=== PATIENT | female | born 1995 | race Caucasian/White ===

== ENCOUNTER → 2018-07-14 16:36 | Outpatient (CLI) | payer OTHER, SELFPAY ==
[2018-07-14 14:30] VITALS: BMI 25.5
[2018-07-14 18:44] LABS: Chlamydia Trachomatis by PCR Negative (Negative); Neisserai gonorrhoeae by PCR Negative (Negative); Specimen Processing Control PASS
[2018-07-14 18:45] LABS: Probe Check PASS; Sample Adequacy Control PASS
== END ==
PROVIDERS: Referring Provider Nurse Practitioner Women's Health; Visit Provider Nurse Practitioner Women's Health
DX: Z11.3 Encounter for screening for infections with a predominantly sexual mode of transmission (principal)
CPT/HCPCS: 87491; 87591

== ENCOUNTER → 2018-10-01 17:46 | Outpatient (CLI) | payer OTHER, SELFPAY ==
[2018-10-01 09:05] VITALS: BMI 25.5
[2018-10-08 13:02] LABS: HPV Reflexed? NOT INDICATED
== END ==
PROVIDERS: Visit Provider Nurse Practitioner Women's Health
DX: Z12.4 Encounter for screening for malignant neoplasm of cervix (principal)
CPT/HCPCS: 87624; 88175; G0145

== ENCOUNTER → 2019-10-05 | Outpatient (CLI) | payer OTHER, SELFPAY ==
[2019-10-05 10:08] VITALS: BMI 25.5
[2019-10-09 04:22] LABS: HPV Reflexed? NOT INDICATED
== END | disposition home or self-care (01) ==
LOC: LABSPEC 14:45
PROVIDERS: Nurse Practitioner Women's Health; Referring Provider Obstetrics & Gynecology; Visit Provider Obstetrics & Gynecology
DX: Z12.4 Encounter for screening for malignant neoplasm of cervix (principal)
CPT/HCPCS: 88175; G0145

== ENCOUNTER 2021-03-29 09:17 | Outpatient (CLI) | payer BC, SELFPAY ==
[2021-04-03 21:45] LABS: HPV Reflexed? NOT INDICATED
== END 2021-03-29 23:59 | disposition short-term general hospital (02) ==
LOC: LABSPEC 03-30 09:15
PROVIDERS: Referring Provider Nurse Practitioner Women's Health; Visit Provider Nurse Practitioner Women's Health
DX: R87.612 Low grade squamous intraepithelial lesion on cytologic smear of cervix (LGSIL) (principal)
CPT/HCPCS: 88175; G0145

== ENCOUNTER 2021-06-01 14:31 | Outpatient (CLI) | payer BC, SELFPAY ==
--- NOTE | 2021-06-01 | ECC_PTH ---
PATIENT: PAULINE BLISS LOC: [facility] U#:[id number] AGE/SX: 26/F ROOM: RE06/01/[address]: Dr. Aleena Humphrey MD : 1995 BED: DIS: 06/01/2021 SPEC #: [id number] RECD: 06/01/21 14:30 STATUS: TITO REStefania #: [id number] SUSY: 06/01/21 00:[address]: Aleena Humphrey DEPT: SURGICAL PATHOLOGY RECD BY: Santos Lott ENTERED: 06/02/21 09:09 SP TYPE: ECC OT DR: Inocencia Primary Care Phys Tissues: A - Endocervical B - Endocervical Procedures: Surgery Specimen Level IV HEADER OPERATION: Colposcopy PRE-OP DIAGNOSIS: LGSIL TISSUE SUBMITTED: A ? Endocervical curettings, B ? 11 o?clock MICROSCOPIC DIAGNOSIS A. Endocervix, curettings (cell block): Rare fragments of benign endocervical and squamous mucosa. No evidence of dysplasia. B. Cervix at 11 o?clock, biopsy (cell block): Rare fragments of benign squamous mucosa. No evidence of dysplasia. AM:kiley 06/05/2021 MICROSCOPIC DESCRIPTION Slides are reviewed. GROSS DESCRIPTION A - Received in fixative is one container labeled with the patient's name and designated endocervical curettings. The specimen consists of a scant amount of soft tissue. The specimen is totally submitted for cell block preparation. B - Received in fixative is one container labeled with the patient's name and designated cervix 11 o'clock. The specimen consists of a scant amount of soft tissue. The specimen is totally submitted for cell block preparation. / SJ:kiley 06/02/2021 TC:5 [facility]: [id number] x2
--- NOTE | 2021-06-01 | IMM_PTH ---
PATIENT: PAULINE BLISS LOC: [facility] U#:[id number] AGE/SX: 26/F ROOM: RE06/01/[address]: Dr. Aleena Humphrey MD : 1995 BED: DIS: 06/01/2021 SPEC #: [id number] RECD: 06/05/21 13:21 STATUS: TITO REQ #: [id number] SUSY: 06/01/21 00:[address]: Aleena Humphrey DEPT: IMMUNOHISTOCHEMISTRY RECD BY: Alie Yadav ENTERED: 06/05/21 13:21 SP TYPE: IMMUNO OT DR: No Primary Care Phys Tissues: B - Uterine cervix, NOS Procedures: p16 (initial) KI-67 (add) PHYSICIAN & INSTITUTION [place] [id number] SPECIMEN INFORMATION: Tissue Source: B ? Cervix at 11 o?clock Clinical Info: [facility] Specimen Number: [id number] CPT code: 94939 METHODOLOGY: Deparaffinized sections of prefer/formalin-fixed tissue or PAP/DQ stained slides are incubated with monoclonal/polyclonal antibodies/oligonucleotide probes. Localization is made via biotin free immunoperoxidase method. Appropriate controls are performed and reacted as expected. Results on target cell population are indicated in the following table: RESULTS: ANTIBODY / CLONE RESULT Block B P16 (E6H4) negative Ki-67 (30-9) negative These tests were developed and their performance characteristics determined by [facility]. They may not have been cleared or approved by the [place]. Food and Drug Administration. The FDA has determined that such clearance or approval is not necessary. The above immunohistochemical/dualISH markers are ordered and reviewed by the Pathologist. INTERPRETATION: B. Cervix at 11 o?clock (cell block): No evidence of HPV change/dysplasia. AM:kiley 06/06/2021
== END 2021-06-01 23:59 | disposition home or self-care (01) ==
LOC: LABSPEC 14:32
PROVIDERS: Referring Provider Obstetrics & Gynecology; Visit Provider Obstetrics & Gynecology
DX: R87.612 Low grade squamous intraepithelial lesion on cytologic smear of cervix (LGSIL) (principal)
CPT/HCPCS: 88305; 88341; 88342

== ENCOUNTER → 2024-12-28 | Outpatient (CLI) | payer MEDICAID, SELFPAY ==
[2024-12-28 17:27] LABS: Hematocrit 38.7 % (37-47); Hemoglobin 13.5 g/dL (12.0-15.0); Immature Granulocytes Count 0.220 X10^3/uL (0.0-0.0); Mean Corp Hgb Conc 34.9 g/dL (32-36); Mean Corpuscular Volume 96.5 fL (81-99); Mean Platelet Vol. 10.5 fl (6.2-12.0); NRBC Flagged by Analyzer 0 % (0-5); Platelet Count 480 K/mm3 (150-450); RBC Distribution Width CV 13.2 % (11.6-14.6); RBC Distribution Width SD 47.1 fl (35.1-43.9); Red Blood Count 4.01 M/mm3 (4.2-5.4); White Blood Count 14.4 K/mm3 (4.4-11.0)
[2024-12-28 17:55] LABS: Glucose Challenge Gest 1H 50g 104 mg/dL (70-140); HIV Nonreactive (Nonreactive); Syphilis Antibodies Nonreactive (Nonreactive)
== END | disposition home or self-care (01) ==
LOC: BWCLAB 13:08
PROVIDERS: Visit Provider Obstetrics & Gynecology
DX: O09.90 Supervision of high risk pregnancy, unspecified, unspecified trimester (principal); Z13.1 Encounter for screening for diabetes mellitus; Z3A.00 Weeks of gestation of pregnancy not specified
CPT/HCPCS: 36415; 82950; 85025; 86703; 86780; 86850; 86900; 86901

== ENCOUNTER 2025-01-26 09:59 | Outpatient (CLI) | payer OTHER, SELFPAY ==
--- NOTE | 2025-01-26 10:03 | US_ITS ---
PROCEDURE: OB LIMITED WITH BIOMETRICS; OB BIOPHYSICAL PROF W/O NST 01/26/2025 REASON FOR EXAM: UTERINE SIZE DATE DISCREPANCY; WELLBEING TECHNIQUE: Procedure Code: USOBGROWTH; USBIOWO Modality: US Procedure: OB LIMITED WITH BIOMETRICS; OB BIOPHYSICAL PROF W/O NST COMPARISON: None FINDINGS Number: 1 Position: Cephalic Placental Position: Fundal Placental Abnormalities: None DIMENSIONS: Biparietal Diameter: 8 cm/32 weeks 0 days, 11 percentile Head Circumference: 28.8 cm/31 weeks 1 day, 1 th percentile Abdominal Circumference: 28.7 cm/32 weeks 5 days, 30 percentile Femur Length: 6.4 cm/32 weeks 6 days, 24th percentile ESTIMATED WEIGHT: 2036 g ESTIMATED WEIGHT PERCENTILE (24+ weeks): 23 ESTIMATED GESTATIONAL AGE: Baseline: 33 weeks 3 days By Ultrasound: 32 weeks 0 days ESTIMATED DATE OF DELIVERY: Baseline: 03/13/2025 By Ultrasound: 03/23/03/23/2025 BIOPHYSICAL ASSESSMENT: Amniotic Fluid Volume: Adequate Amniotic Fluid Index: 11.5 (8-24 cm normal range) BREATHING MOVEMENTS: Score 0/2. BODY MOVEMENTS: Score 2/2. TONE: Score 2/2. QUALITATIVE AMNIOTIC FLUID VOLUME: cm, largest pocket cm Score 2/2. Cardiac Motion: 157 beats per minute (average) MATERNAL ANATOMY: Limited ANATOMY: Limited due to gestational age. The stomach and intracranial structures appear unremarkable. No midline shift. No ventriculomegaly. Remainder of the head is limited to visualization.
[2025-01-26 11:16] VITALS: BP 115/66; PULSE 88; RESP 16; TEMP 36.9; O2SAT 98
[2025-01-26 11:32] VITALS: BMI 27.8
--- OUTSIDE RECORDS SUMMARY | 2025-01-26 11:32 | XMS RPT_ITS | CCD ---
Author Organization [facility] DOOR CLOSER [facility] Care Team Providers Care Marble Mechanic Helper Name Role Phone Care Physician, No Primary Primary Care Provider Unavailable Care Physician, No Primary Referring Provider Un available Rolando HODGE, CHALO Harris Attending Provider Dr. Aleena Humphrey Attending Provider Unavailable Primary Care Provider Unavailabl e Unavailable Primary Care Provider Unavailabl e REFERRED, SELF Referring Unavailable THOMAS CABALLERO Attending Unavailable THOMAS CABALLERO Primary Care Unavailable REFERRED, SELF Referring Unavailable THOMAS CABALLERO Primary Care Unavailable THOMAS CABALLERO Attending Unavailable KATHY MARTINEZ Attending Unavailable Yanet Beckham MD Unavailable Thierry NON CATEGORICAL PRESCHOOL TEACHER.DOUG, Velia J Unavailable [phone] THIERRY, VELIA J Referring Unavailable THIERRY, VELIA J Attending Unavailable THIERRY, VELIA J Referring Unavailable THIERRY, VELIA J Referring Unavailable RYANNE MILIAN Attending Unavailabl e THIERRY, VELIA J Referring Unavailable THIERRY, VELIA J Referring Unavailable THIERRY, VELIA J Attending Unavailable THIERRY, VELIA J Referring Unavailable THIERRY, VELIA J Referring Unavailable THIERRY, VELIA J Referring Unavailable THIERRY, VELIA J Referring Unavailable THIERRY, VELIA J Attending Unavailable Care Physician, No Primary Primary Care Unava ilable Care Physician, No Primary Referring Unava ilAleena Elise Attending Unavailable Care Physician, No Primary Referring Unava ilable Kimberly Marshall NP Attending Unavailable Care Physician, No Primary Primary Care Unava ilable Care Physician, No Primary Primary Care Unava ilable Care Physician, No Primary Attending Unava ilable Care Physician, No Primary Primary Care Unava ilAleena Elise Attending Unavailable Medications Current Medications Medication Drug Class(es) Dates Sig (Normalized) Sig (Original) acetaminophen 500 mg oral tablet (3 sources) Start: 08-04-2023 End: 09-03-2023 take 2 tablets by mouth every six hours as needed for pain acetaminophen (TYLENOL) 500 mg tablet Indications: state Take 2 tablets by mouth every 6 hours as needed for pain. 60 tablet 0 08/04/2023 09/03/2023 Active docusate sodium 100 mg oral capsule (3 sources) Start: 08-04-2023 End: 09-03-2023 take 2 capsules by mouth twice daily as needed for constipation docusate sodium (COLACE) 100 mg capsule Indications: state Take 2 capsules by mouth two times a day as needed for constipation. 60 capsule 0 08/04/2023 09/03/2023 Active Norgestimate-Ethinyl Estradiol (8 sources) Progestin, Estrogen Start: 03-29-2021 take 1 tablet by mouth once daily Norgestimate-Ethiny l Estradiol (Sprintec (28)) 0.25-35 mg-mcg tablet Active 1 TABLET PO daily March 29, 2021 9:20am Start: 01-10-2021 End: 03-29-2021 take 1 tablet by mouth once daily Norgestimate-Ethinyl Estradiol (Sprintec (28)) 0.25-35 mg-mcg tablet Discontinued 1 TABLET PO daily January 10, 2021 10:57am March 29, 2021 9:21am Start: 01-10-2021 End: 01-10-2021 take 1 tablet by mouth once daily Norgestimate-Ethinyl Estradiol (Sprintec (28)) 0.25-35 mg-mcg tablet Discontinued 1 TABLET PO daily January 10, 2021 10:12am January 10, 2021 10:58am Start: 01-09-2021 End: 01-10-2021 take 1 tablet by mouth once daily Norgestimate-Ethinyl Estradiol (Sprintec (28)) 0.25-35 mg-mcg tablet Discontinued 1 TABLET PO daily January 09, 2021 2:05pm January 10, 2021 10:12am Start: 10-05-2019 End: 01-09-2021 take 1 tablet by mouth once daily Norgestimate-Ethinyl Estradiol (Sprintec (28)) 0.25-35 mg-mcg tablet Discontinued 1 TABLET PO daily October 05, 2019 9:49am January 09, 2021 2:05pm Start: 10-05-2019 End: 10-05-2019 take 1 tablet by mouth once daily Norgestimate-Ethinyl Estradiol (Sprintec (28)) 0.25-35 mg-mcg tablet Discontinued 1 TABLET PO daily October 05, 2019 9:49am October 05, 2019 9:49am Start: 10-01-2018 End: 10-05-2019 take 1 tablet by mouth once daily Norgestimate-Ethinyl Estradiol (Sprintec (28)) 0.25-35 mg-mcg tablet Discontinued 1 TABLET PO daily October 01, 2018 9:05am October 05, 2019 9:49am Start: 07-14-2018 End: 10-01-2018 take 1 tablet by mouth once daily Norgestimate-Ethinyl Estradiol (Sprintec (28)) 0.25-35 mg-mcg tablet Discontinued 1 TABLET PO daily July 14, 2018 2:41pm October 01, 2018 9:05am ibuprofen 600 mg oral tablet (3 sources) Nonsteroidal Anti-inflammatory Drug Start: 08-04-2023 End: 09-03-2023 take 1 tablet by mouth every six hours as needed for pain ibuprofen (MOTRIN) 600 mg tablet Indications: state Take 1 tablet by mouth every 6 hours as needed for pain. 60 tablet 0 08/04/2023 09/03/2023 Active 28 mg iron- 800 mcg tab (20 sources) Start: 12-27-2022 take 1 tablet by mouth once daily 28 mg iron- 800 mcg tab TAKE 1 TABLET BY MOUTH ONCE DAILY 30 tablet 11 12/27/2022 Suspended Start: 12-27-2022 take 1 tablet by james th once daily 28 mg iron- 800 mcg tab TAKE 1 TABLET BY MOUTH ONCE DAILY 30 tablet 11 12/27/2022 Active Comment on above: TAKE 1 TABLET BY JAMES TH ONCE DAILY Completed/Discontinued Medications Medication Drug Class(es) Dates Sig (Normalized) Sig (Original) amphetamine aspartate 3.75 mg / amphetamine sulfate 3.75 mg / dextroamphetamine saccharate 3.75 mg / dextroamphetamine sulfate 3.75 mg oral tablet (1 source) Central Nervous System Stimulant Start: 9 End: 0 take 1 tablet by mouth twice daily Dextroamphetamine-Am phetamine (Adderall) 15 mg tablet Discontinued 15 MG PO TWICE A DAY July 14, 2018 2:25pm October 05, 2019 9:41am Desogestrel / Ethinyl Estradiol (1 source) Progestin, Estrogen Start: 6 take 1 tablet by mouth once daily ENSKYCE 0.15-0.03 mg per tablet TAKE ONE TABLET BY MOUTH ONCE DAILY 84 tablet 0 06/28/2015 Active Comment on above: TAKE ONE TABLET BY M OUTH ONCE DAILY 21 day ethinyl estradiol 0.842138 mg/hr / etonogestrel 0.005 mg/hr vaginal system (1 source) Progestin, Estrogen Start: 7 Etonogestrel-Ethinyl Estradiol (NUVARING) 0.12-0.015 mg/24 hr vaginal ring Indications: contraception Insert vaginally and leave in place for 3 consecutive weeks, then remove for 1 week. Indications: Contraception 3 Each 3 06/26/2016 Active Comment on above: Insert vaginally and leave in place for 3 consecutive weeks, then remove for 1 week. Indications: Contraception Norethindrone-E.Estrad iol-Iron (1 source) Estrogen Start: 9 End: 9 take 1 tablet by mouth once daily Norethindrone-E.Estr adiol-Iron (Junel Fe 1.5/30 (28)) 1.5 mg-30 mcg (21)/75 mg (7) tablet Discontinued 1 TABLET PO DAILY July 14, 2018 2:25pm July 14, 2018 2:41pm etonogestrel 68 mg drug implant (1 source) Progestin etonogestrel subdermal implant 68 mg (NEXPLANON) 68 mg by SUBDERMAL route one time only. 0 Active Comment on above: 68 mg by SUBDERMAL r oute one time only. FLUoxetine 20 mg oral capsule (1 source) Serotonin Reuptake Inhibitor take 1 capsule by mouth once daily FLUoxetine (PROZAC) 20 mg capsule Take 20 mg by mouth once daily. 0 Active Comment on above: Take 20 mg by mouth once daily. lisdexamfetamine dimesylate 40 mg oral capsule (1 source) Central Nervous System Stimulant take 1 capsule by mouth once daily lisdexamfetamine (VYVANSE) 40 mg capsule Take 40 mg by mouth once daily. 0 Active Comment on above: Take 40 mg by mouth once daily. multivitamin ( VITAMIN WITH MINERALS) 28 mg iron- 800 mcg tab (1 source) Start: End: 3 take 1 tablet by mouth once daily multivitamin ( VITAMIN WITH MINERALS) 28 mg iron- 800 mcg tab Take 1 tablet by mouth once daily. 30 tablet 11 12/26/2022 12/27/2022 Discontinued Comment on above: Take 1 tablet by james th once daily. Problems Active Problems Problem Classification Problem Date Documented Date Episodic/Chronic Anxiety disorders (1 source) Anxiety disorder, unspecified; Translations: [Anxiety disorder, unspecified] Onset: 12-28-2024 Chronic Cancer of cervix (3 sources) Low grade squamous intraepithelial lesion on cervical Papanicolaou smear; Translations: [Low grade squamous intraepithelial lesion on cytologic smear of cervix (LGSIL)] Onset: 12-28-2024 Episodic Deficiency and other anemia (1 source) Hereditary spherocytosis; Translations: [Hereditary spherocytosis] Onset: 12-28-2024 Chronic Immunizations and screening for infectious disease (1 source) Encounter for prophylactic Rho(D) immune globulin; Translations: [Need for prophylactic immunotherapy] 05-08-2023 Episodic Menstrual disorders (2 sources) Secondary amenorrhea; Translations: [Secondary amenorrhea] Onset: 07-21-2024 01-18-2023 Chronic Other complications of ; puerperium affecting management of mother (1 source) Disorder of ; Translations: [Other disorders of ] 08-30-2023 Episodic Other complications of (20 sources) RhD negative; Translations: [Other specified related conditions, second trimester] Onset: 02-04-2023 Resolved: 08-17-2024 02-04-2023 Episodic Other complications of (20 sources) High risk ; Translations: [Supervision of high risk , unspecified, third trimester] Onset: 05-08-2023 Resolved: 08-17-2024 05-08-2023 Episodic Other complications of (8 sources) H/O: previous delivery by vacuum extraction; Translations: [Supervision of with other poor reproductive or obstetric history, unspecified trimester] Onset: 08-17-2024 08-17-2024 Episodic Other complications of (2 sources) Other specified related conditions, unspecified trimester; Translations: [Rh negative state in antepartum period (HCC)] Onset: 08-17-2024 Episodic Other complications of (2 sources) Supervision of high risk , unspecified, unspecified trimester; Translations: [Supervision of high risk , antepartum (HCC)] Onset: 08-17-2024 Episodic Residual codes; unclassified (1 source) Gestation period, 15 weeks; Translations: [15 weeks gestation of ] 02-04-2023 Episodic Residual codes; unclassified (1 source) Gestation period, 25 weeks; Translations: [25 weeks gestation of ] 04-15-2023 Episodic Residual codes; unclassified (1 source) Gestation period, 28 weeks; Translations: [28 weeks gestation of ] 05-08-2023 Episodic Residual codes; unclassified (1 source) Gestation period, 34 weeks; Translations: [34 weeks gestation of ] 06-19-2023 Episodic Residual codes; unclassified (1 source) Gestation period, 36 weeks; Translations: [36 weeks gestation of ] 07-03-2023 Episodic Residual codes; unclassified (1 source) Gestation period, 37 weeks; Translations: [37 weeks gestation of ] 07-12-2023 Episodic Residual codes; unclassified (1 source) Gestation period, 38 weeks; Translations: [38 weeks gestation of ] 07-16-2023 Episodic Residual codes; unclassified (1 source) Gestation period, 39 weeks; Translations: [39 weeks gestation of ] 07-23-2023 Episodic Residual codes; unclassified (1 source) Gestation period, 40 weeks; Translations: [40 weeks gestation of ] 08-01-2023 Episodic Residual codes; unclassified (1 source) Gestation period, 9 weeks; Translations: [9 weeks gestation of ] 08-17-2024 Episodic Residual codes; unclassified (1 source) Gestation period, 13 weeks; Translations: [13 weeks gestation of ] 09-15-2024 Episodic Residual codes; unclassified (1 source) Gestation period, 17 weeks; Translations: [17 weeks gestation of ] 10-13-2024 Episodic Residual codes; unclassified (2 sources) Unspecified blood type, Rh negative; Translations: [Rh negative state in antepartum period (HCC)] Onset: 08-17-2024 Episodic Residual codes; unclassified (1 source) 23 weeks gestation of ; Translations: [23 weeks gestation of (HCC)] Onset: 11-26-2024 Episodic Residual codes; unclassified (1 source) Acquired absence of spleen; 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] Onset: 10-13-2024 Episodic Residual codes; unclassified (1 source) 17 weeks gestation of ; Translations: [17 weeks gestation of (HCC)] Onset: 10-15-2024 Episodic Residual codes; unclassified (1 source) 13 weeks gestation of ; Translations: [13 weeks gestation of ([facility])] Onset: 09-17-2024 Episodic Residual codes; unclassified (1 source) 29 weeks gestation of ; Translations: [29 weeks gestation of ] Onset: 12-28-2024 Episodic Unclassified (2 sources) No additional problems on file Unclassified (4 sources) [place] [employer] El[employer]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 Onset: 08-04-2023 08-04-2023 Unclassified (2 sources) Patient encounter status 08-17-2024 Unclassified (7 sources) [facility] - [facility] Onset: 08-17-2024 08-17-2024 Unclassified (7 sources) Education - [place] Onset: 08-17-2024 08-17-2024 Unclassified (1 source) Thrombocytosis after splenectomy; 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] Onset: 10-13-2024 Varicose veins of lower extremity (1 source) Asymptomatic varicose veins of unspecified lower extremity; Translations: [Asymptomatic varicose veins of unspecified lower extremity] Onset: 12-28-2024 Episodic Past or Other Problems Problem Classification Problem Date Documented Da te Episodic/Chronic Neoplasms of unspecified nature or uncertain behavior (4 sources) Post-splenectomy thrombocytosis; 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] Onset: 03-11-2023 10-13-2024 Episodic Other complications of ; puerperium affecting management of mother (13 sources) Delivery finding; Translations: [Complication of labor and delivery, unspecified] Onset: 08-02-2023 Resolved: 08-02-2023 08-02-2023 Episodic Other complications of (1 source) Supervision of with other poor reproductive or obstetric history, unspecified trimester; Translations: [History of delivery by vacuum extraction, currently (HCC)] Onset: 08-17-2024 Episodic Other hematologic conditions (20 sources) History of hemolytic anemia; Translations: [Personal history of diseases of the blood and blood-forming organs and certain disorders involving the immune mechanism] Onset: 02-04-2023 02-04-2023 Episodic Other hematologic conditions (20 sources) Erythrocytosis; Translations: [Secondary polycythemia] Onset: 03-11-2023 03-11-2023 Episodic Other hematologic conditions (2 sources) Personal history of diseases of the blood and blood-forming organs and certain disorders involving the immune mechanism; Translations: [History of hereditary spherocytosis] Onset: 08-17-2024 Episodic Other hematologic conditions (1 source) Secondary polycythemia; Translations: [Polycythemia] Onset: 08-17-2024 Episodic Other and delivery including normal (16 sources) state; Translations: [Encounter for routine follow-up] Onset: 08-02-2023 Resolved: 08-17-2024 08-02-2023 Episodic Other screening for suspected conditions (not mental disorders or infectious disease) (9 sources) Cancer cervix screening status; Translations: [Encounter for screening for malignant neoplasm of cervix] Onset: 08-17-2024 02-04-2023 Episodic Residual codes; unclassified (20 sources) Gestation period, 32 weeks; Translations: [32 weeks gestation of ] Onset: 07-03-2023 Resolved: 07-12-2023 06-05-2023 Episodic Residual codes; unclassified (1 source) 9 weeks gestation of ; Translations: [9 weeks gestation of ([facility])] Onset: 08-17-2024 Episodic Spondylosis; intervertebral disc disorders; other back problems (20 sources) Decreased range of lumbar spine movement; Translations: [Other specified dorsopathies, lumbar region] Onset: 07-03-2023 Resolved: 07-12-2023 07-03-2023 Episodic Results Test Name Value Interpretation Reference Range Facil ity Supervisor/Port Director Office Visit Reporton 01-13-2025 Supervisor/Port Director Office Visit Report [facility] [address], [address] [place] [address] OFFICE VISIT Date of Service: 01/13/25 MR#: [id number] Acct: [id number] Name: KEIKO BLISS Rep #: [id number] : 1995 Provider: CHALO warner Age/Sex: 29/F Location: [facility] Status: Signed Intake Vital Signs 06/01/21 13:35 12/28/24 10:45 01/13/25 08:22 Height 5 ft 5 in 5 ft 5 in 5 ft 5 in Weight: 163 lb 2 oz BMI 27.1 BP 120/75 Intake Visit Reasons: 31wk OB Bridal Sales 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 Required: No Is patient in pain?: No Allergies No Known Allergies Allergy (Verified 01/13/25 08:21) Medications ???Medication ???Instructions ???Recorded ???Confirmed ???Type multivit-min no.71-iron fum 28 cap PO 12/24/24 01/13/25 History mg-folate no.1 1 mg-dha 300 mg capsule (PNV-[place]) Last Menstrual Period: 06/06/24 Zika: Zika virus screening: Negative : Yes PFSH PFSH Medical History Former smoker Depression Spherocytosis Surgical History H/O hernia repair H/O splenectomy Family History Mother Spherocytosis Social History adopted: No household members: spouse, children and none housing: house number of children: 1 current occupational status: employed 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 current occupational exposures/hazards: No pets and animals: Yes (Avoid litterbox) pets and animals: cat(s) history of recent travel: No sexually active: Yes Smoking Status: Former smoker quit date: 07/28/19 quit status: quit date established alcohol intake: current alcohol intake frequency: a few times a month details: not while substance use type: does not use well-balanced diet: daily or most days caffeine: Yes Type: tea Number of servings: 1 eating out: rarely or never during the past year weight has: remained stable what type of physical activity do you participate in: other details: working on [employer] frequency: 1-2 times per week ann marie/temple: Scientologist seatbelt use: always do you feel safe at home: Yes additional social history: - Kiran History 2 Elective abortions Hx Para 1 Spontaneous abortions Hx # Term Pregnancies Ectopic pregnancies Hx # Pregnancies Multiple births # of living children 1 Past Pregnancies Del. Date Name GA/Weeks Outcome Route Bth Weight Infant Gen Labor Lgth Anesthesia Del Locatn Provider FOB 08/02/23 Latisha 40 live - full term vacuum 6#14oz Female none [facility] Bill george Kiran HPI 31wk OB Details: KEIKO BLISS is a 29 year old who presents for routine OB visit. OB Visit FLORINDA Calculator Estimated Delivery Date Method Current WG Current Estimate 03/13/25 LMP (Certain) 31w 4d Expected Delivery Route/Plan Labor Preferences- CB/BF classes: no labor support person: Kiran labor intervention preferences: [] pain management options preferred: limited cut cord/dad catch: patient wants to : yes PP control planned: discussed discussed possible routes of delivery and associated risks: [] special requests: [] Specific Issue/Plans Covid status: [] Flu vaccine: declines Tdap vaccine: declines Rhogam: 12/28/24 LARC form signed: [] Problem list reviewed and updated with the most current plan of care details and appropriate orders placed. Relevant counseling for the gestational age provided. Continue routine care and follow up unless otherwise noted in visit notes/problem list details Initial Weight: Not Recorded Date -???-???-???-???-???-? ??-???-???-???-???-??? -???- EGA Weight BP Urine Prot -???-???-???-???-???-? ??-???-???-???-???-??? -???- Glucose FHR FuHt Pres Dilation -???-???-???-???-???-? ??-???-???-???-???-??? -???- Effaced St Visit Note 12/28/24 -???-???-???-???-???-? ??-???-???-???-???-??? -???- 29w 2d 161 lb 8 oz 113/70 Negative -???-???-???-???-???-? ??-???-???-???-???-??? -???- Negative 150 29 -???-???-???-???-???-? ??-???-???-???-???-??? -???- - no vb lo f good fm no regular ctx declined vaccinations fu thuurs/fri for rhogam and gct 01/13/25 -???-???-???-???-???-? ??-???-???-???-???-??? -???- 31w 4d 163 lb 2 oz 120/75 Negative -???-???-???-???-???-? ??-???-???-???-???-??? -???- Negative 154 30 -???-???-???-???-???-? ??-???-???-???-???-??? -???- -NoVB, LOF . Good FM. Larc. Declines flu and tdap. Has tick bite, could not remove all. Going to [facility] clinic next ACOG First Trimester First Trimester: Desire for , Alcohol, Tobacco Cessation, Illicit/Recreational Drug/Sub (more content not included)... Normal [facility] CBC W/Diff, Automatedon 10-2 Absolute Lymph 2.27 X10 3/uL Normal 0.83-4.51 [facility] Comment on above: Performed By: #### L 509.0282, L501.0250, BTS, L100.0100, [id number] #### [facility] [address] [place], [address] Absolute Neut 10.2 X10 3/uL High 2.0-7.7 [facility] Comment on above: Performed By: #### L 509.8002, L501.0250, BTS, L100.0100, [id number] #### [facility] [address] [place], [address] Basophils/100 WBC (Bld) 0.6 % Normal 0-1 [facility] Comment on above: Performed By: #### L 509.8002, L501.0250, BTS, L100.0100, [id number] #### [facility] [address] [place], [address] Eosinophils/100 WBC (Bld) 1.4 % Normal 0-5 [facility] Comment on above: Performed By: #### L 509.8002, L501.0250, BTS, L100.0100, [id number] #### [facility] [address] [place], [address] Erythrocyte distribution width (RBC) [Ratio] 13.2 % Normal 11.6-14.6 [facility] Comment on above: Performed By: #### L 509.8002, L501.0250, BTS, L100.0100, [id number] #### [facility] [address] [place], [address] Hematocrit (Bld) [Volume fraction] 38.7 % Normal 37-47 [facility] Comment on above: Performed By: #### L 509.8002, L501.0250, BTS, L100.0100, [id number] #### [facility] [address] [place], [address] Hemoglobin (Bld) [Mass/Vol] 13.5 g/dL Normal 12.0-15.0 [facility] Comment on above: Performed By: #### L 509.8002, L501.0250, BTS, L100.0100, [id number] #### [facility] [address] [place], [address] IG% 1.500 High 0.0-0.9 [facility] Comment on above: Result Comment: IG% - Immature Granulocytes (promyelocytes, myelocytes and metamyelocytes) > 1% indicates that a LEFT SHIFT is Present. Performed By: #### L 509.8002, L501.0250, BTS, L100.0100, [id number] #### [facility] [address] [place], [address] Lymphocytes/100 WBC (Bld) 15.7 % Low 19-41 [facility] Comment on above: Performed By: #### L 509.8002, L501.0250, BTS, L100.0100, [id number] #### [facility] [address] [place], [address] MCH (RBC) [Entitic mass] 33.7 pg High 27.0-32.0 [facility] Comment on above: Performed By: #### L 509.8002, L501.0250, BTS, L100.0100, [id number] #### [facility] [address] [place], [address] MCHC (RBC) [Mass/Vol] 34.9 g/dL Normal 32-36 [facility] Comment on above: Performed By: #### L 509.8002, L501.0250, BTS, L100.0100, [id number] #### [facility] [address] [place], [address] MCV (RBC) [Entitic vol] 96.5 fL Normal 81-99 [facility] Comment on above: Performed By: #### L 509.8002, L501.0250, BTS, L100.0100, [id number] #### [facility] [address] [place], [address] Monocytes/100 WBC (Bld) 10.1 % High 0-10 [facility] Comment on above: Performed By: #### L 509.8002, L501.0250, BTS, L100.0100, [id number] #### [facility] [address] [place], [address] Neutrophils/100 WBC (Bld) 70.7 % High 47-70 [facility] Comment on above: Performed By: #### L 509.8002, L501.0250, BTS, L100.0100, [id number] #### [facility] [address] [place], [address] Nucleated RBC (Bld) [#/Vol] 0 10*3/uL Normal 0-5 [facility] Comment on above: Performed By: #### L 509.8002, L501.0250, BTS, L100.0100, [id number] #### [facility] [address] [place], [address] Platelet mean volume (Bld) [Entitic vol] 10.5 fL Normal 6.2-12.0 [facility] Comment on above: Performed By: #### L 509.8002, L501.0250, BTS, L100.0100, L3890.6006 #### [facility] [address] [place], [address] Platelets (Bld) [#/Vol] 480 10*3/uL High 150-450 [facility] Comment on above: Performed By: #### L 509.8002, L501.0250, BTS, L100.0100, L3890.6006 #### [facility] [address] [place], [address] RBC (Bld) [#/Vol] 4.01 10*6/uL Low 4.2-5.4 [facility] Comment on above: Performed By: #### L 509.8002, L501.0250, BTS, L100.0100, L3890.6006 #### [facility] [address] [place], [address] RDW SD 47.1 fl High 35.1-43.9 [facility] Comment on above: Performed By: #### L 509.8002, L501.0250, BTS, L100.0100, L3890.6006 #### [facility] [address] [place], [address] WBC (Bld) [#/Vol] 14.4 10*3/uL High 4.4-11.0 [facility] Comment on above: Performed By: #### L 509.8002, L501.0250, BTS, L100.0100, L3890.6006 #### [facility] [address] [place], [address] Glucose Challenge Gest 1H 50 steven 12-28-2024 GLU GEST 50g 1H 104 mg/dL Normal 70-140 [facility] Comment on above: Performed By: #### L 509.8002, L501.0250, BTS, L100.0100, L3890.6006 #### [facility] [address] [place], [address] HIVon 12-28-2024 HIV Non-Reactive Normal Nonreactive [facility] Comment on above: Result Comment: Non- Reactive Reactive Repeatedly reactive samples must be confirmed according to CDC recommended confirmatory algorithms. The subresults for either HIVAG or AHIV can be used as an aid in the selection of the confirmation algorithm for reactive samples. Send out specimens with Reactive results to [facility] for confirmation. Order the HIV antibody detection and differentiation: lc#[id number] Performed By: #### L 509.8002, L501.0250, BTS, L100.0100, L3890.6006 #### [facility] [address] [place], [address] Supervisor/Port Director Office Visit Reporton 12-28-2024 Supervisor/Port Director Office Visit Report [address], [address] [place] [address] OFFICE VISIT Date of Service: 12/28/24 MR#: [id number] Acct: [id number] Name: KEIKO BLISS Rep #: [id number] : 1995 Provider: Dr. Aleena main MD Age/Sex: 29/F Location: [facility] Status: Signed with Addenda ADDENDUM by Kimberly Garnett on 12/28/24 at 1317 Office Procedure Documentation entered by Kimberly Garnett 12/28/24 13:17: Injections Procedure performed by: Kimberly Garnett Medication Given: Yes Is this a patient provided medication?: No Office Meds RhoGAM Ultra-Filtered PLUS 1,500 unit (300 mcg) intramuscular syringe Performing Provider: Aleena Humphrey MD Performing Location: [facility] Administered by: Kimberly Garnett on 12/28/24 13:15 Dose Route Admin Location Dispensed Lot Number Expiration Date Package NDC NDC [facility] Receptionist 1,500 unit IM right gluteal 1 ea [id number] 09/26/26 69164-776-16 [id number] 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 Is patient in pain?: No Allergies No Known Allergies Allergy (Verified 12/28/24 10:37) Medications ???Medication ???Instructions ???Recorded ???Confirmed ???Type multivit-min no.71-iron fum 28 cap PO 12/24/24 History mg-folate no.1 1 mg-dha 300 mg capsule (PNV-[place]) Last Menstrual Period: 06/06/24 Zika: Zika virus screening: Negative : No PFSH PFSH Medical History Former smoker Depression Spherocytosis Surgical History H/O hernia repair H/O splenectomy Family History Mother Spherocytosis Social History adopted: No household members: spouse, children and none housing: house number of children: 1 service: No current occupational status: employed current occupation: [employer] current occupational exposures/hazards: No pets and animals: Yes (Avoid litterbox) pets and animals: cat(s) history of recent travel: No sexually active: Yes Smoking Status: Former smoker quit date: 07/28/19 quit status: quit date established alcohol intake: current alcohol intake frequency: a few times a month details: not while substance use type: does not use well-balanced diet: daily or most days caffeine: Yes Type: tea Number of servings: 1 eating out: rarely or never during the past year weight has: remained stable what type of physical activity do you participate in: other details: working on [employer] frequency: 1-2 times per week ann marie/temple: Scientologist seatbelt use: always do you feel safe at home: Yes additional social history: - Kiran History 2 Elective abortions Hx Para 1 Spontaneous abortions Hx # Term Pregnancies Ectopic pregnancies Hx # Pregnancies Multiple births # of living children 1 Past Pregnancies Del. Date Name GA/Weeks Outcome Route Bth Weight Gen Labor Lgth Anesthesia Del Locatn Provider FOB 08/02/23 Latisha 40 live - full term vacuum 6#14oz Female none [facility] eKvin Beck HPI ALISSON 28WK OB/GLUCOSE/RHOGAM Details: KEIKO COVERT is a 29 year old who presents for New OB visit. OB Visit FLORINDA Calculator Estimated Delivery Date Method Current WG Current Estimate 03/13/25 LMP (Certain) 29w 2d Comments: HIV: Urine Culture: Sequential Screen: NIPT Screen: Estimated Due Date: 03/13/25 Expected Delivery Route/Plan Labor Preferences- CB/BF classes: [] labor support person: [] labor intervention preferences: [] pain management options preferred: [] cut cord/dad catch: [] : [] PP control planned: [] discussed possible routes of delivery and associated risks: [] special requests: [] Specific Issue/Plans Covid status: [] Flu vaccine: [] Tdap vaccine: [] Rhogam: [] LARC form signed: [] Problem list reviewed and updated with the most current plan of care details and appropriate orders placed. Relevant counseling for the gestational age provided. Continue routine care and follow up unless otherwise noted in visit notes/problem list details Initial Weight: Not Recorded Date -???-???-???-???-???-? ??-???-???-???-???-??? -???- EGA Weight BP Urine Prot -???-???-???-???-???-? ??-???-???-???-???-??? -???- Glucose FHR FuHt Pres Dilat (more content not included)... Normal [facility] Syphilis Antibodieson 2024 Syphilis Abs Non-Reactive Normal Nonreactive [facility] Comment on above: Performed By: #### L 509.8002, L501.0250, BTS, L100.0100, L3890.6006 #### [facility] [address] [place] [place], [address] Type AND Screenon 12-28-2024 ABO and Rh group Nom (Bld) Blood group A Rh(D) negative Normal [facility] Comment on above: Order Comment: PN Performed By: #### L 509.8002, L501.0250, BTS, L100.0100, L3890.6006 #### [facility] [place], [address] Examination level ultrasound on 10-29-2024 Indication Standard anatomic survey. Impression The patient is referred for a standard anatomic survey. - Single, live, intrauterine . - biometry is consistent with the established gestational age. - No malformations were visualized on a complete standard anatomic survey. - The amniotic fluid volume is normal amount. - The placenta is posterior. - The Transabdominal cervical length measures 34.2 mm with no evidence of funneling or other dynamic changes. - Not all structural malformations can be detected by ultrasound examination. Recommendations Additional follow-up as clinically indicated. Maternal Assessment Height 165 cm Height (ft) 5 ft Height (in) 5 in Physical Exam Initial weight (lb) 140 lb Initial BMI 23.30 kg/m Method Transabdominal ultrasound examination. View: Adequate visualization Bustamante . Number of fetuses: 1 Dating LMP on: 06/06/2024 GA by LMP 20 w + 5 d FLORINDA by LMP: 03/13/2025 GA by prior assessment 19 w + 3 d FLORINDA by prior assessment: 03/22/2025 Ultrasound examination on: 10/29/2024 GA by U/S based upon: AC, BPD, Femur, HC GA by U/S 20 w + 0 d FLORINDA by U/S: 03/18/2025 Assigned: based on ultrasound (CRL), selected on 08/17/2024 Assigned GA 19 w + 3 d Assigned FLORINDA: 03/22/2025 General Evaluation Cardiac activity present. FHR 146 bpm. movements: present. Presentation: cephalic Placenta: Placental site: posterior Umbilical cord: Cord vessels: 3 vessel cord. Insertion site: normal insertion Amniotic fluid: Amount of AF: normal amount. MVP 4.0 cm Growth Overview Exam date GA BPD (mm) HC (mm) AC (mm) FL (mm) HL (mm) EFW (g) 10/29/2024 19w 3d 47.2 83% 165.1 42% 152.3 78% 31.4 76% 30.9 80% 329 78% Biometry Standard BPD 47.2 mm 20w 2d 83% Hadlock OFD 56.0 mm 18w 4d 25% Nicolaides HC 165.1 mm 19w 1d 42% Chuy Cerebellum tr 19.3 mm 18w 5d 28% Hill Nuchal fold 2.4 mm AC 152.3 mm 20w 3d 78% Hadlock Femur 31.4 mm 19w 6d 76% Chuy Humerus 30.9 mm 20w 2d 80% Chuy EFW 329 g 20w 0d 78% Hadlock EFW (lb) 0 lb EFW (oz) 12 oz EFW by: Hadlock ([id number]) Extended Network Security Analyst 6.8 mm CM 3.6 mm 12% Nicolaides Nasal bone 6.6 mm Extremities / Bony Struc FL / HC 0.19 76% Hadlock Other Structures FHR 146 bpm Anatomy Cranium: normal Lateral ventricles: normal Choroid plexus: normal Midline falx: normal Cavum septi pellucidi: normal Cerebellum: normal Cisterna magna: normal Head / Neck Vermis: Normal but not required for a standard anatomy exam Neck: Normal but not required for a standard anatomy exam Nuchal fold: Normal but not required for a standard anatomy exam Lips: normal Profile: Normal but not required for a standard anatomy exam Nose: Normal but not required for a standard anatomy exam Face Maxilla: Normal but not required for a standard anatomy exam Mandible: Normal but not required for a standard anatomy exam Orbits: Normal but not required for a standard anatomy exam Lens: Normal but not required for a standard anatomy exam 4-chamber view: normal RVOT view: normal LVOT view: normal 3-vessel view: normal 7-[id number]-szxggmt view: normal Heart / Thorax Situs: situs solitus (normal) Aortic arch view: Normal but not required for a standard anatomy exam SVC: Normal but not required for a standard anatomy exam IVC: Normal but not required for a standard anatomy exam Cardiac axis: normal Rt lung: Normal but not required for a standard anatomy exam Lt lung: Normal but not required for a standard anatomy exam Diaphragm: normal Cord insertion: normal Stomach: normal Kidneys: normal Bladder: normal Genitals: visualized Abdomen Abdom. wall: normal Cervical spine: normal Thoracic spine: normal Lumbar spine: normal Sacral spine: normal Arms: normal Legs: normal Rt upper arm: normal Rt forearm: normal Rt hand: normal Rt fingers: normal Lt upper arm: normal Lt forearm: normal Lt hand: normal Lt fingers: normal Rt upper leg: normal Rt lower leg: normal Rt foot: normal Lt upper leg: normal Lt lower leg: normal Lt foot: normal sex: female sex: normal Wants to know sex: yes Maternal Structures Uterus / Cervix Uterus: Visualized Uterus details: normal Cervix: Visualized Approach: Transabdominal Cervical length 34.2 mm Other: Patient declined transvaginal ultrasound for cervical length. Ovaries / Tubes / Adnexa Rt ovary: Visualized Rt ovary D1 32 mm Rt ovary D2 30 mm Rt ovary D3 11 mm Rt ovary Vol 5.5 cm Lt ovary: Suboptimal Cul de Sac / Bladder / Kidneys / Other Cul de Sac: Visualized Free fluid: no free fluid visualized Performed By: Nikia Orocso RDMS Read By: Yesica Castillo M.D. MATERNAL MEDICINE [facility] Radiology Study observation (narrative) [facility] UA DIP, URINE (POC)on 2024 BILIRUBIN UA (POCT) Negative Negative [facility] CLARITY UA (POCT) Clear [facility] COLOR UA (POCT) Yellow [facility] GLUCOSE UA (POCT) Negative Negative mg/dL [facility] Hemoglobin Ql (U) Negative Negative [facility] Interpretation and review of laboratory results Abnormal [facility] KETONE UA (POCT) Negative Negative mg/dL [facility] LEUKOCYTES UA (POCT) Small Abnormal Negative [facility] NITRITE UA (POCT) Negative Negative [facility] PH UA (POCT) 7.5 4.5 - 8.0 [facility] Protein Ql (U) 30 mg/dL Abnormal Negative [facility] SPECIFIC GRAVITY UA (POCT) 1.015 1.005 - 1.030 [facility] UROBILINOGEN UA (POCT) 1.0 Normal E.U./dL [facility] Location:[facility], [address], [address] [place] [address] POINT OF CARE [facility] CBC W Auto Diff Bldon 2024 Erythrocyte distribution width (RBC) [Ratio] 13.2 % Normal 11.5-15.0 [facility] Comment on above: Order Comment: Speci men Type: BLOOD SPECIMEN Ordering Facility: [facility] Address: [address] [place] [address] Performed By: #### 5 7021-8 #### [id number] [address] OF [facility] Performed By: #### M AT21 #### [facility] CLIA [id number] [address] [place] [address] CBC W Auto Differential pane l (Bld)on 09-17-2024 Basophils (Bld) [#/Vol] 0.08 10*3/uL Normal <0.11 [facility] Comment on above: Order Comment: Speci men Type: BLOOD SPECIMEN Ordering Facility: [facility] Address: [address] [place] [address] Performed By: #### 5 7021-8 #### [facility] CLIA [id number] [address] Basophils/100 WBC (Bld) 0.7 % Normal [facility] Comment on above: Order Comment: Speci men Type: BLOOD SPECIMEN Ordering Facility: [facility] Address: [address] [place] [address] Performed By: #### 5 7021-8 #### [facility] CLIA [id number] [address] Differential cell count method Nom (Bld) Auto Normal [facility] Comment on above: Order Comment: Speci men Type: BLOOD SPECIMEN Ordering Facility: [facility] Address: [address] [place] [address] Performed By: #### 5 7021-8 #### [facility] CLIA [id number] [address] [place] [address] [place] Eosinophils (Bld) [#/Vol] 0.07 10*3/uL Normal <0.46 [facility] Comment on above: Order Comment: Speci men Type: BLOOD SPECIMEN Ordering Facility: [facility] Address: [facility] [place] [address] Performed By: #### 5 7021-8 #### [facility] CLIA [id number] [address] OF [place] Eosinophils/100 WBC (Bld) 0.6 % Normal [facility] Comment on above: Order Comment: Speci men Type: BLOOD SPECIMEN Ordering Facility: [facility] Address: [address] [place] [address] Performed By: #### 5 7021-8 #### [facility] CLIA [id number] [address] Hematocrit (Bld) [Volume fraction] 41.7 % Normal 36.0-46.0 [facility] Comment on above: Order Comment: Speci men Type: BLOOD SPECIMEN Ordering Facility: [facility] Address: [address] [place] [address] Performed By: #### 5 7021-8 #### [facility] CLIA [id number] [address] Hemoglobin (Bld) [Mass/Vol] 14.2 g/dL Normal 11.5-15.5 [facility] Comment on above: Order Comment: Speci men Type: BLOOD SPECIMEN Ordering Facility: [facility] Address: [address] [place] [address] Performed By: #### 5 7021-8 #### [facility] CLIA [id number] [address] Immature granulocytes (Bld) [#/Vol] 0.05 10*3/uL Normal <0.10 [facility] Comment on above: Order Comment: Speci men Type: BLOOD SPECIMEN Ordering Facility: [facility] Address: [address] [place] [address] Performed By: #### 5 7021-8 #### [facility] CLIA [id number] [address] Immature granulocytes/100 WBC (Bld) 0.4 % Normal [facility] Comment on above: Order Comment: Speci men Type: BLOOD SPECIMEN Ordering Facility: [facility] Address: [address] [place] [address] Performed By: #### 5 7021-8 #### [facility] CLIA [id number] [address] [place] Lymphocytes (Bld) [#/Vol] 2.30 10*3/uL Normal 1.00-4.00 [facility] Comment on above: Order Comment: Speci men Type: BLOOD SPECIMEN Ordering Facility: [facility] Address: [address] [place] [address] Performed By: #### 5 7021-8 #### [facility] CLIA [id number] [address] Lymphocytes/100 WBC (Bld) 20.6 % Normal [facility] Comment on above: Order Comment: Speci men Type: BLOOD SPECIMEN Ordering Facility: [facility] Address: [address] [place] [address] Performed By: #### 5 7021-8 #### [facility] CLIA [id number] [address] MCH (RBC) [Entitic mass] 32.1 pg Normal 26.0-34.0 [facility] Comment on above: Order Comment: Speci men Type: BLOOD SPECIMEN Ordering Facility: [facility] Address: [address] [place] [address] Performed By: #### 5 7021-8 #### [facility] CLIA [id number] [address] MCHC (RBC) [Mass/Vol] 34.1 g/dL Normal 30.5-36.0 [facility] Comment on above: Order Comment: Speci men Type: BLOOD SPECIMEN Ordering Facility: [facility] Address: [address] [place] [address] Performed By: #### 5 7021-8 #### [facility] CLIA [id number] [address] MCV (RBC) [Entitic vol] 94.1 fL Normal 80.0-100.0 [facility] Comment on above: Order Comment: Speci men Type: BLOOD SPECIMEN Ordering Facility: [facility] Address: [address] [place] [address] Performed By: #### 5 7021-8 #### [facility] CLIA [id number] [address] [place] [address] [place] Monocytes (Bld) [#/Vol] 1.10 10*3/uL High <0.87 [facility] Comment on above: Order Comment: Speci men Type: BLOOD SPECIMEN Ordering Facility: [facility] Address: [address] [place] [address] Performed By: #### 5 7021-8 #### [facility] CLIA [id number] [address] [place] Monocytes/100 WBC (Bld) 9.9 % Normal [facility] Comment on above: Order Comment: Speci men Type: BLOOD SPECIMEN Ordering Facility: [facility] Address: [address] [place] [address] Performed By: #### 5 7021-8 #### [facility] CLIA [id number] [address] [place] Neutrophils (Bld) [#/Vol] 7.54 10*3/uL High 1.45-7.50 [facility] Comment on above: Order Comment: Speci men Type: BLOOD SPECIMEN Ordering Facility: [facility] Address: [address] [place] [address] Performed By: #### 5 7021-8 #### [facility] CLIA [id number] [address] [place] Neutrophils/100 WBC (Bld) 67.8 % Normal [facility] Comment on above: Order Comment: Speci men Type: BLOOD SPECIMEN Ordering Facility: [facility] Address: [address] [place] [address] Performed By: #### 5 7021-8 #### [facility] CLIA [id number] [address] [place] [address] [place] Nucleated RBC (Bld) [#/Vol] 10*3/uL Normal <0.01 [facility] Comment on above: Order Comment: Speci men Type: BLOOD SPECIMEN Ordering Facility: [facility] Address: [address] [place] [address] Performed By: #### 5 7021-8 #### [facility] CLIA [id number] [address] [place] Nucleated RBC/100 WBC (Bld) [Ratio] 0.0 /[address] [facility] Comment on above: Order Comment: Speci men Type: BLOOD SPECIMEN Ordering Facility: [facility] Address: [facility] [place] [address] Performed By: #### 5 7021-8 #### [facility] CLIA [id number] [address] [place] Platelet mean volume (Bld) [Entitic vol] 10.6 fL Normal 9.0-12.7 [facility] Comment on above: Order Comment: Speci men Type: BLOOD SPECIMEN Ordering Facility: [facility] Address: [address] [place] [address] Performed By: #### 5 7021-8 #### [facility] CLIA [id number] [address] [place] Platelets (Bld) [#/Vol] 500 10*3/uL High 150-400 [facility] Comment on above: Order Comment: Speci men Type: BLOOD SPECIMEN Ordering Facility: [facility] Address: [address] [place] [address] Performed By: #### 5 7021-8 #### [facility] CLIA [id number] [address] [place] RBC (Bld) [#/Vol] 4.43 10*6/uL Normal 3.90-5.20 [facility] Comment on above: Order Comment: Speci men Type: BLOOD SPECIMEN Ordering Facility: [facility] Address: [facility] [place] [address] Performed By: #### 5 7021-8 #### [facility] CLIA [id number] [address] [place] WBC (Bld) [#/Vol] 11.14 10*3/uL High 3.70-11.00 [facility] Comment on above: Order Comment: Speci men Type: BLOOD SPECIMEN Ordering Facility: [facility] Address: [address], [place] [address] Performed By: #### 5 7021-8 #### [facility] CLIA [id number] [address] [place] [address] [place] Examination level ultrasound on 09-17-2024 Indication First trimester anatomic survey History of hereditary spherocytosis. Polycythemia Impression The patient is referred for a first trimester anatomy scan including nuchal translucency measurement as clinically indicated. - Single, live, intrauterine . - [place] rump length measurement is consistent with the established gestational age. - A qualitative screen of the nuchal translucency and other anatomic structures was unremarkable on an incomplete first trimester anatomic assessment. - Not all structural malformations can be detected by ultrasound examination. - An anatomic survey at 18-20 weeks is recommended given no identified risk factors. Recommendations - An anatomic survey at 18-20 weeks given no identified risk factors. - Additional follow up as clinically indicated. Maternal Assessment Height 165 cm Height (ft) 5 ft Height (in) 5 in Method Transabdominal ultrasound examination Bustamante . Number of fetuses: 1 Dating LMP on: 06/06/2024 GA by LMP 14 w + 5 d FLORINDA by LMP: 03/13/2025 GA by prior assessment 13 w + 3 d FOLRINDA by prior assessment: 03/22/2025 Ultrasound examination on: 09/17/2024 GA by U/S based upon: CRL GA by U/S 13 w + 2 d FLORINDA by U/S: 03/23/2025 Assigned: based on ultrasound (CRL), selected on 08/17/2024 Assigned GA 13 w + 3 d Assigned FLORINDA: 03/22/2025 General Evaluation Cardiac activity present Placenta: posterior Cord vessels: 3 vessel cord Amniotic fluid: normal amount Biometry Standard FHR 168 bpm CRL 71.1 mm 13w 2d 38% Hadlock First Trimester Anatomy Calvarium: normal Falx cerebri: normal Choroid plexus: normal Profile: normal Nasal bone: normal Retronasal triangle: normal Maxilla: normal Mandible: normal Nuchal translucency: Unremarkable Situs: normal Cardiac position: normal Cardiac axis: normal 4-chamber view: normal 4-chamber view with color: normal 2-ptbxei-cbtpddq view: suboptimal Abdominal cord insertion: normal Stomach: normal Kidneys: normal Bladder: normal Color doppler of perivesical umbilical arteries: normal Vertebral alignment: normal Arms: normal Hands: normal Legs: normal Feet: normal Maternal Structures Uterus / Cervix Uterus: Visualized Ovaries / Tubes / Adnexa Rt ovary: Not visualized Lt ovary: Not visualized Performed By: Risa Ann RUST Read By: Yesica Castillo M.D. MATERNAL MEDICINE [facility] Radiology Study observation (narrative) [facility] HAV IgM Ser Qlon 09-17-2024 HAV IgM Ql (S) Non-Reactive Normal Nonreactive [facility] Comment on above: Order Comment: Speci men Type: BLOOD SPECIMEN Ordering Facility: [facility] Address: [address] [place] [address] Result Comment: No e vidence of recent infection with Hepatitis A virus. Performed By: #### M AT21 #### [facility] CLIA [id number] [address] [place] [address] HBV core IgM Ser Qlon 2024 HBV core IgM Ql (S) Non-Reactive Normal Nonreactive [facility] Comment on above: Order Comment: Speci men Type: BLOOD SPECIMEN Ordering Facility: [facility] Address: [address] [place] [address] Result Comment: No e vidence of recent infection with Hepatitis B virus. Should recent infection be suspected, repeat testing may be considered 3-4 weeks after this draw. Performed By: #### M AT21 #### [facility] CLIA [id number] [address] [place] [address] HBV surface Ag Ser Qlon 09-01 HBV surface Ag Ql (S) Non-Reactive Normal Nonreactive [facility] Comment on above: Order Comment: Speci men Type: BLOOD SPECIMEN Ordering Facility: [facility] Address: [address] [place] [address] Performed By: #### M AT21 #### [facility] CLIA [id number] [address] [place] [address] HCV Ab Ser Qlon 09-17-2024 HCV Ab Ql (S) Non-Reactive Normal Nonreactive [facility] Comment on above: Order Comment: Janelle oscar Type: BLOOD SPECIMEN Ordering Facility: [facility] Address: [address] [place] [address] Result Comment: The result suggests no evidence of active infection with Hepatitis C virus. Should recent infection be suspected, repeat testing may be considered 4-6 weeks after this draw. Performed By: #### 5 7021-8 #### [facility] CLIA [id number] [address] HGB ELECTROPHORESIS FOR EVAL (LAB ORDER)on 09-17-2024 Hemoglobin A (Bld) [Mass fraction] 97.3 % Normal 96.2-98.0 [facility] Comment on above: Order Comment: Janelle oscar Type: BLOOD SPECIMEN Ordering Facility: [facility] Address: [address] [place] [address] Performed By: #### 5 7021-8 #### [facility] CLIA [id number] [address] Hemoglobin A2 (Bld) [Mass fraction] 2.7 % Normal 2.0-3.1 [facility] Comment on above: Order Comment: Janelle oscar Type: BLOOD SPECIMEN Ordering Facility: [facility] Address: [address] [place] [address] Performed By: #### 5 7021-8 #### [facility] CLIA [id number] [address] Hemoglobin Unsp Elph (Bld) [Mass fraction] Normal No abnormal hemoglobin identified. [facility] Comment on above: Order Comment: Janelle [facility] Type: BLOOD SPECIMEN Ordering Facility: [facility] Address: [address] [place] [address] Result Comment: No a bnormal hemoglobin identified. Performed By: #### 5 7021-8 #### [facility] CLIA [id number] [address] HGB EVALUATION CASCADE INTER Leandro 09-17-2024 Hemoglobin pattern (Bld) [Interp] Reviewed by Kari Regan M.D. Normal [facility] Comment on above: Order Comment: Speci men Type: BLOOD SPECIMEN Ordering Facility: [facility] Address: [address] [place] [address] Performed By: #### 5 7021-8 #### [facility] CLIA [id number] [address] [place] INTERPRETATION (HGB EVAL) Normal [facility] Comment on above: Order Comment: Speci men Type: BLOOD SPECIMEN Ordering Facility: [facility] Address: [address] [place] [address] Result Comment: Hemo globins were analyzed by capillary electrophoresis and CBC red cell parameters were reviewed. No abnormal hemoglobin is identified. There is a normal hemoglobin capillary electrophoresis pattern. Performed By: #### 5 7021-8 #### [facility] CLIA [id number] [address] OF [facility] HIV 1+2 Ab IA Qlon 5 HIV 1 and 2 Ab IA.rapid Nom (S/P/Bld) Normal [facility] Comment on above: Order Comment: Speci men Type: BLOOD SPECIMEN Ordering Facility: [facility] Address: [address] [place] [address] Result Comment: Test not indicated. Performed By: #### M AT21 #### [facility] CLIA [id number] [address] [facility] [place] [address] HIV 1+2 Ab+HIV1 p24 Ag IA Ql Non-Reactive Normal Nonreactive [facility] Comment on above: Order Comment: Speci men Type: BLOOD SPECIMEN Ordering Facility: [facility] Address: [address] [place] [address] Result Comment: [place] Rev. Code 3701.243(E): This information has been disclosed to you from confidential records protected from disclosure by state law. ???You shall make no further disclosure of this information without the specific, written, and informed release of the individual to whom it pertains or as otherwise permitted by state law. A general authorization for the release of medical or other information is not sufficient for the purpose of the release of HIV test results or diagnoses. Performed By: #### M AT21 #### [facility] CLIA [id number] [address] [place] [address] HIV immunoassay testing algorithm interpretation (S/P/Bld) [Interp] Normal [facility] Comment on above: Order Comment: Janelle oscar Type: BLOOD SPECIMEN Ordering Facility: [facility] Address: [address] [place] [address] Result Comment: No e vidence of HIV-1 or HIV-2 infection. Should recent infection be suspected, repeat testing may be considered 2-3 weeks after this draw. Performed By: #### M AT21 #### [facility] CLIA [id number] [address] [place] [address] HbA1c (Bld)on 09-17-2024 Average glucose Estimated from glycated hemoglobin (Bld) [Mass/Vol] 71 mg/dL Normal [facility] Comment on above: Order Comment: Janelle [facility] Type: BLOOD SPECIMEN Ordering Facility: [facility] Address: [address] [place] [address] Result Comment: eAG: (Estimated average glucose) is a calculated value from HgbA1c and is nutrition representative of the average blood glucose level in the last 2-3 month period. Performed By: #### M AT21 #### [facility] CLIA [id number] [address] [place] [address] HbA1c (Bld) [Mass fraction] 4.1 % Low 4.3-5.6 [facility] Comment on above: Order Comment: Dannieraul [facility] Type: BLOOD SPECIMEN Ordering Facility: [facility] Address: [address] [place] [address] Result Comment: Amer [place] Diabetes Association guidelines indicate that patients with HgbA1c in the range 5.7-6.4% are at increased risk for development of diabetes, and intervention by lifestyle modification may be beneficial. HgbA1c greater or equal to 6.5% is considered diagnostic of diabetes. Performed By: #### M AT21 #### [facility] CLIA [id number] [address] [place] [address] [id number] PLUSon 09-17-2024 Cell-free DNA./Cell-free DNA.total Dosage of chromosome-specific cfDNA (cfDNA) [Molar fraction] 18% Normal [facility] Comment on above: Order Comment: Speci men Type: BLOOD SPECIMEN Ordering Facility: [facility] Address: [address] [place] [address] Performed By: #### M AT21 #### [facility] CLIA [id number] [address] [place] [address] Chr 13+18+21+X+Y aneuploidy Dosage of chromosome-specific cfDNA Ql (cfDNA) Negative Normal [facility] Comment on above: Order Comment: Speci men Type: BLOOD SPECIMEN Ordering Facility: [facility] Address: [address] [place] [address] Performed By: #### M AT21 #### [facility] CLIA [id number] [address] [place] [address] Chr 21 trisomy Dosage of chromosome-specific cfDNA Ql (cfDNA) Negative Normal [facility] Comment on above: Order Comment: Speci men Type: BLOOD SPECIMEN Ordering Facility: [facility] Address: [address] [place] [address] Performed By: #### M AT21 #### [facility] CLIA [id number] [address] [place] [address] Chr X and Y aneuploidy risk Sequencing Ql (cfDNA) [Interp] Not detected Normal [facility] Comment on above: Order Comment: Speci [facility] Type: BLOOD SPECIMEN Ordering Facility: [facility] Address: [address] [place] [address] Result Comment: Not Detected Not Detected Performed By: #### M AT21 #### [facility] CLIA [id number] [address] [place] [address] Citation Josemanuel (Reference lab test) Comment Normal [facility] Comment on above: Order Comment: Speci men Type: BLOOD SPECIMEN Ordering Facility: [facility] Address: [address] [place] [address] Result Comment: 1. Les CARVALHO, et al. Shantel Med. 2012;14(3):296-305. 2. La WHALEY et al. Prenat Diag. 2013;33(6):591-597. 3. Estrada C, et al. Clin Chem. 2015 Apr;61(4):608-616. 4. Meño CARVALHO et al. Shantel Med. 2011;13(11):913-920. 5. ACOG/SMFM Practice Bulletin No. 226, Dec 2019. Performed By: #### M AT21 #### [facility] CLIA [id number] [address] [place] [address] Gestational age Estimated from conception date Bustamante [facility] Comment on above: Order Comment: Danniei men Type: BLOOD SPECIMEN Ordering Facility: [facility] Address: [address] [place] [address] Performed By: #### M AT21 #### [facility] CLIA [id number] [address] [place] [address] GESTATIONALAGE AGE > OR = 9W Yes [facility] Comment on above: Order Comment: Speci men Type: BLOOD SPECIMEN Ordering Facility: [facility] Address: [address] [place] [address] Performed By: #### M AT21 #### [facility] CLIA [id number] [address] [place] [id number] Laboratory comment Josemanuel (Report) Comment [facility] Comment on above: Order Comment: Janelle oscar Type: BLOOD SPECIMEN Ordering Facility: [facility] Address: [address] [place] [address] Result Comment: The MaterniT(R) 21 PLUS laboratory-developed test (LDT) analyzes circulating cell-free DNA from a maternal blood sample. This test is used for screening purposes and not diagnostic. Clinical correlation is recommended. Validation data on twin pregnancies is limited and the ability of this test to detect aneuploidy in higher multiple gestations has not yet been validated. Performed By: #### M AT21 #### [facility] CLIA [id number] [address] [place] [address] director distribution name Nom (Provider) Comment [facility] Comment on above: Order Comment: Speci celestina Type: BLOOD SPECIMEN Ordering Facility: [facility] Address: [address] [place] [address] Result Comment: This specimen showed an expected representation of chromosome 21, 18 and 13 material. Clinical correlation is suggested. Comment Jake Short MD, PhD, Director, [facility] Performed By: #### M AT21 #### [facility] CLIA [id number] [facility] [place] [address] LIMITATIONS OF THE TEST Comment Normal [facility] Comment on above: Order Comment: Janelle oscar Type: BLOOD SPECIMEN Ordering Facility: [facility] Address: [address] [place] [address] Result Comment: Chon larios the results of these tests are highly reliable, discordant results, including inaccurate sex prediction, may occur due to placental, maternal, or mosaicism or neoplasm; vanishing twin; prior maternal organ transplant; or other causes. These tests are screening tests and not diagnostic; they do not replace the accuracy and precision of diagnosis with CVS or amniocentesis. A patient with a positive test result should be referred for genetic counseling and offered invasive diagnosis for confirmation of test results.[5] The results of this testing, including the benefits and limitations, should be discussed with a qualified healthcare provider. management decisions, including termination of the , should not be based on the results of these tests alone. The healthcare provider is responsible for the use of this information in the management of their patient. Sex chromosomal aneuploidies are not reportable for known multiple gestations. A negative result does not ensure an unaffected nor does it exclude the possibility of other chromosomal abnormalities or defects which are not a part of these tests. An uninformative result may be reported, the causes of which may include, but are not limited to, insufficient sequencing coverage, noise or artifacts in the region, amplification or sequencing bias, or insufficient fraction. These tests are not intended to identify pregnancies at risk for neural tube defects or ventral wall defects. Testing for whole chromosome abnormalities (including sex chromosomes) and for subchromosomal abnormalities could lead to the potential discovery of both and maternal genomic abnormalities that could have major, minor, or no, clinical significance. Evaluating the significance of a positive or a non-reportable result may involve both invasive testing and additional studies on the mother. Such investigations may lead to a diagnosis of maternal chromosomal or subchromosomal abnormalities, which on occasion may be associated with benign or malignant maternal neoplasms. These tests may not accurately identify triploidy, balanced rearrangements, or the precise location of subchromosomal duplications or deletions; these may be detected by diagnosis with CVS or amniocentesis. The ability to report results may be impacted by maternal BMI, maternal weight, maternal systemic lupus erythematosus (SLE) and/or by certain pharmaceutical agents such as low molecular weight heparin (for example: Lovenox(R), Xaparin(R), Clexane(R) and Fragmin(R)). Performed By: #### M AT21 #### [facility] CLIA [id number] [address] [place] [id number] Monosomy X risk Dosage of chromosome-specific cfDNA Ql (Plasma cell-free+WBC DNA) [Interp] Not detected Normal [facility] Comment on above: Order Comment: Janelle oscar Type: BLOOD SPECIMEN Ordering Facility: [facility] Address: [address] [place] [address] Performed By: #### M AT21 #### [facility] CLIA [id number] [address] [place] [address] NEGATIVE PREDICTIVE VALUE Note Normal [facility] Comment on above: Order Comment: Janelle oscar Type: BLOOD SPECIMEN Ordering Facility: [facility] Address: [address] [place] [address] Result Comment: The Negative Predictive Value (NPV) for trisomy 21, 18, and 13 is greater than 99%. The NPV for SCA and ESS cannot be calculated as SCA and ESS are only reported when an abnormality is detected. Performed By: #### M AT21 #### [facility] CLIA [id number] [address] [place] [address] PERFORMANCE CHARACTERISTICS Note Normal [facility] Comment on above: Order Comment: Janelle oscar Type: BLOOD SPECIMEN Ordering Facility: [facility] Address: [address] [place] [address] Result Comment: ! Sex ! Accuracy: 99.4% ! ! ! ! Region (associated syndrome) ! Est. Sens# ! Est. Spec ! ! ! ! Trisomy 21 (Down Syndrome) ! 99.1% ! 99.9% ! ! ! ! Trisomy 18 (Nicole Syndrome) ! >99.9% ! 99.6% ! ! ! ! Trisomy 13 (Patau Syndrome) ! 91.7% ! 99.7% ! ! ! ! Sex Chromosome Aneuploidies## ! 96.2% ! 99.7% ! ! ! * As reported in [facility] database nstd37 [https://www.ncbi.nlm.nih.gov/dbvar/studies/nstd37/ ] # Estimated Sensitivity. Sensitivity estimated across the observed size distribution of each syndrome [per [employer] database nstd37] and across the range of fractions observed in routine clinical NIPT. Actual sensitivity can also be influenced by other factors such as the size of the event, total sequence counts, amplification bias, or sequence bias. ## Bustamante gestation only. Performed By: #### M AT21 #### [facility] CLIA [id number] [address] [place] [address] POSITIVE PREDICTIVE VALUE N/A Normal [facility] Comment on above: Order Comment: Speci men Type: BLOOD SPECIMEN Ordering Facility: [facility] Address: [address] [place] [address] Performed By: #### M AT21 #### [facility] CLIA [id number] [address] [place] [id number] Reference Lab Test Method Comment Normal [facility] Comment on above: Order Comment: Speci men Type: BLOOD SPECIMEN Ordering Facility: [facility] Address: [address] [place] [address] Result Comment: Circ ulating cell-free DNA was purified from the plasma component of maternal blood. The extracted DNA was then converted into a genomic DNA library for aneuploidy analysis of chromosomes 21, 18, and 13 via next generation sequencing.[1] Optional findings based on the test order include sex chromosome aneuploidy (SCA)[2], and enhanced sequencing series (ESS)[3], which will only be reported on as an additional finding when an abnormality is detected. SCA testing includes information on X and Y representation, while ESS testing includes deletions in selected regions (22q, 15q, 11q, 8q, 5p, 4p, 1p) and trisomy of chromosomes 16 and 22. Performed By: #### M AT21 #### [facility] CLIA [id number] [address] [place] [address] Service comment (Unsp spec) [Interp] Comment Normal [facility] Comment on above: Order Comment: Speci men Type: BLOOD SPECIMEN Ordering Facility: [facility] Address: [address] [place] [address] Result Comment: [employer] is a subsidiary of [employer], using the brand [facility]. This test was developed and its performance characteristics determined by [facility]. It has not been cleared or approved by the Food and Drug Administration. This laboratory is certified under the Clinical Laboratory Improvement Amendments (CLIA) as qualified to perform high complexity clinical laboratory testing and accredited by the [employer] (CAP). If there is future clinical need for adding MaterniT GENOME testing, this specimen will be available until term. [facility] samples will not be retained beyond 60 days. [facility] patients will have to send a new sample for re-sequencing ([facility] Test Code: [id number]). Performed By: #### M AT21 #### [facility] CLIA [id number] [address] [place] [address] Sex Dosage of chromosome-specific cfDNA Nom (cfDNA) Comment Normal [facility] Comment on above: Order Comment: Speci men Type: BLOOD SPECIMEN Ordering Facility: [facility] Address: [address] [place] [address] Result Comment: Cons istent with Female Performed By: #### M AT21 #### [facility] CLIA [id number] [address] [place] [address] Test performance information Josemanuel (Unsp spec) Comment Normal [facility] Comment on above: Order Comment: Speci men Type: BLOOD SPECIMEN Ordering Facility: [facility] Address: [address] [place] [address] Result Comment: The performance characteristics of the MaterniT(R) 21 PLUS laboratory-developed test (LDT) have been determined in a clinical validation study with women at increased risk for chromosomal aneuploidy.[1-4] Performed By: #### M AT21 #### [facility] CLIA [id number] [address] [place] [address] Trisomy 13 risk Dosage of chromosome-specific cfDNA Ql (cfDNA) [Interp] Negative Normal [facility] Comment on above: Order Comment: Speci men Type: BLOOD SPECIMEN Ordering Facility: [facility] Address: [address] [place] [address] Performed By: #### M AT21 #### [facility] CLIA [id number] [address] [place] [address] Trisomy 18 risk Dosage of chromosome-specific cfDNA Ql (Plasma cell-free+WBC DNA) [Interp] Negative Normal [facility] Comment on above: Order Comment: Speci men Type: BLOOD SPECIMEN Ordering Facility: [facility] Address: [address] [place] [address] Performed By: #### M AT21 #### [facility] CLIA [id number] [address] [place] [address] RBC PARAMETERS FOR HB IDon 0 09-17-2024 Hematocrit (Bld) [Volume fraction] 41.4 % Normal 36.0-46.0 [facility] Comment on above: Order Comment: Speci men Type: BLOOD SPECIMEN Ordering Facility: [facility] Address: [address] [place] [address] Performed By: #### M AT21 #### [facility] CLIA [id number] [address] [place] [address] Hemoglobin (Bld) [Mass/Vol] 14.4 g/dL Normal 11.5-15.5 [facility] Comment on above: Order Comment: Speci men Type: BLOOD SPECIMEN Ordering Facility: [facility] Address: [address] [place] [address] Performed By: #### M AT21 #### [facility] CLIA [id number] [address] [place] [address] MCH (RBC) [Entitic mass] 31.9 pg Normal 26.0-34.0 [facility] Comment on above: Order Comment: Speci men Type: BLOOD SPECIMEN Ordering Facility: [facility] Address: [address] [place] [address] Performed By: #### M AT21 #### [facility] CLIA [id number] [address] [place] [address] MCHC (RBC) [Mass/Vol] 34.8 g/dL Normal 30.5-36.0 [facility] Comment on above: Order Comment: Speci celestina Type: BLOOD SPECIMEN Ordering Facility: [facility] Address: [address] [place] [address] Performed By: #### M AT21 #### [facility] CLIA [id number] [address] [place] [address] MCV (RBC) [Entitic vol] 91.8 fL Normal 80.0-100.0 [facility] Comment on above: Order Comment: Speci men Type: BLOOD SPECIMEN Ordering Facility: [facility] Address: [address] [place] [address] Performed By: #### M AT21 #### [facility] CLIA [id number] [address] [place] [address] RBC (Bld) [#/Vol] 4.51 10*6/uL Normal 3.90-5.20 [facility] Comment on above: Order Comment: Speci men Type: BLOOD SPECIMEN Ordering Facility: [facility] Address: [address] [place] [address] Performed By: #### M AT21 #### [facility] CLIA [id number] [address] [place] [address] RUBELLA IGG ANTIBODYon 09-17 RUBELLA IGG AB, QUAL Positive Normal Positive [facility] Comment on above: Order Comment: Specraul oscar Type: BLOOD SPECIMEN Ordering Facility: [facility] Address: [address] [place] [address] Result Comment: The result suggests recent or past exposure to Rubella virus or history of Rubella vaccination. Positive result may also be seen due to presence of passively-transferred antibodies. Please correlate with patient's history. The following results were obtained with the [employer] Rubella IgG assay. Results from assays of other manufacturers cannot be used interchangeably. Performed By: #### 5 7021-8 #### [facility] CLIA [id number] [address] OF [place] Reagin and Treponema pallidu m IgG and IgM [Interp]on 09-17-2024 T. pallidum IgG+IgM IA Ql (S) Non-Reactive Normal Nonreactive [facility] Comment on above: Order Comment: Speci men Type: BLOOD SPECIMEN Ordering Facility: [facility] Address: [address] [place] [address] Performed By: #### 5 7021-8 #### [facility] CLIA [id number] [address] [place] [address] [place] Reagin+T pallidum IgG+IgM Se rPl-Impon 09-17-2024 Reagin and Treponema pallidum IgG and IgM [Interp] Cannot exclude recent Treponemal infection if specimen collected within 7-10 days after appearance of suspect lesions or 2-3 weeks after an exposure. Clinical correlation is required. Normal [facility] Comment on above: Order Comment: Speci men Type: BLOOD SPECIMEN Ordering Facility: [facility] Address: [address] [place] [address] Performed By: #### 5 7021-8 #### [facility] CLIA [id number] [address] [place] TYPE + SCREEN PRENATALon ABO A Normal [facility] Comment on above: Order Comment: Speci men Type: BLOOD SPECIMEN Ordering Facility: [facility] Address: [address] [place] [address] Performed By: #### M AT21 #### [facility] CLIA [id number] [address] [place] [address] Rh Nom (Bld) Negative Normal [facility] Comment on above: Order Comment: Speci men Type: BLOOD SPECIMEN Ordering Facility: [facility] Address: [address] [place] [address] Performed By: #### M AT21 #### [facility] CLIA [id number] [address] [place] [address] TYPE AND SCREEN EXPIRATION 09/20/2024 23:[address] [facility] Comment on above: Order Comment: Speci men Type: BLOOD SPECIMEN Ordering Facility: [facility] Address: [address] [place] [address] Performed By: #### M AT21 #### [facility] CLIA [id number] [address] [place] [address] UA DIP, URINE (POC)on 2024 BILIRUBIN UA (POCT) Negative Negative [facility] CLARITY UA (POCT) Clear [facility] COLOR UA (POCT) Yellow [facility] GLUCOSE UA (POCT) Negative Negative mg/dL [facility] Hemoglobin Ql (U) Negative Negative [facility] Interpretation and review of laboratory results Abnormal [facility] KETONE UA (POCT) Trace Negative mg/dL [facility] LEUKOCYTES UA (POCT) Negative Negative [facility] NITRITE UA (POCT) Negative Negative [facility] PH UA (POCT) 5.5 4.5 - 8.0 [facility] Protein Ql (U) Trace Abnormal Negative mg/dL [facility] SPECIFIC GRAVITY UA (POCT) 1.025 1.005 - 1.030 [facility] UROBILINOGEN UA (POCT) 1 Normal E.U./dL [facility] Location:[facility], [address] [place] [address], [address] [place] [address] POINT OF CARE [facility] Bacteria Ur Culton Bacteria identified Cx Nom (U) CULTURE, URINE: No growth (<1,000 CFU/ml) Normal [facility] Comment on above: Performed By: #### M AT21 #### [facility] CLIA [id number] [address] [place] [address] C. trachomatis+N. gonorrhoea e DNA MARCY+probe Ql (Unsp spec)on 08-17-2024 C. trachomatis rRNA MARCY+probe Ql (Unsp spec) Not detected Normal Not detected [facility] Comment on above: Order Comment: Speci men Type: URINE SPECIMEN Ordering Facility: [facility] Address: [address] [place] [address] Performed By: #### 3 6902-5 #### [facility] CLIA [id number] [address] [place] [address] [place] N. gonorrhoeae rRNA MARCY+probe Ql (Unsp spec) Not detected Normal Not detected [facility] Comment on above: Order Comment: Speci men Type: URINE SPECIMEN Ordering Facility: [facility] Address: [address] [place] [id number] Performed By: #### 3 6902-5 #### [facility] CLIA [id number] [address] [place] [address] [place] [facility] CNOVon 08-17-2024 CNOV Office Visit ([facility] ) COVERT,KEIKO Bustos ([id number]) 1995 F Date Time Provider Department 08/17/24 9:15 AM ULTRASOUND [employer] [facility] During your visit today, we recorded the following information about you: Referring Provider: VELIA GUADARRAMA [[id number]] Allergies As of Date: 08/17/2024 (No Known Allergies) Date Reviewed: 08/17/2024 Reviewed by: Velia Guadarrama, BENITO.CREDIT RISK ANALYTICS MANAGER - Fully Assessed Reason for Visit: Us Procedure [4086] Visit Diagnosis:Early stage of (HCC) [Z34.90] Order(s):OBSTETRIC ULTRASOUND WHI [[id number]] Reflex Order#: [id number] (Ord#:[id number])Spec. 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 Examination level ultrasound on 08-17-2024 Indication Viability Impression - Single, live, intrauterine . - An intrauterine gestational sac with a yolk sac and pole is present. - [place] rump length measurement is NOT consistent with the dating provided. Therefore, dating is now based on today's crown rump length. The final EDC is 03/22/2025 - heart rate is within normal limits. Recommendations Additional follow-up as clinically indicated. Maternal Assessment Height 165 cm Height (ft) 5 ft Height (in) 5 in Method Transabdominal ultrasound examination Bustamante . Number of embryos: 1 Dating LMP on: 06/06/2024 GA by LMP 10 w + 2 d FLORINDA by LMP: 03/13/2025 Ultrasound examination on: 08/17/2024 GA by U/S based upon: CRL GA by U/S 9 w + 0 d FLORINDA by U/S: 03/22/2025 Assigned: based on ultrasound (CRL), selected on 08/17/2024 Assigned GA 9 w + 0 d Assigned FLORINDA: 03/22/2025 Biometry Standard FHR 175 bpm CRL 23.5 mm 9w 0d 66% [place]lock Assessment Gestational sac: visualized Location: intrauterine Yolk sac: visualized Embryo: visualized CRL 23.5 mm 9w 0d 66% [place] Cardiac activity: present FHR 175 bpm Maternal Structures Uterus / Cervix Uterus: Visualized Uterus position: anteverted Uterus length 87 mm Uterus width 79 mm Uterus height 75 mm Uterus Vol 268.5 cm Cervix: Visualized Funneling: Funneling absent Cerclage: Cervical cerclage absent Ovaries / Tubes / Adnexa Rt ovary: Not visualized Lt ovary: Visualized Lt ovary morphology: normal Lt ovary D1 28 mm Lt ovary D2 22 mm Lt ovary D3 17 mm Lt ovary Vol 5.2 cm Performed By: Adriana Guerrier RDMS Read By: Ryanne Milian M.D. MATERNAL MEDICINE [facility] Radiology Study observation (narrative) [facility] B-HCG SerPl-aCncon 5 [place] [address].0 m[IU]/mL High <5.0 [facility] Comment on above: Order Comment: Speci men Type: BLOOD SPECIMEN Ordering Facility: [facility] Address: [address] [place] [address] Result Comment: KIMO TITATIVE HCG NORMAL RANGES Weeks of Gestation (Weeks Since LMP) 3 Weeks (5.8-71.2 mIU/mL) 4 Weeks (9.5-750 mIU/mL) 5 Weeks (217-7138 mIU/mL) 6 Weeks (158-21996 mIU/mL) 7 Weeks (3697-184417 mIU/mL) 8 Weeks (78889-552896 mIU/mL) 9 Weeks (86396-472474 mIU/mL) 10 Weeks (15348-629134 mIU/mL) 12 Weeks (78765-054790 mIU/mL) Referenced to 4th IS of [facility] Performed By: #### M AT21 #### [facility] [place] [id number] [address] [place] [address] Philip 07-21-2024 RAMU Telephone (LA) COVERTKEIKO ([id number]) 1995 F Date Time Provider Department 07/21/24 VELIA GUADARRAMA During your visit today, we recorded the following information about you: Cyndi Grissom, RN 07/21/2024 12:30 PM Signed HCG pended. Pt is A neg. Thank you, Cyndi Grissom RN HCG needed lmp 4/5 home test positive Allergies As of Date: 07/21/2024 (No Known Allergies) Date Reviewed: 09/10/2023 Reviewed by: Adriana Malik LPN - Fully Assessed Reason for Visit: Orders [681] Primary Visit Diagnosis:Secondary amenorrhea [N91.1] Order(s):HCG QUANTITATIVE [SQHCGQT] Order #: [id number] FUTURE Prescriptions as of 07/21/2024 - 28 mg iron- 800 mcg tab TAKE 1 TABLET BY MOUTH ONCE DAILY Problem List As Of Date 07/21/2024 Noted Resolved History of hereditary spherocytosis [Z86.2] 02/04/2023 Rh negative state in antepartum period, second *02/04/2023 Polycythemia [D75.1] 03/11/2023 Supervision of high risk in third tri*05/08/2023 32 weeks gestation of [Z3A.32] 07/03/2023 07/12/2023 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 Are you okay with the letter? Thanks! NAIMA Rubalcava Tammy L, RN 01/21/2024 8:17 AM Signed Called asking what response was and RN went over Dr Swanson's note and yes, she still wants the tattoo knowing the risks. Still asking for a letter. Please advise. Thank you, NAIMA Gutiérrez, After reviewing the literature, it seems that the ink particles are too large to pass through breastmilk however they are some damaso particles and some additives that can, in addition there is the risk of infection which can be transmitted to the infant through breastmilk. Please discuss those risks with the patient and please let me know if she is still willing to go ahead with this tattooing with those known risks. Thank you for your help Cyndi Grissom RN 01/22/2024 9:31 AM Signed Aware of Dr Swanson's note and has decided to wait until after she is done brf to get the tattoo. NAIMA Gutiérrez, The only letter I would give is that she can have the tattoo at her own risk, the literature does not support having a tattoo while breast-feeding. 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] 07/03/2023 07/12/2023 Labor and delivery, indication for care [O75.9] 08/02/2023 08/02/2023 state [Z39.2] 08/02/2023 Encounter Status:Closed by STACEY GOLDMAN on 01/20/24 [facility] CNOVon 08-27-2023 CNOV Office Visit ([facility] ) COVERT,KEIKO Bustos ([id number]) 1995 F Date Time Provider Department 08/27/23 2:00 PM KATHY MARTINEZ [facility] During your visit today, we recorded the following information about you: Kathy Martinez DO 08/30/2023 4:11 PM Signed MEDICINE CONSULT VISIT SUBJECTIVE This is an /mother dyad being seen together in Medicine Clinic for a consultation visit. The mother, Keiko Bliss, is a 27 year old year old female with a past medical history related to of spherocytosis. 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 ) -latching difficulties initially but could get to latch initially - since took her to see family unable to get to latch since July 12 -On 08/16/23 was 7 lb exactly per parents History obtained from infant's MOTHER My final recommendations will be communicated back to the requesting provider, Self, by electronic medical record. HISTORY: First time : Yes Delay in milk coming in (beyond day 5): No Experienced engorgement with milk coming in: Yes Has seen a sr. consultant or medicine provider after hospital discharge: Yes, [facility] : Yes, every feed Pumping: Yes, every 3 hour(s) 8 times per day for 20 minutes, pumping 3 ounces total per session Supplementing with expressed breast milk? Yes - 2.5 oz bottles of breast milk every 2-3 hours; 20 oz per day; 30 minutes to take 2.5 oz - using Evenflow wide base Supplementing with formula? No Additional feeding devices used: finger feeding with syringe at first and SNS INFANT REVIEW OF SYSTEMS: General: -fussy with feeds: Yes -sleepy with feeds: Yes -content after feeds at breast: No -weight gain: good Skin: -rashes or lesions: No -jaundice: No GI: -excessive spitting up or vomiting: No -adequate number of stools per day that are yellow and seedy without blood or mucous: Yes : Adequate number of wet diapers per day: Yes Neuro: Development: meeting appropriate milestones: Yes MATERNAL REVIEW OF SYSTEMS: General: -Fever/chills/myalgias : No Breasts: -Breast pain during feeds? No -Breast pain not during feeds? No -Nipples cracked without bleeding? No -Nipples cracked with bleeding? No -Nipple pain: No -Breast mass or clogged ducts? No -Breast redness or erythema? No -Breast engorgement? No Psych: Screening tools reviewed and discussed with patient/family-Ramona anderson. Please see Patient Entered Data. [place] Depression Score: 8 PAST MEDICAL HISTORY/PROBLEM LIST: PEDIATRIC HISTORY Gestational age: 40 4/7 wks Delivery method: Vaginal, Vacuum (Extractor) scores: One: 8 Five: 9 weight: 3112 g (6 lb 13.8 oz) Discharge weight: 2907 g (6 lb 6.5 oz) Length: 52.0 cm (20.472) HC: 32 cm Feeding method: ACTIVE PROBLEM LIST Hyperbilirubinemia - 08/04/2023 Family History of Hereditary Spherocytosis - 08/04/2023 Declined Hepatitis B Immunization - 08/04/2023 Meconium in Amniotic Fluid - 08/02/2023 , Unspecified Gestational Age - 0508/02/2023 MEDICATIONS: No prescriptions on file. INFANT: ALLERGIES No Known Allergies MATERNAL PAST MEDICAL HISTORY/PROBLEM LIST: This section contains information obtained from infant?s mother?s chart pertinent to the care of the dyad. Prior breast imaging, surgeries, biopsies, reduction, augmentation or nipple piercing: No Breast cancer diagnosed in any family members <50 y/o, Ashkenazi Orthodoxy descent, or FHx of ovarian cancer? No Concern for risk of low supply? Yes bleeding? No Return of menses? No Breast changes 1st trimester? No Thyroid disease? No PCOS symptoms: irregular periods/hirsutism/ovar yvonne cysts? No Infertility? No BMI>30? No Diabetes or failed glucose tolerance test/insulin resistance/Hgb A1C? No Hypertension, preeclampsia? No History of need for blood transfusion/iron/postp artum hemorrhage? No History of pituitary problems, brain injury? No History of placental encapsulation? No History of tobacco or recreational drug use? No Chance of ? No PAST MEDICAL HISTORY Diagnosis Date Blood dyscrasia Chlamydia 2015 Mental disorder hx while in college - denies at this time Rh incompatibility Spherocytosis (HCC) 1995 ACTIVE PROBLEM LIST State - 08/02/2023 Comment: S/p VAVD Routine post- care Meeting milestones: Tolerating oral intake, ambulating without difficulty, pain well-controlled, voiding without difficul (more content not included)... Normal [facility] UA DIP, URINE (POC)on 2023 BILIRUBIN UA (POCT) Negative Negative [facility] CLARITY UA (POCT) Clear [facility] COLOR UA (POCT) Yellow [facility] GLUCOSE UA (POCT) Negative Negative mg/dL [facility] Hemoglobin Ql (U) Trace-intact Abnormal Negative [facility] Interpretation and review of laboratory results Abnormal [facility] KETONE UA (POCT) Negative Negative mg/dL [facility] LEUKOCYTES UA (POCT) Large Abnormal Negative [facility] NITRITE UA (POCT) Negative Negative [facility] PH UA (POCT) 6.0 4.5 - 8.0 [facility] Protein Ql (U) Trace Abnormal Negative mg/dL [facility] SPECIFIC GRAVITY UA (POCT) 1.025 1.005 - 1.030 [facility] UROBILINOGEN UA (POCT) 0.2 Normal E.U./dL [facility] Location:[facility], [address], [address] [place] [address] POINT OF CARE [facility] UA DIP, URINE (POC)on 2023 BILIRUBIN UA (POCT) Negative Negative [facility] CLARITY UA (POCT) Clear [facility] COLOR UA (POCT) Yellow [facility] GLUCOSE UA (POCT) Negative Negative mg/dL [facility] Hemoglobin Ql (U) Trace-intact Abnormal Negative [facility] Interpretation and review of laboratory results Abnormal [facility] KETONE UA (POCT) Negative Negative mg/dL [facility] LEUKOCYTES UA (POCT) Small Abnormal Negative [facility] NITRITE UA (POCT) Negative Negative [facility] PH UA (POCT) 6.0 4.5 - 8.0 [facility] Protein Ql (U) Negative Negative mg/dL [facility] SPECIFIC GRAVITY UA (POCT) 1.015 1.005 - 1.030 [facility] UROBILINOGEN UA (POCT) 0.2 Normal E.U./dL [facility] Location:[facility], [address] [place] [address], [address] [place] [address] POINT OF CARE [facility] UA DIP, URINE (POC)on 2023 BILIRUBIN UA (POCT) Negative Negative [facility] CLARITY UA (POCT) Clear [facility] COLOR UA (POCT) Yellow [facility] GLUCOSE UA (POCT) Negative Negative mg/dL [facility] Hemoglobin Ql (U) Negative Negative [facility] Interpretation and review of laboratory results Abnormal [facility] KETONE UA (POCT) Negative Negative mg/dL [facility] LEUKOCYTES UA (POCT) Large Abnormal Negative [facility] NITRITE UA (POCT) Negative Negative [facility] PH UA (POCT) 7.5 4.5 - 8.0 [facility] Protein Ql (U) Trace Abnormal Negative mg/dL [facility] SPECIFIC GRAVITY UA (POCT) 1.020 1.005 - 1.030 [facility] UROBILINOGEN UA (POCT) 1.0 Normal E.U./dL [facility] Location:[facility], [address] [place] [address], [address] [place] [address] POINT OF CARE [facility] UA DIP, URINE (POC)on 2023 BILIRUBIN UA (POCT) Negative Negative [facility] CLARITY UA (POCT) Clear [facility] COLOR UA (POCT) Yellow [facility] GLUCOSE UA (POCT) Negative Negative mg/dL [facility] Hemoglobin Ql (U) Trace-lysed Abnormal Negative [facility] Interpretation and review of laboratory results Abnormal [facility] KETONE UA (POCT) Negative Negative mg/dL [facility] LEUKOCYTES UA (POCT) Large Abnormal Negative [facility] NITRITE UA (POCT) Negative Negative [facility] PH UA (POCT) 6.5 4.5 - 8.0 [facility] Protein Ql (U) Negative Negative mg/dL [facility] SPECIFIC GRAVITY UA (POCT) 1.020 1.005 - 1.030 [facility] UROBILINOGEN UA (POCT) 0.2 Normal E.U./dL [facility] Location:[facility], [address] [place] [address], [address] [place] [address] POINT OF CARE [facility] UA DIP, URINE (POC)on 2023 BILIRUBIN UA (POCT) Negative Negative [facility] CLARITY UA (POCT) Clear [facility] COLOR UA (POCT) Yellow [facility] GLUCOSE UA (POCT) Negative Negative mg/dL [facility] Hemoglobin Ql (U) Trace-intact Abnormal Negative [facility] Interpretation and review of laboratory results Abnormal [facility] KETONE UA (POCT) Negative Negative mg/dL [facility] LEUKOCYTES UA (POCT) Large Abnormal Negative [facility] NITRITE UA (POCT) Negative Negative [facility] PH UA (POCT) 7.0 4.5 - 8.0 [facility] Protein Ql (U) Negative Negative mg/dL [facility] SPECIFIC GRAVITY UA (POCT) 1.020 1.005 - 1.030 [facility] UROBILINOGEN UA (POCT) 0.2 Normal E.U./dL [facility] Location:[facility], [address] [place] [address], [address] [place] [address] POINT OF CARE [facility] UA DIP, URINE (POC)on 2023 BILIRUBIN UA (POCT) Negative Negative [facility] CLARITY UA (POCT) Clear [facility] COLOR UA (POCT) Yellow [facility] GLUCOSE UA (POCT) Negative Negative mg/dL [facility] Hemoglobin Ql (U) Negative Negative [facility] KETONE UA (POCT) Negative Negative mg/dL [facility] LEUKOCYTES UA (POCT) Moderate Abnormal Negative [facility] NITRITE UA (POCT) Negative Negative [facility] PH UA (POCT) 6.5 4.5 - 8.0 [facility] Protein Ql (U) Negative Negative mg/dL [facility] SPECIFIC GRAVITY UA (POCT) 1.025 1.005 - 1.030 [facility] UROBILINOGEN UA (POCT) 0.2 E.U./dL Normal E.U./dL [facility] Examination level ultrasound on 06-05-2023 [facility] UA DIP, URINE (POC)on 2023 BILIRUBIN UA (POCT) Negative Negative [facility] CLARITY UA (POCT) Clear [facility] COLOR UA (POCT) Yellow [facility] GLUCOSE UA (POCT) Negative Negative mg/dL [facility] Hemoglobin Ql (U) Negative Negative [facility] KETONE UA (POCT) Negative Negative mg/dL [facility] LEUKOCYTES UA (POCT) Moderate Abnormal Negative [facility] NITRITE UA (POCT) Negative Negative [facility] PH UA (POCT) 5.5 4.5 - 8.0 [facility] Protein Ql (U) Negative Negative mg/dL [facility] SPECIFIC GRAVITY UA (POCT) 1.025 1.005 - 1.030 [facility] UROBILINOGEN UA (POCT) 0.2 E.U./dL Normal E.U./dL [facility] UA DIP, URINE (POC)on 2023 BILIRUBIN UA (POCT) Negative Negative [facility] CLARITY UA (POCT) [facility] COLOR UA (POCT) Yellow [facility] GLUCOSE UA (POCT) Negative Negative mg/dL [facility] Hemoglobin Ql (U) Negative Negative [facility] KETONE UA (POCT) Negative Negative mg/dL [facility] LEUKOCYTES UA (POCT) Moderate Abnormal Negative [facility] NITRITE UA (POCT) Negative Negative [facility] PH UA (POCT) 6.0 4.5 - 8.0 [facility] Protein Ql (U) Negative Negative mg/dL [facility] SPECIFIC GRAVITY UA (POCT) 1.025 1.005 - 1.030 [facility] UROBILINOGEN UA (POCT) 0.2 E.U./dL Normal E.U./dL [facility] UA DIP, URINE (POC)on 2023 BILIRUBIN UA (POCT) Negative Negative [facility] CLARITY UA (POCT) [facility] COLOR UA (POCT) Yellow [facility] GLUCOSE UA (POCT) Negative Negative mg/dL [facility] Hemoglobin Ql (U) Trace-intact Abnormal Negative [facility] KETONE UA (POCT) Negative Negative mg/dL [facility] LEUKOCYTES UA (POCT) Moderate Abnormal Negative [facility] NITRITE UA (POCT) Negative Negative [facility] PH UA (POCT) 7.5 4.5 - 8.0 [facility] Protein Ql (U) Negative Negative mg/dL [facility] SPECIFIC GRAVITY UA (POCT) 1.025 1.005 - 1.030 [facility] UROBILINOGEN UA (POCT) 0.2 E.U./dL Normal E.U./dL [facility] Laboratory - Chemistry and C hemistry - challengeon 06-01-2021 HCG ( test) Ql (U) Negative [facility] Work Phone: Cervical or vagninal specime n microscopic examination by cytology stain (reported ason 03-29-2021 Cytology report Cyto stain Doc (Cvx/Vag) Comment [facility] Work Phone: Comment on above: The Pap smear is a s creening test designed to aid in thedetection of premalignant and malignant conditions of theuterine cervix. It is not a diagnostic procedure andshould not be used as the sole means of detecting cervicalcancer. Both false-positive and false-negative reports dooccur. Laboratory - Cytologyon 03-05 Shop Director Cyto stain Nom (Cvx/Vag) [ID] Comment [facility] Work Phone: Comment on above: Ne Srivastava, Cytot echnologist (ASCP) Pathologist Cyto stain Nom (Cvx/Vag) [ID] Comment [facility] Work Phone: Comment on above: Jill Stephen MD, Pa thologist Recommended follow-up Cyto stain Nom (Cvx/Vag) Comment [facility] Work Phone: Comment on above: Suggest follow up as clinically appropriate. Laboratory - Miscellaneous t estson 03-29-2021 Service comment (Unsp spec) [Interp] Comment [facility] Work Phone: Comment on above: This liquid based Th inPrep(R) pap test was screened withthe use of an image guided system. Service comment (Unsp spec) [Interp] . [facility] Work Phone: No Panel Informationon 03-29 Human Papillomavirus Screen Comment [facility] Work Phone: Comment on above: The HPV DNA reflex c riteria were not met with this specimenresult therefore, no HPV testing was performed.Performed at: [address] [id number] Director: Belem Terrell MD, Phone: [phone] Pathology report final diagnosis Narrative Comment [facility] Work Phone: Comment on above: EPITHELIAL CELL ABNO RMALITY.LOW GRADE SQUAMOUS INTRAEPITHELIAL LESION (LSIL). R87.612 Vital Signs Date Time Vital Sign Value Performing Clinician Faci alexy 10-15-2024 08:32-0400 Body height 165.1 cm Velia Guadarrama APRN.CREDIT RISK ANALYTICS MANAGER Work Phone: [facility] 10-15-2024 08:32-0400 Body mass index (BMI) [Ratio] 24.1 kg/m2 Velia Guadarrama NON CATEGORICAL PRESCHOOL TEACHER.CREDIT RISK ANALYTICS MANAGER Work Phone: [facility] 10-15-2024 08:32-0400 Body weight 65.7 kg Velia Guadarrama APRN.CREDIT RISK ANALYTICS MANAGER Work Phone: [facility] 10-15-2024 08:32-0400 Diastolic blood pressure 71 mm[Hg] Velia Guadarrama APRN.CREDIT RISK ANALYTICS MANAGER Work Phone: [facility] 10-15-2024 08:32-0400 Systolic blood pressure 113 mm[Hg] Velia Thierry NON CATEGORICAL PRESCHOOL TEACHER.CREDIT RISK ANALYTICS MANAGER Work Phone: [facility] 09-17-2024 09:20-0400 Body height 165.1 cm Velia Thierry NON CATEGORICAL PRESCHOOL TEACHER.CREDIT RISK ANALYTICS MANAGER Work Phone: [facility] 09-17-2024 09:20-0400 Body mass index (BMI) [Ratio] 24.07 kg/m2 Velia Thierry NON CATEGORICAL PRESCHOOL TEACHER.CREDIT RISK ANALYTICS MANAGER Work Phone: [facility] 09-17-2024 09:20-0400 Body weight 65.6 kg Velia Thierry NON CATEGORICAL PRESCHOOL TEACHER.CREDIT RISK ANALYTICS MANAGER Work Phone: [facility] 09-17-2024 09:20-0400 Diastolic blood pressure 68 mm[Hg] Velia Thierry NON CATEGORICAL PRESCHOOL TEACHER.CREDIT RISK ANALYTICS MANAGER Work Phone: [facility] 09-17-2024 09:20-0400 Systolic blood pressure 112 mm[Hg] Velia Thierry NON CATEGORICAL PRESCHOOL TEACHER.CREDIT RISK ANALYTICS MANAGER Work Phone: [facility] 08-17-2024 09:38-0400 Body height 165.1 cm Velia Thierry NON CATEGORICAL PRESCHOOL TEACHER.CREDIT RISK ANALYTICS MANAGER Work Phone: [facility] 08-17-2024 09:38-0400 Body mass index (BMI) [Ratio] 23.92 kg/m2 Velia Thierry NON CATEGORICAL PRESCHOOL TEACHER.CREDIT RISK ANALYTICS MANAGER Work Phone: [facility] 08-17-2024 09:38-0400 Body weight 65.2 kg Velia Thierry NON CATEGORICAL PRESCHOOL TEACHER.CREDIT RISK ANALYTICS MANAGER Work Phone: [facility] 08-17-2024 09:38-0400 Diastolic blood pressure 63 mm[Hg] Velia Thierry NON CATEGORICAL PRESCHOOL TEACHER.CREDIT RISK ANALYTICS MANAGER Work Phone: [facility] 08-17-2024 09:38-0400 Systolic blood pressure 95 mm[Hg] Velia Thierry NON CATEGORICAL PRESCHOOL TEACHER.CREDIT RISK ANALYTICS MANAGER Work Phone: [facility] 09-10-2023 08:25-0400 Body height 165.1 cm Rian Amaro MD Work Phone: [facility] 09-10-2023 08:25-0400 Body mass index (BMI) [Ratio] 27.15 kg/m2 Rian Amaro MD Work Phone: [facility] 09-10-2023 08:25-0400 Body weight 74 kg Rian Amaro MD Work Phone: [facility] 09-10-2023 08:25-0400 Diastolic blood pressure 78 mm[Hg] Rian Amaro MD Work Phone: [facility] 09-10-2023 08:25-0400 Systolic blood pressure 114 mm[Hg] Rian Amaro MD Work Phone: [facility] 08-02-2023 10:38-0400 Body height 165.1 cm Rian Amaro MD Work Phone: [facility] 08-02-2023 10:38-0400 Body mass index (BMI) [Ratio] 30.29 kg/m2 Rian Amaro MD Work Phone: [facility] 08-02-2023 10:38-0400 Body weight 82.56 kg Rian Amaro MD Work Phone: [facility] 08-02-2023 10:38-0400 Diastolic blood pressure 80 mm[Hg] Rian Amaro MD Work Phone: [facility] 08-02-2023 10:38-0400 Systolic blood pressure 120 mm[Hg] Rian Amaro MD Work Phone: [facility] 07-24-2023 09:59-0400 Body height 165.1 cm Vic Arita DO Work Phone: [facility] 07-24-2023 09:59-0400 Body mass index (BMI) [Ratio] 30.22 kg/m2 Vic Grossko DO Work Phone: [facility] 07-24-2023 09:59-0400 Body weight 82.37 kg Vic Arita DO Work Phone: [facility] 07-24-2023 09:59-0400 Diastolic blood pressure 72 mm[Hg] Vic Kitko DO Work Phone: [facility] 07-24-2023 09:59-0400 Systolic blood pressure 117 mm[Hg] Vic Kitko DO Work Phone: [facility] 07-23-2023 13:00-0400 Diastolic blood pressure 76 mm[Hg] Radha Teeple PT Work Phone: [facility] 07-23-2023 13:00-0400 Heart rate 67 /min Radha Teeple PT Work Phone: [facility] 07-23-2023 13:00-0400 Systolic blood pressure 115 mm[Hg] Radha Teeple PT Work Phone: [facility] 07-17-2023 13:36-0400 Body height 165.1 cm Vic Kitko DO Work Phone: [facility] 07-17-2023 13:36-0400 Body mass index (BMI) [Ratio] 30.4 kg/m2 Vic Kitko DO Work Phone: [facility] 07-17-2023 13:36-0400 Body weight 82.87 kg Vic Kitko DO Work Phone: [facility] 07-17-2023 13:36-0400 Diastolic blood pressure 82 mm[Hg] Vic Kitko DO Work Phone: [facility] 07-17-2023 13:36-0400 Systolic blood pressure 136 mm[Hg] Vic Kitko DO Work Phone: [facility] 07-12-2023 10:32-0400 Body height 165.1 cm Ryanne Milian MD Work Phone: [facility] 07-12-2023 10:32-0400 Body mass index (BMI) [Ratio] 30.29 kg/m2 Ryanne Milian MD Work Phone: [facility] 07-12-2023 10:32-0400 Body weight 82.56 kg Ryanne Milian MD Work Phone: [facility] 07-12-2023 10:32-0400 Diastolic blood pressure 75 mm[Hg] Ryanne Milian MD Work Phone: [facility] 07-12-2023 10:32-0400 Systolic blood pressure 116 mm[Hg] Ryanne Milian MD Work Phone: [facility] 07-03-2023 14:37-0400 Diastolic blood pressure 69 mm[Hg] Radha Teeple PT Work Phone: [facility] 07-03-2023 14:37-0400 Heart rate 80 /min Radha Teeple PT Work Phone: [facility] 07-03-2023 14:37-0400 Systolic blood pressure 106 mm[Hg] Radha Teeple PT Work Phone: [facility] 07-03-2023 09:49-0400 Body height 165.1 cm Haven Cunningham MD Work Phone: [facility] 07-03-2023 09:49-0400 Body mass index (BMI) [Ratio] 29.75 kg/m2 Haven Cunningham MD Work Phone: [facility] 07-03-2023 09:49-0400 Body weight 81.1 kg Haven Cunningham MD Work Phone: [facility] 07-03-2023 09:49-0400 Diastolic blood pressure 72 mm[Hg] Haven Cunningham MD Work Phone: [facility] 07-03-2023 09:49-0400 Systolic blood pressure 124 mm[Hg] Haven Cunningham MD Work Phone: [facility] 06-19-2023 09:08-0400 Body height 165.1 cm Haven Cunningham MD Work Phone: [facility] 06-19-2023 09:08-0400 Body weight 80.29 kg Haven Cunningham MD Work Phone: [facility] 06-19-2023 09:08-0400 Diastolic blood pressure 76 mm[Hg] Haven Cunningham MD Work Phone: [facility] 06-19-2023 09:08-0400 Systolic blood pressure 121 mm[Hg] Haven Cunningham MD Work Phone: [facility] 06-05-2023 09:45-0400 Body height 165.1 cm Haven Cunningham MD Work Phone: [facility] 06-05-2023 09:45-0400 Body weight 78.93 kg Haven Cunningham MD Work Phone: [facility] 06-05-2023 09:45-0400 Diastolic blood pressure 69 mm[Hg] Haven Cunningham MD Work Phone: [facility] 06-05-2023 09:45-0400 Systolic blood pressure 109 mm[Hg] Haven Cunningham MD Work Phone: [facility] 05-08-2023 09:52-0500 Body height 165.1 cm Haven Cunningham MD Work Phone: [facility] 05-08-2023 09:52-0500 Body weight 76.79 kg Haven Cunningham MD Work Phone: [facility] 05-08-2023 09:52-0500 Diastolic blood pressure 62 mm[Hg] Haven Cunningham MD Work Phone: [facility] 05-08-2023 09:52-0500 Systolic blood pressure 116 mm[Hg] Haven Cunningham MD Work Phone: [facility] 04-16-2023 08:22-0500 Body height 165.1 cm Rian Amaro MD Work Phone: [facility] 04-16-2023 08:22-0500 Body weight 74.84 kg Rian Amaro MD Work Phone: [facility] 04-16-2023 08:22-0500 Diastolic blood pressure 64 mm[Hg] Rian Amaro MD Work Phone: [facility] 04-16-2023 08:22-0500 Systolic blood pressure 103 mm[Hg] Rian Amaro MD Work Phone: [facility] 02-04-2023 15:27-0500 Body height 165.1 cm Silvia Reji NON CATEGORICAL PRESCHOOL TEACHER.CREDIT RISK ANALYTICS MANAGER Work Phone: [facility] 02-04-2023 15:27-0500 Body weight 70.53 kg Silvia Reji NON CATEGORICAL PRESCHOOL TEACHER.CREDIT RISK ANALYTICS MANAGER Work Phone: [facility] 02-04-2023 15:27-0500 Diastolic blood pressure 71 mm[Hg] Silvia Reji NON CATEGORICAL PRESCHOOL TEACHER.CREDIT RISK ANALYTICS MANAGER Work Phone: [facility] 02-04-2023 15:27-0500 Systolic blood pressure 123 mm[Hg] Silvia Reji NON CATEGORICAL PRESCHOOL TEACHER.CREDIT RISK ANALYTICS MANAGER Work Phone: [facility] 01-18-2023 09:16-0500 Body height 165.1 cm Ryanne Milian MD Work Phone: [facility] 01-18-2023 09:16-0500 Body weight 69.17 kg Ryanne Milian MD Work Phone: [facility] 01-18-2023 09:16-0500 Diastolic blood pressure 69 mm[Hg] Ryanne Milian MD Work Phone: [facility] 01-18-2023 09:16-0500 Systolic blood pressure 97 mm[Hg] Ryanne Milian MD Work Phone: [facility] 06-01-2021 13:35-0400 Body height 165.1 cm No Primary Care Physician [facility] Work Phone: 06-01-2021 13:35-0400 Body mass index (BMI) [Ratio] 24.7 kg/m2 No Primary Care Physician [facility] Work Phone: 06-01-2021 13:35-0400 Body weight 67.64 kg No Primary Care Physician [facility] Work Phone: 06-01-2021 13:35-0400 Diastolic blood pressure 90 mm[Hg] No Primary Care Physician [facility] Work Phone: 06-01-2021 13:35-0400 Systolic blood pressure 132 mm[Hg] No Primary Care Physician [facility] Work Phone: 03-29-2021 07:12-0500 Body mass index (BMI) [Ratio] 24.2 kg/m2 No Primary Care Physician [facility] Work Phone: 03-29-2021 07:12-0500 Body weight 65.94 kg No Primary Care Physician [facility] Work Phone: 03-29-2021 07:12-0500 Diastolic blood pressure 76 mm[Hg] No Primary Care Physician [facility] Work Phone: 03-29-2021 07:12-0500 Systolic blood pressure 104 mm[Hg] No Primary Care Physician [facility] Work Phone: Encounters Encounter Date Encounter Type Care Provider Facility Start: 01-13-2025 End: 01-13-2025 ambulatory No Primary Care Physician Facility:[facility] Start: 12-28-2024 End: 12-28-2024 ambulatory No Primary Care Physician Facility:[facility] Start: 12-28-2024 End: 12-28-2024 ambulatory No Primary Care Physician Facility:[facility] Start: 11-26-2024 End: 11-26-2024 ambulatory RYANNE MILIAN [facility] Start: 10-29-2024 End: 10-29-2024 ambulatory VELIA GUADARRAMA [facility] Start: 10-29-2024 End: 10-29-2024 Patient encounter procedure Multimedia Services Manager Mfm Ag Kevin Work Phone: [facility] Comment on above: Encounter for antena damian screening of mother (HCC) Start: 10-15-2024 End: 10-15-2024 Patient encounter procedure Velia Guadarrama NON CATEGORICAL PRESCHOOL TEACHER.CREDIT RISK ANALYTICS MANAGER Work Phone: [facility] Comment on above: Supervision of high risk , antepartum (HCC) (Primary Dx); Rh negative state in antepartum period (HCC); Thrombocytosis after splenectomy; History of hereditary spherocytosis; 17 weeks gestation of (HCC) Start: 10-15-2024 End: 10-15-2024 ambulatory VELIA GUADARRAMA [facility] Start: 09-21-2024 End: 09-21-2024 Follow-up encounter Velia Flavia Thierry NON CATEGORICAL PRESCHOOL TEACHER.CREDIT RISK ANALYTICS MANAGER Work Phone: [facility] Start: 09-17-2024 End: 09-17-2024 ambulatory VELIA VALLADARESGO [facility] Start: 09-17-2024 End: 09-17-2024 Patient encounter procedure Us Rm2 Multimedia Services Manager Ag Mfm Work Phone: [facility] Comment on above: Supervision of high risk , antepartum (HCC) (Primary Dx); Encounter for screening of mother (HCC) Supervision of high risk , antepartum (HCC) (Primary Dx); History of hereditary spherocytosis; Rh negative state in antepartum period (HCC); Polycythemia; 13 weeks gestation of (HCC) Start: 09-17-2024 End: 09-17-2024 ambulatory VELIA GUADARRAMA [facility] Start: 08-17-2024 End: 08-17-2024 Patient encounter procedure Velia Alejandro Thierry NON CATEGORICAL PRESCHOOL TEACHER.CREDIT RISK ANALYTICS MANAGER Work Phone: [facility] Comment on above: Supervision of high risk , antepartum (HCC) (Primary Dx); History of hereditary spherocytosis; Rh negative state in antepartum period (HCC); History of delivery by vacuum extraction, currently (HCC); 9 weeks gestation of (HCC); Encounter for screening of mother (HCC); Polycythemia Early stage of pregn carmelita (HCC) Start: 08-17-2024 End: 08-17-2024 ambulatory VELIA THIERRY Facility[facility] Start: 07-21-2024 End: 07-21-2024 ambulatory [facility] Start: 01-21-2024 End: 01-21-2024 ambulatory Facility:[facility] Start: 01-20-2024 End: 01-20-2024 Telephone encounter Rian Swanson MD Work Phone: [facility] Obstetrics & Gynecology Comment on above: Patient Question Start: 09-10-2023 End: 09-10-2023 Patient encounter procedure Rian Swanson MD Work Phone: [facility] Comment on above: state (Pr imary Dx) Start: 08-27-2023 End: 08-27-2023 ambulatory KATHY MARTINEZ Facility:[facility] Start: 08-27-2023 End: 08-27-2023 Patient encounter procedure Kathy Martinez DO Work Phone: Medicine Comment on above: Other disorders of l actation (Primary Dx) Start: 08-21-2023 End: 08-21-2023 Education Nurse [facility] Comment on above: Breast Feeding (/) Start: 08-15-2023 Telephone encounter Robbie DENSON Comment on above: Breast Feeding Start: 08-07-2023 End: 08-07-2023 ambulatory SELF REFERRED [facility] Start: 08-05-2023 End: 08-05-2023 ambulatory SELF REFERRED [facility] Start: 08-02-2023 End: 08-02-2023 Patient encounter procedure Rian Swanson MD Work Phone: [facility] Comment on above: 40 weeks gestation o f (Primary Dx); History of hereditary spherocytosis; Rh negative state in antepartum period, second trimester Start: 07-24-2023 End: 07-24-2023 Patient encounter procedure Vic Arita DO Work Phone: [facility] Comment on above: 39 weeks gestation o f (Primary Dx); Rh negative state in antepartum period, second trimester; Polycythemia; Supervision of high risk in third trimester Start: 07-23-2023 End: 07-23-2023 ambulatory Radha Teeple PT [facility] Comment on above: 32 weeks gestation o f (Primary Dx); Decreased ROM of lumbar spine Start: 07-17-2023 End: 07-17-2023 Patient encounter procedure Vic Grossradha DO Work Phone: [facility] Comment on above: 38 weeks gestation o f (Primary Dx); Polycythemia; Rh negative state in antepartum period, second trimester; Supervision of high risk in third trimester; History of hereditary spherocytosis Start: 07-17-2023 End: 07-17-2023 ambulatory Radha Teeple PT Work Phone: [facility] Comment on above: 32 weeks gestation o f (Primary Dx); Decreased ROM of lumbar spine Start: 07-15-2023 ambulatory Eveline Morales [facility] Start: 07-15-2023 [facility] on above: Population Health Na vigation Outreach (OB/peds) Start: 07-12-2023 End: 07-12-2023 Patient encounter procedure Ryanne Milian MD Work Phone: [facility] Comment on above: Rh negative state in antepartum period, second trimester (Primary Dx); 37 weeks gestation of Start: 07-09-2023 ambulatory Radha Teeple PT Work Phone: [facility] Comment on above: PT Update Start: 07-09-2023 E-mail encounter fro m caregiver Radha Teeple PT Work Phone: [facility] Start: 07-03-2023 End: 07-03-2023 ambulatory Radha Teeple PT Work Phone: [facility] Comment on above: Decreased ROM of lum bar spine (Primary Dx); 32 weeks gestation of Start: 07-03-2023 End: 07-03-2023 Patient encounter procedure Haven Cunningham MD Work Phone: [facility] Comment on above: Supervision of high risk in third trimester (Primary Dx); 36 weeks gestation of ; Rh negative state in antepartum period, second trimester; Polycythemia; History of hereditary spherocytosis; Encounter for screening of mother Start: 06-19-2023 End: 06-19-2023 Patient encounter procedure Haven Cunningham MD Work Phone: [facility] Comment on above: Supervision of high risk in third trimester (Primary Dx); 34 weeks gestation of ; Rh negative state in antepartum period, second trimester; History of hereditary spherocytosis Start: 06-05-2023 Telephone encounter Haven Cunningham MD Work Phone: [facility] Comment on above: insurance eligibilit y (RTE showing rejected. Called [employer] to verify elig. Per call, patient is eligible and eff date of plan is [id number] with no expected term date. Call ref# [id number]) Start: 06-05-2023 End: 06-05-2023 Patient encounter procedure Ultrasound Multimedia Services Manager Ag [facility] Work Phone: [facility] Comment on above: Encounter for ultras ound to assess growth (Primary Dx); History of hereditary spherocytosis Supervision of high risk in third trimester (Primary Dx); 32 weeks gestation of ; Rh negative state in antepartum period, second trimester; Polycythemia; History of hereditary spherocytosis Start: 05-08-2023 Telephone encounter Haven Cunningham MD Work Phone: [facility] Comment on above: Orders Start: 05-08-2023 End: 05-08-2023 Nursing evaluation of patient and report Nurse Multimedia Services Manager Ag Pob Work Phone: [facility] Ob[facility]etrics & Gynecology Comment on above: Need for rhogam due to Rh negative mother (Primary Dx) Start: 05-08-2023 End: 05-08-2023 Patient encounter procedure Haven Cunningham MD Work Phone: [facility] Comment on above: Supervision of high risk in third trimester (Primary Dx); 28 weeks gestation of ; Rh negative state in antepartum period, third trimester; History of hereditary spherocytosis Start: 04-16-2023 End: 04-16-2023 Patient encounter procedure Rian Swanson MD Work Phone: [facility] [facility] Comment on above: 25 weeks gestation o f (Primary Dx); History of hereditary spherocytosis; Rh negative state in antepartum period, second trimester Start: 02-11-2023 Telephone encounter Silvia ross APRN.CREDIT RISK ANALYTICS MANAGER Work Phone: [facility] Comment on above: Results Start: 02-05-2023 Telephone encounter Shari Pennington RN [facility] Comment on above: Appointment Start: 02-04-2023 End: 02-04-2023 Patient encounter procedure Silviajennifer Mendoza APRN.CREDIT RISK ANALYTICS MANAGER Work Phone: [facility] Comment on above: Rh negative state in antepartum period, second trimester (Primary Dx); Cervical cancer screening; 15 weeks gestation of ; Encounter for anatomic survey; Encounter for screening for malformation; History of hereditary spherocytosis Start: 01-18-2023 End: 01-18-2023 Patient encounter procedure Ryanne Milian MD Work Phone: [facility] Comment on above: Amenorrhea, secondar y (Primary Dx) Start: 12-27-2022 Refill Rian Haque Work Phone: [facility] Comment on above: Med Change Request Start: 12-18-2022 Telephone encounter Rian nance MD Work Phone: [facility] Comment on above: Patient Question Start: 06-01-2021 End: 06-01-2021 Patient encounter procedure No Primary Care Physician [facility], Specimen Start: 03-29-2021 End: 03-29-2021 Patient encounter procedure No Primary Care Physician [facility], Specimen Start: 03-29-2021 End: 03-29-2021 Patient encounter procedure No Primary Care Physician [facility] Procedures Date Procedure Procedure Detail Performing Clinician Start: 10-29-2024 Us preg uterus after 1st trimest / gestation Velia Guadarrama APRN.CREDIT RISK ANALYTICS MANAGER Work Phone: Start: 10-15-2024 Urnls dip stick/tabl et rgnt auto w/o microscopy Velia Guadarrama APRN.CREDIT RISK ANALYTICS MANAGER Work Phone: Start: 09-17-2024 Us preg uterus after 1st trimest / gestation Velia Guadarrama APRN.CREDIT RISK ANALYTICS MANAGER Work Phone: Start: 09-17-2024 Antibody screen VELIA SHARLA GAITAN Comment on above: Order Comment: Speci men Type: BLOOD SPECIMEN Ordering Facility: [facility] Address: [place] [address] Result Comment: Dari villarreal has a previous clinically significant antibody Performed By: #### M AT21 #### [facility] CLIA [id number] [address] [place] [address] Start: 09-17-2024 Urnls dip stick/tabl et rgnt auto w/o microscopy Velia Guadarrama APRN.CREDIT RISK ANALYTICS MANAGER Work Phone: Start: 08-17-2024 Us preg uterus after 1st trimest 03/04 gestation Velia Guadarrama APRN.CREDIT RISK ANALYTICS MANAGER Work Phone: Start: 08-02-2023 Urnls dip stick/tabl et rgnt auto w/o microscopy Rian Swanson MD Work Phone: Start: 07-24-2023 Urnls dip stick/tabl et rgnt auto w/o microscopy Vic Arita DO Work Phone: Start: 07-17-2023 Urnls dip stick/tabl et rgnt auto w/o microscopy Vic Arita DO Work Phone: Start: 07-12-2023 Urnls dip stick/tabl et rgnt auto w/o microscopy Ryanne Milian MD Work Phone: Start: 07-03-2023 Urnls dip stick/tabl et rgnt auto w/o microscopy Haven Cunningham MD Work Phone: Start: 06-19-2023 Urnls dip stick/tabl et rgnt auto w/o microscopy Haven Cunningham MD Work Phone: Start: 06-05-2023 Urnls dip stick/tabl et rgnt auto w/o microscopy Haven Cunningham MD Work Phone: Start: 06-05-2023 Us preg uterus after 1st trimest 03/04 gestation Haven Cunningham MD Work Phone: Start: 05-08-2023 Urnls dip stick/tabl et rgnt auto w/o microscopy Haven Cunningham MD Work Phone: Start: 04-16-2023 Urnls dip stick/tabl et rgnt auto w/o microscopy Rian Swanson MD Work Phone: Plan of Treatment Date Care Activity Detail Author Start: 02-04-2026 Pap Testing Pap Testing [facility] Start: 02-04-2026 Screening for malignant neoplasm of cervix [facility] Start: 01-25-2025 RSV Vaccine (1 - Ris k 1-dose series) RSV Vaccine (1 - Risk 1-dose series) [facility] Start: 11-12-2024 End: 11-12-2024 Patient encounter procedure 11/12/2024 8:15 AM EDT Routine Office Visit [facility] [address] [place] [address] Velia Guadarrama, NON CATEGORICAL PRESCHOOL TEACHER.CREDIT RISK ANALYTICS MANAGER [address] [place], [place] [phone] annmarie [facility] Comment on above: annmarie Start: 11-02-2024 Influenza vaccination [facility] Start: 10-29-2024 End: 10-29-2024 Patient encounter procedure 10/29/2024 9:00 AM EDT Routine Office Visit [facility]aternal [facility] [address] [place] [address] ANATOMY [facility] Comment on above: ANATOMY Start: 10-15-2024 End: 10-15-2024 Patient encounter procedure 10/15/2024 8:45 AM EDT Routine Office Visit [facility] [address] [place] [phone] Velia Guadarrama, NON CATEGORICAL PRESCHOOL TEACHER.CREDIT RISK ANALYTICS MANAGER [address] [place], [place] [phone] annmarie [facility] Comment on above: annmarie Start: 09-17-2024 End: 09-17-2024 Patient encounter procedure [facility] Comment on above: ANNMARIE JENKINS THIERRY Start: 08-17-2024 End: 11-16-2024 Acute hepatitis 2000 panel - Serum HEP ACUTE PANEL BL Lab Routine Encounter for screening of mother (HCC) Expected: 08/17/2024, Expires: 11/16/2024 [facility] Comment on above: Expected: 08/17/2024 , Expires: 11/16/2024 Start: 08-17-2024 End: 11-16-2024 ANEMIA REFLEX PANEL ANEMIA REFLEX PANEL Lab Routine Encounter for screening of mother (HCC) Expected: 08/17/2024, Expires: 11/16/2024 [facility] Comment on above: Expected: 08/17/2024 , Expires: 11/16/2024 Start: 08-17-2024 End: 11-16-2024 Chromosome 21 trisomy [Presence] in Blood or Tissue by Cytogenetics [id number] [id number] Lab Routine Encounter for screening of mother (HCC) Expected: 08/17/2024, Expires: 11/16/2024 [facility] Comment on above: Expected: 08/17/2024 , Expires: 11/16/2024 Start: 08-17-2024 End: 11-16-2024 Hemoglobin A1c in Blood HEMOGLOBIN A1C Lab Routine Encounter for screening of mother (HCC) Expected: 08/17/2024, Expires: 11/16/2024 [facility] Comment on above: Expected: 08/17/2024 , Expires: 11/16/2024 Start: 08-17-2024 End: 11-16-2024 HEMOGLOBIN EVALUATION CASCADE HEMOGLOBIN EVALUATION CASCADE Lab Routine Encounter for screening of mother (HCC) Expected: 08/17/2024, Expires: 11/16/2024 [facility] Comment on above: Expected: 08/17/2024 , Expires: 11/16/2024 Start: 08-17-2024 End: 11-16-2024 HIV 1+2 Ab [Presence] in Serum or Plasma by Immunoassay HIV 1/2 COMBO WITH REFLEX TO DIFFERENTIATION Lab Routine Encounter for screening of mother (HCC) Expected: 08/17/2024, Expires: 11/16/2024 [facility] Comment on above: Expected: 08/17/2024 , Expires: 11/16/2024 Start: 08-17-2024 End: 08-17-2025 OBSTETRIC ULTRASOUND WHI OBSTETRIC ULTRASOUND WHI Anc Imaging Routine Encounter for screening of mother (HCC) Expected: 08/17/2024, Expires: 08/17/2025 [facility] Work Phone: Comment on above: Expected: 08/17/2024 , Expires: 08/17/2025 Start: 08-17-2024 End: 11-16-2024 RUBELLA IGG ANTIBODY RUBELLA IGG ANTIBODY Lab Routine Encounter for screening of mother (HCC) Expected: 08/17/2024, Expires: 11/16/2024 [facility] Comment on above: Expected: 08/17/2024 , Expires: 11/16/2024 Start: 08-17-2024 End: 11-16-2024 SYPHILIS TREPONEMAL W/REFLEX SYPHILIS TREPONEMAL W/REFLEX Lab Routine Encounter for screening of mother (HCC) Expected: 08/17/2024, Expires: 11/16/2024 [facility] Comment on above: Expected: 08/17/2024 , Expires: 11/16/2024 Start: 08-17-2024 End: 11-16-2024 TYPE + SCREEN TYPE + SCREEN Blood Bank Routine Encounter for screening of mother (HCC) Expected: 08/17/2024, Expires: 11/16/2024 [facility] Comment on above: Expected: 08/17/2024 , Expires: 11/16/2024 Start: 01-21-2024 End: 01-21-2024 Patient encounter procedure 01/21/2024 8:40 AM EST Office [place] [address] Current bill that s pending insurance [facility] Comment on above: Current bill that s pending insurance Start: 11-03-2023 Covid-19 Vaccine ( season) Covid-19 Vaccine () [facility] Start: 11-03-2023 Influenza vaccination [facility] Start: 09-10-2023 End: 09-10-2023 Patient encounter procedure 09/10/2023 8:30 AM EDT Office Visit [facility] [address] [place] [address] Rian Swanson I, MD [address] [facility], [address] [place], [place] [id number] post [facility] Comment on above: post Start: 08-21-2023 End: 08-21-2023 Education 08/21/2023 2:00 PM EDT Education SERVICES [place] [address] [place] [address] pt experiencing latching difficulty, has been BF and receiving bottles of EBM SERVICES [place] Comment on above: pt experiencing latc sridhar difficulty, infant has been BF and receiving bottles of EBM Start: 08-02-2023 End: 08-02-2023 Patient encounter procedure 08/02/2023 10:15 AM EDT Routine Office Visit [facility] [address] [place] [address] Rian Swanson I, MD [address] [facility], [address] [place], [place] [phone] ANNMARIE [facility] Comment on above: ANNMARIE Start: 07-24-2023 End: 07-24-2023 Patient encounter procedure 07/24/2023 10:15 AM EDT Routine Office Visit [facility] [address] [place] [phone] Vic Arita DO [address] [place] [address] annmarie [facility] Comment on above: annmarie Start: 07-23-2023 End: 07-23-2023 ambulatory [facility] Comment on above: AUTH REQ'D 4vis end 08/30 Start: 07-17-2023 End: 07-17-2023 Patient encounter procedure 07/17/2023 1:45 PM EDT Routine Office Visit [facility] [address] [place] [phone] Vic Arita DO [address] [place] [address] annmarie [facility] Comment on above: annmarie Start: 07-17-2023 End: 07-17-2023 ambulatory [facility] Comment on above: E 4vis end 08/30 Start: 07-12-2023 End: 07-12-2023 Patient encounter procedure 07/12/2023 10:45 AM EDT Routine Office Visit [facility] [address] [place] [phone] Ryanne Milian MD [address] [place], [place] [phone] annmarie [facility] Comment on above: annmarie Start: 05-08-2023 End: 05-07-2024 OBSTETRIC ULTRASOUND WHI OBSTETRIC ULTRASOUND WHI Anc Imaging Routine History of hereditary spherocytosis Expected: 05/08/2023, Expires: 05/07/2024 [facility] Work Phone: Comment on above: Expected: 05/08/2023 , Expires: 05/07/2024 Start: 05-06-2023 End: 08-05-2023 ABO and Rh group panel - Blood ABO AND RH ONLY Blood Bank Routine 25 weeks gestation of Expected: 05/06/2023 (Approximate), Expires: 08/05/2023 [facility] Work Phone: Comment on above: Expected: 05/06/2023 (Approximate), Expires: 08/05/2023 Start: 05-06-2023 End: 08-05-2023 CBC W Auto Differential panel - Blood CBC + DIFF Lab Routine 25 weeks gestation of Expected: 05/06/2023, Expires: 08/05/2023 [facility] Work Phone: Comment on above: Expected: 05/06/2023 , Expires: 08/05/2023 Start: 05-06-2023 End: 08-05-2023 GEST GLUC SCREEN, 1-HR, 50 GM, NON-FASTING GEST GLUC SCREEN, 1-HR, 50 GM, NON-FASTING Lab Routine 25 weeks gestation of Expected: 05/06/2023, Expires: 08/05/2023 [facility] Work Phone: Comment on above: Expected: 05/06/2023 , Expires: 08/05/2023 Start: 04-16-2023 End: 07-16-2023 SYPHILIS TOTAL W/REFLEX SYPHILIS TOTAL W/REFLEX Lab Routine 25 weeks gestation of Expected: 04/16/2023, Expires: 07/16/2023 [facility] Work Phone: Comment on above: Expected: 04/16/2023 , Expires: 07/16/2023 Start: 03-04-2023 Behavioral Health Screening Behavioral Health Screening [facility] Start: 03-04-2023 Depression Assessment Depression Ass essment [facility] Start: 02-04-2023 End: 05-06-2023 ALPHA FETOPRO MATERNAL [facility] Work Phone: Comment on above: Expected: 02/04/2023 , Expires: 05/06/2023 Start: 02-04-2023 End: 05-06-2023 Chromosome 21 trisomy [Presence] in Blood or Tissue by Cytogenetics [facility] Work Phone: Comment on above: Expected: 02/04/2023 , Expires: 05/06/2023 Start: 02-04-2023 End: 02-05-2024 OBSTETRIC ULTRASOUND WHI OBSTETRIC ULTRASOUND WHI Anc Imaging Routine Encounter for anatomic survey Expected: 02/04/2023, Expires: 02/05/2024 [facility] Work Phone: Comment on above: Expected: 02/04/2023 , Expires: 02/05/2024 Start: 01-18-2023 End: 04-19-2023 CBC panel - Blood by Automated count [facility] Work Phone: Comment on above: Expected: 01/18/2023 , Expires: 04/19/2023 Start: 01-18-2023 End: 04-19-2023 Hepatitis B virus surface Ag [Presence] in Serum [facility] Work Phone: Comment on above: Expected: 01/18/2023 , Expires: 04/19/2023 Start: 01-18-2023 End: 04-19-2023 Hepatitis C virus RNA [Units/volume] (viral load) in Serum or Plasma by MARCY with probe detection [facility] Work Phone: Comment on above: Expected: 01/18/2023 , Expires: 04/19/2023 Start: 01-18-2023 End: 04-19-2023 HIV 1+2 Ab [Presence] in Serum or Plasma by Immunoassay [facility] Work Phone: Comment on above: Expected: 01/18/2023 , Expires: 04/19/2023 Start: 01-18-2023 End: 04-19-2023 RUBELLA IGG AB [facility] Work Phone: Comment on above: Expected: 01/18/2023 , Expires: 04/19/2023 Start: 01-18-2023 End: 04-19-2023 SYPHILIS TOTAL W/REFLEX [facility] Work Phone: Comment on above: Expected: 01/18/2023 , Expires: 04/19/2023 Start: 01-18-2023 End: 04-19-2023 TYPE + SCREEN [facility] Work Phone: Comment on above: Expected: 01/18/2023 , Expires: 04/19/2023 Start: 11-02-2022 Covid-19 Vaccine () Covid-19 Vaccine () [facility] Start: 11-02-2022 Influenza vaccination Influenza Vacc ine (#1) [facility] Start: 03-04-2022 Depression Assessment Depression Ass essment [facility] Start: 10-09-2021 Urine microalbumin profile DTaP,Tdap,Td Vaccine (7 - Td or Tdap) [facility] Start: 02-01-2017 Pap Testing Pap Testing [facility] Start: 01-12-2016 HPV Vaccine (2 - 3-dose series) HPV Vaccine (2 - 3-dose series) [facility] Start: 02-01-2015 Urine microalbumin profile DTaP,Tdap,Td Vaccine (1 - Tdap) [facility] Start: 02-01-2014 Anxiety Screening Anxiety Screening [facility] Start: 02-01-2014 Depression Screening Depression Scre ening [facility] Start: 02-01-2014 Hepatitis C Screening Hepatitis C Sc reening [facility] Start: 02-01-2014 HIV Screening HIV Screening [facility] Start: 02-01-2010 Peds To Adult Transition Annual Assessment Peds To Adult Transition Annual Assessment [facility] Start: 2008 Peds To Adult Transition Initial Discussion Peds To Adult Transition Initial Discussion [facility] Start: 1996 Covid-19 Vaccine (#1) Covid-19 Vacci ne (#1) [facility] Start: 1996 Hepatitis B Vaccine (1 of 3 - 3-dose series) Hepatitis B Vaccine (1 of 3 - 3-dose series) [facility] Bacteria identified in Urine by Culture URINE CULTURE Microbiology Routine Encounter for screening for malformation 02/04/2023 3:59 PM [facility] Work Phone: Bacteria identified in Urine by Culture BACTERIAL CULTURE, URINE Microbiology Routine Encounter for screening of mother ([facility]) 08/17/2024 10:19 AM T [facility] Chlamydia trachomatis+Neisseria gonorrhoeae DNA [Presence] in Unspecified specimen by MARCY with probe detection GONORRHEA/CHLAMYDIA NAAT Lab Routine Encounter for screening for malformation 02/04/2023 3:59 PM [facility] Work Phone: Chlamydia trachomatis+Neisseria gonorrhoeae DNA [Presence] in Unspecified specimen by MARCY with probe detection GONORRHEA/CHLAMYDIA NAAT Lab Routine Encounter for screening of mother 07/03/2023 10:25 AM T [facility] Chlamydia trachomatis+Neisseria gonorrhoeae DNA [Presence] in Unspecified specimen by MARCY with probe detection GONORRHEA/CHLAMYDIA NAAT Lab Routine Encounter for screening of mother ([facility]) 08/17/2024 10:19 AM EDT [facility] INDUCTION L&D INDUCTION L&D Pr ocedures Routine 40 weeks gestation of Ordered: 08/02/2023 [facility] Comment on above: Ordered: 08/02/2023 PAP TEST PAP TEST Lab Rou cadence Cervical cancer screening 02/04/2023 3:38 PM EST [facility] Work Phone: Rho d immune globuli n inj RHOD IMMUNE GLOBULIN, FULL DOSE Immunization/Injection Routine Rh negative state in antepartum period, second trimester Ordered: 04/16/2023 [facility] Work Phone: Comment on above: Ordered: 04/16/2023 ROUTINE, GROUP B STREP PCR ROUTINE, GROUP B STREP PCR Microbiology Routine Encounter for screening of mother 07/03/2023 10:25 AM EDT [facility] UA DIP, URINE (POC) UA DIP, URIN E (POC) Lab Routine 25 weeks gestation of Ordered: 04/15/2023 [facility] Work Phone: Comment on above: Ordered: 04/15/2023 UA DIP, URINE (POC) UA DIP, URIN E (POC) Lab Routine 28 weeks gestation of Ordered: 05/07/2023 [facility] Work Phone: Comment on above: Ordered: 05/07/2023 UA DIP, URINE (POC) UA DIP, URIN E (POC) Lab Routine 32 weeks gestation of Ordered: 06/04/2023 [facility] Work Phone: Comment on above: Ordered: 06/04/2023 UA DIP, URINE (POC) UA DIP, URIN E (POC) Lab Routine 34 weeks gestation of Ordered: 06/18/2023 [facility] Work Phone: Comment on above: Ordered: 06/18/2023 UA DIP, URINE (POC) UA DIP, URIN E (POC) Lab Routine 36 weeks gestation of Ordered: 07/02/2023 [facility] Work Phone: Comment on above: Ordered: 07/02/2023 UA DIP, URINE (POC) UA DIP, URIN E (POC) Lab Routine 37 weeks gestation of Ordered: 07/11/2023 [facility] Work Phone: Comment on above: Ordered: 07/11/2023 UA DIP, URINE (POC) UA DIP, URIN E (POC) Lab Routine 38 weeks gestation of Ordered: 07/16/2023 [facility] Work Phone: Comment on above: Ordered: 07/16/2023 UA DIP, URINE (POC) UA DIP, URIN E (POC) Lab Routine 39 weeks gestation of Ordered: 07/23/2023 [facility] Work Phone: Comment on above: Ordered: 07/23/2023 UA DIP, URINE (POC) UA DIP, URIN E (POC) Lab Routine 40 weeks gestation of Ordered: 08/01/2023 [facility] Work Phone: Comment on above: Ordered: 08/01/2023 [facility] Immunizations Immunization Date Immunization Notes Care Provider Fa [facility] 08-02-2023 RHO(D) immune globul in- IV or IM Rian Amaro MD Work Phone: [facility] 05-08-2023 RHO(D) immune globul in- IV or GIAN Cunningham MD Work Phone: [facility] 12-16-2018 influenza virus vaccine, unspecified formulation Rian Amaro MD Work Phone: [facility] 12-15-2015 Human Papillomavirus 9-valent vaccine Rian Amaro MD Work Phone: [facility] Work Phone: NEGATED: Highlighted row has not occurred!04-16-2023 RHO(D) immune globulin- IV or IM Rian Amaro MD Work Phone: [facility] Work Phone: Comment on above: Deferred: Test Resul ts Needed Payers Date Payer Category Payer Unknown [id number] 2024 Self-pay [id number] 2024 Unknown . 2023 Medicaid [employer] [facility] MED[facility] [id number] 2023-Present [phone] [address] [place] [address] Medicaid [id number] 2023 [facility] [id number] 2023 Unknown [id number] 2022 Unknown [id number] 1996 Unknown [id number] 1996 Unknown [id number] Private Health Insurance [employer] CE [id number] Unknown SELF PAY INSURANCE [id number] Unknown [id number] Unknown [id number] Unknown [id number] Unknown [id number] Unknown [id number] Social History Date Type Detail Facility [facility]: [facility] Work Phone: Start: 1995 Sex Assigned At Female [facility] Start: 12-15-2015 [facility] Start: 12-15-2015 End: 08-17-2024 Tobacco use and exposure Smokeless tobacco non-user [facility] Start: 10-18-2021 Alcohol intake Current drinke r of alcohol (finding) [facility] Start: 12-22-2015 End: 12-26-2022 History of Social function [facility] Start: 12-22-2015 End: 12-26-2022 Tobacco use panel [facility] Start: 1995 Sex Assigned At Not on file [facility] Start: 12-26-2022 End: 08-17-2024 Tobacco smoking status NHIS Ex-smoker [facility] End: 03-04-2015 History of tobacco use Current smoker [facility] End: 03-04-2015 History of tobacco use Cigarette Smoker [facility] Start: 12-26-2022 End: 10-15-2024 Alcohol intake Ex-drinker (finding) [facility] Start: 02-03-2012 National Score (1-100), lower number is lower risk 76 [facility] Start: 11-05-2022 [facility] Start: 07-21-2024 Gender identity Identifies as female gender (finding) [facility] Goals Date Patient Goal Desired Activity /State Personal health goal Personal health goal Functional Status Date Assessment Result Facility 08-04-2023 Are you deaf, or do you have serious difficulty hearing No 08/04/2023 2:19 PM Fatou Gomez, RN [facility] 08-04-2023 Are you blind, or do you have serious difficulty seeing, even when wearing glasses No 08/04/2023 2:19 PM Fatou Gomez, RN [facility] 08-04-2023 Do you have serious difficulty walking or climbing stairs No 08/04/2023 2:19 PM EDT Fatou Alston, RN No [facility] 08-04-2023 Do you have difficul ty dressing or bathing No 08/04/2023 2:19 PM EDT Fatou Alston, RN No [facility] 08-04-2023 Because of a physica l, mental, or emotional condition, do you have difficulty doing errands alone such as visiting a physician's office or shopping No 08/04/2023 2:19 PM EDT Fatou Alston, RN No [facility] Mental Status Date Assessment Result Facility 08-04-2023 Because of a physica l, mental, or emotional condition, do you have serious difficulty concentrating, remembering, or making decisions No 08/04/2023 2:19 PM EDT Fatou Alston, RN No [facility] Clinical Notes 03-29-2021 to 11-26-2024 Quick Notes - Velia Guadarrama APRN.[facility] - 10/15/2024 8:45 AM EDTPrenatal Quick Notes - Velia Guadarrama APRN.[facility] - 10/15/2024 8:45 AM Norma Bernal LPN - 10/15/2024 8:34 AM EDT Note Date & Type Note Facility 11-26-2024 Note HNO ID: [id number] Author: EVARISTO LA MA Service: ? Author Type: Senior Software Quality Analyst Type: Progress Notes Filed: 11/26/2024 08:51 Note Text: Movement? Active baby Vaginal Bleeding: NO Vaginal fluid leakage of fluid: NO Contractions: no contractions Edema: Negative Evaristo aL MA November 26, 2024 8:[address] [facility] 10-15-2024 Miscellaneous Notes S: Denies LOF, contractions or vaginal bleeding, feeling some flutters Pt did not start 81mg ASA as recommended. Revisited this conversation d/t platelets 500 on PNLs, higher than last . Discussed increased risk for blood clots d/t alone and her hx. She will think about the ASA, is agreeable to hematology consult for further discussion and eval/monitoring if needed. Reviewed NT/NIPT, wnl. Anatomy scan scheduled for 10/29 O: see flow sheet SENSITIVE EXAM: Sensitive exam not performed. A/P: Problem List Items Addressed This Visit Hematology Thrombocytosis after splenectomy Overview - elevated platelet levels in prior (491, 472, 439), no hx DVT/PE, no fam hx - Likely 2/2 low oxygen carrying capacity of RBCs in spherocytosis per [facility] last time as well as common occurrence after splentectomy - [facility] recommended ASA during last , declined - declines ASA for this - platelets on PNLs this were 500 Current Assessment & Plan - platelets on PNLs were 500 Relevant Orders CONSULT TO HEMATOLOGY/ONCOLOGY Rh negative state in antepartum period ([facility]) Overview - rhogam @ 28 w [ ] - prn as indicated 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 Supervision of high risk , antepartum ([facility]) - Primary Overview Care Checklist Vaccines: [] Flu vaccine [] declined [] RSV vaccine 32 / - 36 08/08 (Nov - Apr) [] declined [] COVID vaccine [] declined [] TDaP - [] declined First trimester: [x] Dating US [x] 1st tri labs [x] Pap smear - 2022 NILM, due 02/2026 [] Carrier screening [x] declined [x] NIPT screening [] declined [x] First trimester anatomy scan [] declined [] universal ASA ordered (start 12w-16w) [x] declined [] M Power Consult [x] not indicated [] declined Second trimester: [] Anatomy scan [] Mode of Delivery - [] Feeding - [] Pump ordered [] Diabetes screen [] CBC, RPR [] Behavioral Health Screening Third trimester (28-30 weeks): [] Consent [] Contraception [] Supervising Producer, car seat, safe sleep [] TeamBirth handout Third trimester (36-40 weeks): [] GBS [] Presentation - [] Scheduled [] yes - Hibiclens, pre-op instructions, CBC, T&S ordered [] no [] H&P [] Preferences worksheet [] Scanned in EMR [] Patient to bring copy to hospital [] Declined Other History of hereditary spherocytosis Overview - S/p splenectomy as at 5 years old, reports received all recommended immunizations - Family history of spherocytosis (mom, sisters, cousins) - declined further genetics referral last - her daughter was tested and is positive for this, followed closely by peds to watch blood counts - plans to have testing done for this child after as well - No medications, no complications Other Visit Diagnoses 17 weeks gestation of ([facility]) Relevant Orders UA DIP, URINE (POC) Return to office in 4 weeks and PRN. Velia Guadarrama APRN.CREDIT RISK ANALYTICS MANAGER documented in this encounter [facility] 10-15-2024 Progress note Formatting of t his note is different from the original. S: Denies LOF, contractions or vaginal bleeding, feeling some flutters Pt did not start 81mg ASA as recommended. Revisited this conversation d/t platelets 500 on PNLs, higher than last . Discussed increased risk for blood clots d/t alone and her hx. She will think about the ASA, is agreeable to hematology consult for further discussion and eval/monitoring if needed. Reviewed NT/NIPT, wnl. Anatomy scan scheduled for 10/29 O: see flow sheet SENSITIVE EXAM: Sensitive exam not performed. A/P: Problem List Items Addressed This Visit Hematology Thrombocytosis after splenectomy Overview - elevated platelet levels in prior (491, 472, 439), no hx DVT/PE, no fam hx - Likely 2/2 low oxygen carrying capacity of RBCs in spherocytosis per MFM last time as well as common occurrence after splentectomy - MFM recommended ASA during last , declined - declines ASA for this - platelets on PNLs this were 500 Current Assessment & Plan - platelets on PNLs were 500 Relevant Orders CONSULT TO HEMATOLOGY/ONCOLOGY Rh negative state in antepartum period ([facility]) Overview - rhogam @ 28 w [ ] - prn as indicated 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 Supervision of high risk , antepartum (HCC) - Primary Overview Care Checklist Vaccines: [] Flu vaccine [] declined [] RSV vaccine 32 0/7 - 36 6/7 (Nov - Apr) [] declined [] COVID vaccine [] declined [] TDaP 27-36 [] declined First trimester: [x] Dating US [x] 1st tri labs [x] Pap smear - 2022 NILM, due 02/2026 [] Carrier screening [x] declined [x] NIPT screening [] declined [x] First trimester anatomy scan [] declined [] universal ASA ordered (start 12w-16w) [x] declined [] M Power Consult [x] not indicated [] declined Second trimester: [] Anatomy scan [] Mode of Delivery - [] Feeding - [] Pump ordered [] Diabetes screen [] CBC, RPR [] Behavioral Health Screening Third trimester (28-30 weeks): [] Consent [] Contraception [] Supervising Producer, car seat, safe sleep [] TeamBirth handout Third trimester (36-40 weeks): [] GBS [] Presentation - [] Scheduled [] yes - Hibiclens, pre-op instructions, CBC, T&S ordered [] no [] H&P [] Preferences worksheet [] Scanned in EMR [] Patient to bring copy to hospital [] Declined Other History of hereditary spherocytosis Overview - S/p splenectomy as at 5 years old, reports received all recommended immunizations - Family history of spherocytosis (mom, sisters, cousins) - declined further genetics referral last - her daughter was tested and is positive for this, followed closely by peds to watch blood counts - plans to have testing done for this child after as well - No medications, no complications Other Visit Diagnoses 17 weeks gestation of (HCC) Relevant Orders UA DIP, URINE (POC) Return to office in 4 weeks and PRN. Velia Guadarrama APRN.CREDIT RISK ANALYTICS MANAGER [facility] 10-15-2024 Note HNO ID: [id number] Author: NORMA TAYLOR LPN Service: ? Author Type: LICENSED NURSE Type: Progress Notes Filed: 10/15/2024 08:59 Note Text: Movement? Active baby Vaginal Bleeding: NO Vaginal fluid leakage of fluid: NO Contractions: no contractions Edema: Negative Norma Taylor LPN [facility] 10-15-2024 History of Present illness Narrative Movement? Active baby Vaginal Bleeding: NO Vaginal fluid leakage of fluid: NO Contractions: no contractions Edema: Negative Norma Taylor LPN documented in this encounter [facility] 09-17-2024 Miscellaneous Notes S: Denies LOF, contractions or vaginal bleeding NT scan today after visit. Getting labs done today. O: see flow sheet SENSITIVE EXAM: Sensitive exam not performed. 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 Supervision of high risk , antepartum (HCC) - Primary Overview Care Checklist Vaccines: [] Flu vaccine [] declined [] RSV vaccine 32 - 36 / (Nov - Apr) [] declined [] COVID vaccine [] declined [] TDaP 27-36 [] declined First trimester: [x] Dating US [x] 1st tri labs [x] Pap smear - 2022 NILM, due 02/2026 [] Carrier screening [x] declined [x] NIPT screening [] declined [x] First trimester anatomy scan [] declined [] universal ASA ordered (start 12w-16w) [x] declined [] M Power Consult [x] not indicated [] declined Second trimester: [] Anatomy scan [] Mode of Delivery - [] Feeding - [] Pump ordered [] Diabetes screen [] CBC, RPR [] Behavioral Health Screening Third trimester (28-30 weeks): [] Consent [] Contraception [] Supervising Producer, car seat, safe sleep [] TeamBirth handout Third trimester (36-40 weeks): [] GBS [] Presentation - [] Scheduled [] yes - Hibiclens, pre-op instructions, CBC, T&S ordered [] no [] H&P [] Preferences worksheet [] Scanned in EMR [] Patient to bring copy to hospital [] Declined Other History of hereditary spherocytosis Overview - S/p splenectomy as at 5 years old, reports received all recommended immunizations - Family history of spherocytosis (mom, sisters, cousins) - declined further genetics referral last - her daughter was tested and is positive for this, followed closely by peds to watch blood counts - plans to have testing done for this child after as well - No medications, no complications Other Visit Diagnoses 13 weeks gestation of (HCC) Return to office in 4 weeks and PRN. Velia Guadarrama APRN.CREDIT RISK ANALYTICS MANAGER documented in this encounter [facility] 09-17-2024 Progress note Formatting of t his note is different from the original. S: Denies LOF, contractions or vaginal bleeding NT scan today after visit. Getting labs done today. O: see flow sheet SENSITIVE EXAM: Sensitive exam not performed. 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 Supervision of high risk , antepartum ([facility]) - Primary Overview Care Checklist Vaccines: [] Flu vaccine [] declined [] RSV vaccine 32 0/7 - 36 6/7 (Nov - Apr) [] declined [] COVID vaccine [] declined [] TDaP 27-36 [] declined First trimester: [x] Dating US [x] 1st tri labs [x] Pap smear - 2022 NILM, due 02/2026 [] Carrier screening [x] declined [x] NIPT screening [] declined [x] First trimester anatomy scan [] declined [] universal ASA ordered (start 12w-16w) [x] declined [] M Power Consult [x] not indicated [] declined Second trimester: [] Anatomy scan [] Mode of Delivery - [] Feeding - [] Pump ordered [] Diabetes screen [] CBC, RPR [] Behavioral Health Screening Third trimester (28-30 weeks): [] Consent [] Contraception [] Supervising Producer, car seat, safe sleep [] TeamBirth handout Third trimester (36-40 weeks): [] GBS [] Presentation - [] Scheduled [] yes - Hibiclens, pre-op instructions, CBC, T&S ordered [] no [] H&P [] Preferences worksheet [] Scanned in EMR [] Patient to bring copy to hospital [] Declined Other History of hereditary spherocytosis Overview - S/p splenectomy as at 5 years old, reports received all recommended immunizations - Family history of spherocytosis (mom, sisters, cousins) - declined further genetics referral last - her daughter was tested and is positive for this, followed closely by peds to watch blood counts - plans to have testing done for this child after as well - No medications, no complications Other Visit Diagnoses 13 weeks gestation of (HCC) Return to office in 4 weeks and PRN. Velia Gaudarrama APRN.CREDIT RISK ANALYTICS MANAGER [facility] 09-17-2024 Note HNO ID: [id number] Author: NORMA TAYLOR LPN Service: ? Author Type: LICENSED NURSE Type: Progress Notes Filed: 09/17/2024 09:36 Note Text: Movement? Too early Vaginal Bleeding: NO Vaginal fluid leakage of fluid: NO Contractions: no contractions Edema: Negative Norma Taylor LPN [facility] 09-17-2024 History of Present illness Narrative Movement? Too early Vaginal Bleeding: NO Vaginal fluid leakage of fluid: NO Contractions: no contractions Edema: Negative Norma Taylor LPN documented in this encounter [facility] 08-17-2024 Progress note Formatting of t his note is different from the original. S: Denies LOF, contractions or vaginal bleeding NOB intake complete, first tri labs ordered NIPT/NT ordered, declines carrier, declines ASA @ 12 w SEE PROBLEM LIST O: see flow sheet SENSITIVE EXAM: Sensitive exam not performed. 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 Supervision of high risk , antepartum ([facility]) - Primary Overview Care Checklist Vaccines: [] Flu vaccine [] declined [] RSV vaccine 32 0/7 - 36 6/ (Nov - Apr) [] declined [] COVID vaccine [] declined [] TDaP -36 [] declined First trimester: [x] Dating US [x] tri labs [x] Pap smear - 2022 NILM, due 02/2026 [] Carrier screening [x] declined [x] NIPT screening [] declined [x] First trimester anatomy scan [] declined [] universal ASA ordered (start 12w-16w) [x] declined [] M Power Consult [x] not indicated [] declined Second trimester: [] Anatomy scan [] Mode of Delivery - [] Feeding - [] Pump ordered [] Diabetes screen [] CBC, RPR [] Behavioral Health Screening Third trimester (28-30 weeks): [] Consent [] Contraception [] Supervising Producer, car seat, safe sleep [] TeamBirth handout Third trimester (36-40 weeks): [] GBS [] Presentation - [] Scheduled [] yes - Hibiclens, pre-op instructions, CBC, T&S ordered [] no [] H&P [] Preferences worksheet [] Scanned in EMR [] Patient to bring copy to hospital [] Declined History of delivery by vacuum extraction, currently ([facility]) Other History of hereditary spherocytosis Overview - S/p splenectomy as at 5 years old, reports received all recommended immunizations - Family history of spherocytosis (mom, sisters, cousins) - declined further genetics referral last - her daughter was tested and is positive for this, followed closely by peds to watch blood counts - plans to have testing done for this child after as well - No medications, no complications Other Visit Diagnoses 9 weeks gestation of ([facility]) Encounter for screening of mother ([facility]) Relevant Orders OBSTETRIC ULTRASOUND WHI GONORRHEA/CHLAMYDIA NAAT BACTERIAL CULTURE, URINE RUBELLA IGG ANTIBODY HIV 1/2 COMBO WITH REFLEX TO DIFFERENTIATION SYPHILIS TREPONEMAL W/REFLEX TYPE + SCREEN HEMOGLOBIN A1C ANEMIA REFLEX PANEL HEP ACUTE PANEL BL HEMOGLOBIN EVALUATION CASCADE OBSTETRIC ULTRASOUND WHI [id number] PLUS 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 Return to office in 4 weeks and PRN. Velia Guadarrama APRN.CREDIT RISK ANALYTICS MANAGER [facility] 08-17-2024 Miscellaneous Notes S: Denies LOF, contractions or vaginal bleeding NOB intake complete, first tri labs ordered NIPT/NT ordered, declines carrier, declines ASA @ 12 w SEE PROBLEM LIST O: see flow sheet SENSITIVE EXAM: Sensitive exam not performed. 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 Supervision of high risk , antepartum (HCC) - Primary Overview Care Checklist Vaccines: [] Flu vaccine [] declined [] RSV vaccine 32 0/7 - 36 6/7 (Nov - Apr) [] declined [] COVID vaccine [] declined [] TDaP 27-36 [] declined First trimester: [x] Dating US [x] 1st tri labs [x] Pap smear - 2022 NILM, due 02/2026 [] Carrier screening [x] declined [x] NIPT screening [] declined [x] First trimester anatomy scan [] declined [] universal ASA ordered (start 12w-16w) [x] declined [] M Power Consult [x] not indicated [] declined Second trimester: [] Anatomy scan [] Mode of Delivery - [] Feeding - [] Pump ordered [] Diabetes screen [] CBC, RPR [] Behavioral Health Screening Third trimester (28-30 weeks): [] Consent [] Contraception [] Supervising Producer, car seat, safe sleep [] TeamBirth handout Third trimester (36-40 weeks): [] GBS [] Presentation - [] Scheduled [] yes - Hibiclens, pre-op instructions, CBC, T&S ordered [] no [] H&P [] Preferences worksheet [] Scanned in EMR [] Patient to bring copy to hospital [] Declined History of delivery by vacuum extraction, currently ([facility]) Other History of hereditary spherocytosis Overview - S/p splenectomy as at 5 years old, reports received all recommended immunizations - Family history of spherocytosis (mom, sisters, cousins) - declined further genetics referral last - her daughter was tested and is positive for this, followed closely by peds to watch blood counts - plans to have testing done for this child after as well - No medications, no complications Other Visit Diagnoses 9 weeks gestation of ([facility]) Encounter for screening of mother ([facility]) Relevant Orders OBSTETRIC ULTRASOUND WHI GONORRHEA/CHLAMYDIA NAAT BACTERIAL CULTURE, URINE RUBELLA IGG ANTIBODY HIV 1/2 COMBO WITH REFLEX TO DIFFERENTIATION SYPHILIS TREPONEMAL W/REFLEX TYPE + SCREEN HEMOGLOBIN A1C ANEMIA REFLEX PANEL HEP ACUTE PANEL BL HEMOGLOBIN EVALUATION CASCADE OBSTETRIC ULTRASOUND WHI [id number] PLUS 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 Return to office in 4 weeks and PRN. Velia Guadarrama APRN.DOUG documented in this encounter [facility] 08-17-2024 Instructions Velia Guadarrama APRN.CNP - 08/17/2024 10:02 AM EDT Please see the guide through [facility] for an advanced pamphlet regarding your care: [email or web address] Thank you for choosing us to care for you and your baby during the journey of your ! Here is a summary of the information we reviewed today and what lab work is routinely completed. There may be additional labs or imaging completed throughout the depending on the individual patient. Labs completed at new OB appointment: CBC (blood levels) Blood type and antibody testing Urinalysis and urine culture Urine drug screen Immunity testing to Rubella Screening for gonorrhea, chlamydia, Hepatitis B, Hepatitis C, HIV, Syphilis Pap smear (screening test for cervical cancer) if indicated Glucose challenge test (screening test for diabetes) if indicated Routine labs: 24 to 28 weeks - Glucose challenge test (screening for gestational diabetes) If elevated, then you will complete a 3 hour Glucose Tolerance Test 28 weeks - Repeat CBC (screen for anemia) and repeat syphilis screening Patients with RH- blood types will have repeat antibody testing prior to Rhogam administration 36 to 37 weeks - screening for Group Beta Strep Routine imaging: Dating ultrasound (typically completed at 8 weeks or later) Anatomy ultrasound (typically completed between 18 and 22 weeks) Genetic screening: Genetic screening is available to all patients who desire it but is not required It is typically completed after confirmation of your due date Tests can screen for risk of Down Syndrome, other chromosomal abnormalities, congenital heart defects, neural tube defects, and more! Discuss with your doctor on what screening test is best for you Timing of appointments: Every 4 weeks until 28 weeks Every 2 weeks until 36 weeks Every week until delivery! Timing may change if complications arise Please call us right away and proceed to triage (do not wait for us to call you back) if you think your water broke: large gush or continuous leakage of fluid, you are having regular every 5- 7 minutes painful contractions that you do not want to walk or talk through lasting for more than 2 hours any, or more than 4 an hour if less than 34 weeks. Bleeding more than spotting or your baby is not moving more than 4 times an hour after 28 weeks. Our practice only delivers at [facility]. If you wish to deliver at another hospital you must find a different obstetrical provider. Common questions and problems in : Vaginal bleeding: You should go to OB triage if you have any vaginal bleeding more than spotting in your . It is common to occasionally have spotting after intercourse, or if you have had your cervix examined recently. You may have some bloody mucus discharge at term. Let your doctor know about any spotting you have had. Pain: can be an uncomfortable time for many women, especially as your baby grows as it stretches muscles and nerves. NSAIDS like ibuprofen (Motrin) or naproxen (Aleve) as well as regular dose aspirin are not safe in . If you have minor aches or pains you should take tylenol and rest. Stretching, massage and heat are also good interventions for minor pains. Utilizing support devices like belly bands or splints may help with some of the discomfort. If you are having moderate to severe pain that doesn't improve with rest and tylenol you should be seen in OB triage right away. Nausea: Nausea and vomiting is common and usually improves after the first trimester of . If your vitamin is giving you nausea, try a chewable vitamin instead. Eating 5-6 small meals a day instead of 3 larger meals a day may help with nausea. Abdulkadir candies, vitamin B6 (10 mg BID) and unisom otc (0.5 tab BID) can be used for nausea. Unisom may cause fatigue, do not drive or operate heavy machinery until you know how you react to the medication. You should let your doctor know if you have lost weight in or cannot keep any food or liquids down for > 8 hours. You may need prescription nausea medications. Diet: You should maintain a well balanced diet during . During an additional 300 calories a day is needed, which is usually equivalent to 1-2 snacks. Taking vitamins helps your baby get the folic acid and other nutrients you need. It is common to need supplemental iron in , you will be tested for anemia several times during your . Foods to avoid: unpasteurized dairy, uncooked meats and cold delicatassen meats, as well as some types of fish: hong mackarel, sword fish, orange roughy, shark, tile fish from [place], marlin, big eye tuna. We recommend only a total of 2-3 servings of fish a week, and only 1 serving of albacore tuna. Weight gain: The amount of weight an average sized woman should gain is between 25-35 pounds. If you were underweight prior to this increases to up to 40 pounds, if you were overweight prior to this decreases to 15-25 pounds. Most of this is gained in the second and third trimesters, about 1 pound per week, you should gain less than 5 pounds in the first trimester. Exercise: It is safe to exercise in ! Labor is a marathon, not a sprint and if you do not have an exercise regimen you should start one, starting with something as simple as 30 minutes of walking a day. If you already have an exercise program, most can be continued throughout your , but may need modified as it progresses. You should avoid all contact sports, horse back riding, and any rigorous activity that cause you abdominal pain and take care for any exercise that can be affected by your balance ie, lifting weights with a bench bar. Safety: A good rule of thumb is if you have any concerns about doing an activity, ask you doctor before you do it. You should always wear a seat belt and helmet when riding a bike. You should not ride motorcycles or any off road recreational vehicles. control: While you are you should begin to think about what types of control you would like to use after delivery. Some insurance companies require you sign consent forms more than 30 days prior to delivery if you would like permanent sterilization via tubal ligation or removal. Partner vasectomies can be accomplished while you are still . Some intermediate reversible contraception can be started right after delivering your baby, like Mirena IUD and Nexplanon arm implant. Talk with your doctor if you think one of these methods would be right for you. Some contraception cannot be started right after having a baby because of your increased risk of blood clots . Combined hormonal contraceptions such as the Nuvaring, OCPs, and the patch should not be started until your visit. The progesterone only mini pill or Depo Provera shot may be given prior to discharge. movement: Once you start feeling movement at around 18-20 weeks, you should be able to feel your baby move the same amount every day. Once your baby starts moving regularly, you should feel him/her at least 4 times an hour. If you notice a decrease in your baby movement it may be in a sleep cycle, however you should be able to feel at least 10 movements in 2 hours. If you are concerned you have not been feeling appropriate movement try drinking some cold juice and lying down in a dark room. If you still have not felt the appropriate amount of movements you should go to OB triage at the hospital for further evaluation. Leakage of fluid: If you have large gush of fluid or continuous leakage of fluid you should go to OB triage for further evaluation to ensure your water has not broken. It is important to be seen right away to decrease the risk of infection, even if you do not feel any contractions. Contractions: If you are at or near term (34+ weeks) typically you should come to the hospital when you are having strong, regular contractions for 2 hours or more. Strong contractions are difficult to walk or talk through. Regular contractions occur at intervals of 5-7 minutes or more frequent. If you had a fast labor in your previous pregnancies and live distant from the hospital you may need to be seen sooner than 2 hours. If you are or have any complications your contractions may not feel painful, but rather a tightening or discomfort that comes and goes frequently. If you are < 34 weeks, you should call the office or go to the hospital if you believe you are having contractions more than 4 times an hour. Please call us right away and proceed to triage (do not wait for us to call you back) if you think your water broke: large gush or continuous leakage of fluid, you are having regular every 5- 7 minutes painful contractions that you do not want to walk or talk through lasting for more than 2 hours any, or more than 4 an hour if less than 34 weeks. Bleeding more than spotting or your baby is not moving more than 4 times an hour after 28 weeks. Our practice only delivers at [facility]. If you wish to deliver at another hospital you must find a different obstetrical provider. If you have any questions or concerns please call the office. If you need to go to the emergency room for any of the above problems, or any other issues, you should go to the [facility]. Please call the office before going to the hospital. If you are , go to the ER at the [facility] [place]. Do not go to the outlying ER s ([facility] or [place]). If you need to go to an ER and cannot or will not go downtown, please use one of [facility] ER s (not [facility], [place] or [facility]). When to Call Your Health Care Provider During Your First Trimester of (1-12 weeks) Call your health care provider right away if you have: A fever higher than 100.4 degrees Fahrenheit Heavy bleeding, soaking more than one pad an hour for three hours Unusual or severe cramping or abdominal pain Severe or persistent vomiting and/or diarrhea Fainting spells or dizziness Pain, burning, or trouble urinating Unusual vaginal discharge Swelling in your hands, fingers, or face Blurred vision or spots before your eyes One extremity swollen more than the other Severe headaches Pain or cramping in your arms, legs, or chest During your you CAN: Dye your hair Manicure/pedicure/gentle massage Have acrylic nails applied Go to chiropractor Pain with an open window Sexual intercourse. [place] is not recommended for patients who are on bed rest for labor and those with placenta previa. Have TB (tuberculosis) skin testing ([place] ) done Shave your pubic hair (see additional note that follows) Use insect repellent, DEET During your you should NOT: Use alcohol, take drugs, or smoke Fast during holidays Go in a Jacuzzi, whirlpool, or hot tub Visit a tanning bed Shave pubic hair close to your delivery date; clipping is preferred OB [id number] PROTOCOLS PROBLEM OTC MEDICATION CALL OFFICE IF: Mild Headaches/aches/ pains Acetaminophen (Tylenol) regular or extra strength Call with severe/persistent headaches or vision changes Nasal congestion, sinusitis, allergies or cold symptoms Tylenol Cold or Sinus, Benadryl, Alavert, plain Mucinex or robitussin, nasal saline spray, plain robitussin. No dextromethorphan or pseudoephedrine. Call if no improvements in 2-3 days or if condition worsens or with severe muscle aches, high fevers suggestive of flu Cough Robitussin (plain, no alcohol) *Do not use Nyquil or a generic version of this due to its high alcohol content* Persistent cough Sore throat, minor irritation Throat lozenges, Cepacol, Chloraseptic, salt water gargles Severe or persistent sore throat Mild rashes/skin allergies Benadryl, Chlor-Trimeton, Alavert, Claritin, Caladryl/Calamine lotion, Baking soda/oatmeal/corn starch baths If progressive or persistent Diarrhea Kaopectate, Imodium, Clear liquids for 24 hours and then a BRAT diet (bananas, rice, applesauce, toast, avoid dairy) Diarrhea for more than 2 days or fever, bloody diarrhea Fever Acetaminophen or Tylenol regular or extra strength Persistent fevers over 101 degrees Constipation Increase fiber and fluids, increase activity level, Milk of Magnesia, Colace/Pericolace Severe straining Hemorrhoids Preparation H, Tucks, Anusol, Warm sitz baths, witch andria Bleeding or severe pain Heartburn/Indigestion Decrease or avoid caffeine, sit upright for 2 hours after eating. Tums/Maalox/Mylanta first. If no relief, Zantac or Pepcid Complete No Relief Nausea Vitamin B6 25mg. Plus Unisom (or equivalent) 1/2 tab up to 3 times daily, or Benadryl 25-50mg. 4 times daily, abdulkadir tea, BioBands, abdulkadir candy, abdulkadir asiya. Persistent vomiting, decrease in weight, decrease in urine output Yeast Infection Monistat & or Clotrimazole No relief of symptoms ADDITIONAL OPTIONS ALLERGIES: Benadryl (plain), Claritin (plain), Zyrtec (plain), Daria, Chlortrimeton, Robitussin (Guaifenesin), Dimetapp, Dimetapp Decongestant CONSTIPATION: Metamucil, Colace, Citrucel, Fibercon, Metamucil, Surfak, Milk of Magnesia, Dulcolax COUGH: Vicks DayQuil Cough, Vicks DayQuil Cold & Flu, Vicks NyQuil Cough, Vicks NyQuil Cold & Flu, Robitussin Mucus & Chest Congestion, Mucinex (Plain) DIARRHEA: Imodium, Imodium A-D, Kaopectate and Pepto-Bismol may be used in the first half of , but not in the last half. A diet consisting of bananas, rice, unsweetened applesauce, dry toast, crackers, and unsweetened cereal is often helpful for diarrhea If you have diarrhea for more than two days or it is bloody, please notify your provider HEARTBURN: Mylanta, Maalox, Tums, Rolaids, Pepcid, Pepcid AC, Prevacid, Protonix, Nexium, Zantac, Tagamet HEMORRHOIDS: Anusol, Preparation H, Tucks pads LEG OR CALF CRAMPS: Calcium 500 mg twice per day (Also, avoid pointing your toe downward. Instead, stretch your leg out straight and flex your toes back toward the top of your leg.) MUSCLE ACHES: Tylenol (Acetaminophen), (You may also try heat or ice) NASAL CONGESTION: Tylenol Sinus, Sudafed, Sudafed Congestion, Sudafed Triple Action NASAL SPRAY: Afrin, Dristan, Neosynephrine (avoid taking these for longer than 2 days - taisha cause rebound congestion), [place] Nasal [place], Flonase, Nasonex PAIN: Tylenol (acetaminophen), Extra Strength Tylenol SORE THROAT: Any throat or cough drops or sprays (that do not contain alcohol) CHRONIC PAIN MEDICATIONS: If you take chronic pain medications such as Subutex, Suboxone, Methadone, Morphine, Percocet, Vicodin, Oxycodone, OxyContin, Fentanyl, Opana, Dilaudid, or Ultram, you should not stop or wean yourself from these medications on your own. This can be very harmful to both you and your unborn baby. Instead, you should work closely with your provider and your pain management doctor throughout your . Make sure that you keep all of your visits with your provider. This will help to ensure your and your baby's health and safety. It is also very important to breastfeed your baby after delivery to help decrease withdrawal symptoms. If you are taking theses medications, it is very important to talk about them with your provider. Your baby will require special attention and care after delivery What are some of the benefits of exercise during ? Becoming active and exercising at least 30 minutes on most, if not all, days of the week can benefit your health during in the following ways: Helps reduce backaches, constipation, bloating, and swelling May help prevent or treat gestational diabetes Increases your energy Improves your mood Improves your posture Promotes muscle tone, strength, and endurance Helps you sleep better Regular activity also helps keep you fit during and may improve your ability to cope with labor. This will make it easier for you to get back in shape after the baby is born. What changes occur in the body during that can affect my exercise routine? The hormones produced during cause the ligaments that support your joints to become relaxed. This makes the joints more mobile and more at risk of injury. The extra weight in the front of your body during shifts your center of gravity and places stress on joints and muscles, especially those in the pelvis and lower back. This can make you less stable, cause back pain, and make you more likely to lose your balance and fall, especially in later . The extra weight you are carrying will make your body work harder than before you were . What forms of exercise are safe during ? Certain sports are safe during , even for everyone: Walking is a good exercise for anyone. Swimming is great for your body because it works so many muscles. Cycling provides a good aerobic workout. Aerobics is a good way to keep your heart and lungs strong. If you were a runner before you became , you often can keep running during , although you may have to modify your routine. What forms of exercise should be avoided? In general, activities in which there is a high risk of falling, such as gymnastics, water skiing, and horseback riding, should be avoided. Some racquet sports also increase the risk of falling because of your changing balance. Other sports to avoid include the following: Downhill snow skiing--Your change in balance may put you at greater risk of injuries and falls. Also, you may be at risk of altitude sickness, an illness caused by breathing air that contains less oxygen. Contact sports, such as hockey, basketball, and soccer--These sports can result in harm to you and your baby. Scuba diving--Scuba diving can put your baby at risk of decompression sickness, a serious illness that results from changes in the pressure surrounding the body. What should I be aware of when exercising during ? The changes in your body can make certain positions and activities risky for you and your baby. While exercising, try to avoid activities that call for jumping, jarring motions, or quick changes in direction that may strain your joints and cause injury. There are some risks from becoming overheated during . This may cause loss of fluids and lead to dehydration and problems during . When you exercise, follow these general guidelines for a safe and healthy exercise program: After the first trimester of , avoid doing any exercises on your back. If it has been some time since you have exercised, start slowly. Begin with as little as 5 minutes of exercise a day and add 5 minutes each week until you can stay active for 30 minutes a day. Avoid brisk exercise in hot, humid weather or when you have a fever. Wear comfortable clothing that will help you to remain cool. Wear a bra that fits well and gives lots of support to help protect your breasts. Drink plenty of water to help keep you from overheating and dehydrating. Make sure you consume the daily extra calories you need during . What are the warning signs that I should stop exercising? Stop exercising and call your health care provider if you have any of these symptoms: Vaginal bleeding Dizziness or feeling faint Increased shortness of breath Chest pain Headache Muscle weakness Calf pain or swelling Uterine contractions Decreased movement Fluid leaking from the vagina Maternity and Childbirth Classes visit [email or web address] or call [phone] Classes available: Baby care for beginners- a guide to the first 6 weeks Boot camp for new dads essentials beyond the first six weeks (after delivery class) support group Childbirth preparation for first time parents Just the facts express prep class /child CPR and Safety Grandparent Information Good Nutrition During for You and Your Baby Congratulations! You are now eating for you and your baby. While there are two of you now, you only need to increase your calorie intake by 500 calories. This guide will help you choose a variety of healthy foods for you and your baby to get all the nutrients you need. What foods should I eat? You will need an additional 200 to 300 extra calories from nutrient-dense foods such as lean meats, low fat dairy, fruits, vegetables and whole grain products. It will be important to carefully consider the foods you consume during your . This is a time to eat more foods that are nutrient-dense, and fewer sweets and treats. Eat a variety of foods. Use the website www.[place].gov as a guide to choose the amounts of foods in each food group. Daily guidelines for eating healthy during Calcium: Calcium is needed in the body to build strong bones and teeth. Calcium also allows the blood to clot normally, nerves to function properly, and the heart to beat normally. The [place] [employer] (ACOG) recommends 1,000 milligrams (mg) per day for and lactating () women. Women 19 years or younger need 1,300 mg a day. Eat or drink four servings of dairy products or foods rich in calcium. Dairy products are the best source of calcium. Other sources of calcium are dark, leafy greens, fortified cereal, breads, fish, fortified orange juices, almonds and sesame seeds. Folic acid: Folic acid is used to make the extra blood your body needs during . ACOG and the [employer] recommend 400 micrograms (mcg) per day for women. This amount is included in your vitamins. The [employer] suggests that 70 percent of all neural tube defects can be avoided with appropriate folic acid intake. Some women are at an increased risk for having a baby with an open neural tube defect (including but not limited to women with a family history of spina bifida, women on anti-epileptic medication, etc.). ACOG recommends additional folic acid for women at an increased risk for neural tube defect. Your doctor can discuss this with you and in some instances, refer you for genetic counseling to discuss further. Foods rich in folic acid include lentils, kidney beans, green leafy vegetables (spinach, ej lettuce, kale, and broccoli), citrus fruits, nuts and beans. Folic acid is also added as a supplement to certain foods such as fortified breads, cereal, pasta, rice, and flours. Iron: Iron is an important part of red blood cells, which carry oxygen through the body. Iron will help you build resistance to stress and disease, as well as help you avoid tiredness, weakness, irritability, and depression. ACOG recommends you receive 27 total mg of iron a day between food and your vitamin. Good sources include whole grain products, lean beef and pork, dried fruit and beans, sardines and green leafy vegetables. Vitamin A: ACOG recommends you receive 770 mcg of Vitamin A daily. Foods rich in Vitamin A are leafy green vegetables, deep yellow or orange vegetables (e.g., carrots or sweet potatoes), milk, and liver. Daily recommendations: Include two to three servings of vegetables, two servings of fruits, at least three servings of whole grain bread, cereals, pasta, two to three servings of lean protein (e.g., meat, fish, and poultry). Vitamin D: Vitamin D works with calcium to help the baby s bones and teeth develop. It also is essential for healthy skin and eyesight. All women, including those who are , need 600 international units of vitamin D a day. Good sources are milk fortified with vitamin D and fatty fish such as salmon. Exposure to sunlight also converts a chemical in the skin to vitamin D. DHA: The [place] [employer] (ACOG), recommends and lactating women should aim for an average daily intake of at least 200 mg docosahexaenoic acid (DHA) a day in addition to your vitamins. vitamins, as well as DHA, can be purchased over the counter or with a prescription. Protein: Protein is an important nutrient needed for growth and development. Protein is needed for energy and to build and repair different parts of your body, especially brain, muscle and blood. A woman needs additional protein for her baby's growth. Each person needs different amounts of protein depending on their size. A woman weighing 150 pounds needs 75 grams of protein every day. (To estimate, use your pre- weight and divide by two.) Choose a variety of protein-rich foods, which include seafood, lean meat and poultry, eggs, beans and peas, soy products, and unsalted nuts and seeds. Use labels on packaged food to determine how many grams of protein each food provides. Avoid alcohol: Alcohol has been linked with premature delivery and low weight babies, as well as Alcohol Syndrome. Caffeine: It is recommended to limit your caffeine intake. You may choose: two 5-ounce cups of coffee, three 5-ounce cups of tea, or two 12-ounce glasses of caffeinated soda. Eat salty foods in moderation. Salt causes your body to retain water and could lead to an elevation in your blood pressure. Do not diet! Even if you are overweight, your is not an acceptable time to lose weight. You or your baby could be missing essential nutrients for good growth. Are there foods that are harmful to eat during ? There are specific foods that you will want to avoid during your . Hormonal changes during can have a negative effect on your immune system and put you at greater risk for phyllis a foodborne illness. The Centers for Disease Control and Prevention (CDC), has found that phyllis the foodborne illness Listeria during can cause premature delivery, miscarriage, and even . women are 20 times more likely to contract Listeria. You can decrease your chances of phyllis Listeria by using caution with hot dogs, luncheon meats, cold cuts, or other deli meats (e.g., bologna), or fermented or dry sausages unless they are heated to an internal temperature of 165 F or until steaming hot just before serving. Avoid getting fluid from hot dog and lunch meat packages on other foods, utensils, and food preparation surfaces, and wash hands after handling hot dogs, luncheon meats, and deli meats. Do not eat soft cheese such as feta, queso fair, queso fresco, brie, Camembert, blue-veined, or panela (queso panela) unless it is labeled as made with pasteurized milk. Make sure the label says, MADE WITH PASTEURIZED MILK. Pay attention to labels. Do not eat refrigerated p t or meat spreads from a deli or meat counter or from the refrigerated section of a store. Foods that do not need refrigeration, like canned or shelf-stable p t and meat spreads, are safe to eat. Refrigerate after opening. Other foods that are more likely to cause foodborne illnesses include sushi, rare or undercooked meats and poultry (chicken), beef, raw eggs, Caesar dressing, and mayonnaise. For more information on Listeria, go to the CDC. Another food of concern for women is fish. Although fish is a low-fat, healthful protein choice, there are certain fish that have elevated levels of methyl mercury or Polychlorinated Biphenyls (PCBs), a pollutant in the environment. Consuming fish with high levels of methyl mercury during has been associated with brain damage and developmental delay for babies. Eating identified safe fish one time a week is safe for women. The [employer] recommends women should avoid all raw and seared fish. Raw fish includes sushi and sashimi, undercooked finfish, and undercooked shellfish (such as undercooked oysters, clams, mussels, and scallops). Avoid shark, swordfish, hong mackerel, and tilefish even when cooked as they have higher levels of mercury. The [employer] cautions against eating fish that may contain higher levels of PCBs. Fish in this category include bluefish, simental, freshwater salmon, pike, trout, and walleye. For more information on safe fish, go to the CDC or the [employer]. How much weight should I gain? Gaining the right amount of weight during by eating a balanced diet is a good sign that your baby is getting all of the nutrients he or she needs and is growing at a healthy rate. Weight gain should be slow and gradual. In general, you should gain about 2 to 4 pounds during your first three months of and 1 pound a week for the remainder of the . A woman of average weight before can expect to gain 15 to 35 pounds during the . You may need to gain more or less depending on whether you are underweight or overweight when you get . Recommendations also differ if you are carrying more than one baby. Where does all the weight go? Baby, 6-8 pounds Placenta, 2-3 pounds Amniotic fluid, 2-3 pounds Breast tissue, 0-3 pounds Blood supply, 3-4 pounds Fat stores for delivery and (remainder of weight) Uterus increase, 2-5 pounds TOTAL: 15 -35 pounds What if I am gaining too much weight? Try to get your weight back on track. Don't consider losing weight or stopping weight gain altogether. You should try to slow your weight gain to recommended amounts, depending on your trimester. During the first trimester, you should gain 2 to 4 pounds total; during the second and third trimester, you should gain 1 pound per week. Consider trying these diet changes to gain weight more slowly: Eat the appropriate portion size and avoid second helpings. Choose low-fat dairy products. Exercise; consider walking or swimming on most if not all days. Use low-fat cooking methods. Limit sweets and high-calorie snacks. Limit sweet and sugary drinks. What if I am not gaining enough weight? Every woman is different and not everyone will gain at the same rate. You should talk to your doctor if you are concerned that you are not gaining enough. Weight gain can be hindered by nausea and morning sickness. (See suggestions for when you are not feeling well.) Excessive vomiting can be a symptom of hyperemesis gravidarum, which you should discuss with your doctor. Consider trying these diet changes to gain weight within appropriate ranges: Eat more frequently. Try eating five to six times per day. Choose nutrient and calorically dense foods such as dried fruit, nuts, crackers with peanut butter, and ice cream. Add a little extra cheese, honey, margarine, or sugar to the foods you are eating. What can I eat if I am not feeling well? symptoms vary. Some women may have difficulty with morning sickness, diarrhea, or constipation. Here are a few suggestions on how to deal with these symptoms. You may also see the Medicine Guidelines During section of this book for safe [id number] medicine that may assist with symptoms. Morning sickness: For morning sickness, try eating crackers, cereal, or pretzels before you get out of bed. Eat small meals more frequently throughout the day. Avoid fatty, fried foods. Constipation: Increase your fiber intake by eating high fiber cereal and fresh fruits and vegetables. Also, make sure you are drinking plenty of water--at least 10-12 glasses per day. Diarrhea: Increase your intake of foods containing pectin and gum fiber to help absorb excess water. Good choices include applesauce, bananas, white rice, oatmeal, and refined wheat bread. Heartburn: Eat small, frequent meals throughout the day, eat slowly and chew thoroughly, avoid spicy or rich foods, and caffeine. Do not drink a lot of fluids with your meal, drink fluids in between meals. Try not to lie down after eating a meal, and keep your head elevated when lying down. Refer to the Medicine Guidelines During section in this book for safe heartburn medications. Are cravings normal? Many women will have food cravings during , but there are others who do not. If you have food cravings, it's okay to indulge as long as it fits into a healthy diet and does not occur too often. If you are craving non-food items such as ice, laundry detergent, dirt, valeriy, ashes, or paint chips, you may have a condition known as pica. You should discuss this with your doctor immediately. Eating non-food items can be harmful to you and your baby and may be a sign of a nutritional deficiency such as iron deficiency. References ACOG. Nutrition During Accessed 05/23/2015. International Federation of Gynecology and Obstetrics. Best Practice on Maternal- Medicine Accessed 05/23/2015. Formulary Watch. vitamins: A review of the literature on benefits and risks of various nutrient supplements Accessed 05/23/2015. [employer]. Eating healthy during Accessed 05/23/2015. [place] [employer]. Diet During Accessed 05/23/2015. Copyright 3640-4065 The [facility]. All rights reserved This information is provided by the [facility] and is not intended to replace the medical advice of your doctor or health care provider. Please consult your health care provider for advice about a specific medical condition. For additional health information, please contact the Center for Consumer Health Information at the [facility] or toll-free extension [phone]. If you prefer, you may visit [email or web address] or [email or web address]. This document was last reviewed on: 2015 index#[id number] documented in this encounter [facility] 08-17-2024 Note HNO ID: [id number] Author: VELIA GUADARRAMA APRN.DOUG Service: ? Author Type: Nurse Practitioner Type: Progress Notes Filed: 08/17/2024 10:10 Note Text: INITIAL OB ASSESSMENT HPI: Keiko Bliss is a 29 year old year old Here to establish Obstetrical Care. Patient's last menstrual period was Patient's last menstrual period was 10/22/2022 (exact date). from OB Dating Form. Complaints: Mild nausea, otherwise doing well Previous history: Prior : never History of 4th degree laceration: No History of shoulder dystocia: No History of Hypertensive disorders including pre-eclampsia or gestational hypertension: No History of gestational diabetes: No Patient's Risk Screening for delivery: Have you had a prior bustamante between 20w and 36w6d? No How many pregnancies have you had before? 1 Did you have a previous baby with a GBS Infection? No Please select all that apply for any prior : N/A MEDICAL/PSYCHOSOCIAL HISTORY: History of hemorrhage or bleeding concerns: No Thyroid Disease: No History of chronic hypertension: No History of pre-existing diabetes: No No results found for: ABORHD Last Pap: 2022 NILM, due 02/2026 History of abnormal pap: Yes - rpts were normal Prior treatment for cervical dysplasia: none. Last HPV: History of STDs: chlamydia Partner History of STDs: None Tobacco use: No E-Cigarette/Vaping Use: No Caffeine use: Yes Drug use: No Alcohol use: No Multivitamin with Folic acid: Yes Would refuse blood transfusion if medically necessary: No Social Needs: How often does this describe you? I don't have enough money to pay my bills: Never Within the past 12 months, have you worried that your food would run out before you had money to buy more? Never In the past 12 months, has lack of reliable transportation kept you from going to medical appointments or work, or from getting things needed for daily living? Never In the past 12 months, have you had any concerns about having a place to live, or about the condition or quality of your housing? Never Social History: Do you have any history of depression, anxiety, PTSD, or other mood problems? Yes Do you have a history of abuse or trauma that may impact your experience? No Are you currently employed? Yes - [employer] Depression/Anxiety Screening: denies symptoms of depression. Do you have any history of depression, anxiety, PTSD, or other mood problems? No data recorded Genetic Screening: Partner present: Yes Patient verbalized knowledge of partner family health history: Yes Do you or your partner have any personal or family history of defects not previously discussed: No Do you have history of a complicated by anomaly, genetic condition, or demise: No Low Dose ASA Screening: Agreeable to starting low dose aspirin use for the prevention of pre-eclampsia: No OB Risk Screening: Completed, no positive findings documented. Marital Status: Partner: Name: Kiran PAST MEDICAL HISTORY Diagnosis Date Blood dyscrasia Chlamydia 2016 Mental disorder hx while in college - denies at this time Rh incompatibility Spherocytosis (HCC) 1995 PAST SURGICAL HISTORY Procedure Laterality Date SPLENECTOMY TOTAL SEPARATE PROCEDURE 03/04/1999 Current Outpatient Medications on File Prior to Visit Medication Sig 28 mg iron- 800 mcg tab TAKE 1 TABLET BY MOUTH ONCE DAILY No current facility-administered medications on file prior to visit. ALLERGIES No Known Allergies Does patient have penicillin allergy: No REVIEW OF SYSTEMS: GENERAL: Negative for: Fever or Chills HEENT: Negative for: Headache, Impaired Vision, Ringing in Ears, Nosebleeds NECK: Negative for: Swelling, Pain, Stiffness RESPIRATORY: Negative for: Cough, Shortness of breath, Wheezing GASTROINTESTINAL: Negative for: Heartburn, Constipation, Diarrhea, Blood in stool, Vomiting MUSCULOSKELETAL: Negative for: Muscle or joint pain, stiffness, Joint swelling NEUROLOGIC/PSYCHIATRIC: Negative for: Weakness, Paralysis, Numbness, Tingling, Tremor, Anxiety, Depression, Memory loss SKIN: Negative for: Rash, Itching GENITOURINARY: Negative for: vaginal itching, vaginal discharge, hematuria or dysuria SENSITIVE EXAM: Sensitive exam not performed. PHYSICAL EXAM: LMP 10/22/2022 (Exact Date) GENERAL: pleasant in no apparent distress DERMATOLOGY: Normal, without lesions, non-icteric, and non-hirsute NECK: Supple, full range of motion CHEST: Normal inspiratory effort BREAST: deferred ABDOMEN: Deferred NEURO: alert and oriented x3,exam grossly non-focal PELVIS: deferred Limited OB ultrasound exam: single intrauterine and positive cardiac activity Impression - Single, live, intrauterine . - An intrauterine gestational sac with a yolk sac and pole (more content not included)... [facility] 08-17-2024 History of Present illness Narrative INITIAL OB ASSESSMENT HPI: Keiko Bliss is a 29 year old year old Here to establish Obstetrical Care. Patient's last menstrual period was Patient's last menstrual period was 10/22/2022 (exact date). from OB Dating Form. Complaints: Mild nausea, otherwise doing well Previous history: Prior : never History of 4th degree laceration: No History of shoulder dystocia: No History of Hypertensive disorders including pre-eclampsia or gestational hypertension: No History of gestational diabetes: No Patient's Risk Screening for delivery: Have you had a prior bustamante between 20w and 36w6d? No How many pregnancies have you had before? 1 Did you have a previous baby with a GBS Infection? No Please select all that apply for any prior : N/A MEDICAL/PSYCHOSOCIAL HISTORY: History of hemorrhage or bleeding concerns: No Thyroid Disease: No History of chronic hypertension: No History of pre-existing diabetes: No No results found for: ABORHD Last Pap: 2022 NILM, due 02/2026 History of abnormal pap: Yes - rpts were normal Prior treatment for cervical dysplasia: none. Last HPV: History of STDs: chlamydia Partner History of STDs: None Tobacco use: No E-Cigarette/Vaping Use: No Caffeine use: Yes Drug use: No Alcohol use: No Multivitamin with Folic acid: Yes Would refuse blood transfusion if medically necessary: No Social Needs: How often does this describe you? I don't have enough money to pay my bills: Never Within the past 12 months, have you worried that your food would run out before you had money to buy more? Never In the past 12 months, has lack of reliable transportation kept you from going to medical appointments or work, or from getting things needed for daily living? Never In the past 12 months, have you had any concerns about having a place to live, or about the condition or quality of your housing? Never Social History: Do you have any history of depression, anxiety, PTSD, or other mood problems? Yes Do you have a history of abuse or trauma that may impact your experience? No Are you currently employed? Yes - [employer] Depression/Anxiety Screening: denies symptoms of depression. Do you have any history of depression, anxiety, PTSD, or other mood problems? No data recorded Genetic Screening: Partner present: Yes Patient verbalized knowledge of partner family health history: Yes Do you or your partner have any personal or family history of defects not previously discussed: No Do you have history of a complicated by anomaly, genetic condition, or demise: No Low Dose ASA Screening: Agreeable to starting low dose aspirin use for the prevention of pre-eclampsia: No OB Risk Screening: Completed, no positive findings documented. Marital Status: Partner: Name: Kiran PAST MEDICAL HISTORY Diagnosis Date Blood dyscrasia Chlamydia 2016 Mental disorder hx while in college - denies at this time Rh incompatibility Spherocytosis (HCC) 1995 PAST SURGICAL HISTORY Procedure Laterality Date SPLENECTOMY TOTAL SEPARATE PROCEDURE 03/04/1999 Current Outpatient Medications on File Prior to Visit Medication Sig 28 mg iron- 800 mcg tab TAKE 1 TABLET BY MOUTH ONCE DAILY No current facility-administered medications on file prior to visit. ALLERGIES No Known Allergies Does patient have penicillin allergy: No REVIEW OF SYSTEMS: GENERAL: Negative for: Fever or Chills HEENT: Negative for: Headache, Impaired Vision, Ringing in Ears, Nosebleeds NECK: Negative for: Swelling, Pain, Stiffness RESPIRATORY: Negative for: Cough, Shortness of breath, Wheezing GASTROINTESTINAL: Negative for: Heartburn, Constipation, Diarrhea, Blood in stool, Vomiting MUSCULOSKELETAL: Negative for: Muscle or joint pain, stiffness, Joint swelling NEUROLOGIC/PSYCHIATRIC: Negative for: Weakness, Paralysis, Numbness, Tingling, Tremor, Anxiety, Depression, Memory loss SKIN: Negative for: Rash, Itching GENITOURINARY: Negative for: vaginal itching, vaginal discharge, hematuria or dysuria SENSITIVE EXAM: Sensitive exam not performed. PHYSICAL EXAM: LMP 10/22/2022 (Exact Date) GENERAL: pleasant in no apparent distress DERMATOLOGY: Normal, without lesions, non-icteric, and non-hirsute NECK: Supple, full range of motion CHEST: Normal inspiratory effort BREAST: deferred ABDOMEN: Deferred NEURO: alert and oriented x3,exam grossly non-focal PELVIS: deferred Limited OB ultrasound exam: single intrauterine and positive cardiac activity Impression - Single, live, intrauterine . - An intrauterine gestational sac with a yolk sac and pole is present. - [place] rump length measurement is NOT consistent with the dating provided. Therefore, dating is now based on today's crown rump length. The final EDC is 03/22/2025 - heart rate is within normal limits. ASSESSMENT: PLAN: 1) Patient oriented to practice. Patient given new OB orientation folder. Discussed nutrition, folic acid supplementation, dietary guidelines, exercise, smoking, alcohol, caffeine, and drug use. Discussed gestational weight gain guidelines. Discussed routine OB labs including STD/HIV. Discussed how to access Your guide to a health and the Subsurface Augmentee Elint Operator. 2) Screening: Hemoglobin A1C: ordered Baby Aspirin: The patient has been counseled about the potential benefits of low dose aspirin in and our recommendation that this be offered to all patients, regardless of whether they meet the high risk criteria specified above. She Declines Aneuploidy Screening: Discussed aneuploidy screening, nuchal translucency/first trimester early anatomy ultrasound and NIPT. The risks/benefits and limitations of NIPT/aneuploidy screening were reviewed including the potential for false negative and false positive results. The availability of genetic counseling was reviewed. Information on aneuploidy screening was provided. The patient chooses to proceed with First trimester early anatomy ultrasound (12-13w6d) and NIPT (10 weeks) Myriad Carrier Screening: Discussed myriad carrier screening. We discussed the availability of professional-society guided carrier screening and reviewed the conditions screened and limitations of screening. The availability of genetic counseling was reviewed. Information on carrier screening was provided. 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 Supervision of high risk , antepartum (HCC) - Primary Overview Care Checklist Vaccines: [] Flu vaccine [] declined [] RSV vaccine 32 0/7 - 36 6/7 (Nov - Apr) [] declined [] COVID vaccine [] declined [] TDaP 27-36 [] declined First trimester: [x] Dating US [x] 1st tri labs [x] Pap smear - 2022 NILM, due 02/2026 [] Carrier screening [x] declined [x] NIPT screening [] declined [x] First trimester anatomy scan [] declined [] universal ASA ordered (start 12w-16w) [x] declined [] M Power Consult [x] not indicated [] declined Second trimester: [] Anatomy scan [] Mode of Delivery - [] Feeding - [] Pump ordered [] Diabetes screen [] CBC, RPR [] Behavioral Health Screening Third trimester (28-30 weeks): [] Consent [] Contraception [] Supervising Producer, car seat, safe sleep [] TeamBirth handout Third trimester (36-40 weeks): [] GBS [] Presentation - [] Scheduled [] yes - Hibiclens, pre-op instructions, CBC, T&S ordered [] no [] H&P [] Preferences worksheet [] Scanned in EMR [] Patient to bring copy to hospital [] Declined History of delivery by vacuum extraction, currently ([facility]) Other History of hereditary spherocytosis Overview - S/p splenectomy as at 5 years old, reports received all recommended immunizations - Family history of spherocytosis (mom, sisters, cousins) - declined further genetics referral last - her daughter was tested and is positive for this, followed closely by peds to watch blood counts - plans to have testing done for this child after as well - No medications, no complications Other Visit Diagnoses 9 weeks gestation of ([facility]) Encounter for screening of mother ([facility]) Relevant Orders OBSTETRIC ULTRASOUND WHI GONORRHEA/CHLAMYDIA NAAT BACTERIAL CULTURE, URINE RUBELLA IGG ANTIBODY HIV 1/2 COMBO WITH REFLEX TO DIFFERENTIATION SYPHILIS TREPONEMAL W/REFLEX TYPE + SCREEN HEMOGLOBIN A1C ANEMIA REFLEX PANEL HEP ACUTE PANEL BL HEMOGLOBIN EVALUATION CASCADE OBSTETRIC ULTRASOUND WHI [id number] PLUS 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 Follow up in 4 weeks or sooner prn. Velia Guadarrama APRN.CREDIT RISK ANALYTICS MANAGER documented in this encounter [facility] 01-20-2024 Telephone encounter Note 09.10.23 PPV Would like to get a tattoo but trapeze artist requires a drs note stating she can since she's . Are you okay with the letter? Thanks! Stacey Glodman, RN [facility] 01-20-2024 Miscellaneous Notes 09.10.23 PPV Would like to get a tattoo but trapeze artist requires a drs note stating she can since she's . Are you okay with the letter? Thanks! Stacey Goldman RN documented in this encounter [facility] 01-16-2024 Note HNO ID: [id number] Author: RADHA SANCHEZ PT Service: ? Author Type: Physical Therapist Type: Progress Notes Filed: 01/16/2024 14:38 Note Text: 01/16/2024 [facility] PHYSICAL THERAPY DISCONTINUANCE OF CARE Plan of Care Period: Start of Care Date: 07/03/23 Last Visit Date: 07/23/2023 Therapy Program: Patient did not return for follow up care as planned. Please refer to last visit note for interventions provided for this episode of care. Assessment: Unable to formally assess goal achievement. Reason for Discontinuation of Care: Patient has not returned to therapy or scheduled additional follow-up appointments. Radha Sanchez, PT [facility] 09-10-2023 History of Present illness Narrative VISIT Keiko Bliss is a 28 year old year old here for visit. Delivery Summary: Latisha Bliss [[id number]] Delivery Information: Delivery Date: 08/02/23 Delivery type: Vaginal, Vacuum (Extractor) Delivering Clinician: Maribel Gonzalez DO Vacuum Used: Yes Vacuum Indications: Suspicion of Immediate or Potential Compromise Forceps Used: No Shoulder Dystocia Present: No Lacerations: Vaginal Episiotomy: None [place]: Gender: Female Weight (grams): 3112 g One Minute : 8 Five Minute : 9 ROS/ Recovery: Feeding: Breast feeding problems: None Menses since delivery: light flow Menstrual pattern prior to : Regular periods [place] since delivery: Not resumed Depression: denies symptoms of depression. OB Depression and Anxiety Screening- This Encounter (since 09/09/2023) Over the past 2 weeks have you felt down, depressed, or hopeless? Negative Over the past two weeks, have you felt little interest or pleasure in doing things? Negative Emotional support: Yes Bowel symptoms: Negative for abdominal discomfort, blood in stools or black stools and change in bowel habits Abdomen: N/A Bladder symptoms: No dysuria, gross hematuria, urinary frequency, urinary urgency, or incontinence Other issues: None Last Pap: 2022 normal HPV: N/A PAST MEDICAL HISTORY Diagnosis Date Blood dyscrasia Chlamydia 2015 Mental disorder hx while in college - denies at this time Rh incompatibility Spherocytosis (HCC) 1995 PAST SURGICAL HISTORY Procedure Laterality Date SPLENECTOMY TOTAL SEPARATE PROCEDURE 03/04/1999 FAMILY HISTORY Problem Relation Age of Onset None Father other (spherocytosis) Mother other (spherocytosis) Sister other (spherocytosis) Sister Social History Tobacco Use Smoking status: Former Types: Cigarettes Quit date: 2016 Years since quittin.5 Smokeless tobacco: Never Vaping Use Vaping Use: Never used Substance Use Topics Alcohol use: Not Currently Drug use: Never PHYSICAL EXAMINATION: BP 114/78 Ht 5' 5 (1.65m) Wt 163 lb 2.3 oz (74.0kg) LMP 10/22/2022 BMI 27.15 kg/(m^2). GENERAL: pleasant, female in no apparent distress HEENT: Normocephalic, atraumatic, mucus membranes moist, and no lesions NECK: Supple, full range of motion, no adenopathy, and thyroid normal DERMATOLOGY: Normal, without lesions, non-icteric, and non-hirsute BREAST: deferred CHEST: Normal inspiratory effort ABDOMEN: soft, non-tender, and no masses. INCISION: N/A PELVIC: deferred BIMANUAL: deferred NEURO: alert and oriented x3,exam grossly non-focal EXTREMITIES: normal ASSESSMENT AND PLAN: 28 year old status post Vacuum with normal course. Contraception plan: rhythm Follow up: RTC for annual exams and RADHA Swanson MD documented in this encounter [facility] 08-27-2023 Note HNO ID: [id number] Author: KATHY MARTINEZ, DO Service: ? Author Type: Physician Type: Progress Notes Filed: 08/30/2023 16:11 Note Text: MEDICINE CONSULT VISIT SUBJECTIVE This is an /mother dyad being seen together in Medicine Clinic for a consultation visit. The mother, Keiko Bliss, is a 28 year old year old female with a past medical history related to of spherocytosis. 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 ) -latching difficulties initially but could get to latch initially - since took her to see family unable to get to latch since July 12 -On 08/16/23 was 7 lb exactly per parents History obtained from 's MOTHER My final recommendations will be communicated back to the requesting provider, Self, by electronic medical record. HISTORY: First time : Yes Delay in milk coming in (beyond day 5): No Experienced engorgement with milk coming in: Yes Has seen a sr. consultant or medicine provider after hospital discharge: Yes, [facility] : Yes, every feed Pumping: Yes, every 3 hour(s) 8 times per day for 20 minutes, pumping 3 ounces total per session Supplementing with expressed breast milk? Yes - 2.5 oz bottles of breast milk every 2-3 hours; 20 oz per day; 30 minutes to take 2.5 oz - using Evenflow wide base Supplementing with formula? No Additional feeding devices used: finger feeding with syringe at first and SNS INFANT REVIEW OF SYSTEMS: General: -fussy with feeds: Yes -sleepy with feeds: Yes -content after feeds at breast: No -weight gain: good Skin: -rashes or lesions: No -jaundice: No GI: -excessive spitting up or vomiting: No -adequate number of stools per day that are yellow and seedy without blood or mucous: Yes : Adequate number of wet diapers per day: Yes Neuro: Development: meeting appropriate milestones: Yes MATERNAL REVIEW OF SYSTEMS: General: -Fever/chills/myalgias: No Breasts: -Breast pain during feeds? No -Breast pain not during feeds? No -Nipples cracked without bleeding? No -Nipples cracked with bleeding? No -Nipple pain: No -Breast mass or clogged ducts? No -Breast redness or erythema? No -Breast engorgement? No Psych: Screening tools reviewed and discussed with patient/family-Naeem. Please see Patient Entered Data. [place] Depression Score: 8 INFANT PAST MEDICAL HISTORY/PROBLEM LIST: PEDIATRIC HISTORY Gestational age: 40 4/7 wks Delivery method: Vaginal, Vacuum (Extractor) scores: One: 8 Five: 9 weight: 3112 g (6 lb 13.8 oz) Discharge weight: 2907 g (6 lb 6.5 oz) Length: 52.0 cm (20.472) HC: 32 cm Feeding method: ACTIVE PROBLEM LIST Hyperbilirubinemia - 08/04/2023 Family History of Hereditary Spherocytosis - 08/04/2023 Declined Hepatitis B Immunization - 08/04/2023 Meconium in Amniotic Fluid - 08/02/2023 [place] , Unspecified Gestational Age - 0508/02/2023 MEDICATIONS: No prescriptions on file. INFANT: ALLERGIES No Known Allergies MATERNAL PAST MEDICAL HISTORY/PROBLEM LIST: This section contains information obtained from infant?s mother?s chart pertinent to the care of the dyad. Prior breast imaging, surgeries, biopsies, reduction, augmentation or nipple piercing: No Breast cancer diagnosed in any family members <50 y/o, Ashkenazi Orthodoxy descent, or FHx of ovarian cancer? No Concern for risk of low supply? Yes bleeding? No Return of menses? No Breast changes 1st trimester? No Thyroid disease? No PCOS symptoms: irregular periods/hirsutism/ovarian cysts? No Infertility? No BMI>30? No Diabetes or failed glucose tolerance test/insulin resistance/Hgb A1C? No Hypertension, preeclampsia? No History of need for blood transfusion/iron/ hemorrhage? No History of pituitary problems, brain injury? No History of placental encapsulation? No History of tobacco or recreational drug use? No Chance of ? No PAST MEDICAL HISTORY Diagnosis Date Blood dyscrasia Chlamydia 2016 Mental disorder hx while in college - denies at this time Rh incompatibility Spherocytosis (HCC) 1995 ACTIVE PROBLEM LIST State - 08/02/2023 Comment: S/p VAVD Routine post- care Meeting milestones: Tolerating oral intake, ambulating without difficulty, pain well-controlled, voiding without difficulty, passing flatus, lochia normal Rh: Negative Admission Hgb 16.4 > EBL 100 mL : Female Anticipate discharge per primary OB Anticipate discharge PPD #2-3 Supervision of (more content not included)... [facility] 08-27-2023 History of Present illness Narrative MEDICINE CONSULT VISIT SUBJECTIVE This is an infant/mother dyad being seen together in Medicine Clinic for a consultation visit. The mother, Keiko Bliss, is a 27 year old year old female with a past medical history related to of spherocytosis. The is a 3 week old GA: 40 4/7 week with past medical history related to of unconjugated hyperbilirubinemia and family history of hereditary spherocytosis born via with vacuum presenting with the following concerns: -MA intake: Breast Feeding (Mom is concerned, baby won't latch. ) -latching difficulties initially but could get to latch initially - since took her to see family unable to get to latch since July 12 -On 08/16/23 was 7 lb exactly per parents History obtained from infant's MOTHER My final recommendations will be communicated back to the requesting provider, Self, by electronic medical record. HISTORY: First time : Yes Delay in milk coming in (beyond day 5): No Experienced engorgement with milk coming in: Yes Has seen a sr. consultant or medicine provider after hospital discharge: Yes, [facility] : Yes, every feed Pumping: Yes, every 3 hour(s) 8 times per day for 20 minutes, pumping 3 ounces total per session Supplementing with expressed breast milk? Yes - 2.5 oz bottles of breast milk every 2-3 hours; 20 oz per day; 30 minutes to take 2.5 oz - using Evenflow wide base Supplementing with formula? No Additional feeding devices used: finger feeding with syringe at first and SNS INFANT REVIEW OF SYSTEMS: General: -fussy with feeds: Yes -sleepy with feeds: Yes -content after feeds at breast: No -weight gain: good Skin: -rashes or lesions: No -jaundice: No GI: -excessive spitting up or vomiting: No -adequate number of stools per day that are yellow and seedy without blood or mucous: Yes : Adequate number of wet diapers per day: Yes Neuro: Development: meeting appropriate milestones: Yes MATERNAL REVIEW OF SYSTEMS: General: -Fever/chills/myalgias: No Breasts: -Breast pain during feeds? No -Breast pain not during feeds? No -Nipples cracked without bleeding? No -Nipples cracked with bleeding? No -Nipple pain: No -Breast mass or clogged ducts? No -Breast redness or erythema? No -Breast engorgement? No Psych: Screening tools reviewed and discussed with patient/family-Naeem. Please see Patient Entered Data. Hudson Depression Score: 8 PAST MEDICAL HISTORY/PROBLEM LIST: PEDIATRIC HISTORY Gestational age: 40 4/7 wks Delivery method: Vaginal, Vacuum (Extractor) scores: One: 8 Five: 9 weight: 3112 g (6 lb 13.8 oz) Discharge weight: 2907 g (6 lb 6.5 oz) Length: 52.0 cm (20.472) HC: 32 cm Feeding method: ACTIVE PROBLEM LIST Hyperbilirubinemia - 08/04/2023 Family History of Hereditary Spherocytosis - 08/04/2023 Declined Hepatitis B Immunization - 08/04/2023 Meconium in Amniotic Fluid - 08/02/2023 [place] Infant, Unspecified Gestational Age - 0508/02/2023 MEDICATIONS: No prescriptions on file. : ALLERGIES No Known Allergies MATERNAL PAST MEDICAL HISTORY/PROBLEM LIST: This section contains information obtained from s mother s chart pertinent to the care of the dyad. Prior breast imaging, surgeries, biopsies, reduction, augmentation or nipple piercing: No Breast cancer diagnosed in any family members <50 y/o, Ashkenazi Orthodoxy descent, or FHx of ovarian cancer? No Concern for risk of low supply? Yes bleeding? No Return of menses? No Breast changes 1st trimester? No Thyroid disease? No PCOS symptoms: irregular periods/hirsutism/ovarian cysts? No Infertility? No BMI>30? No Diabetes or failed glucose tolerance test/insulin resistance/Hgb A1C? No Hypertension, preeclampsia? No History of need for blood transfusion/iron/ hemorrhage? No History of pituitary problems, brain injury? No History of placental encapsulation? No History of tobacco or recreational drug use? No Chance of ? No PAST MEDICAL HISTORY Diagnosis Date Blood dyscrasia Chlamydia 2015 Mental disorder hx while in college - denies at this time Rh incompatibility Spherocytosis (HCC) 1995 ACTIVE PROBLEM LIST State - 08/02/2023 Comment: S/p VAVD Routine post- care Meeting milestones: Tolerating oral intake, ambulating without difficulty, pain well-controlled, voiding without difficulty, passing flatus, lochia normal Rh: Negative Admission Hgb 16.4 > EBL 100 mL Infant: Female Anticipate discharge per primary OB Anticipate discharge PPD #2-3 Supervision of High Risk in Third Trimester - 05/08/2023 Comment: Care Checklist Vaccines: [] Flu vaccine [] declined [] RSV vaccine 32 0/7 - 36 6/ (Nov - Apr) [] declined [] COVID vaccine [] declined [] TDaP 27-36 [x] declined First trimester: [x] Dating US [x] 1st tri labs [x] Pap smear [] Carrier screening [] declined [x] NIPT screening [] declined [] First trimester anatomy scan [] declined [] ASA ppx indicated [] not indicated [] M Power Consult [] not indicated [] declined Second trimester: [x] AFP [] declined [x] Anatomy scan [x] Mode of Delivery - [x] Feeding - [] Pump ordered [x] Diabetes screen [x] CBC, RPR Third trimester (28-30 weeks): [] Consent [] Contraception - [] Supervising Producer Third trimester (36-40 weeks): [x] GBS [x] Presentation - cephalic by Estelita, pt states she feels butt near ribs [] Scheduled [] yes - Hibiclens, pre-op instructions, CBC, T&S ordered [x] no [] H&P Polycythemia - 03/11/2023 Comment: - Initial OB plt 491 - 05/06/23 plt 472 - Admission plt 439 - No family or personal history of DVT or PE - Likely 2/2 low oxygen carrying capacity of RBCs in spherocytosis History of Hereditary Spherocytosis - 02/04/2023 Comment: - S/p splenectomy as at 5 years old, reports received all recommended immunizations - Family history of spherocytosis (mom, sisters, cousins) - Has not met with genetic counselor. Offered consultation to discuss blood testing for genotype and further counseling regarding risk of inheriting spherocytosis - No medications Rh Negative State in Antepartum Period, Second Trimester - 02/04/2023 Comment: - Rhogam as indicated PAST SURGICAL HISTORY Procedure Laterality Date SPLENECTOMY TOTAL SEPARATE PROCEDURE 03/04/1999 MATERNAL MEDICATIONS: Current Outpatient Medications Medication Sig acetaminophen (TYLENOL) 500 mg tablet Take 2 tablets by mouth every 6 hours as needed for pain. docusate sodium (COLACE) 100 mg capsule Take 2 capsules by mouth two times a day as needed for constipation. ibuprofen (MOTRIN) 600 mg tablet Take 1 tablet by mouth every 6 hours as needed for pain. 28 mg iron- 800 mcg tab TAKE 1 TABLET BY MOUTH ONCE DAILY No current facility-administered medications for this visit. Herbals, galactagogues: None MATERNAL ALLERGIES: Allergies: No Known Allergies /MATERNAL SOCIAL HISTORY: Mom returning to work/school and when? Yes, in October Current tobacco or recreational drug use: No OBJECTIVE EXAM: Temp 36.8 C (98.2 F) (Axillary) Ht 52.1 cm (1' 8.5) Wt 3.316 kg (7 lb 5 oz) HC 34.2 cm (13.47) BMI 12.23 kg/m weight: 3112 g (6 lb 13.8 oz) Last 2 Encounter Wt Readings: Date: Wt: 08/27/2023 3.316 kg (7 lb 5 oz) (9%, Z= -1.36)* 08/02/2023 2.907 kg (6 lb 6.5 oz) (23%, Z= -0.73)* 7% change from weight 6 %ile (Z= -1.56) based on WHO (Girls, 0-2 years) [id number] length data based on body measurements available as of 08/27/2023. GENERAL: Awake, alert, in no acute distress SKIN: no rashes or lesions; very mild jaundice of face only HEAD: normocephalic, atraumatic and anterior fontanelle is soft, flat, non-bulging OROPHARYNX: Moist mucous membranes, no thrush, intact palate, uvula midline Tongue: no ankyloglossia and good superior and anterior tongue mobility Strong suck JAW: symmetric; micrognathia: No; retrognathia: No NECK: Supple and without masses CARDIOVASCULAR: acyanotic, regular rate and rhythm without murmurs or clicks, pulses are equal LUNGS: clear to auscultation bilaterally, good air exchange, no retractions ABDOMEN: Soft, nontender, bowel sounds normal, no palpable organomegaly. GENITALIA: Glenn stage 1 NEUROLOGICAL: normal tone and strength, good cry and suck VISUAL MATERNAL BREAST EXAM: Right Breast -Appearance: symmetric, normal shape, no erythema, no engorgement, non-tubular, and no signs of insufficient glandular tissue in all 4 quadrants -Nipple: Within normal limits Left Breast -Appearance: symmetric, normal shape, no erythema, no engorgement, non-tubular, and no signs of insufficient glandular tissue in all 4 quadrants -Nipple: Within normal limits MATERNAL/ ASSESSMENT: Position: cross-cradle and football Latch-on: becomes fussy immediately when presented breast Initial latch: briefly then becomes frustrated and comes off Nipple shield used? Tried, unable to get to latch Needed supplement - took 2.5 oz of EBM BREAST PUMP/FLANGE ASSESSMENT: -Pump brand: Medela -Flange size: 17 mm -Nipple measurement: LEFT 17 mm RIGHT 17 mm -Flanges appear to be appropriately sized with good seal LABS/IMAGING REVIEWED: None ASSESSMENT/PLAN: Encounter Diagnosis ICD-10-CM 1. Other disorders of O92.79 OVERALL ASSESSMENT: -SCALE: -Baby's weight is up about 5 oz in 11 days per parental report- likely needs volumes increased from bottles -SUPPLY: -Supply meets 's needs right now but may require increasing due to 's weight pattern -SUCK/TRANSFER: -Latching and sucking difficulties at the breast - baby becomes frustrated instantly and having a hard time staying on breast/slipping off -OTHER ISSUES/DIAGNOSES ADDRESSED TODAY: -Infant: maternal history of spherocytosis - infant well-appearing with minimal jaundice today on exam, retic and bilirubin was downtrending with labs with PCP but no recent labs -Maternal: vasospasm PLAN FOR BABY: -Osteopathic Manipulative Treatment (OMT) referral to specialist at [facility] recommended to help with muscles/bones involved in sucking/latch: Ekta Cuevas, DO: [phone] Prem Mijares, DO, Dasha Vanegas DO, Mason Jake, DO: [phone] -Speech therapy consult recommended to help with sucking ability: For appointment call: [phone] and have patient say I was referred from the clinic -Increase volumes to 3-4 oz per feed - feed until hunger signs disappear -Keep breast a happy place - strategies discussed - attempt a few times a day -Suck training exercises discussed -Start vitamin D drops if have not already -Follow up with Medicine as needed -Continue follow up -Keep regularly scheduled plant utility person appointments - has apt tomorrow which will be good for weight check -Patient states was recommended to see medicine for family history of spherocytosis - offered [facility] pediatric hematology referral/apt and e-consult - family open to this - will discuss need for further labs/investigation -Bili meter not working in office or would have done in-office bilimeter. Since well appearing and jaundice very minimal and much improved per parents did not send for stat labwork evaluation -Call your plant utility person's office/nurse clinical nutritionist right away with any of the below: -Baby has not had a wet diaper in 8 hours -Baby not waking to feed/lethargy -Fever PLAN FOR LACTATING PARENT: -Nipple vasospasm management discussed -Continue pumping every 3 hours -To increase supply as baby starts to need more, try power pumping once a day x 1 week -Follow up with Medicine as advised, sooner if symptoms worsen or don't improve -Keep regularly scheduled OB appointments -Call your OB's office/nurse clinical nutritionist right away with any of the following: -Redness, swelling, and tenderness of breast with or without fevers, chills, body aches as these can be signs of acute infectious mastitis (breast infection needing antibiotics) Based on depression score and interview with parent, no further action needed. See baby's AVS for detailed instructions, handouts, pictures, videos/links. I spent a total of 45 minutes on the date of the service which included preparing to see the patient, [id number]-dv-[id number] patient care, completing clinical documentation, obtaining and/or reviewing separately obtained history, performing a medically appropriate examination, counseling and educating the patient/family/caregiver, and communicating with other HCPs (not separately reported). This note was created using elements of both the infant s and mother s note that are relevant and applicable to both the infant and mother. We will follow this dyad until they are satisfied with their experience. Thank you for allowing us the opportunity to help and support . [facility] Medicine Website: [email or web address] Kathy Martinez DO documented in this encounter [facility] 08-21-2023 Miscellaneous Notes Outpatient Consult Patient Name: Keiko Guerrerot and Latisha Schofield Covert Mother's Date of Service: August 21, 2023 Social History Tobacco Use Smoking status: Former Types: Cigarettes Quit date: 2015 Years since quittin.4 Smokeless tobacco: Never Vaping Use Vaping Use: Never used Substance Use Topics Alcohol use: Not Currently Drug use: Never Obstetric History T1 L1 SAB0 IAB0 Ectopic0 Multiple0 Live Births1 Name of Baby 1: Latisha Bliss Date: 08/02/23 GA: 40w4d Delivery: Vaginal, Vacuum (Extractor) Apgar1: 8 Apgar5: 9 Living: Living Obstetric Provider: Ryanne Armstrong Provider: Gary Nash Information for the patient's : Latisha Bliss [[id number]] Date of : 08/02/2023 Sex: female Apgars 1 & 5 min: 8 / 9 GA: 40w4d Delivery Details: Primary Reason for Delivery: Labor Additional Clinical Indicator(s) for delivery: N/A Delivery Method: Vaginal, Vacuum (Extractor) Anesthesia: None Vacuum Used: Yes Forceps Used: No Feeding Plan in Hospital: Human Milk BW:3.112 kg (6 lb 13.8 oz) Total Loss at DC:-6.6 % Baby's Weight Today (grams): 3321 grams (with diaper and outfit on) Appointment Visit Information: Reason for Consult: Evaluation of milk transfer, Latching difficulty Breast Surgery: None History: Previous Experience: No Current subjective information: Feeding Type: Pumping/Expressing breastmilk Amount Pumped (mL): states 4 ounces in the morning and 2 ounces through the day Breast Assessment & Intervention: Signs that may indicate supply issues: None Breasts - General Assessment: Symmetrical Right Breast: Appears Normal Left Breast: Appears Normal Type of Nipple Assessment: General Right Nipple Assessment: Intact, Everted Right Areola: Soft Left Nipple Assessment: Intact, Everted Left Areola: Soft Infant Physical Assessment: Infant State Assessment: Active Alert Baby's Weight Today (grams): 3321 grams (with diaper and outfit on) Count of wet diapers in last 24 hours: 6-8 Count of stools in last 24 hours: 1 (states baby usually only has dirty diaper once daily, states plant utility person aware) Bowel Movement Color: Yellow (per mother description) Skin Color: Appropriate for ethnicity Tone: Appropriate for Gestational Age Head Shape: Symmetrical Jaw: Normal Palate: Intact Tongue: Cupping (while baby sucking baby noted to chomp vs suck rhytmically, baby would not extend tongue for LC during assessment but once consult coming to end, baby noted to extend jaz past lower gum ridge.) Gums: Other: See Comment (Upper lip blanches) Breast Feeding Observation: Position: Football, Cross-cradle, Laid Back Latch Teaching Points: Assisted, Asymmetrical latch, Tummy to Tummy, [place]in hold, Skin to Skin, Baby led, nipple to nose, Compression to keep baby vigorous Attachment/Latch: Chomping, Disorganized Other Interventions To Assist Latch: 20 mm nipple shield, Suck training, SNS/tube at breast Swallowing/Milk Transfer: Required tactile stimulation, Required breast compression, Improved milk transfer with breast compression, Infrequent/occasional swallows noted, Disorganized, Other (comment) (off an on breast, not able to sustain, baby not sucking nutritively, pt at times would put pressure behind her breast and baby would seep to suck better) Attempt to BF, pt had great positioning of baby, states she worked with a appraisal specialist for [facility] after giving . Attempted to feed baby just at her breast, baby would not maintain, attempted to feed using 20 mm nipple shield, since baby has been getting bottles. Pt feels baby takes bottles well, states she pace feeds her. Baby would not suck nutritively on shield, SNS to breast, baby would suck occasionally but not maintaining. Assessed infant's mouth, baby not extending tongue, baby did cup finger but would chomp on it not suck rhythmically, had baby do finger suck training, baby suckled briefly then brought to breast. Baby did do slightly better on breast at this time with shield and SNS in place and also noted that pt was putting a little pressure behind her breast at that time. Baby still coming off and on breast. After several attempts, recommend pt feed baby her bottle. Pt fed bottle, per pt baby is bleeding. Scant amount of blood noted on nipple base of bottle, no active bleeding noted in baby's mouth. Baby's upper lip is tight, noted to adryan when lifted/flanged. Pt states the baby did this yesterday too. Pt also mentioned she tries to stick the bottle in baby's mouth so baby is sucking more at the base of nipple not just the top of the nipple. Observed pt bottle feeding, baby noted to chomp on bottle nipple at times as well. Baby took a total of 45cc of EBM(SNS and bottle during interaction with this LC). Alonso Mcdonnell IBCLC to bedside, had baby suck on her finger, baby sucked well. No active bleeding noted. Permission to re-attempt with Alonso Mcdonnell to bring baby to breast. Permission given. Baby in LCC hold, baby sucked nutritively a few suckling bursts then thrusting and pulling away from breast. Interventions: Interventions completed during visit: Reviewed points of correct positioning/latch, Reinforced education on signs of effective milk transfer at breast recommend pt attempt to BF briefly each time, minimally 8 feeds per 24 hours. If baby fussy, recommend pt give baby small amount of pumped milk then re-attempt to breastfeed. Recommend pt continue to use shield and SNS if baby still not latching. Recommend pt pump her breasts minimally 8 times per 24 hours. Recommend pt call her plant utility person after she leaves visit to discuss the bleeding with plant utility person. Recommend pt get ENT consult or see pediatric dentist to rule out tight lip frenulum and tight posterior tongue frenulum. Also discussed using a clean finger or gloved finger and do finger suck training with baby. Discussed calling to see the medicine specialists, information given for Dr Martinez and Dr Leandro Estevez. Pt states her next appointment with her plant utility person is next Saturday08/30/23. Gracie Norton RN documented in this encounter [facility] 08-21-2023 Obstetrics Note Outpatient Consult Patient Name: Keiko Bustos Covert and Latisha Schofield Covert Mother's Date of Service: August 21, 2023 Social History Tobacco Use Smoking status: Former Types: Cigarettes Quit date: 2015 Years since quittin.4 Smokeless tobacco: Never Vaping Use Vaping Use: Never used Substance Use Topics Alcohol use: Not Currently Drug use: Never Obstetric History T1 L1 SAB0 IAB0 Ectopic0 Multiple0 Live Births1 Name of Baby 1: Latisha Schofield Covert Date: 08/02/23 GA: 40w4d Delivery: Vaginal, Vacuum (Extractor) Apgar1: 8 Apgar5: 9 Living: Living Obstetric Provider: Ryanne Armstrong Provider: Gary Nash Information for the patient's : YolandatLatisha [[id number]] Date of : 08/02/2023 Sex: female Apgars 1 & 5 min: 8 / 9 GA: 40w4d Delivery Details: Primary Reason for Delivery: Labor Additional Clinical Indicator(s) for delivery: N/A Delivery Method: Vaginal, Vacuum (Extractor) Anesthesia: None Vacuum Used: Yes Forceps Used: No Feeding Plan in Hospital: Human Milk BW:3.112 kg (6 lb 13.8 oz) Total Loss at DC:-6.6 % Baby's Weight Today (grams): 3321 grams (with diaper and outfit on) Appointment Visit Information: Reason for Consult: Evaluation of milk transfer, Latching difficulty Breast Surgery: None History: Previous Experience: No Current subjective information: Feeding Type: Pumping/Expressing breastmilk Amount Pumped (mL): states 4 ounces in the morning and 2 ounces through the day Breast Assessment & Intervention: Signs that may indicate supply issues: None Breasts - General Assessment: Symmetrical Right Breast: Appears Normal Left Breast: Appears Normal Type of Nipple Assessment: General Right Nipple Assessment: Intact, Everted Right Areola: Soft Left Nipple Assessment: Intact, Everted Left Areola: Soft Infant Physical Assessment: State Assessment: Active Alert Baby's Weight Today (grams): 3321 grams (with diaper and outfit on) Count of wet diapers in last 24 hours: 6-8 Count of stools in last 24 hours: 1 (states baby usually only has dirty diaper once daily, states plant utility person aware) Bowel Movement Color: Yellow (per mother description) Skin Color: Appropriate for ethnicity Tone: Appropriate for Gestational Age Head Shape: Symmetrical Jaw: Normal Palate: Intact Tongue: Cupping (while baby sucking baby noted to chomp vs suck rhytmically, baby would not extend tongue for LC during assessment but once consult coming to end, baby noted to extend jaz past lower gum ridge.) Gums: Other: See Comment (Upper lip blanches) Breast Feeding Observation: Position: Football, Cross-cradle, Laid Back Latch Teaching Points: Assisted, Asymmetrical latch, Tummy to Tummy, Turin hold, Skin to Skin, Baby led, nipple to nose, Compression to keep baby vigorous Attachment/Latch: Chomping, Disorganized Other Interventions To Assist Latch: 20 mm nipple shield, Suck training, SNS/tube at breast Swallowing/Milk Transfer: Required tactile stimulation, Required breast compression, Improved milk transfer with breast compression, Infrequent/occasional swallows noted, Disorganized, Other (comment) (off an on breast, not able to sustain, baby not sucking nutritively, pt at times would put pressure behind her breast and baby would seep to suck better) Attempt to BF, pt had great positioning of baby, states she worked with a appraisal specialist for [facility] after giving . Attempted to feed baby just at her breast, baby would not maintain, attempted to feed using 20 mm nipple shield, since baby has been getting bottles. Pt feels baby takes bottles well, states she pace feeds her. Baby would not suck nutritively on shield, SNS to breast, baby would suck occasionally but not maintaining. Assessed infant's mouth, baby not extending tongue, baby did cup finger but would chomp on it not suck rhythmically, had baby do finger suck training, baby suckled briefly then brought to breast. Baby did do slightly better on breast at this time with shield and SNS in place and also noted that pt was putting a little pressure behind her breast at that time. Baby still coming off and on breast. After several attempts, recommend pt feed baby her bottle. Pt fed bottle, per pt baby is bleeding. Scant amount of blood noted on nipple base of bottle, no active bleeding noted in baby's mouth. Baby's upper lip is tight, noted to adryan when lifted/flanged. Pt states the baby did this yesterday too. Pt also mentioned she tries to stick the bottle in baby's mouth so baby is sucking more at the base of nipple not just the top of the nipple. Observed pt bottle feeding, baby noted to chomp on bottle nipple at times as well. Baby took a total of 45cc of EBM(SNS and bottle during interaction with this LC). Alonso Mcdonnell IBCLC to bedside, had baby suck on her finger, baby sucked well. No active bleeding noted. Permission to re-attempt with Alonso Mcdonnell to bring baby to breast. Permission given. Baby in LCC hold, baby sucked nutritively a few suckling bursts then thrusting and pulling away from breast. Interventions: Interventions completed during visit: Reviewed points of correct positioning/latch, Reinforced education on signs of effective milk transfer at breast recommend pt attempt to BF briefly each time, minimally 8 feeds per 24 hours. If baby fussy, recommend pt give baby small amount of pumped milk then re-attempt to breastfeed. Recommend pt continue to use shield and SNS if baby still not latching. Recommend pt pump her breasts minimally 8 times per 24 hours. Recommend pt call her plant utility person after she leaves visit to discuss the bleeding with plant utility person. Recommend pt get ENT consult or see pediatric dentist to rule out tight lip frenulum and tight posterior tongue frenulum. Also discussed using a clean finger or gloved finger and do finger suck training with baby. Discussed calling to see the medicine specialists, information given for Dr Martinez and Dr Leandro Estevez. Pt states her next appointment with her plant utility person is next Saturday08/30/23. Gracie Norton RN [facility] 08-15-2023 Obstetrics Note Returned phone call from pt at this time. Per pt, she is having trouble with latching infant. States infant is not showing interest in wanting to BF. States she has seen IBCLC through [facility] and was latching well, then has since regressed and has not latched well today. Mother is pumping adequately every 3 hours. She is bottle feeding infant every 2-3 hours for about 80 ml of EBM per feeding and offering breast after bottle feeding. is having > 6-8 wet / day and x 1 stool / day. Encouraged mom to contact Supervising Producer to notify for stool output. Mom is going to notify Supervising Producer and also states she has a Peds appointment tomorrow (08/16/2023). Mother would like OPC and OPC scheduled for Saturday08/21/2023. Encouraged mom to continue feeding infant on demand 8 > times per day and monitoring W/D diapers. Encouraged pumping 8 > times per day to encourage full milk supply if supplementing after BF or not latching well. Mother to contact LC department for further support as needed. Provided support and encouragement. [facility] 08-15-2023 Miscellaneous Notes Returned phone call from pt at this time. Per pt, she is having trouble with latching infant. States is not showing interest in wanting to BF. States she has seen IBCLC through [facility] and was latching well, then has since regressed and has not latched well today. Mother is pumping adequately every 3 hours. She is bottle feeding every 2-3 hours for about 80 ml of EBM per feeding and offering breast after bottle feeding. Infant is having > 6-8 wet / day and x 1 stool / day. Encouraged mom to contact Supervising Producer to notify for stool output. Mom is going to notify Supervising Producer and also states she has a Peds appointment tomorrow (08/16/2023). Mother would like OPC and OPC scheduled for Saturday08/21/2023. Encouraged mom to continue feeding infant on demand 8 > times per day and monitoring W/D diapers. Encouraged pumping 8 > times per day to encourage full milk supply if supplementing after BF or infant not latching well. Mother to contact LC department for further support as needed. Provided support and encouragement. documented in this encounter [facility] 08-02-2023 Progress note Formatting of t his note might be different from the original. No painful contractions at this time however having some irregular Marshall Evans contractions. No vaginal bleeding, discharge or leakage of fluid. Fetus is active. On examination, the cervix was about 5 cm dilated, 90% effaced with vertex at -1 station. For induction on August 06, patient was instructed to go to the labor if having any contractions or for any vaginal bleeding or leakage of fluid. Rian Swanson MD [facility] 08-02-2023 Miscellaneous Notes No painful contractions at this time however having some irregular Marshall Evans contractions. No vaginal bleeding, discharge or leakage of fluid. Fetus is active. On examination, the cervix was about 5 cm dilated, 90% effaced with vertex at -1 station. For induction on August 06, patient was instructed to go to the labor if having any contractions or for any vaginal bleeding or leakage of fluid. Rian Swanson MD documented in this encounter [facility] 08-02-2023 Nurse Note Movement? Active baby Vaginal Bleeding: NO Vaginal fluid leakage of fluid: NO Contractions: no contractions Edema: Negative Evaristo La MA August 02, 2023 10:46 AM [facility] 08-02-2023 Nurse Note Movement? Active baby Vaginal Bleeding: NO Vaginal fluid leakage of fluid: NO Contractions: no contractions Edema: Negative Evaristo La MA August 02, 2023 10:46 AM documented in this encounter [facility] 07-31-2023 Note HNO ID: [id number] Author: EVELINE BOLAÑOS MA Service: ? Author Type: Senior Software Quality Analyst Type: Progress Notes Filed: 07/31/2023 12:32 Note Text: POPULATION HEALTH NAVIGATION OUTREACH Action/FYI Supervising Producer updated per response. Reason for Outreach Medicaid OB/Peds Care Gaps due: N/A Patient Contacted: Spoke to patient/parent/or legal guardian Patient identified by name and : Yes Medicaid OB/Peds actions taken: /Supervising Producer added Navigation Signature: Eveline Quiñones MA July 31, 2023 12:31 PM [facility] 07-24-2023 Progress note Formatting of t his note is different from the original. G1 at 39/2 +FM Denies LOF/VB/Ctx CE 3cm, cephalic, membrane sweep today Declines IOL Problem List Items Addressed This Visit Hematology Rh negative state in antepartum period, second trimester Overview Rhogam given Polycythemia Overview - Initial OB Hgb 15, plt 491 - no family or personal history of DVT or PE - likely 2/2 low oxygen carrying capacity of RBCs in spherocytosis - discussed potential increased risk of preeclampsia and DVT, recommendation for bASA prophylaxis. Discussed limited data for aspirin in the setting of spherocytosis, again limited data of risk of preeclampsia, DVT. Discussed risks of aspirin including bleeding risks. Patient declined bASA. - repeat CBC with GTT at 24-28 weeks hgb 14.3 plt 472 Other Supervision of high risk in third trimester Overview Care Checklist Vaccines: [] Flu vaccine [] declined [] RSV vaccine 32 0/7 - 36 6/ (Nov - Apr) [] declined [] COVID vaccine [] declined [] TDaP 27-36 [x] declined First trimester: [x] Dating US [x] 1st tri labs [x] Pap smear [] Carrier screening [] declined [x] NIPT screening [] declined [] First trimester anatomy scan [] declined [] ASA ppx indicated [] not indicated [] M Power Consult [] not indicated [] declined Second trimester: [x] AFP [] declined [x] Anatomy scan [x] Mode of Delivery - [x] Feeding - [] Pump ordered [x] Diabetes screen [x] CBC, RPR Third trimester (- weeks): [] Consent [] Contraception - [] Supervising Producer Third trimester (36-40 weeks): [x] GBS [x] Presentation - cephalic by Estelita, pt states she feels butt near ribs [] Scheduled [] yes - Hibiclens, pre-op instructions, CBC, T&S ordered [x] no [] H&P Other Visit Diagnoses 39 weeks gestation of - Primary Relevant Orders UA DIP, URINE (POC) F/u 1wk if no active labor Discussed scheduling IOL at next visit Vic Arita DO [facility] 07-24-2023 Miscellaneous Notes G1 at 39/2 +FM Denies LOF/VB/Ctx CE 3cm, cephalic, membrane sweep today Declines IOL Problem List Items Addressed This Visit Hematology Rh negative state in antepartum period, second trimester Overview Rhogam given Polycythemia Overview - Initial OB Hgb 15, plt 491 - no family or personal history of DVT or PE - likely 2/2 low oxygen carrying capacity of RBCs in spherocytosis - discussed potential increased risk of preeclampsia and DVT, recommendation for bASA prophylaxis. Discussed limited data for aspirin in the setting of spherocytosis, again limited data of risk of preeclampsia, DVT. Discussed risks of aspirin including bleeding risks. Patient declined bASA. - repeat CBC with GTT at 24-28 weeks hgb 14.3 plt 472 Other Supervision of high risk in third trimester Overview Care Checklist Vaccines: [] Flu vaccine [] declined [] RSV vaccine 32 0/7 - 36 6/ (Nov - Apr) [] declined [] COVID vaccine [] declined [] TDaP 27-36 [x] declined First trimester: [x] Dating US [x] 1st tri labs [x] Pap smear [] Carrier screening [] declined [x] NIPT screening [] declined [] First trimester anatomy scan [] declined [] ASA ppx indicated [] not indicated [] M Power Consult [] not indicated [] declined Second trimester: [x] AFP [] declined [x] Anatomy scan [x] Mode of Delivery - [x] Feeding - [] Pump ordered [x] Diabetes screen [x] CBC, RPR Third trimester (28-30 weeks): [] Consent [] Contraception - [] Supervising Producer Third trimester (36-40 weeks): [x] GBS [x] Presentation - cephalic by Estelita pt states she feels butt near ribs [] Scheduled [] yes - Hibiclens, pre-op instructions, CBC, T&S ordered [x] no [] H&P Other Visit Diagnoses 39 weeks gestation of - Primary Relevant Orders UA DIP, URINE (POC) F/u 1wk if no active labor Discussed scheduling IOL at next visit Vic Arita DO documented in this encounter [facility] 07-24-2023 Nurse Note Movement? Active baby Vaginal Bleeding: NO Vaginal fluid leakage of fluid: NO Contractions: no contractions Edema: Trace Ariane Morgan LPN [facility] 07-24-2023 Nurse Note Movement? Active baby Vaginal Bleeding: NO Vaginal fluid leakage of fluid: NO Contractions: no contractions Edema: Trace Ariane Morgan LPN documented in this encounter [facility] 07-23-2023 History of Present illness Narrative Episode Visit Count: 3 Therapist That Will Accept/Oversee The Plan Of Care: Amalia Start of Care Date: 07/03/23 Onset Date: 06/03/23 Patient Identified by Name and Date of : Yes REHABILITATION AND SPORTS THERAPY PHYSICAL THERAPY TREATMENT NOTE ASSESSMENT: Keiko Bustos Covert tolerated the session with no issues. She demonstrated improvements in pain, pressure and exercise tolerance. The patient will return for re-evaluation as needed. PLAN FOR NEXT VISIT: To return for re-eval post as needed. SUBJECTIVE: A little bit of pain with walking today, but no pain with sitting. Pain: Pain Pain Level: 0 Pain Location: Sacrum Frequency: Sitting, At rest OBJECTIVE MEASURES WITH LEVEL OF FUNCTION: Vitals BP: 115/76 Pulse: 67 TREATMENT: Therapeutic Exercise: 1: Educated pt in pelvic floor lengthening 2: Educated pt in self perineal massage. Discussed having assist if needed. 3: *Diaphragmatic breathing x3' 4: *Child's pose 30 x3 6: *TrvA 5 x10 seated 7: *HL clams blue tb 2x10 alternating with isometric hip ADD 5 2x10 8: verbally reviewed: *Kegel 10 x10 sitting on rolled towel 9: *Hip flexor stretch in 1/2 kneel with ipsilateral arm reaching 30 x3 nohelia Skilled Intervention: Reviewed and educated patient on additions/changes for home exercise program as above (*). Skilled judgment was used in selection of appropriate interventions. Provided written instruction for home exercise program to facilitate proper performance and compliance. Correct performance of therapeutic exercises was facilitated with verbal cuing. Billing Therapeutic Exercise Treatment Minutes: 41 Skilled Treatment Time Minutes (timed and untimed codes): 41 Total Session Time (minutes): 41 Session Start Time : 1335 Session Stop Time : 1416 Radha Sanchez PT documented in this encounter [facility] 07-17-2023 Progress note Formatting of t his note is different from the original. 28yo G1 at 38/2 +FM Denies LOF/VB/Ctx Declines IOL Questions answered Problem List Items Addressed This Visit Hematology Rh negative state in antepartum period, second trimester Overview Rhogam given Polycythemia Overview - Initial OB Hgb 15, plt 491 - no family or personal history of DVT or PE - likely 2/2 low oxygen carrying capacity of RBCs in spherocytosis - discussed potential increased risk of preeclampsia and DVT, recommendation for bASA prophylaxis. Discussed limited data for aspirin in the setting of spherocytosis, again limited data of risk of preeclampsia, DVT. Discussed risks of aspirin including bleeding risks. Patient declined bASA. - repeat CBC with GTT at 24-28 weeks hgb 14.3 plt 472 Other History of hereditary spherocytosis Overview - s/p splenectomy as at 5 years old, reports received all recommended immunizations - strong family history of spherocytosis (mom, sisters, cousins) - has not met with genetic counselor. Offered consultation to discuss blood testing for genotype and further counseling regarding risk of infant inheriting spherocytosis. - discussed majority of time autosomal dominant inheritance pattern, however incomplete penetrance. - discussed no known impact on maternal mortality and morbidity given she is s/p splenectomy with adequate Hgb. No known impact on fetus in the absence of anemia. - Recommend further monitoring with follow up growth ultrasound at 32 weeks. completed Supervision of high risk in third trimester Overview Care Checklist Vaccines: [] Flu vaccine [] declined [] RSV vaccine 32 0/7 - 36 6/7 (Nov - Apr) [] declined [] COVID vaccine [] declined [] TDaP 27-36 [x] declined First trimester: [x] Dating US [x] 1st tri labs [x] Pap smear [] Carrier screening [] declined [x] NIPT screening [] declined [] First trimester anatomy scan [] declined [] ASA ppx indicated [] not indicated [] M Power Consult [] not indicated [] declined Second trimester: [x] AFP [] declined [x] Anatomy scan [] Mode of Delivery - [] Feeding - [] Pump ordered [x] Diabetes screen [x] CBC, RPR Third trimester (28-30 weeks): [] Consent [] Contraception - [] Supervising Producer Third trimester (36-40 weeks): [x] GBS [x] Presentation - cephalic by Estelita, pt states she feels butt near ribs [] Scheduled [] yes - Hibiclens, pre-op instructions, CBC, T&S ordered [x] no [] H&P Other Visit Diagnoses 38 weeks gestation of - Primary Relevant Orders UA DIP, URINE (POC) F/u 1 wk Vic Arita DO [facility] 07-17-2023 Miscellaneous Notes 28yo G1 at 38/2 +FM Denies LOF/VB/Ctx Declines IOL Questions answered Problem List Items Addressed This Visit Hematology Rh negative state in antepartum period, second trimester Overview Rhogam given Polycythemia Overview - Initial OB Hgb 15, plt 491 - no family or personal history of DVT or PE - likely 2/2 low oxygen carrying capacity of RBCs in spherocytosis - discussed potential increased risk of preeclampsia and DVT, recommendation for bASA prophylaxis. Discussed limited data for aspirin in the setting of spherocytosis, again limited data of risk of preeclampsia, DVT. Discussed risks of aspirin including bleeding risks. Patient declined bASA. - repeat CBC with GTT at 24-28 weeks hgb 14.3 plt 472 Other History of hereditary spherocytosis Overview - s/p splenectomy as at 5 years old, reports received all recommended immunizations - strong family history of spherocytosis (mom, sisters, cousins) - has not met with genetic counselor. Offered consultation to discuss blood testing for genotype and further counseling regarding risk of inheriting spherocytosis. - discussed majority of time autosomal dominant inheritance pattern, however incomplete penetrance. - discussed no known impact on maternal mortality and morbidity given she is s/p splenectomy with adequate Hgb. No known impact on fetus in the absence of anemia. - Recommend further monitoring with follow up growth ultrasound at 32 weeks. completed Supervision of high risk in third trimester Overview Care Checklist Vaccines: [] Flu vaccine [] declined [] RSV vaccine 32 0/7 - 36 6/ (Nov - Apr) [] declined [] COVID vaccine [] declined [] TDaP 27-36 [x] declined First trimester: [x] Dating US [x] 1st tri labs [x] Pap smear [] Carrier screening [] declined [x] NIPT screening [] declined [] First trimester anatomy scan [] declined [] ASA ppx indicated [] not indicated [] M Power Consult [] not indicated [] declined Second trimester: [x] AFP [] declined [x] Anatomy scan [] Mode of Delivery - [] Feeding - [] Pump ordered [x] Diabetes screen [x] CBC, RPR Third trimester (28-30 weeks): [] Consent [] Contraception - [] Supervising Producer Third trimester (36-40 weeks): [x] GBS [x] Presentation - cephalic by Estelita pt states she feels butt near ribs [] Scheduled [] yes - Hibiclens, pre-op instructions, CBC, T&S ordered [x] no [] H&P Other Visit Diagnoses 38 weeks gestation of - Primary Relevant Orders UA DIP, URINE (POC) F/u 1 wk Vic Arita DO documented in this encounter [facility] 07-17-2023 Nurse Note Movement? Active baby Vaginal Bleeding: NO Vaginal fluid leakage of fluid: NO Contractions: no contractions Edema: Negative Norma Taylor LPN [facility] 07-17-2023 Nurse Note Movement? Active baby Vaginal Bleeding: NO Vaginal fluid leakage of fluid: NO Contractions: no contractions Edema: Negative Norma Taylor LPN documented in this encounter [facility] 07-17-2023 Note HNO ID: [id number] Author: EVELINE BOLAÑOS MA Service: ? Author Type: Senior Software Quality Analyst Type: Progress Notes Filed: 07/17/2023 11:03 Note Text: POPULATION HEALTH NAVIGATION OUTREACH Action/FYI Called and spoke with pt, states she is still reviewing providers and will outreach back via with selection. Reason for Outreach Medicaid OB/Peds Care Gaps due: N/A Patient Contacted: Spoke to patient/parent/or legal guardian Patient identified by name and : Yes Medicaid OB/Peds actions taken: Patient declined: Patient will call back later to schedule or asks for a call back Navigation Signature: Eveline Quiñones MA July 17, 2023 11:00 AM [facility] 07-17-2023 History of Present illness Narrative Program_ID:[id number] Access Code: [email or web address] URL: [email or web address] Date: 07-17-2023 Prepared By: Radha Sanchez Program Notes Exercises - Supine Diaphragmatic Breathing - 1 x daily - x weekly - 3 sets - 10 reps - Supine Transversus Abdominis Bracing - Hands on Stomach - 1 x daily - x weekly - sets - 10 reps - Hooklying Clamshell with Resistance - 2 x daily - x weekly - 2 sets - 10 reps - Supine Hip Adduction Isometric with Ball - 2 x daily - x weekly - 2 sets - 10 reps - Child's Pose Stretch - 1-2 x daily - x weekly - 1 sets - 3 reps - Yoga Squat for Pelvic Floor Relaxation - 2 x daily - 7 x weekly - 1-2 sets - 10 reps - Seated Pelvic Floor Contraction - 1 x daily - x weekly - sets - 10 reps - Half Kneeling Hip Flexor Stretch - 1 x daily - 7 x weekly - sets - 3 reps Patient Education - cc Pelvic Floor - Body Mechanics with Baby - Healthy Posture: How to Hold and Lift a Baby - Lifting and Lowering Baby to a Changing Table - Squat Lift with a Baby - Holding and Carrying a Baby Episode Visit Count: 2 Therapist That Will Accept/Oversee The Plan Of Care: Amalia Start of Care Date: 07/03/23 Onset Date: 06/03/23 Patient Identified by Name and Date of : Yes REHABILITATION AND SPORTS THERAPY PHYSICAL THERAPY TREATMENT NOTE ASSESSMENT: Keiko Bliss tolerated the session with no issues. She demonstrated difficulty with increased pain after self workout, but was able to tolerate exercises in clinic today without increased pain. The patient will continue to benefit from ongoing skilled physical therapy to progress toward set goals. PLAN FOR NEXT VISIT: Teach self perineal massage and pelvic floor lengthening next. SUBJECTIVE: All last week wasn't in pain. Pain with sleeping is getting better. Yesterday did a leg workout and has some soreness in her back today. Did RDLs and step ups with leg in adducted position and hasn't done those in awhile. Sore over sacrum and it feels unstable, like its floating. Pain: Pain Pain Level: 2 Pain Location: Sacrum Description: Sore Frequency: Sitting, At rest OBJECTIVE MEASURES WITH LEVEL OF FUNCTION: TREATMENT: Therapeutic Exercise: 3: *Diaphragmatic breathing x3' 4: *Child's pose 30 x3 6: *TrvA 5 x10 seated 7: *HL clams blue tb 2x10 alternating with isometric hip ADD 5 2x10 8: *Kegel 10 x10 sitting on rolled towel 9: *Hip flexor stretch in 1/2 kneel with ipsilateral arm reaching 30 x3 nohelia Skilled Intervention: Patient was educated in proper exercise technique and purpose for exercises. Reviewed and educated patient on additions/changes for home exercise program as above (*). Skilled judgment was used in selection of appropriate interventions. Provided written instruction for home exercise program to facilitate proper performance and compliance. Correct performance of therapeutic exercises was facilitated with verbal cuing. Billing Therapeutic Exercise Treatment Minutes: 43 Skilled Treatment Time Minutes (timed and untimed codes): 43 Total Session Time (minutes): 43 Session Start Time : 832 Session Stop Time : 915 Radha Sanchez PT documented in this encounter [facility] 07-15-2023 Note HNO ID: [id number] Author: EVELINE BOLAÑOS MA Service: ? Author Type: Senior Software Quality Analyst Type: Progress Notes Filed: 07/15/2023 13:05 Note Text: POPULATION HEALTH NAVIGATION OUTREACH Action/ attempt: Called and left message to call back to discuss plant utility person. MC message sent. 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 MC message sent. Reason for Outreach Medicaid OB/Peds Care Gaps due: N/A Patient Contacted: Unable or unnecessary to reach patient: Left message MyChart message sent Navigation Signature: Eveline Quiñones MA July 15, 2023 9:56 AM documented in this encounter [facility] 07-15-2023 Note Patient Outreach (LUCERO TNAV) RUTHY,KEIKO Bustos ([id number]) 1995 F Date Time Provider Department 07/15/23 EVELINE BOLAÑOS During your visit today, we recorded the following information about you: Eveline Bolaños MA 07/15/2023 1:05 PM Signed POPULATION HEALTH NAVIGATION OUTREACH Action/FYI 1st attempt: Called and left message to call back to discuss plant utility person. message sent. Reason for Outreach Medicaid OB/Peds Care Gaps due: N/A Patient Contacted: Unable or unnecessary to reach patient: Left message MyChart message sent Navigation Signature: Eveline Quiñones MA July 15, 2023 9:56 AM Eveline Bolaños MA 07/17/2023 11:03 AM Signed POPULATION HEALTH NAVIGATION OUTREACH Action/FYI Called and spoke with pt, states she is still reviewing providers and will outreach back via with selection. Reason for Outreach Medicaid OB/Peds Care Gaps due: N/A Patient Contacted: Spoke to patient/parent/or legal guardian Patient identified by name and : Yes Medicaid OB/Peds actions taken: Patient declined: Patient will call back later to schedule or asks for a call back Navigation Signature: Eveline Quiñones MA July 17, 2023 11:00 AM Eveline Bolaños MA 07/31/2023 12:32 PM Signed POPULATION HEALTH NAVIGATION OUTREACH Action/FYI Supervising Producer updated per [facility] response. Reason for Outreach Medicaid OB/Peds Care Gaps due: N/A Patient Contacted: Spoke to patient/parent/or legal guardian Patient identified by name and : Yes Medicaid OB/Peds actions taken: [place]/Supervising Producer added Navigation Signature: Eveline Quiñones MA July 31, 2023 12:31 PM Allergies As of Date: 07/15/2023 (No Known Allergies) Date Reviewed: 07/12/2023 Reviewed by: Yesica Bryant MA - Fully Assessed Reason for Visit: Population Health Navigation Outreach [3910] Cmt: OB/peds Prescriptions as of 07/31/2023 - 28 mg iron- 800 mcg tab TAKE 1 TABLET BY MOUTH ONCE DAILY Problem List As Of Date 07/15/2023 Noted Resolved History of hereditary spherocytosis [Z86.2] 02/04/2023 Rh negative state in antepartum period, second *02/04/2023 Polycythemia [D75.1] 03/11/2023 Supervision of high risk in third tri*05/08/2023 32 weeks gestation of [Z3A.32] 07/03/2023 07/12/2023 Decreased ROM of lumbar spine [M53.86] 07/03/2023 07/12/2023 Encounter Status:Closed by BOLAÑOSEVELINE DEAN on 07/15/23 [facility] 07-12-2023 Progress note Formatting of t his note might be different from the original. Denies contractons, leakage of fluid and vaginal bleeding. Reports good movement. Reviewed labor precautions Rec finding a peds, enc BF Ryanne Milian MD, MD [facility] 07-12-2023 Miscellaneous Notes Denies contractons, leakage of fluid and vaginal bleeding. Reports good movement. Reviewed labor precautions Rec finding a peds, enc BF Ryanne Milian MD, MD documented in this encounter [facility] 07-12-2023 Nurse Note Movement? Active baby Vaginal Bleeding: NO Vaginal fluid leakage of fluid: NO Contractions: no contractions Edema: Negative Yesica Bryant MA [facility] 07-12-2023 Nurse Note Movement? Active baby Vaginal Bleeding: NO Vaginal fluid leakage of fluid: NO Contractions: no contractions Edema: Negative Yesica Bryant MA documented in this encounter [facility] 07-03-2023 History of Present illness Narrative Program_ID:[id number] Access Code: [email or web address] URL: [email or web address] Date: 07-03-2023 Prepared By: Radha Sanchez Program Notes Exercises - Supine Diaphragmatic Breathing - 1 x daily - x weekly - 3 sets - 10 reps - Supine Transversus Abdominis Bracing - Hands on Stomach - 1 x daily - x weekly - sets - 10 reps - Hooklying Clamshell with Resistance - 2 x daily - x weekly - 2 sets - 10 reps - Supine Hip Adduction Isometric with Ball - 2 x daily - x weekly - 2 sets - 10 reps - Child's Pose Stretch - 1-2 x daily - x weekly - 1 sets - 3 reps Patient Education - cc Pelvic Floor - Body Mechanics with Baby - Healthy Posture: How to Hold and Lift a Baby - Lifting and Lowering Baby to a Changing Table - Squat Lift with a Baby - Holding and Carrying a Baby Episode Visit Count: 1 Therapist That Will Accept/Oversee The Plan Of Care: Amalia Start of Care Date: 07/03/23 Onset Date: 06/03/23 Patient Identified by Name and Date of : Yes REHABILITATION AND SPORTS THERAPY PHYSICAL THERAPY EVALUATION PLAN OF CARE: Assessment: Keiko Bliss presents with chief complaint of tailbone and abdominal pain that interferes with walking, sleeping . She presents with impairments in overall function, range of motion, and strength. PROMIS (Patient-Reported Outcomes Measurement Information System) scores were reviewed and identified as within normal limits. Prognosis for therapy is Good due to: current objective clinical presentation, good overall health status, acuteness of condition, good support system/ coping skills . The patient is a low complexity evaluation based on subjective and objective findings and lack of multiple comorbidities. She will benefit from skilled therapy services to meet the goals established for this plan of care as noted below. Goals for Episode of Care: created on 07/03/23 through 08/02/23 Patient demonstrates independence and compliance with home exercise program. Patient demonstrates ability to perform diaphragmatic breathing and relaxation practice independently to allow for decreased muscle tightness, decreased pain, and improved bladder/bowel function. Patient to improve lumbar extension AROM to WNL without pain. Patient to report at least 50% improvement in pain with activities of daily living and sleeping. Planned Interventions, Frequency, and Duration: Current Frequency: 1x/week Duration: 4 weeks Total Number of Visits Planned: 4 Planned Treatment Interventions: Therapeutic exercise (76038), Neuromuscular re-education (34644), Manual therapy (23793), Therapeutic activities (27422), Self-alf management (00351), Patient/Family/Caregiver Education, Body Mechanics Training PLAN FOR NEXT VISIT: Hip flexor stretching next. Add sitting diaphragmatic breathing on rolled towel or ball. Educate on self perineal massage. Patient demonstrates good understanding of plan of care and treatment. The above goals and plan of care were discussed and agreed upon by patient/family. SUBJECTIVE: Patient presents for PT evaluation for related back and abdominal pain. Her estimated due date is 07/29/23. This is her first child. She denies any -related complications. She was active prior to and has tried to stay active during. She is going to the gym 3-4 days per week. She's been lifting weights at the gym and walking. She's also been doing seated lumbar flexion on ball, pelvic tilts and and circles on ball. She's been getting some left lower abdominal pain and tailbone pain in the morning and when she gets up at night. 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 Drives some for work, but average drive time is 30 minutes. Recreation / Current Exercise: Going to gym 3-4 days per week for weight lifting, walking. Home Environment Patient Lives With: Spouse Home Type: Multi-Level with First Floor Set-Up Entry To Home: Stairs Number Of Stairs Into Home: 1 Laundry: Basement laundry Intake Information: Prescription present Previous Treatment: None Falls Interview: No positive findings with falls interview Red Flags Vertebral Fracture Red Flags: Female Vertebral Fracture Clinical Reasoning: Proceed with caution due to the above (1-2) risk factors Abdominal Aortic Aneurysm Clinical Reasoning: No identified risk factors. Cancer Red Flags: Night pain at rest Cancer Clinical Reasoning: Proceed with caution Infection Clinical Reasoning: No identified risk factors. Cauda Equina Syndrome Clinical Reasoning: No identified risk factors. Red Flags - Cervical Cancer Red Flags: Night pain at rest Cancer Clinical Reasoning: Proceed with caution Infection Clinical Reasoning: No identified risk factors. Spine History Sleeping Position: Side lying left, Side lying right, Pillows Pillows Comment: 1 pillow between knees and 1 in front and back of her. Adjustable bed, which helps with heartburn. Sleep Affected by Pain: Pain awakens Pain: Pain Pain Level: 0 Frequency: Sitting, At rest PROMIS Scales 07/03/2023 Higher is Better Phys Func - Score 51 (within normal limits) Phys Func - Percentile 54 Self-Eff Symptom - Score 46 (Average) Self-Eff Symptom - Percentile 34 T-scores: mean of general population = 50. 5 points is clinically meaningfully difference Percentiles provide an indication of how the patient's score ranks in relation to the general population. Higher percentile rankings indicate better function/quality of life. 50th percentile is the average of the general population and indicates half of respondents had a worse score. OBJECTIVE MEASURES WITH LEVEL OF FUNCTION: Posture / Alignment Posture: Good Lumbo - Pelvic Alignment: All pelvic bony landmarks and leg length symmetrical Spine Observations R Lumbar Spine Palpation Tenderness: Pubic tubercle L Lumbar Spine Palpation Tenderness: Pubic tubercle Sensation - Lumbar Sensation: Grossly Intact Lumbar Spine AROM Lumbar Flexion: Normal Lumbar Extension: Minimal limitation, End range pain Lumbar R Side Hungry Horse: Normal Lumbar L Side Hungry Horse: Normal Lumbar R Rotation: Normal Lumbar L Rotation: Normal Pelvic Floor Pregnancies: 1 Births: 0 Currently ?: (plans to breastfeed) Urinary/Bowel History : Urinary History, Bowel History Difficulty starting stream: No slow or intermittent stream: No strains to void: No Incomplete emptying: No Spraying: No Diversion of stream: No Stress Incontinence: No Post Void Dribble: No Urgency: No Urinary Incontinence: No Nocturia (times per night): -1 Daytime Frequency (hours): 4-5 Fluid Intake: Water, Total fluid intake per 24 hours, Tea Water : 3 large Indra cups of water/day Tea : Raspberry leaf tea Incomplete emptying: No Bowel Movement Frequency: Daily Bloating / abdominal pain: No Fecal incontinence: No Pelvic Floor Muscle Assessment Diastasis Rectus Abdominis: Negative Breathing Pattern : Chest breathing Diaphragmatic Breathing : Poor LE Flexibility Flexibility: Hamstring Flexibility R Hamstring Flexibility: WNL L Hamstring Flexibility: WNL LE Strength R LE Strength: LE myotomes 5/5 L LE Strength: LE myotomes 5/5 Gait Gait: Independent Gait Device: None Gait Observation: No observable gait deviations Vitals BP: 106/69 Pulse: 80 Education: Education Learning Preferences: Demonstration, Performance, Printed Materials, Explanation Barriers: None Learning/educational needs: Health promotion, Home exercise program, Plan of Care, Changes in Plan of Care, Posture, Body Mechanics Education Provided: Yes, see treatment interventions for education provided Education Provided To: Patient Education Mode/Type: Demonstration, Explanation/Discussion, Literature/Printed Materials, Performance, Teach Back Response to Education/Teach Back: States/Identifies, Return Demonstration TREATMENT: PT Treatment Interventions: Therapeutic Exercise Evaluation Therapeutic Exercise: 1: Educated in exam findings, goals, POC 2: Educated in body mechanics with lifting and caring for baby 3: *Diaphragmatic breathing 4: *Child's pose 5: Reviewed doing sacral mobs - to continue prn in child's pose or quadruped 6: *TrvA 5 x10 7: *HL clams gtb 2x10 alternating with isometric hip ADD 5 2x10 Skilled Intervention: Patient was educated in proper exercise technique and purpose for exercises. Reviewed and educated patient on additions/changes for home exercise program as above (*). Skilled judgment was used in selection of appropriate interventions. Provided written instruction for home exercise program to facilitate proper performance and compliance. Correct performance of therapeutic exercises was facilitated with verbal cuing. Patient education as noted. Billing * Evaluation Low Complexity: 1 Unit Therapeutic Exercise Treatment Minutes: 25 Skilled Treatment Time Minutes (timed and untimed codes): 45 Total Session Time (minutes): 45 Session Start Time : 1430 Session Stop Time : 1515 Radha Sanchez PT documented in this encounter [facility] 07-03-2023 Progress note Formatting of t his note is different from the original. Good fm Labor precautions Gbs and gc/ct sent Problem List Items Addressed This Visit Hematology Rh negative state in antepartum period, second trimester Overview Rhogam given Polycythemia Overview - Initial OB Hgb 15, plt 491 - no family or personal history of DVT or PE - likely 2/2 low oxygen carrying capacity of RBCs in spherocytosis - discussed potential increased risk of preeclampsia and DVT, recommendation for bASA prophylaxis. Discussed limited data for aspirin in the setting of spherocytosis, again limited data of risk of preeclampsia, DVT. Discussed risks of aspirin including bleeding risks. Patient declined bASA. - repeat CBC with GTT at 24-28 weeks hgb 14.3 plt 472 Other History of hereditary spherocytosis Overview - s/p splenectomy as at 5 years old, reports received all recommended immunizations - strong family history of spherocytosis (mom, sisters, cousins) - has not met with genetic counselor. Offered consultation to discuss blood testing for genotype and further counseling regarding risk of infant inheriting spherocytosis. - discussed majority of time autosomal dominant inheritance pattern, however incomplete penetrance. - discussed no known impact on maternal mortality and morbidity given she is s/p splenectomy with adequate Hgb. No known impact on fetus in the absence of anemia. - Recommend further monitoring with follow up growth ultrasound at 32 weeks. completed Supervision of high risk in third trimester - Primary Overview Care Checklist Vaccines: [] Flu vaccine [] declined [] RSV vaccine 32 0/7 - 36 6/ (Nov - Apr) [] declined [] COVID vaccine [] declined [] TDaP 27-36 [x] declined First trimester: [x] Dating US [x] 1st tri labs [x] Pap smear [] Carrier screening [] declined [x] NIPT screening [] declined [] First trimester anatomy scan [] declined [] ASA ppx indicated [] not indicated [] M Power Consult [] not indicated [] declined Second trimester: [x] AFP [] declined [x] Anatomy scan [] Mode of Delivery - [] Feeding - [] Pump ordered [x] Diabetes screen [x] CBC, RPR Third trimester (28-30 weeks): [] Consent [] Contraception - [] Supervising Producer Third trimester (36-40 weeks): [] GBS [] Presentation - [] Scheduled [] yes - Hibiclens, pre-op instructions, CBC, T&S ordered [] no [] H&P Other Visit Diagnoses 36 weeks gestation of Relevant Orders UA DIP, URINE (POC) Encounter for screening of mother F/u 1 week.Haven Cunningham MD [facility] 07-03-2023 Miscellaneous Notes Good fm Labor precautions Gbs and gc/ct sent Problem List Items Addressed This Visit Hematology Rh negative state in antepartum period, second trimester Overview Rhogam given Polycythemia Overview - Initial OB Hgb 15, plt 491 - no family or personal history of DVT or PE - likely 2/2 low oxygen carrying capacity of RBCs in spherocytosis - discussed potential increased risk of preeclampsia and DVT, recommendation for bASA prophylaxis. Discussed limited data for aspirin in the setting of spherocytosis, again limited data of risk of preeclampsia, DVT. Discussed risks of aspirin including bleeding risks. Patient declined bASA. - repeat CBC with GTT at 24-28 weeks hgb 14.3 plt 472 Other History of hereditary spherocytosis Overview - s/p splenectomy as at 5 years old, reports received all recommended immunizations - strong family history of spherocytosis (mom, sisters, cousins) - has not met with genetic counselor. Offered consultation to discuss blood testing for genotype and further counseling regarding risk of inheriting spherocytosis. - discussed majority of time autosomal dominant inheritance pattern, however incomplete penetrance. - discussed no known impact on maternal mortality and morbidity given she is s/p splenectomy with adequate Hgb. No known impact on fetus in the absence of anemia. - Recommend further monitoring with follow up growth ultrasound at 32 weeks. completed Supervision of high risk in third trimester - Primary Overview Care Checklist Vaccines: [] Flu vaccine [] declined [] RSV vaccine 32 0/7 - 36 / (Nov - Apr) [] declined [] COVID vaccine [] declined [] TDaP 27-36 [x] declined First trimester: [x] Dating US [x] 1st tri labs [x] Pap smear [] Carrier screening [] declined [x] NIPT screening [] declined [] First trimester anatomy scan [] declined [] ASA ppx indicated [] not indicated [] M Power Consult [] not indicated [] declined Second trimester: [x] AFP [] declined [x] Anatomy scan [] Mode of Delivery - [] Feeding - [] Pump ordered [x] Diabetes screen [x] CBC, RPR Third trimester (28-30 weeks): [] Consent [] Contraception - [] Supervising Producer Third trimester (36-40 weeks): [] GBS [] Presentation - [] Scheduled [] yes - Hibiclens, pre-op instructions, CBC, T&S ordered [] no [] H&P Other Visit Diagnoses 36 weeks gestation of Relevant Orders UA DIP, URINE (POC) Encounter for screening of mother F/u 1 week.Haven Cunningham MD documented in this encounter [facility] 07-03-2023 Nurse Note Movement? Active baby Vaginal Bleeding: NO Vaginal fluid leakage of fluid: NO Contractions: no contractions Edema: Negative Ariane Morgan LPN [facility] 07-03-2023 Nurse Note Movement? Active baby Vaginal Bleeding: NO Vaginal fluid leakage of fluid: NO Contractions: no contractions Edema: Negative Ariane Morgan LPN documented in this encounter [facility] 06-19-2023 Miscellaneous Notes Good fm Ptl precautions Problem List Items Addressed This Visit Hematology Rh negative state in antepartum period, second trimester Overview Rhogam given Other History of hereditary spherocytosis Overview - s/p splenectomy as at 5 years old, reports received all recommended immunizations - strong family history of spherocytosis (mom, sisters, cousins) - has not met with genetic counselor. Offered consultation to discuss blood testing for genotype and further counseling regarding risk of infant inheriting spherocytosis. - discussed majority of time autosomal dominant inheritance pattern, however incomplete penetrance. - discussed no known impact on maternal mortality and morbidity given she is s/p splenectomy with adequate Hgb. No known impact on fetus in the absence of anemia. - Recommend further monitoring with follow up growth ultrasound at 32 weeks. completed Supervision of high risk in third trimester - Primary Overview Care Checklist Vaccines: [] Flu vaccine [] declined [] RSV vaccine 32 0/7 - 36 6/ (Nov - Apr) [] declined [] COVID vaccine [] declined [] TDaP 27-36 [x] declined First trimester: [x] Dating US [x] 1st tri labs [x] Pap smear [] Carrier screening [] declined [x] NIPT screening [] declined [] First trimester anatomy scan [] declined [] ASA ppx indicated [] not indicated [] M Power Consult [] not indicated [] declined Second trimester: [x] AFP [] declined [x] Anatomy scan [] Mode of Delivery - [] Feeding - [] Pump ordered [x] Diabetes screen [x] CBC, RPR Third trimester (28-30 weeks): [] Consent [] Contraception - [] Supervising Producer Third trimester (36-40 weeks): [] GBS [] Presentation - [] Scheduled [] yes - Hibiclens, pre-op instructions, CBC, T&S ordered [] no [] H&P Other Visit Diagnoses 34 weeks gestation of Relevant Orders UA DIP, URINE (POC) Rto 2 weeks documented in this encounter [facility] 06-19-2023 Nurse Note Movement? Active baby Vaginal Bleeding: NO Vaginal fluid leakage of fluid: NO Contractions: no contractions Edema: Negative Evaristo La MA June 19, 2023 9:13 AM documented in this encounter [facility] 06-05-2023 Miscellaneous Notes Good fm Ptl precautions Problem List Items Addressed This Visit Hematology Rh negative state in antepartum period, second trimester Overview Rhogam given Polycythemia Overview - Initial OB Hgb 15, plt 491 - no family or personal history of DVT or PE - likely 2/2 low oxygen carrying capacity of RBCs in spherocytosis - discussed potential increased risk of preeclampsia and DVT, recommendation for bASA prophylaxis. Discussed limited data for aspirin in the setting of spherocytosis, again limited data of risk of preeclampsia, DVT. Discussed risks of aspirin including bleeding risks. Patient declined bASA. - repeat CBC with GTT at 24-28 weeks hgb 14.3 plt 472 Other History of hereditary spherocytosis Overview - s/p splenectomy as at 5 years old, reports received all recommended immunizations - strong family history of spherocytosis (mom, sisters, cousins) - has not met with genetic counselor. Offered consultation to discuss blood testing for genotype and further counseling regarding risk of inheriting spherocytosis. - discussed majority of time autosomal dominant inheritance pattern, however incomplete penetrance. - discussed no known impact on maternal mortality and morbidity given she is s/p splenectomy with adequate Hgb. No known impact on fetus in the absence of anemia. - Recommend further monitoring with follow up growth ultrasound at 32 weeks. Supervision of high risk in third trimester Overview Care Checklist Vaccines: [] Flu vaccine [] declined [] RSV vaccine 32 0/7 - 36 6/7 (Nov - Apr) [] declined [] COVID vaccine [] declined [] TDaP 27-36 [] declined First trimester: [x] Dating US [x] 1st tri labs [x] Pap smear [] Carrier screening [] declined [x] NIPT screening [] declined [] First trimester anatomy scan [] declined [] ASA ppx indicated [] not indicated [] M Power Consult [] not indicated [] declined Second trimester: [x] AFP [] declined [x] Anatomy scan [] Mode of Delivery - [] Feeding - [] Pump ordered [x] Diabetes screen [x] CBC, RPR Third trimester (28-30 weeks): [] Consent [] Contraception - [] Supervising Producer Third trimester (36-40 weeks): [] GBS [] Presentation - [] Scheduled [] yes - Hibiclens, pre-op instructions, CBC, T&S ordered [] no [] H&P Other Visit Diagnoses 32 weeks gestation of - Primary Relevant Orders UA DIP, URINE (POC) Rto 2 weeks. Us results not released yet. Consult pt declines tdapDajoel Cunningham MD documented in this encounter [facility] 06-05-2023 Nurse Note Movement? Active baby Vaginal Bleeding: NO Vaginal fluid leakage of fluid: NO Contractions: no contractions Edema: Negative Yesica Bryant MA documented in this encounter [facility] 06-05-2023 Miscellaneous Notes RTE showing rejected. Called [facility] to verify elig. Per call, patient is eligible and eff date of plan is [id number] with no expected term date. Call ref# [id number] documented in this encounter [facility] 05-08-2023 History of Present illness Narrative Patient has been identified by name and date of : Yes Pt is A-, ok to give per Dr Valencia. Keiko is here for an injection of Rhogam Dose: 300mcg Route: Intramuscular Given without incident. Site: right [facility] Receptionist: [employer] Lot #: [id number] [facility] #: [id number] Expiration Date: [id number] Dr. Valencia present in clinic at time of injection. Kaitlin Martin LPN documented in this encounter [facility] 05-08-2023 Miscellaneous Notes Patient is going to be getting her Rhogam injection. Will need a type and screen the day before. Can you please place this order? Thank you Norma Taylor LPN documented in this encounter [facility] 05-08-2023 Miscellaneous Notes Good fm Ptl precautions Tdap discussed will consider Care Checklist Vaccines: [] Flu vaccine [] declined [] RSV vaccine 32 0/7 - 36 6/ (Nov - Apr) [] declined [] COVID vaccine [] declined [] TDaP -36 [] declined First trimester: [x] Dating US [x] 1st tri labs [x] Pap smear [] Carrier screening [] declined [] NIPT screening [] declined [] First trimester anatomy scan [] declined [] ASA ppx indicated declined [] not indicated [] M Power Consult [] not indicated [] declined Second trimester: [] AFP [] declined [x] Anatomy scan [] Mode of Delivery - [] Feeding - [] Pump ordered [x] Diabetes screen [x] CBC, RPR Third trimester (28-30 weeks): [] Consent [] Contraception - [] Supervising Producer Third trimester (36-40 weeks): [] GBS [] Presentation - [] Scheduled [] yes - Hibiclens, pre-op instructions, CBC, T&S ordered [] no [] H&P Problem List Items Addressed This Visit Hematology Rh negative state in antepartum period, second trimester Overview Rhogam needs to be given Other History of hereditary spherocytosis Overview - s/p splenectomy as at 5 years old, reports received all recommended immunizations - strong family history of spherocytosis (mom, sisters, cousins) - has not met with genetic counselor. Offered consultation to discuss blood testing for genotype and further counseling regarding risk of infant inheriting spherocytosis. - discussed majority of time autosomal dominant inheritance pattern, however incomplete penetrance. - discussed no known impact on maternal mortality and morbidity given she is s/p splenectomy with adequate Hgb. No known impact on fetus in the absence of anemia. - Recommend further monitoring with follow up growth ultrasound at 32 weeks. Supervision of high risk in third trimester - Primary Other Visit Diagnoses 28 weeks gestation of Relevant Orders UA DIP, URINE (POC) Rto 2 weeks.Haven Cunningham MD documented in this encounter [facility] 05-08-2023 Nurse Note Movement? Active baby Vaginal Bleeding: NO Vaginal fluid leakage of fluid: NO Contractions: no contractions Edema: Negative Ariane Morgan LPN documented in this encounter [facility] 04-16-2023 Miscellaneous Notes No complaints of contractions, vaginal bleeding, discharge or leakage of fluid. Fetus is active. No symptoms of UTI. Complains of some heartburn which she treats with Tums with good relief, we will add Pepcid if needed. Patient will have CBC with 1 hour GCT and RhoGAM at 28 weeks. Follow-up in the office in 3 weeks. Rian Swanson MD documented in this encounter [facility] 04-16-2023 Nurse Note Movement? Active baby Vaginal Bleeding: NO Vaginal fluid leakage of fluid: NO Contractions: no contractions Edema: Negative Norma Taylor LPN documented in this encounter [facility] 02-11-2023 Miscellaneous Notes Aware of results. Gender placed in env and she will pick it up at [place] office. Cyndi Grissom RN Low risk NIPT and low risk AFP documented in this encounter [facility] 02-05-2023 Miscellaneous Notes Called and spoke with Keiko to schedule for a MFM consult. She requested that it be completed at the same time as her anatomy US. documented in this encounter [facility] 02-04-2023 Miscellaneous Notes ASSESSMENT/PLAN: 1. Cervical cancer screening - ICD9: V76.2, ICD10: Z12.4 (primary diagnosis) - Completed pap exam - check GC/Chlamydia - PAP TEST 2. 15 weeks gestation of - ICD9: V22.2, ICD10: Z3A.15 3. Rh negative state in antepartum period, second trimester - ICD9: 646.83, ICD10: O26.892, Z67.91 Discussed Rhogam at 28 weeks and PP if indicated 4. Encounter for anatomic survey - ICD9: V28.81, ICD10: Z36.89 - OBSTETRIC ULTRASOUND WHI 5. Encounter for screening for malformation - ICD9: V28.89, ICD10: Z36.3 - [id number] PLUS - ALPHA FETOPRO MATERNAL - URINE CULTURE - GONORRHEA/CHLAMYDIA NAAT 6. History of hereditary spherocytosis - ICD9: V12.3, ICD10: Z86.2 - CONSULT TO MATERNAL MEDICINE (AG) Silvia Mendoza APRN.CREDIT RISK ANALYTICS MANAGER documented in this encounter [facility] 02-04-2023 Nurse Note Movement? Flutters Vaginal Bleeding: NO Vaginal fluid leakage of fluid: NO Contractions: no contractions Edema: Negative Norma Taylor LPN documented in this encounter [facility] 02-04-2023 History of Present illness Narrative INITIAL OB ASSESSMENT OB Provider: Silvia Mendoza APRN.CREDIT RISK ANALYTICS MANAGER HPI: Keiko Bustos Covert 28 year old female here to establish Obstetrical Care. Patient's last menstrual period was Patient's last menstrual period was 10/22/2022 (exact date). . Complaints: None OB History OB History T0 L0 SAB0 IAB0 Ectopic0 Multiple0 Live Births0 Prior : never History of 4th degree laceration: NA History of abnormal pap: Yes Prior treatment for cervical dysplasia: none. 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 I don't have enough money to pay my bills: Never Within the past 12 months, have you worried that your food would run out before you had money to buy more: Never In the past 12 months, has lack of reliable transportation kept you from going to medical appointments or work, or from keeping things needed for daily living: Never In the past 12 months, have you had any concerns about having a place to live, or about the condition or quality of your housing: Never Are there any cultural or spiritual needs we should be aware of: No SBIRT Keiko Bliss was given the 4P's screening tool. Keiko answered as follows: OB Opioid Screening - Last Recorded (since 05/10/2022) Did any of your parents have a problem with alcohol or other drug use? No Does your partner have a problem with alcohol or other drug use? No In the past, have you had difficulties in your life because of alcohol or other drugs, including prescription medications? No In the past month have you drunk any alcohol or used other drugs? No Are you taking medication for pain during the either prescribed or not? No Based on the screen and further questions, she is considered at Low risk due to:No past or current use. Positive reinforcement of current behavior. Depression/Anxiety Screening: PHQ-2 Over the last 2 weeks, how often have you been bothered by the following problems: Little interest or pleasure in doing things: Not at all 2.Feeling down, depressed, or hopeless: Not at all Any history of pre-term delivery: No Orthodoxy or heritage: No Opts for carrier screen?No NIPT?:Yes Would ACCEPT blood transfusion if medically necessary: Yes Patient BMI over 25? No HgbA1c ordered: No Does patient have penicillin allergy: No Low-dose aspirin therapy checklist Any 1 of the following high level risk factors: History of preeclampsia/gestational HTN: No Multifetal gestation: No Chronic HTN: No Type 1 or 2 diabetes: No Renal disease: No Autoimmune disease: No 2 or more moderate risk factors: Nulliparity: Yes Obesity(BMI >30): No Family history of preeclampsia in mother or sister: No Socio-demographic characteristics ( race or low socioeconomic status): No Age 35 years or older: No Personal history risk factors (low birthweight or sga, previous adverse outcome, more than 10 year interval: No Partner involved?Yes Partner: Kiran Review of Systems: GENERAL: Negative for: Fever or Chills HEENT: Negative for: Headache, Impaired Vision, Ringing in Ears, Nosebleeds RESPIRATORY: Negative for: Cough, Shortness of breath, Wheezing GASTROINTESTINAL: Negative for: Heartburn, Constipation, Diarrhea, Blood in stool, Vomiting SKIN: Negative for: Rash, Itching GENITOURINARY: Negative for: vaginal itching, vaginal discharge, hematuria or dysuria PHYSICAL EXAM: GENERAL: pleasant female in no apparent distress DERMATOLOGY: Normal, without lesions, non-icteric, and non-hirsute NECK: Supple, full range of motion, and no adenopathy CHEST: Normal inspiratory effort BREAST: deferred NEURO: alert and oriented x3,exam grossly non-focal PELVIS: External genitalia normal without lesions. Perineal body intact. No vaginal or cervical lesions. Scant bleeding with exam. Cervix closed. Limited OB ultrasound exam: Dating US from 01/18/2023: Impression 1. Single, live, intrauterine . 2. An intrauterine gestational sac with a yolk sac and pole are present. 3. [place] rump length measurement is consistent with the established gestational age. 4. heart tones are within normal limits. 5. Right hemorrhagic corpus luteum. ASSESSMENT/PLAN: 1. Cervical cancer screening - ICD9: V76.2, ICD10: Z12.4 (primary diagnosis) - Completed pap exam - check GC/Chlamydia - PAP TEST 2. 15 weeks gestation of - ICD9: V22.2, ICD10: Z3A.15 3. Rh negative state in antepartum period, second trimester - ICD9: 646.83, ICD10: O26.892, Z67.91 Discussed Rhogam at 28 weeks and PP if indicated 4. Encounter for anatomic survey - ICD9: V28.81, ICD10: Z36.89 - OBSTETRIC ULTRASOUND WHI 5. Encounter for screening for malformation - ICD9: V28.89, ICD10: Z36.3 - [id number] PLUS - ALPHA FETOPRO MATERNAL - URINE CULTURE - GONORRHEA/CHLAMYDIA NAAT 6. History of hereditary spherocytosis - ICD9: V12.3, ICD10: Z86.2 - CONSULT TO MATERNAL MEDICINE (AG) Silvia Mendoza APRN.CREDIT RISK ANALYTICS MANAGER documented in this encounter [facility] 01-18-2023 Instructions Ryanne Milian MD - 01/18/2023 9:33 AM EST Bleeding in Early Many women experience bleeding in the first trimester. This can be part of the normal process of establishing the , commonly called implantation bleeding or can occur if there is a collection of blood in the uterus (your doctor may refer to this as a subchorionic hemorrhage or subchorionic hematoma). Bleeding can also happen due to infection in the vagina or benign overgrowths on the cervix called polyps. Most of these situations will go on to be normal pregnancies. Bleeding can also occur with a miscarriage or an ectopic ( outside of the uterus, most commonly in the fallopian tube). In order to tell if the is normal or not, your doctor may order lab tests or an ultrasound. Blood work is usually done to check your HCG level, which is the hormone. HCG increases in a predictable pattern in early . If the level is decreasing it means the has stopped developing. Your doctor will also order a blood type test if your blood type is unknown. If your blood type is negative you will receive an injection of Rhogam to prevent sensitization for future pregnancies. An ultrasound may be ordered to see if the is in the correct location or to check if the fetus has a heartbeat. Whether an ultrasound will be helpful or not depends on how far along you are in the . If you are diagnosed with a miscarriage (also called a spontaneous ), there are several options for treatment. You may choose to wait and see if your body will pass the on its own, which is similar to a heavy period with cramping. Misoprostol is a medication that can help speed up the process and is given either in the vagina or by mouth. Surgical management for miscarriage is called a D&C and involves your doctor emptying out the uterus with suction. This is done under sedation in the operating room. If at any time you experience heavy vaginal bleeding (soaking through a pad in an hour or less), severe abdominal pain, lightheadedness or shortness of breath you need to call your doctor immediately or go the the emergency room. We understand this is a difficult time for you and your family and will do our best to answer all of your questions and concerns. documented in this encounter [facility] 01-18-2023 History of Present illness Narrative Keiko Bustos Covert is a 27 year old who presents with 1st trimester US. Taking PNV. Insur does not fully cover preg. Patient's last menstrual period was 10/22/2022 (exact date). Gestational age by LMP: 12+4 Rh ? Vaginal bleeding: No Cramping: No HCG: NA Imagin wk IUP with CA, FLORINDA by LMP of 07/29/23 Plan: Amen- labs, decline NT, will consider NIPT, reviewed dietary restrictions Medical Decision Making: Problems: Moderate: New problem with uncertain prognosis Data: Unique test result(s) reviewed: 1 Unique test(s) ordered: 3+ Risk: Moderate: Moderate risk from testing/treatment Medical Decision Making Level: 4 - Moderate Ryanne Milian MD, MD documented in this encounter [facility] 12-18-2022 Miscellaneous Notes Called asking what all to expect at her initial appt. Says she has had pos HT. Aware this will estab care and HCG will likely be ordered and once we get that result, we will get her sched for OV/US as long as number is high enough. Questions ans'd about Mat 21 test as well. 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 Enc to call billing to see how much it would cost. Cyndi Grissom RN documented in this encounter [facility] 03-29-2021 Note [facility] Work Phone: Pap Smear Specimen Adequacy March 30, 2021 12:59am Comment Satisfactory for evaluation. Endocervical and/or squamous metaplasticcells (endocervical component) are present. Comment on above: Satisfactory for jennifer luation. Endocervical and/or squamous metaplasticcells (endocervical component) are present. Evaluation note Diagnosis Onset Date LGSIL on Pap smear of cervix acute [facility] Work Phone: Evaluation note* Diagnosis Amenorrhea, secondary- Primary Absence of menstruation [facility] Diagnosis Rh negative state in antepartum period, second trimester- Primary Cervical cancer screening Screening for malignant neoplasm of the cervix 15 weeks gestation of state, incidental Encounter for anatomic survey Encounter for screening for malformation History of hereditary spherocytosis Personal history of diseases of blood and blood-forming organs [facility] Diagnosis 25 weeks gestation of - Primary state, incidental History of hereditary spherocytosis Personal history of diseases of blood and blood-forming organs Rh negative state in antepartum period, second trimester [facility] Diagnosis Supervision of high risk in third trimester- Primary Unspecified high-risk 28 weeks gestation of state, incidental Rh negative state in antepartum period, third trimester History of hereditary spherocytosis Personal history of diseases of blood and blood-forming organs [facility] Need for rhogam due to Rh negative mother- Primary Need for prophylactic immunotherapy [facility] Diagnosis Rh negative state in antepartum period- Primary Rhesus isoimmunization affecting management of mother, antepartum condition [facility] Diagnosis Encounter for ultrasound to assess growth- Primary History of hereditary spherocytosis Personal history of diseases of blood and blood-forming organs [facility] Diagnosis Supervision of high risk in third trimester- Primary Unspecified high-risk 32 weeks gestation of state, incidental Rh negative state in antepartum period, second trimester Polycythemia Polycythemia vera History of hereditary spherocytosis Personal history of diseases of blood and blood-forming organs [facility] Diagnosis Supervision of high risk in third trimester- Primary Unspecified high-risk 34 weeks gestation of state, incidental Rh negative state in antepartum period, second trimester History of hereditary spherocytosis Personal history of diseases of blood and blood-forming organs [facility] Diagnosis Supervision of high risk in third trimester- Primary Unspecified high-risk 36 weeks gestation of state, incidental Rh negative state in antepartum period, second trimester Polycythemia Polycythemia vera History of hereditary spherocytosis Personal history of diseases of blood and blood-forming organs Encounter for screening of mother Unspecified screening [facility] Diagnosis Decreased ROM of lumbar spine- Primary 32 weeks gestation of state, incidental [facility] Diagnosis Rh negative state in antepartum period, second trimester- Primary 37 weeks gestation of state, incidental [facility] Diagnosis 32 weeks gestation of - Primary state, incidental Decreased ROM of lumbar spine [facility] Diagnosis 38 weeks gestation of - Primary state, incidental Polycythemia Polycythemia vera Rh negative state in antepartum period, second trimester Supervision of high risk in third trimester Unspecified high-risk History of hereditary spherocytosis Personal history of diseases of blood and blood-forming organs [facility] Diagnosis 32 weeks gestation of - Primary state, incidental Decreased ROM of lumbar spine 39 weeks gestation of - Primary state, incidental [facility] Diagnosis 39 weeks gestation of - Primary state, incidental Rh negative state in antepartum period, second trimester Polycythemia Polycythemia vera Supervision of high risk in third trimester Unspecified high-risk [facility] Diagnosis 40 weeks gestation of - Primary state, incidental History of hereditary spherocytosis Personal history of diseases of blood and blood-forming organs Rh negative state in antepartum period, second trimester [facility] Diagnosis Other disorders of - Primary [facility] Diagnosis state- Primary Routine follow-up [facility] Diagnosis 20 weeks gestation of ([facility])- Primary state, incidental History of hereditary spherocytosis Personal history of diseases of blood and blood-forming organs Polycythemia Polycythemia vera Supervision of high risk , antepartum ([facility])- Primary History of hereditary spherocytosis Personal history of diseases of blood and blood-forming organs Rh negative state in antepartum period ([facility]) Rhesus isoimmunization affecting management of mother, antepartum condition History of delivery by vacuum extraction, currently ([facility]) with other poor obstetric history 9 weeks gestation of ([facility]) state, incidental Encounter for screening of mother ([facility]) Unspecified screening Polycythemia Polycythemia vera [facility] Diagnosis 20 weeks gestation of ([facility])- Primary state, incidental History of hereditary spherocytosis Personal history of diseases of blood and blood-forming organs Polycythemia Polycythemia vera Early stage of ([facility]) state, incidental [facility] Diagnosis 20 weeks gestation of ([facility])- Primary state, incidental History of hereditary spherocytosis Personal history of diseases of blood and blood-forming organs Polycythemia Polycythemia vera Supervision of high risk , antepartum ([facility])- Primary Encounter for screening of mother ([facility]) Unspecified screening [facility] Diagnosis 20 weeks gestation of ([facility])- Primary state, incidental History of hereditary spherocytosis Personal history of diseases of blood and blood-forming organs Polycythemia Polycythemia vera Supervision of high risk , antepartum ([facility])- Primary History of hereditary spherocytosis Personal history of diseases of blood and blood-forming organs Rh negative state in antepartum period ([facility]) Rhesus isoimmunization affecting management of mother, antepartum condition Polycythemia Polycythemia vera 13 weeks gestation of ([facility]) state, incidental documented in this encounter [facility] note* Diagnosis 20 weeks gestation of (HCC)- Primary state, incidental History of hereditary spherocytosis Personal history of diseases of blood and blood-forming organs Polycythemia Polycythemia vera Supervision of high risk , antepartum (HCC)- Primary Rh negative state in antepartum period ([facility]) Rhesus isoimmunization affecting management of mother, 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 History of hereditary spherocytosis Personal history of diseases of blood and blood-forming organs 17 weeks gestation of ([facility]) state, incidental * Assessment & Plan Note - Velia Guadarrama APRN.CNP - 10/13/2024 8:09 AM EDT Associated Problem(s): Thrombocytosis after splenectomy - platelets on PNLs were 500 documented in this encounter [facility] note* Diagnosis 20 weeks gestation of (HCC)- Primary state, incidental History of hereditary spherocytosis Personal history of diseases of blood and blood-forming organs Polycythemia Polycythemia vera Supervision of high risk , antepartum (HCC)- Primary Rh negative state in antepartum period ([facility]) Rhesus isoimmunization affecting management of mother, 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 History of hereditary spherocytosis Personal history of diseases of blood and blood-forming organs 17 weeks gestation of ([facility]) state, incidental Encounter for screening of mother ([facility]) Unspecified screening documented in this encounter [facility] for referral (narrative)* Diagnostic Procedure Only (Routine) - Pending Review Specialty Diagnoses / Procedures Referred By Gary t Referred To [facility] Diagnoses Encounter for anatomic survey Procedures OBSTETRIC ULTRASOUND WHI US PREG UTERUS AFTER 1ST TRIMEST GESTATION Silvia Mendoza APRN.CNP [address] [place] [address] [address] Referral ID Status Reason Start Date Expiration Date Visits Requested Visits Authorized [id number] Pending Review Auto-Generat ed Referral 02/04/2023 02/04/2024 [facility] Diagnostic Procedure Only (Routine) - Authorized Specialty Diagnoses / Procedures Referred By Contac t Referred To Contact [facility] Diagnoses History of hereditary spherocytosis Procedures OBSTETRIC ULTRASOUND WHI US PREG UTERUS AFTER 1ST TRIMEST GESTATION Haven Cunningham MD [address] [place] [address] [address] Referral ID Status Reason Start Date Expiration Date Visits Requested Visits Authorized [id number] Authorized Auto-Generat ed Referral 05/08/2023 05/07/2024 1 1 [facility] Chief Complaint and Reason for Visit Chief Complaint 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) Colposcopy COLPOSCOPY Reason for Visit LGSIL on Pap smear o f cervix Reason for Referral Specialty Diagnoses / Procedures Referred By Contac t Referred To Contact [facility] Diagnoses 32 weeks gestation of Procedures CONSULT TO PHYSICAL THERAPY PHYSICAL THERAPY EVALUATION HIGH COMPLEX 45 MINS Haven Cunningham MD [address] [place] [address] [address] Referral ID Status Reason Start Date Expiration Date Visits Requested Visits Authorized [id number] Pending Review Auto-Generat ed Referral 06/05/2023 06/04/2024 1 1 Specialty Diagnoses / Procedures Referred By Contac t Referred To Contact [facility] Diagnoses 32 weeks gestation of Decreased ROM of lumbar spine Procedures PT REHAB FOLLOW UP ORDER THERAPEUTIC EXERCISES RE, EA [address] [place] [address] [facility] [place] [address] [place] [address] Referral ID Status Reason Start Date Expiration Date Visits Requested Visits Authorized [id number] Pending Review PCP Requested Referral Auto-Generate d Referral 07/03/2023 10/01/2023 1 1 Referral ID Status Reason Start Date Expiration Date Visits Requested Visits Authorized [id number] Pending Review PCP Requested Referral Auto-Generate d Referral 07/23/2023 10/21/2023 1 1 Summary Purpose Family History No Family History Records Found Advance Directives No Advanced Directives Records FoundNo Advanced Directives Records FoundNo Advanced Directives Records FoundNo Advanced Directives Records FoundNo Advanced Directives Records FoundNo Advanced Directives Records Found Additional Source Comments Goals (unrecognized section and content) Goals may be documented in a n alternate section Source Comments (unrecognize d section and content) In the event this informatio n is protected by the Federal Confidentiality of Alcohol and Drug Abuse Patient Records regulations: The Federal rules restrict any use of the information to criminally investigate or prosecute any alcohol or drug abuse patient.[facility] the event this information is protected by the Federal Confidentiality of Alcohol and Drug Abuse Patient Records regulations: The Federal rules restrict any use of the information to criminally investigate or prosecute any alcohol or drug abuse patient.[facility]In the event this information is protected by the Federal Confidentiality of Alcohol and Drug Abuse Patient Records regulations: The Federal rules restrict any use of the information to criminally investigate or prosecute any alcohol or drug abuse patient.[facility]In the event this information is protected by the Federal Confidentiality of Alcohol and Drug Abuse Patient Records regulations: The Federal rules restrict any use of the information to criminally investigate or prosecute any alcohol or drug abuse patient.[facility]In the event this information is protected by the Federal Confidentiality of Alcohol and Drug Abuse Patient Records regulations: The Federal rules restrict any use of the information to criminally investigate or prosecute any alcohol or drug abuse patient.[facility] HospitalIn the event this information is protected by the Federal Confidentiality of Alcohol and Drug Abuse Patient Records regulations: The Federal rules restrict any use of the information to criminally investigate or prosecute any alcohol or drug abuse patient.[facility] HospitalIn the event this information is protected by the Federal Confidentiality of Alcohol and Drug Abuse Patient Records regulations: The Federal rules restrict any use of the information to criminally investigate or prosecute any alcohol or drug abuse patient.[facility] HospitalIn the event this information is protected by the Federal Confidentiality of Alcohol and Drug Abuse Patient Records regulations: The Federal rules restrict any use of the information to criminally investigate or prosecute any alcohol or drug abuse patient.[facility] HospitalIn the event this information is protected by the Federal Confidentiality of Alcohol and Drug Abuse Patient Records regulations: The Federal rules restrict any use of the information to criminally investigate or prosecute any alcohol or drug abuse patient.[facility] HospitalIn the event this information is protected by the Federal Confidentiality of Alcohol and Drug Abuse Patient Records regulations: The Federal rules restrict any use of the information to criminally investigate or prosecute any alcohol or drug abuse patient.[facility] HospitalIn the event this information is protected by the Federal Confidentiality of Alcohol and Drug Abuse Patient Records regulations: The Federal rules restrict any use of the information to criminally investigate or prosecute any alcohol or drug abuse patient.[facility]In the event this information is protected by the Federal Confidentiality of Alcohol and Drug Abuse Patient Records regulations: The Federal rules restrict any use of the information to criminally investigate or prosecute any alcohol or drug abuse patient.[facility] HospitalIn the event this information is protected by the Federal Confidentiality of Alcohol and Drug Abuse Patient Records regulations: The Federal rules restrict any use of the information to criminally investigate or prosecute any alcohol or drug abuse patient.[facility]In the event this information is protected by the Federal Confidentiality of Alcohol and Drug Abuse Patient Records regulations: The Federal rules restrict any use of the information to criminally investigate or prosecute any alcohol or drug abuse patient.[facility] HospitalIn the event this information is protected by the Federal Confidentiality of Alcohol and Drug Abuse Patient Records regulations: The Federal rules restrict any use of the information to criminally investigate or prosecute any alcohol or drug abuse patient.[facility] HospitalIn the event this information is protected by the Federal Confidentiality of Alcohol and Drug Abuse Patient Records regulations: The Federal rules restrict any use of the information to criminally investigate or prosecute any alcohol or drug abuse patient.[facility] HospitalIn the event this information is protected by the Federal Confidentiality of Alcohol and Drug Abuse Patient Records regulations: The Federal rules restrict any use of the information to criminally investigate or prosecute any alcohol or drug abuse patient.[facility] HospitalIn the event this information is protected by the Federal Confidentiality of Alcohol and Drug Abuse Patient Records regulations: The Federal rules restrict any use of the information to criminally investigate or prosecute any alcohol or drug abuse patient.[facility] HospitalIn the event this information is protected by the Federal Confidentiality of Alcohol and Drug Abuse Patient Records regulations: The Federal rules restrict any use of the information to criminally investigate or prosecute any alcohol or drug abuse patient.[facility] HospitalIn the event this information is protected by the Federal Confidentiality of Alcohol and Drug Abuse Patient Records regulations: The Federal rules restrict any use of the information to criminally investigate or prosecute any alcohol or drug abuse patient.[facility] HospitalIn the event this information is protected by the Federal Confidentiality of Alcohol and Drug Abuse Patient Records regulations: The Federal rules restrict any use of the information to criminally investigate or prosecute any alcohol or drug abuse patient.[facility] HospitalIn the event this information is protected by the Federal Confidentiality of Alcohol and Drug Abuse Patient Records regulations: The Federal rules restrict any use of the information to criminally investigate or prosecute any alcohol or drug abuse patient.[facility] HospitalIn the event this information is protected by the Federal Confidentiality of Alcohol and Drug Abuse Patient Records regulations: The Federal rules restrict any use of the information to criminally investigate or prosecute any alcohol or drug abuse patient.[facility] HospitalIn the event this information is protected by the Federal Confidentiality of Alcohol and Drug Abuse Patient Records regulations: The Federal rules restrict any use of the information to criminally investigate or prosecute any alcohol or drug abuse patient.[facility] HospitalIn the event this information is protected by the Federal Confidentiality of Alcohol and Drug Abuse Patient Records regulations: The Federal rules restrict any use of the information to criminally investigate or prosecute any alcohol or drug abuse patient.[facility] HospitalIn the event this information is protected by the Federal Confidentiality of Alcohol and Drug Abuse Patient Records regulations: The Federal rules restrict any use of the information to criminally investigate or prosecute any alcohol or drug abuse patient.[facility] the event this information is protected by the Federal Confidentiality of Alcohol and Drug Abuse Patient Records regulations: The Federal rules restrict any use of the information to criminally investigate or prosecute any alcohol or drug abuse patient.[facility] HospitalIn the event this information is protected by the Federal Confidentiality of Alcohol and Drug Abuse Patient Records regulations: The Federal rules restrict any use of the information to criminally investigate or prosecute any alcohol or drug abuse patient.[facility] HospitalIn the event this information is protected by the Federal Confidentiality of Alcohol and Drug Abuse Patient Records regulations: The Federal rules restrict any use of the information to criminally investigate or prosecute any alcohol or drug abuse patient.[facility] the event this information is protected by the Federal Confidentiality of Alcohol and Drug Abuse Patient Records regulations: The Federal rules restrict any use of the information to criminally investigate or prosecute any alcohol or drug abuse patient.[facility] HospitalIn the event this information is protected by the Federal Confidentiality of Alcohol and Drug Abuse Patient Records regulations: The Federal rules restrict any use of the information to criminally investigate or prosecute any alcohol or drug abuse patient.[facility] HospitalIn the event this information is protected by the Federal Confidentiality of Alcohol and Drug Abuse Patient Records regulations: The Federal rules restrict any use of the information to criminally investigate or prosecute any alcohol or drug abuse patient.[facility] HospitalIn the event this information is protected by the Federal Confidentiality of Alcohol and Drug Abuse Patient Records regulations: The Federal rules restrict any use of the information to criminally investigate or prosecute any alcohol or drug abuse patient.[facility] HospitalIn the event this information is protected by the Federal Confidentiality of Alcohol and Drug Abuse Patient Records regulations: The Federal rules restrict any use of the information to criminally investigate or prosecute any alcohol or drug abuse patient.[facility] HospitalIn the event this information is protected by the Federal Confidentiality of Alcohol and Drug Abuse Patient Records regulations: The Federal rules restrict any use of the information to criminally investigate or prosecute any alcohol or drug abuse patient.[facility] HospitalIn the event this information is protected by the Federal Confidentiality of Alcohol and Drug Abuse Patient Records regulations: The Federal rules restrict any use of the information to criminally investigate or prosecute any alcohol or drug abuse patient.[facility] HospitalIn the event this information is protected by the Federal Confidentiality of Alcohol and Drug Abuse Patient Records regulations: The Federal rules restrict any use of the information to criminally investigate or prosecute any alcohol or drug abuse patient.[facility] Reason for Visit (unrecogniz ed section and content) Reason Comments US Specialty Diagnoses / Procedures Referred By Contac t Referred To Contact 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 Diagnoses Est pt, Care Procedures OFFICE/OUTPATIENT ESTABLISHED HIGH MDM 40 MIN Est pt, Care Velia Guadarrama, NON CATEGORICAL PRESCHOOL TEACHER.CREDIT RISK ANALYTICS MANAGER [address] [place] [address] Phone: tel: fax: [facility] Obstetrics & Gynecology [address] [place] [address] Phone: tel: fax: Referral ID Status Reason Start Date Expiration Date Visits Requested Visits Authorized [id number] Authorized OON/Self Pay Override 03/04/2024 03/03/2025 99 99 Reason Comments Care 39 w 2 d Specialty Diagnoses / Procedures Referred By Contac t Referred To Contact 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 Diagnoses Encounter for supervision of normal , unspecified, unspecified trimester Procedures OFFICE/OUTPATIENT ESTABLISHED LOW MDM 20 MIN Haven Cunningham MD [address] [place] [address] Multimedia Services Manager [facility] [address] [facility] [address] [place] [address] Referral ID Status Reason Start Date Expiration Date Visits Requested Visits Authorized [id number] Pending Review OON/Self Pay Override 06/05/2023 09/12/2024 99 99 Reason Comments Care 36 w 2 d Reason Comments Patient Question Reason Comments Med Change Request Reason Comments Follow Up US prior to confirm Reason Comments Care Reason Comments Appointment Reason Comments Results Reason Comments Care Specialty Diagnoses / Procedures Referred By Contac t Referred To Contact 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 Diagnoses care Procedures care Rian Swanson I, MD [address] [place] [address] Multimedia Services Manager [facility] [address] [facility] [address] [place] [address] Referral ID Status Reason Start Date Expiration Date Visits Requested Visits Authorized [id number] Incomplete OON/Self Pay Override 03/19/2023 06/26/2024 15 15 Reason Comments Care 28 w 2 d Specialty Diagnoses / Procedures Referred By Contac t Referred To Contact 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 Diagnoses Procedures Rian Swanson I, MD [address] [place] [address] Multimedia Services Manager [facility] [place] [address] [facility] [address] [place] [address] Referral ID Status Reason Start Date Expiration Date Visits Requested Visits Authorized [id number] Incomplete OON/Self Pay Override 04/16/2023 07/24/2024 1 1 Reason Comments Orders Reason Comments insurance eligibility RTE showing reject ed. Called [facility] to verify elig. Per call, patient is eligible and eff date of plan is [id number] with no expected term date. Call ref# [id number] Specialty Diagnoses / Procedures Referred By Contac t Referred To Contact [facility] Diagnoses History of hereditary spherocytosis Procedures OBSTETRIC ULTRASOUND WHI US PREG UTERUS AFTER 1ST TRIMEST 1 GESTATION Haven Cunningham MD [address] [place] [address] [facility] [address] [place] [address] Referral ID Status Reason Start Date Expiration Date V isits Requested Visits Authorized [id number] Closed Auto-Generate d Referral 05/08/2023 05/07/2024 1 1 Reason Comments Physical Therapy PT Eval Specialty Diagnoses / Procedures Referred By Contac t Referred To Contact PHYSICAL THERAPY Diagnoses 32 weeks gestation of Procedures CONSULT TO PHYSICAL THERAPY PHYSICAL THERAPY EVALUATION HIGH COMPLEX 45 MINS Haven Cunningham MD [address] [place] [address] [address] [place] [address] Referral ID Status Reason Start Date Expiration Date V isits Requested Visits Authorized [id number] Closed Auto-Generated Referral Financial Clearance Not Required 06/05/2023 06/04/2024 1 1 Reason Onset Date Comments Population Health Navigation Outreach 07/15/2023 OB/peds Reason Comments Physical Therapy Specialty Diagnoses / Procedures Referred By Contac t Referred To Contact PHYSICAL THERAPY Diagnoses 32 weeks gestation of Procedures CONSULT TO PHYSICAL THERAPY PHYSICAL THERAPY EVALUATION HIGH COMPLEX 45 MINS Haven Cunningham MD [address] [place] [address] [address] [place] [address] Referral ID Status Reason Start Date Expiration Date Visits Requested Visits Authorized [id number] Authorized Auto-Generate d Referral Financial Clearance Not Required 06/05/2023 08/31/2023 4 4 Reason Comments Physical Therapy Reason Comments Breast Feeding Reason Comments Breast Feeding Specialty Diagnoses / Procedures Referred By Contac t Referred To Contact Pediatrics / PRIMARY CARE PEDIATRICS Diagnoses consult Procedures 4C EST CONSULT Self Kathy Martinez DO [address] [place] [address] Referral ID Status Reason Start Date Expiration Date V isits Requested Visits Authorized [id number] Waiting for Response 08/27/2023 11/25/2023 1 1 Reason Comments Care Specialty Diagnoses / Procedures Referred By Contac t Referred To Contact 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 Diagnoses Encounter for routine follow-up Procedures OFFICE/OUTPATIENT ESTABLISHED LOW MDM 20 MIN EST, CARE Rian Swanson I, MD [address] [place] [address] Multimedia Services Manager [facility] [address] [address] Referral ID Status Reason Start Date Expiration Date Visits Requested Visits Authorized [id number] Pending Review OON/Self Pay Override 08/02/2023 11/09/2024 3 3 Reason Comments Care Specialty Diagnoses / Procedures Referred By Contac t Referred To Contact 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 Diagnoses Est pt, Care Procedures OFFICE/OUTPATIENT ESTABLISHED HIGH MDM 40 MIN Est pt, Care Velai Guadarrama, NON CATEGORICAL PRESCHOOL TEACHER.CREDIT RISK ANALYTICS MANAGER [address] [place] [address] Phone: tel: fax: [facility] [address] [place] [address] Phone: tel: fax: Referral ID Status Reason Start Date Expiration Date Visits Requested Visits Authorized [id number] Authorized OON/Self Pay Override 03/04/2024 03/03/2025 99 99 Reason Comments Us Procedure Specialty Diagnoses / Procedures Referred By Contac t Referred To Contact 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 Diagnoses Est pt, Care Procedures OFFICE/OUTPATIENT ESTABLISHED HIGH MDM 40 MIN Est pt, Care Velia Guadarrama, NON CATEGORICAL PRESCHOOL TEACHER.CREDIT RISK ANALYTICS MANAGER [address] [place] [address] Phone: tel: fax: [facility] Obstetrics & Gynecology [address] [place] [address] Phone: tel: fax: Referral ID Status Reason Start Date Expiration Date Visits Requested Visits Authorized [id number] Authorized OON/Self Pay Override 03/04/2024 03/03/2025 99 99 INFORMATION SOURCE (unrecogn ized section and content) DATE CREATED AUTHOR 08/06/2023 [facility] DATE CREATED AUTHOR AUTHOR'S ORGANIZ ATION 08/08/2023 [facility] DATE CREATED AUTHOR AUTHOR'S ORGANIZ ATION [facility] DATE CREATED AUTHOR AUTHOR'S ORGANIZ ATION 01/23/2024 [facility] DATE CREATED AUTHOR AUTHOR'S ORGANIZ ATION 11/27/2024 [facility] DATE CREATED AUTHOR AUTHOR'S ORGANIZ ATION 01/14/2025 [facility] Care Teams (unrecognized sec tion and content) 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 [place] [address] Nurse Practitioner Supervisor/Port Director 10/15/24 FOR RECORDS PERTAINING TO PATIENTS WHO ARE OR HAVE BEEN ENROLLED IN A CHEMICAL DEPENDENCY/SUBSTANCEABUSE PROGRAM, SOME INFORMATION MAY BE OMITTED. This clinical summary was aggregated from multiple sources. Caution should be exercised in using it in the provision of clinical care. This summary normalizes information from multiple sources, and as a consequence, information in this document may materially change the coding, format and clinical context of patient data. In addition, data may be omitted in some cases. CLINICAL DECISIONS SHOULD BE BASED ON THE PRIMARY CLINICAL RECORDS. [employer] provides no warranty or guarantee of the accuracy or completeness of information in this document.
--- NOTE | 2025-01-26 12:37 | OB.TRI.PN_ITS ---
Progress Notes Date of Service: 01/26/25 Progress Note: Patient presents for triage evaluation secondary to decel in the office on NST at 33 weeks FHT: 135 Moderate variability reactive no decelerations category I tracing [place]: no Contractions Assessment and plan: BPP 08/09 with Reactive NST for total score of 8/10, reassuring maternal and status patient discharged to home to follow-up in office at next visit. See problem list details for additional plan information. Charges/Coding Multi Select Codes Urinary/Genital Urinary/Genital CPT Codes: 26824-71 non-stress test Interp Assessment & Plan (1) Uterine size-date discrepancy, third trimester: COMMENT: growth US ordered (2) Tick bite: QUALIFIERS: Encounter type: initial encounter Site of tick bite: thoracic wall Front or back of thoracic wall: front Thoracic wall location detail: middle Qualified Code(s): S20.364A - Insect bite (nonvenomous) of middle front wall of thorax, initial encounter; W57.XXXA - Bitten or stung by nonvenomous insect and other nonvenomous arthropods, initial encounter COMMENT: Unable to remove entirely-to NOW clinic (3) Hereditary spherocytosis: (4) Supervision of high-risk : QUALIFIERS: Trimester: third trimester Qualified Code(s): O09.93 - Supervision of high risk , unspecified, third trimester COMMENT: PRR(outside PN labs scanned), FLORINDA 03/13/25, girl PC Latisha, Kiran (5) : QUALIFIERS: Weeks of gestation: 33 weeks Qualified Code(s): Z3A.33 - 33 weeks gestation of COMMENT: low risk, female, No Carrier testing, (6) Rh negative status during : QUALIFIERS: Trimester: third trimester Qualified Code(s): O26.893 - Other specified related conditions, third trimester; Z67.91 - Unspecified blood type, Rh negative COMMENT: Rhogam at 28 wk (7) Varicose vein of leg: QUALIFIERS: Varicose vein complication: inflammation Laterality: right Qualified Code(s): I83.11 - Varicose veins of right lower extremity with inflammation COMMENT: right above and below popliteal space (8) Anxiety: COMMENT: resolved/in college (9) LGSIL on Pap smear of cervix: COMMENT: 2019 and 2019:repeat 1 year and if >ascus=colp. 2021 LGSIL=colp:neg bx. ap:neg
== END 2025-01-26 12:40 | disposition home or self-care (01) ==
LOC: US 10:02 → WPOUT 11:09 → WP 11:09
PROVIDERS: Referring Provider Obstetrics & Gynecology; Visit Provider Advanced Practice Midwife
DX: O26.843 Uterine size-date discrepancy, third trimester (principal); O99.013 Anemia complicating pregnancy, third trimester; D58.0 Hereditary spherocytosis; O26.893 Other specified pregnancy related conditions, third trimester; Z67.91 Unspecified blood type, Rh negative; Z3A.33 33 weeks gestation of pregnancy; S20.364A Insect bite (nonvenomous) of middle front wall of thorax, initial encounter; W57.XXXA Bitten or stung by nonvenomous insect and other nonvenomous arthropods, initial encounter; O9A.213 Injury, poisoning and certain other consequences of external causes complicating pregnancy, third trimester
CPT/HCPCS: 59025; 59050; 76816; 76819; 99221; G0378

== ENCOUNTER → 2025-02-23 | Outpatient (CLI) | payer OTHER, SELFPAY ==
--- OUTSIDE RECORDS SUMMARY | 2025-02-23 17:55 | XMS RPT_ITS | CCD ---
Author Organization [facility] CONTINUOUS MINING OPERATOR [facility] Care Team Providers Care Varitypist Name Role Phone Care Physician, No Primary Primary Care Provider Unavailable Care Physician, No Primary Referring Provider Un available Rolando HODGE, CHALO Harris Attending Provider Dr. Aleena Humphrey Attending Provider [phone] Unavailable Primary Care Provider Unavailabl e Unavailable Primary Care Provider Unavailabl e REFERRED, SELF Referring Unavailable THOMAS CABALLERO Attending Unavailable THOMAS CABALLERO Primary Care Unavailable REFERRED, SELF Referring Unavailable THOMAS CABALLERO Primary Care Unavailable THOMAS CABALLERO Attending Unavailable KATHY MARTINEZ Attending Unavailable Yanet Beckham MD Unavailable Thierry ASBESTOS CEMENT SHEET SUPERVISOR.DOUG, Velia J Unavailable [phone] THIERRY, VELIA J Referring Unavailable THIERRY, VELIA [...] OUTH ONCE DAILY 21 day ethinyl estradiol 0.877635 mg/hr / etonogestrel 0.005 mg/hr vaginal system [...] of ; Translations: [13 weeks gestation of ([facility])] Onset: 09-17-2024 Episodic Residual codes; unclassified (1 source) 29 weeks gestation of ; Translations: [29 weeks gestation of ] Onset: 12-28-2024 Episodic Unclassified (2 sources) No additional problems on file Unclassified (4 sources) [place]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 Onset: 08-04-2023 08-04-2023 Unclassified (2 sources) Patient encounter status 08-17-2024 Unclassified (7 sources) [facility] - [facility] Onset: 08-17-2024 08-17-2024 Unclassified (7 sources) Education - [place] Onset: 08-17-2024 08-17-2024 Unclassified (1 source) Thrombocytosis [...] of ; Translations: [9 weeks gestation of ([facility])] Onset: 08-17-2024 Episodic Spondylosis; intervertebral disc disorders; other back problems (20 sources) Decreased range of lumbar spine movement; Translations: [Other specified dorsopathies, lumbar region] Onset: 07-03-2023 Resolved: 07-12-2023 07-03-2023 Episodic Results Test Name Value Interpretation Reference Range Facil ity [facility] Office Visit Reporton 01-13-2025 [facility] Office Visit Report [facility] [address], [address] [place] [address] OFFICE VISIT Date of Service: 01/13/25 MR#: [id number] Acct: [id number] Name: KEIKO BLISS Rep #: [id number] : 1995 Provider: CHALO warner Age/Sex: 29/F Location: [facility] [place] Status: Signed Intake Vital Signs 06/01/21 13:35 12/28/24 10:45 01/13/25 08:22 Height 5 ft 5 in 5 ft 5 in 5 ft 5 in Weight: 163 lb 2 oz BMI 27.1 BP 120/75 Intake Visit Reasons: 31wk OB Switchman Required: No Is patient in pain?: No Allergies No Known Allergies Allergy (Verified 01/13/25 08:21) Medications ???Medication ???Instructions ???Recorded ???Confirmed ???Type multivit-min no.71-iron fum 28 cap PO 12/24/24 01/13/25 History mg-folate no.1 1 mg-dha 300 mg capsule (PNV-Bethelridge) Last Menstrual Period: 06/06/24 Zika: Zika virus screening: Negative : Yes PFSH PFSH Medical History Former smoker Depression Spherocytosis Surgical History H/O hernia repair H/O splenectomy Family History Mother Spherocytosis Social History adopted: No household members: spouse, children and none housing: house number of children: 1 current occupational status: employed current occupation: [employer] by [employer] current occupational exposures/hazards: No pets and [...] you participate in: other details: working on [employer] frequency: 1-2 times per week ann marie/roman catholic: Zoroastrian seatbelt use: always do you feel safe [...] full term vacuum 6#14oz Female none [facility] Bill george Kiran HPI 31wk OB Details: [...] Illicit/Recreational Drug/Sub (more content not included)... Normal [facility] CBC W/Diff, Automatedon 10-2 Absolute Lymph 2.27 X10 3/uL Normal 0.83-4.51 [facility] Comment on above: Performed By: #### L 509.2772, L501.0250, BTS, L100.0100, L3890.6006 #### [facility] [address] [place], [address] Absolute Neut 10.2 X10 3/uL High 2.0-7.7 [facility] Comment on above: Performed By: #### L 509.8002, L501.0250, BTS, L100.0100, L3890.6006 #### [facility] [address] [place], [address] Basophils/100 WBC (Bld) 0.6 % Normal 0-1 [facility] Comment on above: Performed By: #### L 509.8002, L501.0250, BTS, L100.0100, L3890.6006 #### [facility] [address] [place], [address] Eosinophils/100 WBC (Bld) 1.4 % Normal 0-5 [facility] Comment on above: Performed By: #### L 509.8002, L501.0250, BTS, L100.0100, L3890.6006 #### [facility] [address] [place], [address] Erythrocyte distribution width (RBC) [Ratio] 13.2 % Normal 11.6-14.6 [facility] Comment on above: Performed By: #### L 509.8002, L501.0250, BTS, L100.0100, L3890.6006 #### [facility] [address] [place], [address] Hematocrit (Bld) [Volume fraction] 38.7 % Normal 37-47 [facility] Comment on above: Performed By: #### L 509.8002, L501.0250, BTS, L100.0100, L3890.6006 #### [facility] [address] [place], [address] Hemoglobin (Bld) [Mass/Vol] 13.5 g/dL Normal 12.0-15.0 [facility] Comment on above: Performed By: #### L 509.8002, L501.0250, BTS, L100.0100, L3890.6006 #### [facility] [address] [place], [address] IG% 1.500 High 0.0-0.9 [facility] Comment on above: Result Comment: IG% - Immature Granulocytes (promyelocytes, myelocytes and metamyelocytes) > 1% indicates that a LEFT SHIFT is Present. Performed By: #### L 509.8002, L501.0250, BTS, L100.0100, L3890.6006 #### [facility] [address] [place], [address] Lymphocytes/100 WBC (Bld) 15.7 % Low 19-41 [facility] Comment on above: Performed By: #### L 509.8002, L501.0250, BTS, L100.0100, L3890.6006 #### [facility] [address] [place], [address] MCH (RBC) [Entitic mass] 33.7 pg High 27.0-32.0 [facility] Comment on above: Performed By: #### L 509.8002, L501.0250, BTS, L100.0100, L3890.6006 #### [facility] [address] [place], [address] MCHC (RBC) [Mass/Vol] 34.9 g/dL Normal 32-36 [facility] Comment on above: Performed By: #### L 509.8002, L501.0250, BTS, L100.0100, L3890.6006 #### [facility] [address] [place], [address] MCV (RBC) [Entitic vol] 96.5 fL Normal 81-99 [facility] Comment on above: Performed By: #### L 509.8002, L501.0250, BTS, L100.0100, L3890.6006 #### [facility] [address] [place], [address] Monocytes/100 WBC (Bld) 10.1 % High 0-10 [facility] Comment on above: Performed By: #### L 509.8002, L501.0250, BTS, L100.0100, L3890.6006 #### [facility] [address] [place], [address] Neutrophils/100 WBC (Bld) 70.7 % High 47-70 [facility] Comment on above: Performed By: #### L 509.8002, L501.0250, BTS, L100.0100, L3890.6006 #### [facility] [address] [place], [address] Nucleated RBC (Bld) [#/Vol] 0 10*3/uL Normal 0-5 [facility] Comment on above: Performed By: #### L 509.8002, L501.0250, BTS, L100.0100, L3890.6006 #### [facility] [address] [place], [address] Platelet mean volume (Bld) [Entitic vol] 10.5 fL Normal 6.2-12.0 [facility] Comment on above: Performed By: #### L 509.8002, L501.0250, BTS, L100.0100, L3890.6006 #### [facility] [address] [place], [address] Platelets (Bld) [#/Vol] 480 10*3/uL High 150-450 [facility] Comment on above: Performed By: #### L 509.8002, L501.0250, BTS, L100.0100, L3890.6006 #### [facility] [address] [place], [address] RBC (Bld) [#/Vol] 4.01 10*6/uL Low 4.2-5.4 [facility] Comment on above: Performed By: #### L 509.8002, L501.0250, BTS, L100.0100, L3890.6006 #### [facility] [address] [place], [address] RDW SD 47.1 fl High 35.1-43.9 [facility] Comment on above: Performed By: #### L 509.8002, L501.0250, BTS, L100.0100, L3890.6006 #### [facility] [address] [place], [address] WBC (Bld) [#/Vol] 14.4 10*3/uL High 4.4-11.0 [facility] Comment on above: Performed By: #### L 509.8002, L501.0250, BTS, L100.0100, L3890.6006 #### [facility] [address] [place], [address] Glucose Challenge Gest 1H 50 steven 12-28-2024 GLU GEST 50g 1H 104 mg/dL Normal 70-140 [facility] Comment on above: Performed By: #### L 509.8002, L501.0250, BTS, L100.0100, L3890.6006 #### [facility] [address] [place], [address] HIVon 12-28-2024 HIV Non-Reactive Normal Nonreactive [facility] Comment on above: Result Comment: Non- Reactive Reactive Repeatedly reactive samples must be confirmed according to CDC recommended confirmatory algorithms. The subresults for either HIVAG or AHIV can be used as an aid in the selection of the confirmation algorithm for reactive samples. Send out specimens with Reactive results to [facility] for confirmation. Order the HIV antibody detection and differentiation: [id number] Performed By: #### L 509.8002, L501.0250, BTS, L100.0100, L3890.6006 #### [facility] [address] [place], [address] [facility] Office Visit Reporton 12-28-2024 Ot[facility] Office Visit Report [address], [address] [place] [address] OFFICE VISIT Date of Service: 12/28/24 MR#: [id number] Acct: [id number] Name: KEIKO BLISS Rep #: [id number] : 1995 Provider: Dr. Aleena main MD Age/Sex: 29/F Location: [facility] [place] Status: Signed with Addenda ADDENDUM by Kimberly Garnett on 12/28/24 at 1317 Office Procedure Documentation entered by Kimberly Garnett 12/28/24 13:17: Injections Procedure performed by: Kimberly Garnett Medication Given: Yes Is this a patient provided medication?: No Office Meds RhoGAM Ultra-Filtered PLUS 1,500 unit (300 mcg) intramuscular syringe Performing Provider: Aleena Humphrey MD Performing Location: [facility] Administered by: Kimberly Garnett on 12/28/24 13:15 Dose Route Admin Location Dispensed Lot Number Expiration Date Package NDC NDC Environmental Epidemiologist 1,500 unit IM right gluteal 1 ea [id number] 09/26/26 80235-221-11 [id number] [facility] Date cc: * Signed Intake Vital Signs 06/01/21 13:35 12/28/24 10:40 12/28/24 10:45 Height 5 ft 5 in 5 ft 5 in 5 ft 5 in Weight: 161 lb 8 oz BMI 26.9 BP 113/70 Intake Visit Reasons: ALISSON 28WK OB/GLUCOSE/RHOGAM Switchman Required: No Is patient in pain?: No Allergies No Known Allergies Allergy (Verified 12/28/24 10:37) Medications ???Medication ???Instructions ???Recorded ???Confirmed ???Type multivit-min no.71-iron fum 28 cap PO 12/24/24 History mg-folate no.1 1 mg-dha 300 mg capsule (PNV-Bethelridge) Last Menstrual Period: 06/06/24 Zika: Zika virus screening: Negative : No PFSH PFSH Medical History Former smoker Depression Spherocytosis Surgical History H/O hernia repair H/O splenectomy Family History Mother Spherocytosis Social History adopted: No household members: spouse, children and none housing: house number of children: 1 service: No current occupational status: employed current occupation: [employer] current occupational exposures/hazards: No pets and animals: [...] you participate in: other details: working on [employer] frequency: 1-2 times per week ann marie/roman catholic: Zoroastrian seatbelt use: always do you feel safe [...] full term vacuum 6#14oz Female none [facility] HPI ALISSON 28WK OB/GLUCOSE/RHOGAM Details: KEIKO [...] Pres Dilat (more content not included)... Normal [facility] Syphilis Antibodieson 2024 Syphilis Abs Non-Reactive Normal Nonreactive [facility] Comment on above: Performed By: #### L 509.8002, L501.0250, BTS, L100.0100, L3890.6006 #### [facility] [address] [place], [address] Type AND Screenon 12-28-2024 ABO and Rh group Nom (Bld) Blood group A Rh(D) negative Normal [facility] Comment on above: Order Comment: PN Performed By: #### L 509.8002, L501.0250, BTS, L100.0100, L3890.6006 #### [facility] [place], [address] Examination level ultrasound on 10-29-2024 Indication Standard [...] EFW (oz) 12 oz EFW by: Hadlock ([id number]) Extended Neuropsychology Service Director 6.8 mm CM 3.6 mm 12% Nicolaides [...] normal LVOT view: normal 3-vessel view: normal 2-xryzrc-quuljai view: normal Heart / Thorax Situs: situs [...] no free fluid visualized Performed By: Nikia Orosco RDMS Read By: Yesica Castillo M.D. MATERNAL MEDICINE [facility] Radiology Study observation (narrative) [facility] UA DIP, URINE (POC)on 2024 BILIRUBIN UA (POCT) Negative Negative [facility] CLARITY UA (POCT) Clear [facility] COLOR UA (POCT) Yellow [facility] GLUCOSE UA (POCT) Negative Negative mg/dL [facility] Hemoglobin Ql (U) Negative Negative [facility] Interpretation and review of laboratory results Abnormal [facility] KETONE UA (POCT) Negative Negative mg/dL [facility] LEUKOCYTES UA (POCT) Small Abnormal Negative [facility] NITRITE UA (POCT) Negative Negative [facility] PH UA (POCT) 7.5 4.5 - 8.0 [facility] Protein Ql (U) 30 mg/dL Abnormal Negative [facility] SPECIFIC GRAVITY UA (POCT) 1.015 1.005 - 1.030 [facility] UROBILINOGEN UA (POCT) 1.0 Normal E.U./dL [facility] Location:[facility], [address], [address] [place] [address] POINT OF CARE [facility] CBC W Auto Diff Bldon 2024 Erythrocyte distribution width (RBC) [Ratio] 13.2 % Normal 11.5-15.0 [facility] Comment on above: Order Comment: Speci men Type: BLOOD SPECIMEN Ordering Facility: [facility] Address: [address] [place] [address] Performed By: #### 5 7021-8 #### [id number] [address] OF [facility] Performed By: #### M AT21 #### [facility] CLIA [id number] [address] [place] [address] CBC W Auto Differential pane l (Bld)on 09-17-2024 Basophils (Bld) [#/Vol] 0.08 10*3/uL Normal <0.11 [facility] Comment on above: Order Comment: Speci men Type: BLOOD SPECIMEN Ordering Facility: [facility] Address: [address] [place] [address] Performed By: #### 5 7021-8 #### [facility] CLIA [id number] [address] Basophils/100 WBC (Bld) 0.7 % Normal [facility] Comment on above: Order Comment: Speci men Type: BLOOD SPECIMEN Ordering Facility: [facility] Address: [address] [place] [address] Performed By: #### 5 7021-8 #### [facility] CLIA [id number] [address] Differential cell count method Nom (Bld) Auto Normal [facility] Comment on above: Order Comment: Speci men Type: BLOOD SPECIMEN Ordering Facility: [facility] Address: [address] [place] [address] Performed By: #### 5 7021-8 #### [facility] CLIA [id number] [address] [place] [address] [place] Eosinophils (Bld) [#/Vol] 0.07 10*3/uL Normal <0.46 [facility] Comment on above: Order Comment: Speci men Type: BLOOD SPECIMEN Ordering Facility: [facility] Address: [facility] [place] [address] Performed By: #### 5 7021-8 #### [facility] CLIA [id number] [address] [place] Eosinophils/100 WBC (Bld) 0.6 % Normal [facility] Comment on above: Order Comment: Speci men Type: BLOOD SPECIMEN Ordering Facility: [facility] Address: [address] [place] [address] Performed By: #### 5 7021-8 #### [facility] CLIA [id number] [address] Hematocrit (Bld) [Volume fraction] 41.7 % Normal 36.0-46.0 [facility] Comment on above: Order Comment: Speci men Type: BLOOD SPECIMEN Ordering Facility: [facility] Address: [address] [place] [address] Performed By: #### 5 7021-8 #### [facility] CLIA [id number] [address] Hemoglobin (Bld) [Mass/Vol] 14.2 g/dL Normal 11.5-15.5 [facility] Comment on above: Order Comment: Speci men Type: BLOOD SPECIMEN Ordering Facility: [facility] Address: [address] [place] [address] Performed By: #### 5 7021-8 #### [facility] CLIA [id number] [address] Immature granulocytes (Bld) [#/Vol] 0.05 10*3/uL Normal <0.10 [facility] Comment on above: Order Comment: Speci men Type: BLOOD SPECIMEN Ordering Facility: [facility] Address: [address] [place] [address] Performed By: #### 5 7021-8 #### [facility] CLIA [id number] [address] Immature granulocytes/100 WBC (Bld) 0.4 % Normal [facility] Comment on above: Order Comment: Speci men Type: BLOOD SPECIMEN Ordering Facility: [facility] Address: [address] [place] [address] Performed By: #### 5 7021-8 #### [facility] CLIA [id number] [address] [place] Lymphocytes (Bld) [#/Vol] 2.30 10*3/uL Normal 1.00-4.00 [facility] Comment on above: Order Comment: Speci men Type: BLOOD SPECIMEN Ordering Facility: [facility] Address: [address] [place] [address] Performed By: #### 5 7021-8 #### [facility] CLIA [id number] [address] Lymphocytes/100 WBC (Bld) 20.6 % Normal [facility] Comment on above: Order Comment: Speci men Type: BLOOD SPECIMEN Ordering Facility: [facility] Address: [address] [place] [address] Performed By: #### 5 7021-8 #### [facility] CLIA [id number] [address] MCH (RBC) [Entitic mass] 32.1 pg Normal 26.0-34.0 [facility] Comment on above: Order Comment: Speci men Type: BLOOD SPECIMEN Ordering Facility: [facility] Address: [address] [place] [address] Performed By: #### 5 7021-8 #### [facility] CLIA [id number] [address] MCHC (RBC) [Mass/Vol] 34.1 g/dL Normal 30.5-36.0 [facility] Comment on above: Order Comment: Speci men Type: BLOOD SPECIMEN Ordering Facility: [facility] Address: [address] [place] [address] Performed By: #### 5 7021-8 #### [facility] CLIA [id number] [address] MCV (RBC) [Entitic vol] 94.1 fL Normal 80.0-100.0 [facility] Comment on above: Order Comment: Speci men Type: BLOOD SPECIMEN Ordering Facility: [facility] Address: [address] [place] [address] Performed By: #### 5 7021-8 #### [facility] CLIA [id number] [address] [place] [address] [place] Monocytes (Bld) [#/Vol] 1.10 10*3/uL High <0.87 [facility] Comment on above: Order Comment: Speci men Type: BLOOD SPECIMEN Ordering Facility: [facility] Address: [address] [place] [address] Performed By: #### 5 7021-8 #### [facility] CLIA [id number] [address] [place] Monocytes/100 WBC (Bld) 9.9 % Normal [facility] Comment on above: Order Comment: Speci men Type: BLOOD SPECIMEN Ordering Facility: [facility] Address: [address] [place] [address] Performed By: #### 5 7021-8 #### [facility] CLIA [id number] [address] [place] Neutrophils (Bld) [#/Vol] 7.54 10*3/uL High 1.45-7.50 [facility] Comment on above: Order Comment: Speci men Type: BLOOD SPECIMEN Ordering Facility: [facility] Address: [address] [place] [address] Performed By: #### 5 7021-8 #### [facility] CLIA [id number] [address] [place] Neutrophils/100 WBC (Bld) 67.8 % Normal [facility] Comment on above: Order Comment: Speci men Type: BLOOD SPECIMEN Ordering Facility: [facility] Address: [address] [place] [address] Performed By: #### 5 7021-8 #### [facility] CLIA [id number] [address] [place] [address] [place] Nucleated RBC (Bld) [#/Vol] 10*3/uL Normal <0.01 [facility] Comment on above: Order Comment: Speci men Type: BLOOD SPECIMEN Ordering Facility: [facility] Address: [address] [place] [address] Performed By: #### 5 7021-8 #### [facility] CLIA [id number] [address] [place] Nucleated RBC/100 WBC (Bld) [Ratio] 0.0 /100 WBC Normal [facility] Comment on above: Order Comment: Speci men Type: BLOOD SPECIMEN Ordering Facility: [facility] Address: [facility] [place] [address] Performed By: #### 5 7021-8 #### [facility] CLIA [id number] [address] [place] Platelet mean volume (Bld) [Entitic vol] 10.6 fL Normal 9.0-12.7 [facility] Comment on above: Order Comment: Speci men Type: BLOOD SPECIMEN Ordering Facility: [facility] Address: [address] [place] [address] Performed By: #### 5 7021-8 #### [facility] CLIA [id number] [address] [place] Platelets (Bld) [#/Vol] 500 10*3/uL High 150-400 [facility] Comment on above: Order Comment: Speci men Type: BLOOD SPECIMEN Ordering Facility: [facility] Address: [address] [place] [address] Performed By: #### 5 7021-8 #### [facility] CLIA [id number] [address] [place] RBC (Bld) [#/Vol] 4.43 10*6/uL Normal 3.90-5.20 [facility] [facility] Comment on above: Order Comment: Speci men Type: BLOOD SPECIMEN Ordering Facility: [facility] Address: [facility] [place] [address] Performed By: #### 5 7021-8 #### [facility] CLIA [id number] [address] [place] WBC (Bld) [#/Vol] 11.14 10*3/uL High 3.70-11.00 [facility] Comment on above: Order Comment: Speci men Type: BLOOD SPECIMEN Ordering Facility: [facility] Address: [address], [place] [address] Performed By: #### 5 7021-8 #### [facility] CLIA [id number] [address] [place] [address] [place] Examination level ultrasound on 09-17-2024 Indication First trimester anatomic survey History of hereditary spherocytosis. Polycythemia Impression The patient is referred for a first trimester anatomy scan including nuchal translucency measurement as clinically indicated. - Single, live, intrauterine . - Agnew rump length measurement is consistent with the [...] prior assessment 13 w + 3 d FLORINDA by prior [...] view: normal 4-chamber view with color: normal 5-pvfmgl-okwitim view: suboptimal Abdominal cord insertion: normal Stomach: normal Kidneys: normal Bladder: normal Color doppler of perivesical umbilical arteries: normal Vertebral alignment: normal Arms: normal Hands: normal Legs: normal Feet: normal Maternal Structures Uterus / Cervix Uterus: Visualized Ovaries / Tubes / Adnexa Rt ovary: Not visualized Lt ovary: Not visualized Performed By: Risa Ann [facility] Read By: Yesica Castillo M.D. MATERNAL MEDICINE [facility] Radiology Study observation (narrative) [facility] HAV IgM Ser Qlon 09-17-2024 HAV IgM Ql (S) Non-Reactive Normal Nonreactive [facility] Comment on above: Order Comment: Speci men Type: BLOOD SPECIMEN Ordering Facility: [facility] Address: [address] [place] [address] Result Comment: No e vidence of recent infection with Hepatitis A virus. Performed By: #### M AT21 #### [facility] CLIA [id number] [address] [place] [address] HBV core IgM Ser Qlon 2024 HBV core IgM Ql (S) Non-Reactive Normal Nonreactive [facility] Comment on above: Order Comment: Speci men Type: BLOOD SPECIMEN Ordering Facility: [facility] Address: [address] [place] [address] Result Comment: No e vidence of recent infection with Hepatitis B virus. Should recent infection be suspected, repeat testing may be considered 3-4 weeks after this draw. Performed By: #### M AT21 #### [facility] CLIA [id number] [address] [place] [address] HBV surface Ag Ser Qlon 09-01 HBV surface Ag Ql (S) Non-Reactive Normal Nonreactive [facility] Comment on above: Order Comment: Speci men Type: BLOOD SPECIMEN Ordering Facility: [facility] Address: [address] [place] [address] Performed By: #### M AT21 #### [facility] CLIA [id number] [address] [place] [address] HCV Ab Ser Qlon 09-17-2024 HCV Ab Ql (S) Non-Reactive Normal Nonreactive [facility] Comment on above: Order Comment: Janelle oscar Type: BLOOD SPECIMEN Ordering Facility: [facility] Address: [address] [place] [address] Result Comment: The result suggests no evidence of active infection with Hepatitis C virus. Should recent infection be suspected, repeat testing may be considered 4-6 weeks after this draw. Performed By: #### 5 7021-8 #### [facility] CLIA [id number] [address] HGB ELECTROPHORESIS FOR EVAL (LAB ORDER)on 09-17-2024 Hemoglobin A (Bld) [Mass fraction] 97.3 % Normal 96.2-98.0 [facility] Comment on above: Order Comment: Janelle oscar Type: BLOOD SPECIMEN Ordering Facility: [facility] Address: [address] [place] [address] Performed By: #### 5 7021-8 #### [facility] CLIA [id number] [address] Hemoglobin A2 (Bld) [Mass fraction] 2.7 % Normal 2.0-3.1 [facility] Comment on above: Order Comment: Janelle oscar Type: BLOOD SPECIMEN Ordering Facility: [facility] Address: [address] [place] [address] Performed By: #### 5 7021-8 #### [facility] CLIA [id number] [address] Hemoglobin Unsp Elph (Bld) [Mass fraction] Normal No abnormal hemoglobin identified. [facility] Comment on above: Order Comment: Janelle [facility] Type: BLOOD SPECIMEN Ordering Facility: [facility] Address: [address] [place] [address] Result Comment: No a bnormal hemoglobin identified. Performed By: #### 5 7021-8 #### [facility] CLIA [id number] [address] HGB EVALUATION CASCADE INTER Leandro 09-17-2024 Hemoglobin pattern (Bld) [Interp] Reviewed by Kari Regan M.D. Normal [facility] Comment on above: Order Comment: Speci men Type: BLOOD SPECIMEN Ordering Facility: [facility] Address: [address] [place] [address] Performed By: #### 5 7021-8 #### [facility] CLIA [id number] [address] [place] INTERPRETATION (HGB EVAL) Normal [facility] Comment on above: Order Comment: Speci men Type: BLOOD SPECIMEN Ordering Facility: [facility] Address: [address] [place] [address] Result Comment: Hemo globins were analyzed by capillary electrophoresis and CBC red cell parameters were reviewed. No abnormal hemoglobin is identified. There is a normal hemoglobin capillary electrophoresis pattern. Performed By: #### 5 7021-8 #### [facility] CLIA [id number] [address] OF [facility] HIV 1+2 Ab IA Qlon 5 HIV 1 and 2 Ab IA.rapid Nom (S/P/Bld) Normal [facility] Comment on above: Order Comment: Speci men Type: BLOOD SPECIMEN Ordering Facility: [facility] Address: [address] [place] [address] Result Comment: Test not indicated. Performed By: #### M AT21 #### [facility] CLIA [id number] [address] [place] [address] HIV 1+2 Ab+HIV1 p24 Ag IA Ql Non-Reactive Normal Nonreactive [facility] Comment on above: Order Comment: Speci men Type: BLOOD SPECIMEN Ordering Facility: [facility] Address: [address] [place] [address] Result Comment: [place] Rev. Code 3701.243(E): This information has been [...] #### M AT21 #### [facility] CLIA [id number] [address] [place] [address] HIV immunoassay testing algorithm interpretation (S/P/Bld) [Interp] Normal [facility] Comment on above: Order Comment: Janelle oscar Type: BLOOD SPECIMEN Ordering Facility: [facility] Address: [address] [place] [address] Result Comment: No e vidence of HIV-1 or HIV-2 infection. Should recent infection be suspected, repeat testing may be considered 2-3 weeks after this draw. Performed By: #### M AT21 #### [facility] CLIA [id number] [address] [place] [address] HbA1c (Bld)on 09-17-2024 Average glucose Estimated from glycated hemoglobin (Bld) [Mass/Vol] 71 mg/dL Normal [facility] Comment on above: Order Comment: Janelle [facility] Type: BLOOD SPECIMEN Ordering Facility: [facility] Address: [address] [place] [address] Result Comment: eAG: (Estimated average glucose) is a calculated value from HgbA1c and is media sales representative of the average blood glucose level in the last 2-3 month period. Performed By: #### M AT21 #### [facility] CLIA [id number] [address] [place] [address] HbA1c (Bld) [Mass fraction] 4.1 % Low 4.3-5.6 [facility] Comment on above: Order Comment: Dannieraul [facility] Type: BLOOD SPECIMEN Ordering Facility: [facility] Address: [address] [place] [address] Result Comment: Amer ican Diabetes Association guidelines indicate that patients with HgbA1c in the range 5.7-6.4% are at increased risk for development of diabetes, and intervention by lifestyle modification may be beneficial. HgbA1c greater or equal to 6.5% is considered diagnostic of diabetes. Performed By: #### M AT21 #### [facility] CLIA [id number] [address] [place] [address] [id number] PLUSon 09-17-2024 Cell-free DNA./Cell-free DNA.total Dosage of chromosome-specific cfDNA (cfDNA) [Molar fraction] 18% Normal [facility] Comment on above: Order Comment: Speci men Type: BLOOD SPECIMEN Ordering Facility: [facility] Address: [address] [place] [address] Performed By: #### M AT21 #### [facility] CLIA [id number] [address] [place] [address] Chr 13+18+21+X+Y aneuploidy Dosage of chromosome-specific cfDNA Ql (cfDNA) Negative Normal [facility] Comment on above: Order Comment: Speci men Type: BLOOD SPECIMEN Ordering Facility: [facility] Address: [address] [place] [address] Performed By: #### M AT21 #### [facility] CLIA [id number] [address] [place] [address] Chr 21 trisomy Dosage of chromosome-specific cfDNA Ql (cfDNA) Negative Normal [facility] Comment on above: Order Comment: Speci men Type: BLOOD SPECIMEN Ordering Facility: [facility] Address: [address] [place] [address] Performed By: #### M AT21 #### [facility] CLIA [id number] [address] [place] [address] Chr X and Y aneuploidy risk Sequencing Ql (cfDNA) [Interp] Not detected Normal [facility] Comment on above: Order Comment: Speci [facility] Type: BLOOD SPECIMEN Ordering Facility: [facility] Address: [address] [place] [address] Result Comment: Not Detected Not Detected Performed By: #### M AT21 #### [facility] CLIA [id number] [address] [place] [address] Citation Josemanuel (Reference lab test) Comment Normal [facility] Comment on above: Order Comment: Speci men Type: BLOOD SPECIMEN Ordering Facility: [facility] Address: [address] [place] [address] Result Comment: 1. Les CARVALHO, et al. Shantel Med. 2012;14(3):296-305. 2. La WHALEY et al. Prenat Diag. 2013;33(6):591-597. 3. Estrada C, et al. Clin Chem. 2015 Apr;61(4):608-616. 4. Meño CARVALHO et al. Shantel Med. 2011;13(11):913-920. 5. ACOG/SMFM Practice Bulletin No. 226, Dec 2019. Performed By: #### M AT21 #### [facility] CLIA [id number] [address] [place] [address] Gestational age Estimated from conception date [facility] Comment on above: Order Comment: Danniei men Type: BLOOD SPECIMEN Ordering Facility: [facility] Address: [address] [place] [address] Performed By: #### M AT21 #### [facility] CLIA [id number] [address] [place] [address] GESTATIONALAGE AGE > OR = 9W Yes [facility] Comment on above: Order Comment: Speci men Type: BLOOD SPECIMEN Ordering Facility: [facility] Address: [address] [place] [address] Performed By: #### M AT21 #### [facility] CLIA [id number] [address] [place] [id number] Laboratory comment Josemanuel (Report) Comment [facility] Comment on above: Order Comment: Janelle oscar Type: BLOOD SPECIMEN Ordering Facility: [facility] Address: [address] [place] [address] Result Comment: The MaterniT(R) 21 PLUS laboratory-developed [...] #### M AT21 #### [facility] CLIA [id number] [address] [place] [address] director of corporate responsibility name Nom (Provider) Comment [facility] Comment on above: Order Comment: Speci celestina Type: BLOOD SPECIMEN Ordering Facility: [facility] Address: [address] [place] [address] Result Comment: This specimen showed an expected representation of chromosome 21, 18 and 13 material. Clinical correlation is suggested. Comment Jake Short MD, PhD, Director, [email or web address] Performed By: #### M AT21 #### [facility] CLIA [id number] [facility] [place] [address] LIMITATIONS OF THE TEST Comment Normal [facility] Comment on above: Order Comment: Janelle oscar Type: BLOOD SPECIMEN Ordering Facility: [facility] Address: [address] [place] [address] Result Comment: Chno larios the results of these tests are [...] Fragmin(R)). Performed By: #### M AT21 #### [facility] CLIA [id number] [address] [place] [id number] Monosomy X risk Dosage of chromosome-specific cfDNA Ql (Plasma cell-free+WBC DNA) [Interp] Not detected Normal [facility] Comment on above: Order Comment: Janelle oscar Type: BLOOD SPECIMEN Ordering Facility: [facility] Address: [address] [place] [address] Performed By: #### M AT21 #### [facility] CLIA [id number] [address] [place] [address] NEGATIVE PREDICTIVE VALUE Note Normal [facility] Comment on above: Order Comment: Janelle oscar Type: BLOOD SPECIMEN Ordering Facility: [facility] Address: [address] [place] [address] Result Comment: The Negative Predictive Value (NPV) for trisomy 21, 18, and 13 is greater than 99%. The NPV for SCA and ESS cannot be calculated as SCA and ESS are only reported when an abnormality is detected. Performed By: #### M AT21 #### [facility] CLIA [id number] [address] [place] [address] PERFORMANCE CHARACTERISTICS Note Normal [facility] Comment on above: Order Comment: Janelle oscar Type: BLOOD SPECIMEN Ordering Facility: [facility] Address: [address] [place] [address] Result Comment: ! Sex ! Accuracy: 99.4% [...] ! ! ! * As reported in [facility] database nstd37 [https://www.ncbi.nlm.nih.gov/dbvar/studies/nstd37/ ] # Estimated Sensitivity. [...] only. Performed By: #### M AT21 #### [facility] CLIA [id number] [address] [place] [address] POSITIVE PREDICTIVE VALUE N/A Normal [facility] Comment on above: Order Comment: Speci men Type: BLOOD SPECIMEN Ordering Facility: [facility] Address: [address] [place] [address] Performed By: #### M AT21 #### [facility] CLIA [id number] [address] [place] [id number] Reference Lab Test Method Comment Normal [facility] Comment on above: Order Comment: Speci men Type: BLOOD SPECIMEN Ordering Facility: [facility] Address: [address] [place] [address] Result Comment: Circ ulating cell-free DNA was [...] 22. Performed By: #### M AT21 #### [facility] CLIA [id number] [address] [place] [address] Service comment (Unsp spec) [Interp] Comment Normal [facility] Comment on above: Order Comment: Speci men Type: BLOOD SPECIMEN Ordering Facility: [facility] Address: [address] [place] [address] Result Comment: [employer] is a subsidiary of [employer], using the brand [employer]. This test was developed and its performance characteristics determined by [employer]. It has not been cleared or approved by the Food and Drug Administration. This laboratory is certified under the Clinical Laboratory Improvement Amendments (CLIA) as qualified to perform high complexity clinical laboratory testing and accredited by the [employer] [place] [employer] (CAP). If there is future clinical need for adding MaterniT GENOME testing, this specimen will be available until term. [facility] samples will not be retained beyond 60 days. [facility] patients will have to send a new sample for re-sequencing ([facility] Test Code: [id number]). Performed By: #### M AT21 #### [facility] CLIA [id number] [address] [place] [address] Sex Dosage of chromosome-specific cfDNA Nom (cfDNA) Comment Normal [facility] Comment on above: Order Comment: Speci men Type: BLOOD SPECIMEN Ordering Facility: [facility] Address: [address] [place] [address] Result Comment: Cons istent with Female Performed By: #### M AT21 #### [employer] CLIA [id number] [address] [place] [address] Test performance information Josemanuel (Unsp spec) Comment Normal [facility] Comment on above: Order Comment: Speci men Type: BLOOD SPECIMEN Ordering Facility: [facility] Address: [address] [place] [address] Result Comment: The performance characteristics of the MaterniT(R) 21 PLUS laboratory-developed test (LDT) have been determined in a clinical validation study with women at increased risk for chromosomal aneuploidy.[1-4] Performed By: #### M AT21 #### [facility] CLIA [id number] [address] [place] [address] Trisomy 13 risk Dosage of chromosome-specific cfDNA Ql (cfDNA) [Interp] Negative Normal [facility] Comment on above: Order Comment: Speci men Type: BLOOD SPECIMEN Ordering Facility: [facility] Address: [address] [place] [address] Performed By: #### M AT21 #### [facility] CLIA [id number] [address] [place] [address] Trisomy 18 risk Dosage of chromosome-specific cfDNA Ql (Plasma cell-free+WBC DNA) [Interp] Negative Normal [facility] Comment on above: Order Comment: Speci men Type: BLOOD SPECIMEN Ordering Facility: [facility] Address: [address] [place] [address] Performed By: #### M AT21 #### [facility] CLIA [id number] [address] [place] [address] RBC PARAMETERS FOR HB IDon 0 09-17-2024 Hematocrit (Bld) [Volume fraction] 41.4 % Normal 36.0-46.0 [facility] Comment on above: Order Comment: Speci men Type: BLOOD SPECIMEN Ordering Facility: [facility] Address: [address] [place] [address] Performed By: #### M AT21 #### [facility] CLIA [id number] [address] [place] [address] Hemoglobin (Bld) [Mass/Vol] 14.4 g/dL Normal 11.5-15.5 [facility] Comment on above: Order Comment: Speci men Type: BLOOD SPECIMEN Ordering Facility: [facility] Address: [address] [place] [address] Performed By: #### M AT21 #### [facility] CLIA [id number] [address] [place] [address] MCH (RBC) [Entitic mass] 31.9 pg Normal 26.0-34.0 [facility] Comment on above: Order Comment: Speci men Type: BLOOD SPECIMEN Ordering Facility: [facility] Address: [address] [place] [address] Performed By: #### M AT21 #### [facility] CLIA [id number] [address] [place] [address] MCHC (RBC) [Mass/Vol] 34.8 g/dL Normal 30.5-36.0 [facility] Comment on above: Order Comment: Speci celestina Type: BLOOD SPECIMEN Ordering Facility: [facility] Address: [address] [place] [address] Performed By: #### M AT21 #### [facility] CLIA [id number] [address] [place] [address] MCV (RBC) [Entitic vol] 91.8 fL Normal 80.0-100.0 [facility] Comment on above: Order Comment: Speci men Type: BLOOD SPECIMEN Ordering Facility: [facility] Address: [address] [place] [address] Performed By: #### M AT21 #### [facility] CLIA [id number] [address] [place] [address] RBC (Bld) [#/Vol] 4.51 10*6/uL Normal 3.90-5.20 [facility] Comment on above: Order Comment: Speci men Type: BLOOD SPECIMEN Ordering Facility: [facility] Address: [address] [place] [address] Performed By: #### M AT21 #### [facility] CLIA [id number] [address] [place] [address] RUBELLA IGG ANTIBODYon 09-17 RUBELLA IGG AB, QUAL Positive Normal Positive [facility] Comment on above: Order Comment: Specraul oscar Type: BLOOD SPECIMEN Ordering Facility: [facility] Address: [address] [place] [address] Result Comment: The result suggests recent or past exposure to Rubella virus or history of Rubella vaccination. Positive result may also be seen due to presence of passively-transferred antibodies. Please correlate with patient's history. The following results were obtained with the [employer] Rubella IgG assay. Results from assays of other manufacturers cannot be used interchangeably. Performed By: #### 5 7021-8 #### [facility] CLIA [id number] [address] [place] Reagin and Treponema pallidu m IgG and IgM [Interp]on 09-17-2024 T. pallidum IgG+IgM IA Ql (S) Non-Reactive Normal Nonreactive [facility] Comment on above: Order Comment: Speci men Type: BLOOD SPECIMEN Ordering Facility: [facility] Address: [address] [place] [address] Performed By: #### 5 7021-8 #### [facility] CLIA [id number] [address] [place] [address] [place] Reagin+T pallidum IgG+IgM Se rPl-Impon 09-17-2024 Reagin and Treponema pallidum IgG and IgM [Interp] Cannot exclude recent Treponemal infection if specimen collected within 7-10 days after appearance of suspect lesions or 2-3 weeks after an exposure. Clinical correlation is required. Normal [facility] Comment on above: Order Comment: Speci men Type: BLOOD SPECIMEN Ordering Facility: [facility] Address: [address] [place] [address] Performed By: #### 5 7021-8 #### [facility] CLIA [id number] [address] [place] TYPE + SCREEN PRENATALon ABO A Normal [facility] Comment on above: Order Comment: Speci men Type: BLOOD SPECIMEN Ordering Facility: [facility] Address: [address] [place] [address] Performed By: #### M AT21 #### [facility] CLIA [id number] [address] [place] [address] Rh Nom (Bld) Negative Normal [facility] Comment on above: Order Comment: Speci men Type: BLOOD SPECIMEN Ordering Facility: [facility] Address: [address] [place] [address] Performed By: #### M AT21 #### [facility] CLIA [id number] [address] [place] [address] TYPE AND SCREEN EXPIRATION 09/20/2024 23:59 Normal [facility] Comment on above: Order Comment: Speci men Type: BLOOD SPECIMEN Ordering Facility: [facility] Address: [address] [place] [address] Performed By: #### M AT21 #### [facility] CLIA [id number] [address] [place] [address] UA DIP, URINE (POC)on 2024 BILIRUBIN UA (POCT) Negative Negative [facility] CLARITY UA (POCT) Clear [facility] COLOR UA (POCT) Yellow [facility] GLUCOSE UA (POCT) Negative Negative mg/dL [facility] Hemoglobin Ql (U) Negative Negative [facility] Interpretation and review of laboratory results Abnormal [facility] KETONE UA (POCT) Trace Negative mg/dL [facility] LEUK[facility]A (POCT) Negative Negative [facility] NITRITE UA (POCT) Negative Negative [facility] PH UA (POCT) 5.5 4.5 - 8.0 [facility] Protein Ql (U) Trace Abnormal Negative mg/dL [facility] SPECIFIC GRAVITY UA (POCT) 1.025 1.005 - 1.030 [facility] [place] UROBILINOGEN UA (POCT) 1 Normal E.U./dL [facility] [place] Location:[facility], [address] [place] [address], [address] [place] [address] POINT OF CARE [facility] [place] Bacteria Ur Culton Bacteria identified Cx Nom (U) CULTURE, URINE: No growth (<1,000 CFU/ml) Normal [facility] Comment on above: Performed By: #### M AT21 #### [facility] CLIA [id number] [address] [place] [address] C. trachomatis+N. gonorrhoea e DNA MARCY+probe Ql (Unsp spec)on 08-17-2024 C. trachomatis rRNA MARCY+probe Ql (Unsp spec) Not detected Normal Not detected [facility] Comment on above: Order Comment: Speci men Type: URINE SPECIMEN Ordering Facility: [facility] Address: [address] [place] [address] Performed By: #### 3 6902-5 #### [facility] CLIA [id number] [address] [place] [address] [place] N. 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 #:[id number] EWPOINTQty: 1 Prescriptions as of 08/17/2024 - [...] Status:Closed by ADRIANA GUERRIER on 08/17/24 Normal [facility] Examination level ultrasound on 08-17-2024 Indication Viability Impression - Single, live, intrauterine . - An intrauterine gestational sac with a yolk sac and pole is present. - Agnew rump length measurement is NOT consistent with [...] Read By: Ryanne Milian M.D. MATERNAL MEDICINE [facility] [place] Radiology Study observation (narrative) [facility] [place] B-HCG SerPl-aCncon 5 [place] [address].0 m[IU]/mL High <5.0 [facility] Comment on above: Order Comment: Speci men Type: BLOOD SPECIMEN Ordering Facility: [facility] Address: [address] [place] [address] Result Comment: KIMO TITATIVE HCG NORMAL RANGES Weeks of Gestation (Weeks Since LMP) 3 Weeks (5.8-71.2 mIU/mL) 4 Weeks (9.5-750 mIU/mL) 5 Weeks (217-7138 mIU/mL) 6 Weeks (158-05210 mIU/mL) 7 Weeks (3697-529879 mIU/mL) 8 Weeks (17791-766234 mIU/mL) 9 Weeks (42001-691942 mIU/mL) 10 Weeks (75541-837044 mIU/mL) 12 Weeks (45886-579165 mIU/mL) Referenced to 4th IS of [facility] Performed By: #### M AT21 #### [facility] IA [id number] [address] [place] [address] Philip 07-21-2024 RAMU Telephone (LA) COVERTKEIKO ([id number]) 1995 F Date Time Provider Department 07/21/24 [...] amenorrhea [N91.1] Order(s):HCG QUANTITATIVE [SQHCGQT] Order #: [id number] FUTURE Prescriptions as of 07/21/2024 - 28 [...] Encounter Status:Closed by VELIA GUADARRAMA on 07/21/24 [facility] Philip 01-20-2024 DOUGN Telephone (ZAKIYA) COVERT,KEIKO Bustos ([id number]) 1995 F Date Time Provider Department 01/20/24 [...] Fully Assessed Reason for Visit: Patient Question [2487] Prescriptions as of 01/22/2024 - 28 mg [...] Encounter Status:Closed by STACEY GOLDMAN on 01/20/24 [facility] CNOVon 08-27-2023 CNOV Office Visit ([facility] ) COVERT,KEIKO Bustos ([id number]) 1995 F Date Time Provider Department 08/27/23 2:00 PM KATHY MARTINEZ [facility] During your visit today, we recorded the [...] milk coming in: Yes Has seen a internet marketing consultant or medicine provider after hospital discharge: Yes, [facility] : Yes, every feed Pumping: Yes, every [...] patient/family-Ramona anderson. Please see Patient Entered Data. [place] Depression Score: 8 PAST MEDICAL HISTORY/PROBLEM LIST: [...] in any family members <50 y/o, Ashkenazi Mosque descent, or FHx of ovarian cancer? No [...] without difficul (more content not included)... Normal [facility] UA DIP, URINE (POC)on 2023 BILIRUBIN UA (POCT) Negative Negative [facility] CLARITY UA (POCT) Clear [facility] COLOR UA (POCT) Yellow [facility] [place] GLUCOSE UA (POCT) Negative Negative mg/dL [facility] Hemoglobin Ql (U) Trace-intact Abnormal Negative [facility] Interpretation and review of laboratory results Abnormal [facility] [place] KETONE UA (POCT) Negative Negative mg/dL [facility] LEUKOCYTES UA (POCT) Large Abnormal Negative [facility] NITRITE UA (POCT) Negative Negative [facility] PH UA (POCT) 6.0 4.5 - 8.0 [facility] [place] Protein Ql (U) Trace Abnormal Negative mg/dL [facility] SPECIFIC GRAVITY UA (POCT) 1.025 1.005 - 1.030 [facility] [place] UROBILINOGEN UA (POCT) 0.2 Normal E.U./dL [facility] [place] Location:[facility], [address], [address] [place] [address] POINT OF CARE [facility] [place] UA DIP, URINE (POC)on 2023 BILIRUBIN UA (POCT) Negative Negative [facility] CLARITY UA (POCT) Clear [facility] COLOR UA (POCT) Yellow [facility] [place] GLUCOSE UA (POCT) Negative Negative mg/dL [facility] Hemoglobin Ql (U) Trace-intact Abnormal Negative [facility] Interpretation and review of laboratory results Abnormal [facility] [place] KETONE UA (POCT) Negative Negative mg/dL [facility] LEUKOCYTES UA (POCT) Small Abnormal Negative [facility] NITRITE UA (POCT) Negative Negative [facility] PH UA (POCT) 6.0 4.5 - 8.0 [facility] [place] Protein Ql (U) Negative Negative mg/dL [facility] SPECIFIC GRAVITY UA (POCT) 1.015 1.005 - 1.030 [facility] [place] UROBILINOGEN UA (POCT) 0.2 Normal E.U./dL [facility] [place] Location:[facility] [employer] [facility], [address] [place] [address], [address] [place] [address] POINT OF CARE [facility] [place] UA DIP, URINE (POC)on 2023 BILIRUBIN UA (POCT) Negative Negative [facility] CLARITY UA (POCT) Clear [facility] COLOR UA (POCT) Yellow [facility] [place] GLUCOSE UA (POCT) Negative Negative mg/dL [facility] Hemoglobin Ql (U) Negative Negative [facility] Interpretation and review of laboratory results Abnormal [facility] [place] KETONE UA (POCT) Negative Negative mg/dL [facility] LEUKOCYTES UA (POCT) Large Abnormal Negative [facility] NITRITE UA (POCT) Negative Negative [facility] PH UA (POCT) 7.5 4.5 - 8.0 [facility] [place] Protein Ql (U) Trace Abnormal Negative mg/dL [facility] SPECIFIC GRAVITY UA (POCT) 1.020 1.005 - 1.030 [facility] [place] UROBILINOGEN UA (POCT) 1.0 Normal E.U./dL [facility] [place] Location:[facility] [employer] [facility], [address] [place] [address], [address] [place] [address] POINT OF CARE [facility] UA DIP, URINE (POC)on 2023 BILIRUBIN UA (POCT) Negative Negative [facility] CLARITY UA (POCT) Clear [facility] COLOR UA (POCT) Yellow [facility] [place] GLUCOSE UA (POCT) Negative Negative mg/dL [facility] Hemoglobin Ql (U) Trace-lysed Abnormal Negative [facility] Interpretation and review of laboratory results Abnormal [facility] [place] KETONE UA (POCT) Negative Negative mg/dL [facility] LEUKOCYTES UA (POCT) Large Abnormal Negative [facility] NITRITE UA (POCT) Negative Negative [facility] PH UA (POCT) 6.5 4.5 - 8.0 [facility] [place] Protein Ql (U) Negative Negative mg/dL [facility] SPECIFIC GRAVITY UA (POCT) 1.020 1.005 - 1.030 [facility] [place] UROBILINOGEN UA (POCT) 0.2 Normal E.U./dL [facility] [place] Location:[facility], [address] [place] [address], [address] [place] [address] POINT OF CARE [facility] [place] UA DIP, URINE (POC)on 2023 BILIRUBIN UA (POCT) Negative Negative [facility] CLARITY UA (POCT) Clear [facility] COLOR UA (POCT) Yellow [facility] [place] GLUCOSE UA (POCT) Negative Negative mg/dL [facility] Hemoglobin Ql (U) Trace-intact Abnormal Negative [facility] Interpretation and review of laboratory results Abnormal [facility] [place] KETONE UA (POCT) Negative Negative mg/dL [facility] LEUKOCYTES UA (POCT) Large Abnormal Negative [facility] NITRITE UA (POCT) Negative Negative [facility] PH UA (POCT) 7.0 4.5 - 8.0 [facility] [place] Protein Ql (U) Negative Negative mg/dL [facility] SPECIFIC GRAVITY UA (POCT) 1.020 1.005 - 1.030 [facility] [place] UROBILINOGEN UA (POCT) 0.2 Normal E.U./dL [facility] [place] Location:[facility], [address] [place] [address], [address] [place] [address] POINT OF CARE [facility] [place] UA DIP, URINE (POC)on 2023 BILIRUBIN UA (POCT) Negative Negative [facility] CLARITY UA (POCT) Clear [facility] COLOR UA (POCT) Yellow [facility] [place] GLUCOSE UA (POCT) Negative Negative mg/dL [facility] Hemoglobin Ql (U) Negative Negative [facility] KETONE UA (POCT) Negative Negative mg/dL [facility] LEUKOCYTES UA (POCT) Moderate Abnormal Negative [facility] NITRITE UA (POCT) Negative Negative [facility] PH UA (POCT) 6.5 4.5 - 8.0 [facility] [place] Protein Ql (U) Negative Negative mg/dL [facility] SPECIFIC GRAVITY UA (POCT) 1.025 1.005 - 1.030 [facility] [place] UROBILINOGEN UA (POCT) 0.2 E.U./dL Normal E.U./dL [facility] [place] Examination level ultrasound on 06-05-2023 [facility] [place] UA DIP, URINE (POC)on 2023 BILIRUBIN UA (POCT) Negative Negative [facility] CLARITY UA (POCT) Clear [facility] COLOR UA (POCT) Yellow [facility] [place] GLUCOSE UA (POCT) Negative Negative mg/dL [facility] Hemoglobin Ql (U) Negative Negative [facility] KETONE UA (POCT) Negative Negative mg/dL [facility] LEUKOCYTES UA (POCT) Moderate Abnormal Negative [facility] NITRITE UA (POCT) Negative Negative [facility] PH UA (POCT) 5.5 4.5 - 8.0 [facility] [place] Protein Ql (U) Negative Negative mg/dL [facility] SPECIFIC GRAVITY UA (POCT) 1.025 1.005 - 1.030 [facility] [place] UROBILINOGEN UA (POCT) 0.2 E.U./dL Normal E.U./dL [facility] [place] UA DIP, URINE (POC)on 2023 BILIRUBIN UA (POCT) Negative Negative [facility] CLARITY UA (POCT) Clear [facility] COLOR UA (POCT) Yellow [facility] [place] GLUCOSE UA (POCT) Negative Negative mg/dL [facility] Hemoglobin Ql (U) Negative Negative [facility] KETONE UA (POCT) Negative Negative mg/dL [facility] LEUKOCYTES UA (POCT) Moderate Abnormal Negative [facility] NITRITE UA (POCT) Negative Negative [facility] PH UA (POCT) 6.0 4.5 - 8.0 [facility] [place] Protein Ql (U) Negative Negative mg/dL [facility] SPECIFIC GRAVITY UA (POCT) 1.025 1.005 - 1.030 [facility] [place] UROBILINOGEN UA (POCT) 0.2 E.U./dL Normal E.U./dL [facility] [place] UA DIP, URINE (POC)on 2023 BILIRUBIN UA (POCT) Negative Negative [facility] CLARITY UA (POCT) Clear [facility] COLOR UA (POCT) Yellow [facility] [place] GLUCOSE UA (POCT) Negative Negative mg/dL [facility] Hemoglobin Ql (U) Trace-intact Abnormal Negative [facility] KETONE UA (POCT) Negative Negative mg/dL [facility] LEUKOCYTES UA (POCT) Moderate Abnormal Negative [facility] NITRITE UA (POCT) Negative Negative [facility] PH UA (POCT) 7.5 4.5 - 8.0 [facility] [place] Protein Ql (U) Negative Negative mg/dL [facility] SPECIFIC GRAVITY UA (POCT) 1.025 1.005 - 1.030 [facility] [place] UROBILINOGEN UA (POCT) 0.2 E.U./dL Normal E.U./dL [facility] [place] Laboratory - Chemistry and C hemistry - challengeon 06-01-2021 HCG ( test) Ql (U) Negative [facility] Work Phone: Cervical or vagninal specime n microscopic examination by cytology stain (reported ason 03-29-2021 Cytology report Cyto stain Doc (Cvx/Vag) Comment [facility] Work Phone: Comment on above: The Pap smear is a s creening test designed to aid in thedetection of premalignant and malignant conditions of theuterine cervix. It is not a diagnostic procedure andshould not be used as the sole means of detecting cervicalcancer. Both false-positive and false-negative reports dooccur. Laboratory - Cytologyon 03-05 [employer] Cyto stain Nom (Cvx/Vag) [ID] Comment [facility] Work Phone: Comment on above: Ne Srivastava, Cytot echnologist (ASCP) Pathologist Cyto stain Nom (Cvx/Vag) [ID] Comment [facility] Work Phone: Comment on above: Jill Stephen MD, [place] thologist Recommended follow-up Cyto stain Nom (Cvx/Vag) Comment [facility] Work Phone: Comment on above: Suggest follow up as clinically appropriate. Laboratory - Miscellaneous t estson 03-29-2021 Service comment (Unsp spec) [Interp] Comment [facility] Work Phone: Comment on above: This liquid based Th inPrep(R) pap test was screened withthe use of an image guided system. Service comment (Unsp spec) [Interp] . [facility] Work Phone: No Panel Informationon 03-29 Human Papillomavirus Screen Comment [facility] Work Phone: Comment on above: The HPV DNA reflex c riteria were not met with this specimenresult therefore, no HPV testing was performed.Performed at: [address] [id number] Director: Belem Terrell MD, Phone: [phone] Pathology report final diagnosis Narrative Comment [facility] Work Phone: Comment on above: EPITHELIAL CELL ABNO RMALITY.LOW GRADE SQUAMOUS INTRAEPITHELIAL LESION (LSIL). R87.612 Vital Signs Date Time Vital Sign Value Performing Clinician Faci alexy 10-15-2024 08:32-0400 Body height 165.1 cm Velia Guadarrama APRN.FIREWOOD CUTTER Work Phone: [facility] [place] 10-15-2024 08:32-0400 Body mass index (BMI) [Ratio] 24.1 kg/m2 Velia Guadarrama ASBESTOS CEMENT SHEET SUPERVISOR.FIREWOOD CUTTER Work Phone: [facility] [place] 10-15-2024 08:32-0400 Body weight 65.7 kg Velia Guadarrama APRN.FIREWOOD CUTTER Work Phone: [facility] [place] 10-15-2024 08:32-0400 Diastolic blood pressure 71 mm[Hg] Velia Guadarrama APRN.FIREWOOD CUTTER Work Phone: [facility] [place] 10-15-2024 08:32-0400 Systolic blood pressure 113 mm[Hg] Velia Thierry ASBESTOS CEMENT SHEET SUPERVISOR.FIREWOOD CUTTER Work Phone: [facility] [place] 09-17-2024 09:20-0400 Body height 165.1 cm Velia Thierry ASBESTOS CEMENT SHEET SUPERVISOR.FIREWOOD CUTTER Work Phone: [facility] [place] 09-17-2024 09:20-0400 Body mass index (BMI) [Ratio] 24.07 kg/m2 Velia Thierry ASBESTOS CEMENT SHEET SUPERVISOR.FIREWOOD CUTTER Work Phone: [facility] [place] 09-17-2024 09:20-0400 Body weight 65.6 kg Velia Thierry ASBESTOS CEMENT SHEET SUPERVISOR.FIREWOOD CUTTER Work Phone: [facility] [place] 09-17-2024 09:20-0400 Diastolic blood pressure 68 mm[Hg] Velia Thierry ASBESTOS CEMENT SHEET SUPERVISOR.FIREWOOD CUTTER Work Phone: [facility] [place] 09-17-2024 09:20-0400 Systolic blood pressure 112 mm[Hg] Velia Thierry ASBESTOS CEMENT SHEET SUPERVISOR.FIREWOOD CUTTER Work Phone: [facility] [place] 08-17-2024 09:38-0400 Body height 165.1 cm Velia Thierry ASBESTOS CEMENT SHEET SUPERVISOR.FIREWOOD CUTTER Work Phone: [facility] [place] 08-17-2024 09:38-0400 Body mass index (BMI) [Ratio] 23.92 kg/m2 Velia Thierry ASBESTOS CEMENT SHEET SUPERVISOR.FIREWOOD CUTTER Work Phone: [facility] [place] 08-17-2024 09:38-0400 Body weight 65.2 kg Velia Thierry ASBESTOS CEMENT SHEET SUPERVISOR.FIREWOOD CUTTER Work Phone: [facility] [place] 08-17-2024 09:38-0400 Diastolic blood pressure 63 mm[Hg] Velia Thierry ASBESTOS CEMENT SHEET SUPERVISOR.FIREWOOD CUTTER Work Phone: [facility] [place] 08-17-2024 09:38-0400 Systolic blood pressure 95 mm[Hg] Velia Thierry ASBESTOS CEMENT SHEET SUPERVISOR.FIREWOOD CUTTER Work Phone: [facility] [place] 09-10-2023 08:25-0400 Body height 165.1 cm Rian Amaro MD Work Phone: [facility] [place] 09-10-2023 08:25-0400 Body mass index (BMI) [Ratio] 27.15 kg/m2 Rian Amaro MD Work Phone: [facility] [place] 09-10-2023 08:25-0400 Body weight 74 kg Rian Amaro MD Work Phone: [facility] [place] 09-10-2023 08:25-0400 Diastolic blood pressure 78 mm[Hg] Rian Amaro MD Work Phone: [facility] [place] 09-10-2023 08:25-0400 Systolic blood pressure 114 mm[Hg] Rian Amaro MD Work Phone: [facility] [place] 08-02-2023 10:38-0400 Body height 165.1 cm Rian Amaro MD Work Phone: [facility] [place] 08-02-2023 10:38-0400 Body mass index (BMI) [Ratio] 30.29 kg/m2 Rian Amaro MD Work Phone: [facility] [place] 08-02-2023 10:38-0400 Body weight 82.56 kg Rian Amaro MD Work Phone: [facility] [place] 08-02-2023 10:38-0400 Diastolic blood pressure 80 mm[Hg] Rian Amaro MD Work Phone: [facility] [place] 08-02-2023 10:38-0400 Systolic blood pressure 120 mm[Hg] Rian Amaro MD Work Phone: [facility] [place] 07-24-2023 09:59-0400 Body height 165.1 cm Vic Arita DO Work Phone: [facility] [place] 07-24-2023 09:59-0400 Body mass index (BMI) [Ratio] 30.22 kg/m2 iVc Grossko DO Work Phone: [facility] [place] 07-24-2023 09:59-0400 Body weight 82.37 kg Vic Arita DO Work Phone: [facility] [place] 07-24-2023 09:59-0400 Diastolic blood pressure 72 mm[Hg] Vic Kitko DO Work Phone: [facility] [place] 07-24-2023 09:59-0400 Systolic blood pressure 117 mm[Hg] Vic Kitko DO Work Phone: [facility] [place] 07-23-2023 13:00-0400 Diastolic blood pressure 76 mm[Hg] Radha Teeple PT Work Phone: [facility] [place] 07-23-2023 13:00-0400 Heart rate 67 /min Radha Teeple PT Work Phone: [facility] [place] 07-23-2023 13:00-0400 Systolic blood pressure 115 mm[Hg] Radha Teeple PT Work Phone: [facility] [place] 07-17-2023 13:36-0400 Body height 165.1 cm Vic Kitko DO Work Phone: [facility] [place] 07-17-2023 13:36-0400 Body mass index (BMI) [Ratio] 30.4 kg/m2 Vic Kitko DO Work Phone: [facility] [place] 07-17-2023 13:36-0400 Body weight 82.87 kg Vic Kitko DO Work Phone: [facility] [place] 07-17-2023 13:36-0400 Diastolic blood pressure 82 mm[Hg] Vic Kitko DO Work Phone: [facility] [place] 07-17-2023 13:36-0400 Systolic blood pressure 136 mm[Hg] Vic Kitko DO Work Phone: [facility] [place] 07-12-2023 10:32-0400 Body height 165.1 cm Ryanne Milian MD Work Phone: [facility] [place] 07-12-2023 10:32-0400 Body mass index (BMI) [Ratio] 30.29 kg/m2 Ryanne Milian MD Work Phone: [facility] 07-12-2023 10:32-0400 Body weight 82.56 kg Ryanne Milian MD Work Phone: [facility] [place] 07-12-2023 10:32-0400 Diastolic blood pressure 75 mm[Hg] Ryanne Milian MD Work Phone: [facility] [place] 07-12-2023 10:32-0400 Systolic blood pressure 116 mm[Hg] Ryanne Milian MD Work Phone: [facility] [place] 07-03-2023 14:37-0400 Diastolic blood pressure 69 mm[Hg] Radha Teeple PT Work Phone: [facility] [place] 07-03-2023 14:37-0400 Heart rate 80 /min Radha Teeple PT Work Phone: [facility] [place] 07-03-2023 14:37-0400 Systolic blood pressure 106 mm[Hg] Radha Teeple PT Work Phone: [facility] [place] 07-03-2023 09:49-0400 Body height 165.1 cm Haven Cunningham MD Work Phone: [facility] [place] 07-03-2023 09:49-0400 Body mass index (BMI) [Ratio] 29.75 kg/m2 Haven Cunningham MD Work Phone: [facility] [place] 07-03-2023 09:49-0400 Body weight 81.1 kg Haven Cunningham MD Work Phone: [facility] [place] 07-03-2023 09:49-0400 Diastolic blood pressure 72 mm[Hg] Haven Cunningham MD Work Phone: [facility] [place] 07-03-2023 09:49-0400 Systolic blood pressure 124 mm[Hg] Haven Cunningham MD Work Phone: [facility] [place] 06-19-2023 09:08-0400 Body height 165.1 cm Haven Cunningham MD Work Phone: [facility] [place] 06-19-2023 09:08-0400 Body weight 80.29 kg Haven Cunningham MD Work Phone: [facility] [place] 06-19-2023 09:08-0400 Diastolic blood pressure 76 mm[Hg] Haven Cunningham MD Work Phone: [facility] [place] 06-19-2023 09:08-0400 Systolic blood pressure 121 mm[Hg] Haven Cunningham MD Work Phone: [facility] [place] 06-05-2023 09:45-0400 Body height 165.1 cm Haven Cunningham MD Work Phone: [facility] [place] 06-05-2023 09:45-0400 Body weight 78.93 kg Haven Cunningham MD Work Phone: [facility] [place] 06-05-2023 09:45-0400 Diastolic blood pressure 69 mm[Hg] Haven Cunningham MD Work Phone: [facility] [place] 06-05-2023 09:45-0400 Systolic blood pressure 109 mm[Hg] Haven Cunningham MD Work Phone: [facility] [place] 05-08-2023 09:52-0500 Body height 165.1 cm Haven Cunningham MD Work Phone: [facility] [place] 05-08-2023 09:52-0500 Body weight 76.79 kg Haven Cunningham MD Work Phone: [facility] [place] 05-08-2023 09:52-0500 Diastolic blood pressure 62 mm[Hg] Haven Cunningham MD Work Phone: [facility] [place] 05-08-2023 09:52-0500 Systolic blood pressure 116 mm[Hg] Haven Cunningham MD Work Phone: [facility] [place] 04-16-2023 08:22-0500 Body height 165.1 cm Rian Amaro MD Work Phone: [facility] [place] 04-16-2023 08:22-0500 Body weight 74.84 kg Rian Amaro MD Work Phone: [facility] [place] 04-16-2023 08:22-0500 Diastolic blood pressure 64 mm[Hg] Rian Amaro MD Work Phone: [facility] [place] 04-16-2023 08:22-0500 Systolic blood pressure 103 mm[Hg] Rian Amaro MD Work Phone: [facility] [place] 02-04-2023 15:27-0500 Body height 165.1 cm Silvia Reji [employer]BESTOS CEMENT SHEET SUPERVISOR.[employer]TER Work Phone: [facility] [place] 02-04-2023 15:27-0500 Body weight 70.53 kg Silvia Reji [employer]BESTOS CEMENT SHEET SUPERVISOR.FI[employer]WO[employer] CUTTER Work Phone: [facility] [place] 02-04-2023 15:27-0500 Diastolic blood pressure 71 mm[Hg] Silvia Reji [employer]BESTOS CEMENT SHEET SUPERVISOR.FI[employer]WOOD CUTTER Work Phone: [facility] [place] 02-04-2023 15:27-0500 Systolic blood pressure 123 mm[Hg] Silvia Reji [employer]BESTOS CEMENT SHEET SUPERVISOR.FI[employer]WO[employer] CUTTER Work Phone: [facility] [place] 01-18-2023 09:16-0500 Body height 165.1 cm Ryanne Milian MD Work Phone: [facility] [place] 01-18-2023 09:16-0500 Body weight 69.17 kg Ryanne Milian MD Work Phone: [facility] [place] 01-18-2023 09:16-0500 Diastolic blood pressure 69 mm[Hg] Ryanne Milian MD Work Phone: [facility] [place] 01-18-2023 09:16-0500 Systolic blood pressure 97 mm[Hg] Ryanne Milian MD Work Phone: [facility] [place] 06-01-2021 13:35-0400 Body height 165.1 cm No Primary Care Physician [facility] Work Phone: 06-01-2021 13:35-0400 Body mass index (BMI) [Ratio] 24.7 kg/m2 No Primary Care Physician [facility] Work Phone: 06-01-2021 13:35-0400 Body weight 67.64 kg No Primary Care Physician [facility] Work Phone: 06-01-2021 13:35-0400 Diastolic blood pressure 90 mm[Hg] No Primary Care Physician [facility] Work Phone: 06-01-2021 13:35-0400 Systolic blood pressure 132 mm[Hg] No Primary Care Physician [facility] Work Phone: 03-29-2021 07:12-0500 Body mass index (BMI) [Ratio] 24.2 kg/m2 No Primary Care Physician [facility] Work Phone: 03-29-2021 07:12-0500 Body weight 65.94 kg No Primary Care Physician [facility] Work Phone: 03-29-2021 07:12-0500 Diastolic blood pressure 76 mm[Hg] No Primary Care Physician [facility] Work Phone: 03-29-2021 07:12-0500 Systolic blood pressure 104 mm[Hg] No Primary Care Physician [facility] Work Phone: Encounters Encounter Date Encounter Type Care Provider Facility Start: 01-13-2025 End: 01-13-2025 ambulatory No Primary Care Physician Facility:[facility] Start: 12-28-2024 End: 12-28-2024 ambulatory No Primary Care Physician Facility:[facility] Start: 12-28-2024 End: 12-28-2024 ambulatory No Primary Care Physician Facility:[facility] Start: 11-26-2024 End: 11-26-2024 ambulatory RYANNE MILIAN Facility:[facility] Start: 10-29-2024 End: 10-29-2024 ambulatory VELIA GUADARRAMA [facility] Start: 10-29-2024 End: 10-29-2024 Patient encounter procedure Electric Lift Truck Driver [employer] Kevin Work Phone: [facility] Maternal Medicine Comment on above: Encounter for antena damian screening of mother (HCC) Start: 10-15-2024 End: 10-15-2024 Patient encounter procedure Velia Guadarrama ASBESTOS CEMENT SHEET SUPERVISOR.[employer]WO[employer] CUTTER Work Phone: [facility] Obstetrics & Gynecology Comment on above: Supervision of high risk , antepartum (HCC) (Primary Dx); Rh negative state in antepartum period (HCC); Thrombocytosis after splenectomy; History of hereditary spherocytosis; 17 weeks gestation of (HCC) Start: 10-15-2024 End: 10-15-2024 ambulatory VELIA GUADARRAMA [facility] Start: 09-21-2024 End: 09-21-2024 Follow-up encounter Vleia Flavia Thierry ASBESTOS CEMENT SHEET SUPERVISOR.FI[employer] CUTTER Work Phone: [facility] Obstetrics & Gynecology Start: 09-17-2024 End: 09-17-2024 ambulatory VELIA VALLADARESGO [facility] Start: 09-17-2024 End: 09-17-2024 Patient encounter procedure Us Rm2 Electric Lift Truck Driver [employer] Work Phone: [facility] Maternal Medicine Comment on above: Supervision of high risk , antepartum (HCC) (Primary Dx); Encounter for screening of mother (HCC) Supervision of high risk , antepartum (HCC) (Primary Dx); History of hereditary spherocytosis; Rh negative state in antepartum period (HCC); Polycythemia; 13 weeks gestation of (HCC) Start: 09-17-2024 End: 09-17-2024 ambulatory VELIA GUADARRAMA [facility] Start: 08-17-2024 End: 08-17-2024 Patient encounter procedure Velia Aljeandro Thierry ASBESTOS CEMENT SHEET SUPERVISOR.FI[employer]WO[employer] CUTTER Work Phone: [facility] Obstetrics & Gynecology Comment on above: Supervision of high risk , antepartum (HCC) (Primary Dx); History of hereditary spherocytosis; Rh negative state in antepartum period (HCC); History of delivery by vacuum extraction, currently (HCC); 9 weeks gestation of (HCC); Encounter for screening of mother (HCC); Polycythemia Early stage of pregn carmelita (HCC) Start: 08-17-2024 End: 08-17-2024 ambulatory VELIA THIERRY [facility] Start: 07-21-2024 End: 07-21-2024 ambulatory [facility] Facility:[facility] Start: 01-21-2024 End: 01-21-2024 ambulatory Facility:[facility] Start: 01-20-2024 End: 01-20-2024 Telephone encounter Rian Swanson MD Work Phone: [facility] Obstetrics & Gynecology Comment on above: Patient Question Start: 09-10-2023 End: 09-10-2023 Patient encounter procedure Rian Swanson MD Work Phone: [facility] Obstetrics & Gynecology Comment on above: state (Pr imary Dx) Start: 08-27-2023 End: 08-27-2023 ambulatory KATHY MARTINEZ Facility:[facility] Start: 08-27-2023 End: 08-27-2023 Patient encounter procedure Kathy Martinez DO Work Phone: Medicine Comment on above: Other disorders of l actation (Primary Dx) Start: 08-21-2023 End: 08-21-2023 Education Nurse [facility] Comment on above: Breast Feeding (/) Start: 08-15-2023 Telephone encounter Robbie DENSON Comment on above: Breast Feeding Start: 08-07-2023 End: 08-07-2023 ambulatory SELF REFERRED [facility] Start: 08-05-2023 End: 08-05-2023 ambulatory SELF REFERRED [facility] Start: 08-02-2023 End: 08-02-2023 Patient encounter procedure Rian Swanson MD Work Phone: [facility] Obstetrics & Gynecology Comment on above: 40 weeks gestation o f (Primary Dx); History of hereditary spherocytosis; Rh negative state in antepartum period, second trimester Start: 07-24-2023 End: 07-24-2023 Patient encounter procedure Vic Arita DO Work Phone: [facility] Obstetrics & Gynecology Comment on above: 39 weeks gestation o f (Primary Dx); Rh negative state in antepartum period, second trimester; Polycythemia; Supervision of high risk in third trimester Start: 07-23-2023 End: 07-23-2023 ambulatory Radha Teeple PT Work Phone: [facility] Comment on above: 32 weeks gestation o f (Primary Dx); Decreased ROM of lumbar spine Start: 07-17-2023 End: 07-17-2023 Patient encounter procedure Vic Grossradha DO Work Phone: [facility] Obstetrics & Gynecology Comment on above: 38 weeks gestation o f (Primary Dx); Polycythemia; Rh negative state in antepartum period, second trimester; Supervision of high risk in third trimester; History of hereditary spherocytosis Start: 07-17-2023 End: 07-17-2023 ambulatory Radha Teeple PT Work Phone: [facility] Comment on above: 32 weeks gestation o f (Primary Dx); Decreased ROM of lumbar spine Start: 07-15-2023 ambulatory Eveline Morales [facility] Start: 07-15-2023 [facility] [place] on above: Population Health Na vigation Outreach (OB/peds) Start: 07-12-2023 End: 07-12-2023 Patient encounter procedure Ryanne Milian MD Work Phone: [facility] Obstetrics & Gynecology Comment on above: Rh negative state in antepartum period, second trimester (Primary Dx); 37 weeks gestation of Start: 07-09-2023 ambulatory Radha Teeple PT Work Phone: [facility] Comment on above: PT Update Start: 07-09-2023 E-mail encounter fro m caregiver Radha Teeple PT Work Phone: [facility] Start: 07-03-2023 End: 07-03-2023 ambulatory Radha Teeple PT Work Phone: [facility] Comment on above: Decreased ROM of lum bar spine (Primary Dx); 32 weeks gestation of Start: 07-03-2023 End: 07-03-2023 Patient encounter procedure Haven Cunningham MD Work Phone: [facility] Obstetrics & Gynecology Comment on above: Supervision of high risk in third trimester (Primary Dx); 36 weeks gestation of ; Rh negative state in antepartum period, second trimester; Polycythemia; History of hereditary spherocytosis; Encounter for screening of mother Start: 06-19-2023 End: 06-19-2023 Patient encounter procedure Haven Cunningham MD Work Phone: [facility] Obstetrics & Gynecology Comment on above: Supervision of high risk in third trimester (Primary Dx); 34 weeks gestation of ; Rh negative state in antepartum period, second trimester; History of hereditary spherocytosis Start: 06-05-2023 Telephone encounter Haven Cunningham MD Work Phone: [facility] Obstetrics & Gynecology Comment on above: insurance eligibilit y (RTE showing rejected. Called [facility] to verify elig. Per call, patient is eligible and eff date of plan is [id number] with no expected term date. Call ref# [id number]) Start: 06-05-2023 End: 06-05-2023 Patient encounter procedure Ultrasound Electric Lift Truck Driver Ag [facility] [place] Work Phone: [facility] Obstetrics & Gynecology Comment on above: Encounter for ultras ound to assess growth (Primary Dx); History of hereditary spherocytosis Supervision of high risk in third trimester (Primary Dx); 32 weeks gestation of ; Rh negative state in antepartum period, second trimester; Polycythemia; History of hereditary spherocytosis Start: 05-08-2023 Telephone encounter Haven Cunningham MD Work Phone: [facility] Obstetrics & Gynecology Comment on above: Orders Start: 05-08-2023 End: 05-08-2023 Nursing evaluation of patient and report Nurse Electric Lift Truck Driver Ag Pob Work Phone: [facility] Obstetrics & Gynecology Comment on above: Need for rhogam due to Rh negative mother (Primary Dx) Start: 05-08-2023 End: 05-08-2023 Patient encounter procedure Haven Cunningham MD Work Phone: [facility] Obstetrics & Gynecology Comment on above: Supervision of high risk in third trimester (Primary Dx); 28 weeks gestation of ; Rh negative state in antepartum period, third trimester; History of hereditary spherocytosis Start: 04-16-2023 End: 04-16-2023 Patient encounter procedure Rian Swanson MD Work Phone: [facility] Obstetrics & Gynecology Comment on above: 25 weeks gestation o f (Primary Dx); History of hereditary spherocytosis; Rh negative state in antepartum period, second trimester Start: 02-11-2023 Telephone encounter Silvia ross APRN.FIREWOOD CUTTER Work Phone: [facility] Obstetrics & Gynecology Comment on above: Results Start: 02-05-2023 Telephone encounter Shari Pennington RN [facility] Maternal Medicine Comment on above: Appointment Start: 02-04-2023 End: 02-04-2023 Patient encounter procedure Silviajennifer Mendoza APRN.FIREWOOD CUTTER Work Phone: [facility] Obstetrics & Gynecology Comment on above: Rh negative state in antepartum period, second trimester (Primary Dx); Cervical cancer screening; 15 weeks gestation of ; Encounter for anatomic survey; Encounter for screening for malformation; History of hereditary spherocytosis Start: 01-18-2023 End: 01-18-2023 Patient encounter procedure Ryanne Milian MD Work Phone: [facility] Obstetrics & Gynecology Comment on above: Amenorrhea, secondar y (Primary Dx) Start: 12-27-2022 Refill Rian Haque Work Phone: [facility] Obstetrics & Gynecology Comment on above: Med Change Request Start: 12-18-2022 Telephone encounter Rian nance MD Work Phone: [facility] Obstetrics & Gynecology Comment on above: Patient Question Start: 06-01-2021 End: 06-01-2021 Patient encounter procedure No Primary Care Physician [facility], Specimen Start: 03-29-2021 End: 03-29-2021 Patient encounter procedure No Primary Care Physician [facility], Specimen Start: 03-29-2021 End: 03-29-2021 Patient encounter procedure No Primary Care Physician [facility] Procedures Date Procedure Procedure Detail Performing Clinician Start: 10-29-2024 Us preg uterus after 1st trimest / gestation Velia Guadarrama APRN.[employer] CUTTER Work Phone: Start: 10-15-2024 Urnls dip stick/tabl et rgnt auto w/o microscopy Velia Guadarrama APRN.FIREWOOD CUTTER Work Phone: Start: 09-17-2024 Us preg uterus after 1st trimest / gestation Velia Guadarrama APRN.FIREWOOD CUTTER Work Phone: Start: 09-17-2024 Antibody screen VELIA SHARLA GAITAN Comment on above: Order Comment: Speci men Type: BLOOD SPECIMEN Ordering Facility: [facility] Address: [place] [address] Result Comment: Dari villarreal has a previous clinically significant antibody Performed By: #### M AT21 #### [facility] CLIA [id number] [address] [place] [address] Start: 09-17-2024 Urnls dip stick/tabl et rgnt auto w/o microscopy Velia Guadarrama APRN.FIREWOOD CUTTER Work Phone: Start: 08-17-2024 Us preg uterus after 1st trimest 03/04 gestation Velia Guadarrama APRN.FIREWOOD CUTTER Work Phone: Start: 08-02-2023 Urnls dip stick/tabl [...] Author Start: 02-04-2026 Pap Testing Pap Testing [facility] Start: 02-04-2026 Screening for malignant neoplasm of cervix [facility] Start: 01-25-2025 RSV Vaccine (1 - Ris k 1-dose series) RSV Vaccine (1 - Risk 1-dose series) [facility] Start: 11-12-2024 End: 11-12-2024 Patient encounter procedure 11/12/2024 8:15 AM EDT Routine Office Visit [facility] Obstetrics & Gynecology [address] [place] [address] Velia Guadarrama, ASBESTOS 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 [place], [place] [id number] annmarie [facility] Obstetrics & Gynecology Comment on above: annmarie Start: 11-02-2024 Influenza vaccination [facility] Start: 10-29-2024 End: 10-29-2024 Patient encounter procedure 10/29/2024 9:00 AM EDT Routine Office Visit [facility] Maternal Medicine [address] [place] [address] ANATOMY [facility] Maternal Medicine Comment on above: ANATOMY Start: 10-15-2024 End: 10-15-2024 Patient encounter procedure 10/15/2024 8:45 AM EDT Routine Office Visit [facility] Obstetrics & Gynecology [address] [place] [id number] Velia Guadarrama, ASBESTOS 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 [place], [place] [id number] annmarie [facility] Obstetrics & Gynecology Comment on above: annmarie Start: 09-17-2024 End: 09-17-2024 Patient encounter procedure [facility] Obstetrics & Gynecology Comment on above: ANNMARIE JENKINS THIERRY Start: 08-17-2024 End: 11-16-2024 Acute hepatitis 2000 panel - Serum HEP ACUTE PANEL BL Lab Routine Encounter for screening of mother (HCC) Expected: 08/17/2024, Expires: 11/16/2024 [facility] Comment on above: Expected: 08/17/2024 , Expires: 11/16/2024 Start: 08-17-2024 End: 11-16-2024 ANEMIA REFLEX PANEL ANEMIA REFLEX PANEL Lab Routine Encounter for screening of mother (HCC) Expected: 08/17/2024, Expires: 11/16/2024 [facility] Comment on above: Expected: 08/17/2024 , Expires: 11/16/2024 Start: 08-17-2024 End: 11-16-2024 Chromosome 21 trisomy [Presence] in Blood or Tissue by Cytogenetics [id number] PLUS Lab Routine Encounter for screening of mother (HCC) Expected: 08/17/2024, Expires: 11/16/2024 [facility] Comment on above: Expected: 08/17/2024 , Expires: 11/16/2024 Start: 08-17-2024 End: 11-16-2024 Hemoglobin A1c in Blood HEMOGLOBIN A1C Lab Routine Encounter for screening of mother (HCC) Expected: 08/17/2024, Expires: 11/16/2024 [facility] Comment on above: Expected: 08/17/2024 , Expires: 11/16/2024 Start: 08-17-2024 End: 11-16-2024 HEMOGLOBIN EVALUATION CASCADE HEMOGLOBIN EVALUATION CASCADE Lab Routine Encounter for screening of mother (HCC) Expected: 08/17/2024, Expires: 11/16/2024 [facility] Comment on above: Expected: 08/17/2024 , Expires: 11/16/2024 Start: 08-17-2024 End: 11-16-2024 HIV 1+2 Ab [Presence] in Serum or Plasma by Immunoassay HIV 1/2 COMBO WITH REFLEX TO DIFFERENTIATION Lab Routine Encounter for screening of mother (HCC) Expected: 08/17/2024, Expires: 11/16/2024 [facility] Comment on above: Expected: 08/17/2024 , Expires: 11/16/2024 Start: 08-17-2024 End: 08-17-2025 OBSTETRIC ULTRASOUND WHI OBSTETRIC ULTRASOUND WHI Anc Imaging Routine Encounter for screening of mother (HCC) Expected: 08/17/2024, Expires: 08/17/2025 [facility] Work Phone: Comment on above: Expected: 08/17/2024 , Expires: 08/17/2025 Start: 08-17-2024 End: 11-16-2024 RUBELLA IGG ANTIBODY RUBELLA IGG ANTIBODY Lab Routine Encounter for screening of mother (HCC) Expected: 08/17/2024, Expires: 11/16/2024 [facility] Comment on above: Expected: 08/17/2024 , Expires: 11/16/2024 Start: 08-17-2024 End: 11-16-2024 SYPHILIS TREPONEMAL W/REFLEX SYPHILIS TREPONEMAL W/REFLEX Lab Routine Encounter for screening of mother (HCC) Expected: 08/17/2024, Expires: 11/16/2024 [facility] Comment on above: Expected: 08/17/2024 , Expires: 11/16/2024 Start: 08-17-2024 End: 11-16-2024 TYPE + SCREEN TYPE + SCREEN Blood Bank Routine Encounter for screening of mother (HCC) Expected: 08/17/2024, Expires: 11/16/2024 [facility] Comment on above: Expected: 08/17/2024 , Expires: 11/16/2024 Start: 01-21-2024 End: 01-21-2024 Patient encounter procedure 01/21/2024 8:40 AM EST Office [place] [phone] Current bill that s pending insurance [employer] [facility] Comment on above: Current bill that s pending insurance Start: 11-03-2023 Covid-19 Vaccine ( season) Covid-19 Vaccine () [facility] Start: 11-03-2023 Influenza vaccination [facility] Start: 09-10-2023 End: 09-10-2023 Patient encounter procedure 09/10/2023 8:30 AM EDT Office Visit [facility] Obstetrics & Gynecology [address] [place] [address] Rian Swanson I, MD [address] [facility], [address] [place], [place] [id number] post [facility] Obstetrics & Gynecology Comment on above: post Start: 08-21-2023 End: 08-21-2023 Education 08/21/2023 2:00 PM EDT Education SERVICES MD [address] [place] [address] pt experiencing latching difficulty, has been BF and receiving bottles of EBM SERVICES [place] Comment on above: pt experiencing latc sridhar difficulty, infant has been BF and receiving bottles of EBM Start: 08-02-2023 End: 08-02-2023 Patient encounter procedure 08/02/2023 10:15 AM EDT Routine Office Visit [facility] Obstetrics & Gynecology [address] [place] [address] Rian Swanson I, MD [address] [facility], [address] [place], [place] [id number] ANNMARIE [facility] Obstetrics & Gynecology Comment on above: ANNMARIE Start: 07-24-2023 End: 07-24-2023 Patient encounter procedure 07/24/2023 10:15 AM EDT Routine Office Visit [facility] Obstetrics & Gynecology [address] [place] [phone] Vic Arita DO [address] [place] [address] annmarie [facility] Obstetrics & Gynecology Comment on above: annmarie Start: 07-23-2023 End: 07-23-2023 ambulatory [facility] Comment on above: AUTH REQ'D 4vis end 08/30 Start: 07-17-2023 End: 07-17-2023 Patient encounter procedure 07/17/2023 1:45 PM EDT Routine Office Visit [facility] Obstetrics & Gynecology [address] [place] [phone] Vic Arita DO [address] [place] [address] annmarie [facility] Obstetrics & Gynecology Comment on above: annmarie Start: 07-17-2023 End: 07-17-2023 ambulatory [facility] Comment on above: E 4vis end 08/30 Start: 07-12-2023 End: 07-12-2023 Patient encounter procedure 07/12/2023 10:45 AM EDT Routine Office Visit [facility] Obstetrics & Gynecology [address] [place] [phone] Ryanne Milian MD [address] [place], [place] [phone] annmarie [facility] Obstetrics & Gynecology Comment on above: annmarie Start: 05-08-2023 End: 05-07-2024 OBSTETRIC ULTRASOUND WHI OBSTETRIC ULTRASOUND WHI Anc Imaging Routine History of hereditary spherocytosis Expected: 05/08/2023, Expires: 05/07/2024 [facility] Work Phone: Comment on above: Expected: 05/08/2023 , Expires: 05/07/2024 Start: 05-06-2023 End: 08-05-2023 ABO and Rh group panel - Blood ABO AND RH ONLY Blood Bank Routine 25 weeks gestation of Expected: 05/06/2023 (Approximate), Expires: 08/05/2023 [facility] Work Phone: Comment on above: Expected: 05/06/2023 (Approximate), Expires: 08/05/2023 Start: 05-06-2023 End: 08-05-2023 CBC W Auto Differential panel - Blood CBC + DIFF Lab Routine 25 weeks gestation of Expected: 05/06/2023, Expires: 08/05/2023 [facility] Work Phone: Comment on above: Expected: 05/06/2023 , Expires: 08/05/2023 Start: 05-06-2023 End: 08-05-2023 GEST GLUC SCREEN, 1-HR, 50 GM, NON-FASTING GEST GLUC SCREEN, 1-HR, 50 GM, NON-FASTING Lab Routine 25 weeks gestation of Expected: 05/06/2023, Expires: 08/05/2023 [facility] Work Phone: Comment on above: Expected: 05/06/2023 , Expires: 08/05/2023 Start: 04-16-2023 End: 07-16-2023 SYPHILIS TOTAL W/REFLEX SYPHILIS TOTAL W/REFLEX Lab Routine 25 weeks gestation of Expected: 04/16/2023, Expires: 07/16/2023 [facility] Work Phone: Comment on above: Expected: 04/16/2023 , Expires: 07/16/2023 Start: 03-04-2023 Behavioral Health Screening Behavioral Health Screening [facility] Start: 03-04-2023 Depression Assessment Depression Ass essment [facility] Start: 02-04-2023 End: 05-06-2023 ALPHA FETOPRO MATERNAL [facility] Work Phone: Comment on above: Expected: 02/04/2023 , Expires: 05/06/2023 Start: 02-04-2023 End: 05-06-2023 Chromosome 21 trisomy [Presence] in Blood or Tissue by Cytogenetics [facility] Work Phone: Comment on above: Expected: 02/04/2023 , Expires: 05/06/2023 Start: 02-04-2023 End: 02-05-2024 OBSTETRIC ULTRASOUND WHI OBSTETRIC ULTRASOUND WHI Anc Imaging Routine Encounter for anatomic survey Expected: 02/04/2023, Expires: 02/05/2024 [facility] Work Phone: Comment on above: Expected: 02/04/2023 , Expires: 02/05/2024 Start: 01-18-2023 End: 04-19-2023 CBC panel - Blood by Automated count [facility] Work Phone: Comment on above: Expected: 01/18/2023 , Expires: 04/19/2023 Start: 01-18-2023 End: 04-19-2023 Hepatitis B virus surface Ag [Presence] in Serum [facility] Work Phone: Comment on above: Expected: 01/18/2023 , Expires: 04/19/2023 Start: 01-18-2023 End: 04-19-2023 Hepatitis C virus RNA [Units/volume] (viral load) in Serum or Plasma by MARCY with probe detection [facility] Work Phone: Comment on above: Expected: 01/18/2023 , Expires: 04/19/2023 Start: 01-18-2023 End: 04-19-2023 HIV 1+2 Ab [Presence] in Serum or Plasma by Immunoassay [facility] Work Phone: Comment on above: Expected: 01/18/2023 , Expires: 04/19/2023 Start: 01-18-2023 End: 04-19-2023 RUBELLA IGG AB [facility] Work Phone: Comment on above: Expected: 01/18/2023 , Expires: 04/19/2023 Start: 01-18-2023 End: 04-19-2023 SYPHILIS TOTAL W/REFLEX [facility] Work Phone: Comment on above: Expected: 01/18/2023 , Expires: 04/19/2023 Start: 01-18-2023 End: 04-19-2023 TYPE + SCREEN [facility] Work Phone: Comment on above: Expected: 01/18/2023 , Expires: 04/19/2023 Start: 11-02-2022 Covid-19 Vaccine () Covid-19 Vaccine () [facility] Start: 11-02-2022 Influenza vaccination Influenza Vacc ine (#1) [facility] Start: 03-04-2022 Depression Assessment Depression Ass essment [facility] Start: 10-09-2021 Urine microalbumin profile DTaP,Tdap,Td Vaccine (7 - Td or Tdap) [facility] Start: 02-01-2017 Pap Testing Pap Testing [facility] Start: 01-12-2016 HPV Vaccine (2 - 3-dose series) HPV Vaccine (2 - 3-dose series) [facility] Start: 02-01-2015 Urine microalbumin profile DTaP,Tdap,Td Vaccine (1 - Tdap) [facility] Start: 02-01-2014 Anxiety Screening Anxiety Screening [facility] Start: 02-01-2014 Depression Screening Depression Scre ening [facility] Start: 02-01-2014 Hepatitis C Screening Hepatitis C Sc reening [facility] Start: 02-01-2014 HIV Screening HIV Screening [facility] Start: 02-01-2010 Peds To Adult Transition Annual Assessment Peds To Adult Transition Annual Assessment [facility] Start: 2008 Peds To Adult Transition Initial Discussion Peds To Adult Transition Initial Discussion [facility] Start: 1996 Covid-19 Vaccine (#1) Covid-19 Vacci ne (#1) [facility] Start: 1996 Hepatitis B Vaccine (1 of 3 - 3-dose series) Hepatitis B Vaccine (1 of 3 - 3-dose series) [facility] Bacteria identified in Urine by Culture URINE CULTURE Microbiology Routine Encounter for screening for malformation 02/04/2023 3:59 PM [facility] Work Phone: Bacteria identified in Urine by Culture BACTERIAL CULTURE, URINE Microbiology Routine Encounter for screening of mother ([facility]) 08/17/2024 10:19 AM T [facility] Chlamydia trachomatis+Neisseria gonorrhoeae DNA [Presence] in Unspecified specimen by MARCY with probe detection GONORRHEA/CHLAMYDIA NAAT Lab Routine Encounter for screening for malformation 02/04/2023 3:59 PM [facility] Work Phone: Chlamydia trachomatis+Neisseria gonorrhoeae DNA [Presence] in Unspecified specimen by MARCY with probe detection GONORRHEA/CHLAMYDIA NAAT Lab Routine Encounter for screening of mother 07/03/2023 10:25 AM T [facility] Chlamydia trachomatis+Neisseria gonorrhoeae DNA [Presence] in Unspecified specimen by MARCY with probe detection GONORRHEA/CHLAMYDIA NAAT Lab Routine Encounter for screening of mother ([facility]) 08/17/2024 10:19 AM EDT [facility] INDUCTION L&D INDUCTION L&D Pr ocedures Routine 40 weeks gestation of Ordered: 08/02/2023 [facility] Comment on above: Ordered: 08/02/2023 PAP TEST PAP TEST Lab Rou cadence Cervical cancer screening 02/04/2023 3:38 PM EST [facility] Work Phone: Rho d immune globuli n inj RHOD IMMUNE GLOBULIN, FULL DOSE Immunization/Injection Routine Rh negative state in antepartum period, second trimester Ordered: 04/16/2023 [facility] Work Phone: Comment on above: Ordered: 04/16/2023 ROUTINE, GROUP B STREP PCR ROUTINE, GROUP B STREP PCR Microbiology Routine Encounter for screening of mother 07/03/2023 10:25 AM EDT [facility] UA DIP, URINE (POC) UA DIP, URIN E (POC) Lab Routine 25 weeks gestation of Ordered: 04/15/2023 [facility] Work Phone: Comment on above: Ordered: 04/15/2023 UA DIP, URINE (POC) UA DIP, URIN E (POC) Lab Routine 28 weeks gestation of Ordered: 05/07/2023 [facility] Work Phone: Comment on above: Ordered: 05/07/2023 UA DIP, URINE (POC) UA DIP, URIN E (POC) Lab Routine 32 weeks gestation of Ordered: 06/04/2023 [facility] Work Phone: Comment on above: Ordered: 06/04/2023 UA DIP, URINE (POC) UA DIP, URIN E (POC) Lab Routine 34 weeks gestation of Ordered: 06/18/2023 [facility] Work Phone: Comment on above: Ordered: 06/18/2023 UA DIP, URINE (POC) UA DIP, URIN E (POC) Lab Routine 36 weeks gestation of Ordered: 07/02/2023 [facility] Work Phone: Comment on above: Ordered: 07/02/2023 UA DIP, URINE (POC) UA DIP, URIN E (POC) Lab Routine 37 weeks gestation of Ordered: 07/11/2023 [facility] Work Phone: Comment on above: Ordered: 07/11/2023 UA DIP, URINE (POC) UA DIP, URIN E (POC) Lab Routine 38 weeks gestation of Ordered: 07/16/2023 [facility] Work Phone: Comment on above: Ordered: 07/16/2023 UA DIP, URINE (POC) UA DIP, URIN E (POC) Lab Routine 39 weeks gestation of Ordered: 07/23/2023 [facility] Work Phone: Comment on above: Ordered: 07/23/2023 UA DIP, URINE (POC) UA DIP, URIN E (POC) Lab Routine 40 weeks gestation of Ordered: 08/01/2023 [facility] Work Phone: Comment on above: Ordered: 08/01/2023 [facility] Immunizations Immunization Date Immunization Notes Care Provider Fa [facility] 08-02-2023 RHO(D) immune globul in- IV or IM Rian Amaro MD Work Phone: [facility] 05-08-2023 RHO(D) immune globul in- IV or GIAN Cunningham MD Work Phone: [facility] 12-16-2018 influenza virus vaccine, unspecified formulation Rian Amaro MD Work Phone: [facility] 12-15-2015 Human Papillomavirus 9-valent vaccine Rian Amaro MD Work Phone: [facility] Work Phone: NEGATED: Highlighted row has not occurred!04-16-2023 RHO(D) immune globulin- IV or IM Rian Amaro MD Work Phone: [facility] Work Phone: Comment on above: Deferred: Test Resul ts Needed Payers Date Payer Category Payer Unknown [id number] 2024 Self-pay [id number] 2024 Unknown . 2023 Medicaid [facility] [id number] 2023-Present [phone] [address] [place] [address] Medicaid [id number] 2023 [facility] Health [facility] [id number] 2023 Unknown [id number] 2022 Unknown [id number] 1996 Unknown [id number] 1996 Unknown [id number] Private Health Insurance [employer] CE [id number] Unknown SELF PAY INSURANCE [id number] Unknown [id number] Unknown [id number] Unknown [id number] Unknown [id number] Unknown [id number] Social History Date Type Detail Facility Start: [facility]21 [facility] Work Phone: Start: 1995 Sex Assigned At Female [facility] Start: 12-15-2015 [facility] daily [facility] Start: 12-15-2015 End: 08-17-2024 Tobacco use and exposure Smokeless tobacco non-user [facility] Start: 10-18-2021 Alcohol intake Current drinke r of alcohol (finding) [facility] Start: 12-22-2015 End: 12-26-2022 History of Social function [facility] Start: 12-22-2015 End: 12-26-2022 Tobacco use panel [facility] Start: 1995 Sex Assigned At Not on file [facility] Start: 12-26-2022 End: 08-17-2024 Tobacco smoking status NHIS Ex-smoker [facility] End: 03-04-2015 History of tobacco use Current smoker [facility] End: 03-04-2015 History of tobacco use Cigarette Smoker [facility] Start: 12-26-2022 End: 10-15-2024 Alcohol intake Ex-drinker (finding) [facility] Start: 02-03-2012 National Score (1-100), lower number is lower risk 76 [facility] Start: 11-05-2022 [facility] Start: 07-21-2024 Gender identity Identifies as female gender (finding) [facility] Goals Date Patient Goal Desired Activity /State Personal health goal Personal health goal Functional Status Date Assessment Result Facility 08-04-2023 Are you deaf, or do you have serious difficulty hearing No 08/04/2023 2:19 PM Fatou Gomez, RN [facility] 08-04-2023 Are you blind, or do you have serious difficulty seeing, even when wearing glasses No 08/04/2023 2:19 PM Fatou Gomez, RN [facility] 08-04-2023 Do you have serious difficulty walking or climbing stairs No 08/04/2023 2:19 PM EDT Fatou Alston, RN No [facility] 08-04-2023 Do you have difficul ty dressing or bathing No 08/04/2023 2:19 PM EDT Fatou Alston, RN No [facility] 08-04-2023 Because of a physica l, mental, or emotional condition, do you have difficulty doing errands alone such as visiting a physician's office or shopping No 08/04/2023 2:19 PM EDT Fatou Alston, RN No [facility] Mental Status Date Assessment Result Facility 08-04-2023 Because of a physica l, mental, or emotional condition, do you have serious difficulty concentrating, remembering, or making decisions No 08/04/2023 2:19 PM EDT Fatou Alston, RN No [facility] Clinical Notes 03-29-2021 to 11-26-2024 Quick Notes - Velia Guadarrama APRN.[facility] - 10/15/2024 8:45 AM EDTPrenatal Quick Notes - Velia Guadarrama APRN.[facility] - 10/15/2024 8:45 AM Norma Bernal LPN - 10/15/2024 8:34 AM EDT Note Date & Type Note Facility 11-26-2024 Note HNO ID: [id number] Author: EVARISTO LA MA Service: ? Author Type: Operating Manager Type: Progress Notes Filed: 11/26/2024 08:51 Note Text: Movement? 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 - [facility] recommended ASA during last , declined - declines ASA for this - platelets on PNLs this were 500 Current Assessment & Plan - platelets on PNLs were 500 Relevant Orders CONSULT TO HEMATOLOGY/ONCOLOGY Rh negative state in antepartum period ([facility]) Overview - rhogam @ 28 w [ ] - prn as indicated [employer]ERSON Supervision of high risk , antepartum ([facility]) - Primary Overview Care Checklist Vaccines: [] [...] (28-30 weeks): [] Consent [] Contraception [] Composite Bond Technician, car seat, safe sleep [] TeamBirth handout [...] Other Visit Diagnoses 17 weeks gestation of ([facility]) Relevant Orders UA DIP, URINE (POC) Return to office in 4 weeks and PRN. Velia Guadarrama APRN.[employer] documented in this encounter [facility] 10-15-2024 Progress note Formatting of t his [...] HEMATOLOGY/ONCOLOGY Rh negative state in antepartum period ([facility]) Overview - rhogam @ 28 w [ ] - prn as indicated [employer] LADLE PERSON Supervision of high risk , antepartum (HCC) [...] (28-30 weeks): [] Consent [] Contraception [] Composite Bond Technician, car seat, safe sleep [] TeamBirth handout [...] in 4 weeks and PRN. Velia Guadarrama APRN.[employer] [facility] 10-15-2024 Note HNO ID: [id number] Author: NORMA TAYLOR LPN Service: ? Author Type: LICENSED NURSE Type: Progress Notes Filed: 10/15/2024 08:59 Note Text: Movement? Active baby Vaginal Bleeding: NO Vaginal fluid leakage of fluid: NO Contractions: no contractions Edema: Negative Norma Taylor LPN [facility] 10-15-2024 History of Present illness Narrative Movement? Active baby Vaginal Bleeding: NO Vaginal fluid leakage of fluid: NO Contractions: no contractions Edema: Negative Norma Taylor LPN documented in this encounter [facility] 09-17-2024 Miscellaneous Notes S: Denies LOF, contractions [...] w [ ] - prn as indicated [employer] LADLE PERSON Supervision of high risk , antepartum (HCC) [...] (28-30 weeks): [] Consent [] Contraception [] Composite Bond Technician, car seat, safe sleep [] TeamBirth handout [...] in 4 weeks and PRN. Velia Guadarrama APRN.[employer] documented in this encounter [facility] 09-17-2024 Progress note Formatting of t his [...] this Rh negative state in antepartum period ([facility]) Overview - rhogam @ 28 w [ ] - prn as indicated [employer]ADLE PERSON Supervision of high risk , antepartum ([facility]) - Primary Overview Care Checklist Vaccines: [] [...] (28-30 weeks): [] Consent [] Contraception [] Composite Bond Technician, car seat, safe sleep [] TeamBirth handout [...] in 4 weeks and PRN. Velia Guadarrama APRN.[employer] [facility] 09-17-2024 Note HNO ID: [id number] Author: NORMA TAYLOR LPN Service: ? Author Type: LICENSED NURSE Type: Progress Notes Filed: 09/17/2024 09:36 Note Text: Movement? Too early Vaginal Bleeding: NO Vaginal fluid leakage of fluid: NO Contractions: no contractions Edema: Negative Norma Taylor LPN [facility] 09-17-2024 History of Present illness Narrative Movement? Too early Vaginal Bleeding: NO Vaginal fluid leakage of fluid: NO Contractions: no contractions Edema: Negative Norma Taylor LPN documented in this encounter [facility] 08-17-2024 Progress note Formatting of t his [...] in spherocytosis per M last time - [facility] recommended ASA during last , declined - declines ASA for this Rh negative state in antepartum period ([facility]) Overview - rhogam @ 28 w [ ] - prn as indicated [employer]ANE LADLE PERSON Supervision of high risk , antepartum ([facility]) - Primary Overview Care Checklist Vaccines: [] [...] (28-30 weeks): [] Consent [] Contraception [] Composite Bond Technician, car seat, safe sleep [] TeamBirth handout Third trimester (36-40 weeks): [] GBS [] Presentation - [] Scheduled [] yes - Hibiclens, pre-op instructions, CBC, T&S ordered [] no [] H&P [] Preferences worksheet [] Scanned in EMR [] Patient to bring copy to hospital [] Declined History of delivery by vacuum extraction, currently ([facility]) Other History of hereditary spherocytosis Overview - [...] Other Visit Diagnoses 9 weeks gestation of ([facility]) Encounter for screening of mother ([facility]) Relevant Orders OBSTETRIC ULTRASOUND WHI GONORRHEA/CHLAMYDIA NAAT BACTERIAL CULTURE, URINE RUBELLA IGG ANTIBODY HIV 1/2 COMBO WITH REFLEX TO DIFFERENTIATION SYPHILIS TREPONEMAL W/REFLEX TYPE + SCREEN HEMOGLOBIN A1C ANEMIA REFLEX PANEL HEP ACUTE PANEL BL HEMOGLOBIN EVALUATION CASCADE OBSTETRIC ULTRASOUND WHI [id number] PLUS PAN DUMPER Return to office in 4 weeks and PRN. Velia Guadarrama APRN.[employer] [facility] 08-17-2024 Miscellaneous Notes S: Denies LOF, contractions [...] w [ ] - prn as indicated CRANE LADLE PERSON Supervision of high risk , antepartum (HCC) [...] (28-30 weeks): [] Consent [] Contraception [] Composite Bond Technician, car seat, safe sleep [] TeamBirth handout Third trimester (36-40 weeks): [] GBS [] Presentation - [] Scheduled [] yes - Hibiclens, pre-op instructions, CBC, T&S ordered [] no [] H&P [] Preferences worksheet [] Scanned in EMR [] Patient to bring copy to hospital [] Declined History of delivery by vacuum extraction, currently ([facility]) Other History of hereditary spherocytosis Overview - [...] Other Visit Diagnoses 9 weeks gestation of ([facility]) Encounter for screening of mother ([facility]) Relevant Orders OBSTETRIC ULTRASOUND WHI GONORRHEA/CHLAMYDIA NAAT BACTERIAL CULTURE, URINE RUBELLA IGG ANTIBODY HIV 1/2 COMBO WITH REFLEX TO DIFFERENTIATION SYPHILIS TREPONEMAL W/REFLEX TYPE + SCREEN HEMOGLOBIN A1C ANEMIA REFLEX PANEL HEP ACUTE PANEL BL HEMOGLOBIN EVALUATION CASCADE OBSTETRIC ULTRASOUND WHI [id number] PLUS PAN DUMPER Return to office in 4 weeks and PRN. Velia Guadarrama APRN.DOUG documented in this encounter [facility] 08-17-2024 Instructions Velia Guadarrama APRN.CNP - 08/17/2024 [...] 28 weeks. Our practice only delivers at [facility]. If you wish to deliver at [...] accomplished while you are still . Some retirement reversible contraception can be started right after [...] 28 weeks. Our practice only delivers at [facility]. If you wish to deliver at another hospital you must find a different obstetrical provider. If you have any questions or concerns please call the office. If you need to go to the emergency room for any of the above problems, or any other issues, you should go to the [facility]. Please call the office before going to the hospital. If you are , go to the ER at the [facility] [place]. Do not go to the outlying ER s ([facility] or [place]). If you need to go to an ER and cannot or will not go downtown, please use one of [facility] ER s (not [facility], [place] or [facility]). When to Call Your Health Care [...] Pain with an open window Sexual intercourse. [place] is not recommended for patients who are [...] your delivery date; clipping is preferred OB [id number] PROTOCOLS PROBLEM OTC MEDICATION CALL OFFICE IF: [...] 2 days - taisha cause rebound congestion), [place] Nasal Dinosaur, Flonase, Nasonex PAIN: Tylenol (acetaminophen), Extra Strength [...] the vagina Maternity and Childbirth Classes visit [email or web address] or call [phone] Classes available: Baby care for beginners- a [...] a variety of foods. Use the website www.[employer].gov as a guide to choose the amounts of foods in each food group. Daily guidelines for eating healthy during Calcium: Calcium is needed in the body to build strong bones and teeth. Calcium also allows the blood to clot normally, nerves to function properly, and the heart to beat normally. The [place] [employer] Obstetricians and Gynecologists (ACOG) recommends [...] the skin to vitamin D. DHA: The [place] [employer]stetric[employer] and Gynec[employer] (ACOG), recommends [...] During section of this book for safe fcrb-kja-upcbauv medicine that may assist with symptoms. Morning [...] of [place]. Eating healthy during Accessed 05/23/2015. [place] [employer]. Diet During Accessed 05/23/2015. Copyright 9270-7364 The [facility]. All rights reserved This information is provided by the [facility] and is not intended to replace the medical advice of your doctor or health care provider. Please consult your health care provider for advice about a specific medical condition. For additional health information, please contact the Center for Consumer Health Information at the [facility] or toll-free extension [phone]. If you prefer, you may visit [email or web address] or [email or web address]. This document was last reviewed on: 2015 index#[id number] documented in this encounter [facility] 08-17-2024 Note HNO ID: [id number] Author: VELIA GUADARRAMA APRN.DOUG Service: ? Author [...] you currently employed? Yes - [employer] Depression/Anxiety Screening: denies symptoms of depression. Do [...] sac and pole (more content not included)... [facility] 08-17-2024 History of Present illness Narrative [...] you currently employed? Yes - [employer] Depression/Anxiety Screening: denies symptoms of depression. Do [...] yolk sac and pole is present. - [place] rump length measurement is NOT consistent with [...] Your guide to a health and the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. 2) Screening: Hemoglobin A1C: ordered Baby Aspirin: [...] w [ ] - prn as indicated CRANE LADLE PERSON Supervision of high risk , antepartum (HCC) [...] (28-30 weeks): [] Consent [] Contraception [] Composite Bond Technician, car seat, safe sleep [] TeamBirth handout Third trimester (36-40 weeks): [] GBS [] Presentation - [] Scheduled [] yes - Hibiclens, pre-op instructions, CBC, T&S ordered [] no [] H&P [] Preferences worksheet [] Scanned in EMR [] Patient to bring copy to hospital [] Declined History of delivery by vacuum extraction, currently ([facility]) Other History of hereditary spherocytosis Overview - [...] Other Visit Diagnoses 9 weeks gestation of ([facility]) Encounter for screening of mother ([facility]) Relevant Orders OBSTETRIC ULTRASOUND WHI GONORRHEA/CHLAMYDIA NAAT BACTERIAL CULTURE, URINE RUBELLA IGG ANTIBODY HIV 1/2 COMBO WITH REFLEX TO DIFFERENTIATION SYPHILIS TREPONEMAL W/REFLEX TYPE + SCREEN HEMOGLOBIN A1C ANEMIA REFLEX PANEL HEP ACUTE PANEL BL HEMOGLOBIN EVALUATION CASCADE OBSTETRIC ULTRASOUND WHI [id number] PLUS PAN DUMPER Follow up in 4 weeks or sooner prn. Velia Guadarrama APRN.FIREWOOD CUTTER documented in this encounter [facility] 01-20-2024 Telephone encounter Note 09.10.23 PPV Would like to get a tattoo but trapeze artist requires a drs note stating she can since she's . Are you okay with the letter? Thanks! Stacey Goldman, RN [facility] 01-20-2024 Miscellaneous Notes 09.10.23 PPV Would like to get a tattoo but trapeze artist requires a drs note stating she can since she's . Are you okay with the letter? Thanks! Stacey Goldman RN documented in this encounter [facility] 01-16-2024 Note HNO ID: [id number] Author: RADHA SANCHEZ PT Service: ? Author Type: Physical Therapist Type: Progress Notes Filed: 01/16/2024 14:38 Note Text: 01/16/2024 [facility]ER[facility] PHYSICAL THERAPY DISCONTINUANCE [...] scheduled additional follow-up appointments. Radha Sanchez, PT [facility] 09-10-2023 History of Present illness Narrative VISIT Keiko Bliss is a 28 year old year old here for visit. Delivery Summary: Latisha Bliss [[id number]] Delivery Information: Delivery Date: 08/02/23 Delivery type: Vaginal, Vacuum (Extractor) Delivering Clinician: Maribel Gonzalez DO Vacuum Used: Yes Vacuum Indications: Suspicion of Immediate or Potential Compromise Forceps Used: No Shoulder Dystocia Present: No Lacerations: Vaginal Episiotomy: None [place]: Gender: Female Weight (grams): 3112 g One Minute : 8 Five Minute : 9 ROS/ Recovery: Feeding: Breast feeding problems: None Menses since delivery: light flow Menstrual pattern prior to : Regular periods [place] since delivery: Not resumed Depression: denies symptoms [...] RADHA Swanson MD documented in this encounter [facility] 08-27-2023 Note HNO ID: [id number] Author: KATHY MARTINEZ, DO Service: ? Author [...] milk coming in: Yes Has seen a internet marketing consultant or medicine provider after hospital discharge: Yes, [facility] : Yes, every feed Pumping: Yes, every [...] with patient/family-Naeem. Please see Patient Entered Data. [place] Depression Score: 8 INFANT PAST MEDICAL HISTORY/PROBLEM [...] 08/04/2023 Meconium in Amniotic Fluid - 08/02/2023 [place] , Unspecified Gestational Age - 0508/02/2023 MEDICATIONS: No prescriptions on file. INFANT: ALLERGIES No Known Allergies MATERNAL PAST MEDICAL HISTORY/PROBLEM LIST: This section contains information obtained from infant?s mother?s chart pertinent to the care of the dyad. Prior breast imaging, surgeries, biopsies, reduction, augmentation or nipple piercing: No Breast cancer diagnosed in any family members <50 y/o, Ashkenazi Mosque descent, or FHx of ovarian cancer? No [...] #2-3 Supervision of (more content not included)... [facility] 08-27-2023 History of Present illness Narrative [...] milk coming in: Yes Has seen a internet marketing consultant or medicine provider after hospital discharge: Yes, [facility] : Yes, every feed Pumping: Yes, every [...] with patient/family-Naeem. Please see Patient Entered Data. [place] Depression Score: 8 PAST MEDICAL HISTORY/PROBLEM LIST: [...] 08/04/2023 Meconium in Amniotic Fluid - 08/02/2023 [place] Infant, Unspecified Gestational Age - 0508/02/2023 MEDICATIONS: No prescriptions on file. : ALLERGIES No Known Allergies MATERNAL PAST MEDICAL HISTORY/PROBLEM LIST: This section contains information obtained from s mother s chart pertinent to the care of the dyad. Prior breast imaging, surgeries, biopsies, reduction, augmentation or nipple piercing: No Breast cancer diagnosed in any family members <50 y/o, Ashkenazi Mosque descent, or FHx of ovarian cancer? No [...] weeks): [] Consent [] Contraception - [] Composite Bond Technician Third trimester (36-40 weeks): [x] GBS [x] [...] -1.56) based on WHO (Girls, 0-2 years) vhaaac-sgt-ujxycgakt length data based on body measurements available [...] Manipulative Treatment (OMT) referral to specialist at [facility] recommended to help with muscles/bones involved in sucking/latch: Ekta Cuevas, DO: [phone] Prem Mijares, DO, Dasha Vanegas DO, Mason Jake, DO: [phone] -Speech therapy consult recommended to help with sucking ability: For appointment call: [phone] and have patient say I was referred from the clinic -Increase volumes to 3-4 oz per feed - feed until hunger signs disappear -Keep breast a happy place - strategies discussed - attempt a few times a day -Suck training exercises discussed -Start vitamin D drops if have not already -Follow up with Medicine as needed -Continue follow up -Keep regularly scheduled fire investigator appointments - has apt tomorrow which will [...] send for stat labwork evaluation -Call your fire investigator's office/nurse line construction supervisor right away with any of the below: [...] scheduled OB appointments -Call your OB's office/nurse line construction supervisor right away with any of the following: [...] which included preparing to see the patient, sbtw-lw-zgam patient care, completing clinical documentation, obtaining and/or [...] the opportunity to help and support . [facility] Medicine Website: [email or web address]/ Kathy Martinez DO documented in this encounter [facility] 08-21-2023 Miscellaneous Notes Outpatient Consult Patient Name: [...] Information for the patient's : Latisha Bliss [[id number]] Date of : 08[birth year]02[birth year]23 Sex: female Apgars [...] only has dirty diaper once daily, states fire investigator aware) Bowel Movement Color: Yellow (per mother [...] Points: Assisted, Asymmetrical latch, Tummy to Tummy, [place] hold, Skin to Skin, Baby led, nipple [...] of baby, states she worked with a event specialist food demonstrator for [facility] after giving . Attempted to feed baby [...] per 24 hours. Recommend pt call her fire investigator after she leaves visit to discuss the bleeding with fire investigator. Recommend pt get ENT consult or see pediatric dentist to rule out tight lip frenulum and tight posterior tongue frenulum. Also discussed using a clean finger or gloved finger and do finger suck training with baby. Discussed calling to see the medicine specialists, information given for Dr Martinez and Dr Leandro Estevez. Pt states her next appointment with her fire investigator is next Saturday08/30/23. Gracei Norton RN documented in this encounter [facility] 08-21-2023 Obstetrics Note Outpatient Consult Patient Name: [...] Nash Information for the patient's : YolandatLatisha [[id number]] Date of : 08/02/2023 Sex: female Apgars [...] only has dirty diaper once daily, states fire investigator aware) Bowel Movement Color: Yellow (per mother [...] Points: Assisted, Asymmetrical latch, Tummy to Tummy, [place] hold, Skin to Skin, Baby led, nipple [...] of baby, states she worked with a event specialist food demonstrator for [facility] after giving . Attempted to feed baby [...] per 24 hours. Recommend pt call her fire investigator after she leaves visit to discuss the bleeding with fire investigator. Recommend pt get ENT consult or see pediatric dentist to rule out tight lip frenulum and tight posterior tongue frenulum. Also discussed using a clean finger or gloved finger and do finger suck training with baby. Discussed calling to see the medicine specialists, information given for Dr Martinez and Dr Leandro Estevez. Pt states her next appointment with her fire investigator is next Saturday08/30/23. Gracie Norton RN [facility] 08-15-2023 Obstetrics Note Returned phone call from pt at this time. Per pt, she is having trouble with latching infant. States infant is not showing interest in wanting to BF. States she has seen IBCLC through [facility] and was latching well, then has since regressed and has not latched well today. Mother is pumping adequately every 3 hours. She is bottle feeding infant every 2-3 hours for about 80 ml of EBM per feeding and offering breast after bottle feeding. is having > 6-8 wet / day and x 1 stool / day. Encouraged mom to contact Composite Bond Technician to notify for stool output. Mom is going to notify Composite Bond Technician and also states she has a Peds [...] support as needed. Provided support and encouragement. [facility] 08-15-2023 Miscellaneous Notes Returned phone call from pt at this time. Per pt, she is having trouble with latching infant. States is not showing interest in wanting to BF. States she has seen IBCLC through [facility] and was latching well, then has since regressed and has not latched well today. Mother is pumping adequately every 3 hours. She is bottle feeding every 2-3 hours for about 80 ml of EBM per feeding and offering breast after bottle feeding. Infant is having > 6-8 wet / day and x 1 stool / day. Encouraged mom to contact Composite Bond Technician to notify for stool output. Mom is going to notify Composite Bond Technician and also states she has a Peds [...] support and encouragement. documented in this encounter [facility] 08-02-2023 Progress note Formatting of t his note might be different from the original. No painful contractions at this time however having some irregular [place] contractions. No vaginal bleeding, discharge or leakage of fluid. Fetus is active. On examination, the cervix was about 5 cm dilated, 90% effaced with vertex at -1 station. For induction on August 06, patient was instructed to go to the labor if having any contractions or for any vaginal bleeding or leakage of fluid. Rian Swanson MD [facility] 08-02-2023 Miscellaneous Notes No painful contractions at this time however having some irregular [place] contractions. No vaginal bleeding, discharge or leakage of fluid. Fetus is active. On examination, the cervix was about 5 cm dilated, 90% effaced with vertex at -1 station. For induction on August 06, patient was instructed to go to the labor if having any contractions or for any vaginal bleeding or leakage of fluid. Rian Swanson MD documented in this encounter [facility] 08-02-2023 Nurse Note Movement? Active baby Vaginal Bleeding: NO Vaginal fluid leakage of fluid: NO Contractions: no contractions Edema: Negative Evaristo La MA August 02, 2023 10:46 AM [facility] 08-02-2023 Nurse Note Movement? Active baby Vaginal Bleeding: NO Vaginal fluid leakage of fluid: NO Contractions: no contractions Edema: Negative Evaristo La MA August 02, 2023 10:46 AM documented in this encounter [facility] 07-31-2023 Note HNO ID: [id number] Author: EVELINE BOLAÑOS MA Service: ? Author Type: Operating Manager Type: Progress Notes Filed: 07/31/2023 12:32 Note Text: POPULATION HEALTH NAVIGATION OUTREACH Action/FYI Composite Bond Technician updated per response. Reason for Outreach Medicaid OB/Peds Care Gaps due: N/A Patient Contacted: Spoke to patient/parent/or legal guardian Patient identified by name and : Yes Medicaid OB/Peds actions taken: /Composite Bond Technician added Navigation Signature: Eveline Quiñones MA July 31, 2023 12:31 PM [facility] 07-24-2023 Progress note Formatting of t his [...] weeks): [] Consent [] Contraception - [] Composite Bond Technician Third trimester (36-40 weeks): [x] GBS [x] [...] IOL at next visit Vic Arita DO [facility] 07-24-2023 Miscellaneous Notes G1 at 39/2 +FM [...] weeks): [] Consent [] Contraception - [] Composite Bond Technician Third trimester (36-40 weeks): [x] GBS [x] [...] Vic Arita DO documented in this encounter [facility] 07-24-2023 Nurse Note Movement? Active baby Vaginal Bleeding: NO Vaginal fluid leakage of fluid: NO Contractions: no contractions Edema: Trace Ariane Morgan LPN [facility] 07-24-2023 Nurse Note Movement? Active baby Vaginal Bleeding: NO Vaginal fluid leakage of fluid: NO Contractions: no contractions Edema: Trace Ariane Morgan LPN documented in this encounter [facility] 07-23-2023 History of Present illness Narrative Episode [...] Radha Sanchez PT documented in this encounter [facility] 07-17-2023 Progress note Formatting of t his [...] weeks): [] Consent [] Contraception - [] Composite Bond Technician Third trimester (36-40 weeks): [x] GBS [x] Presentation - cephalic by Estelita, pt states she feels butt near ribs [] Scheduled [] yes - Hibiclens, pre-op instructions, CBC, T&S ordered [x] no [] H&P Other Visit Diagnoses 38 weeks gestation of - Primary Relevant Orders UA DIP, URINE (POC) F/u 1 wk Vic Arita DO [facility] 07-17-2023 Miscellaneous Notes 28yo G1 at 38/2 [...] weeks): [] Consent [] Contraception - [] Composite Bond Technician Third trimester (36-40 weeks): [x] GBS [x] Presentation - cephalic by Estelita pt states she feels butt near ribs [] Scheduled [] yes - Hibiclens, pre-op instructions, CBC, T&S ordered [x] no [] H&P Other Visit Diagnoses 38 weeks gestation of - Primary Relevant Orders UA DIP, URINE (POC) F/u 1 wk Vic Arita DO documented in this encounter [facility] 07-17-2023 Nurse Note Movement? Active baby Vaginal Bleeding: NO Vaginal fluid leakage of fluid: NO Contractions: no contractions Edema: Negative Norma Taylor LPN [facility] 07-17-2023 Nurse Note Movement? Active baby Vaginal Bleeding: NO Vaginal fluid leakage of fluid: NO Contractions: no contractions Edema: Negative Norma Taylor LPN documented in this encounter [facility] 07-17-2023 Note HNO ID: [id number] Author: EVELINE BOLAÑOS MA Service: ? Author Type: Operating Manager Type: Progress Notes Filed: 07/17/2023 11:03 Note [...] Quiñones MA July 17, 2023 11:00 AM [facility] 07-17-2023 History of Present illness Narrative Program_ID:[id number] Access Code: [email or web address] URL: [email or web address]/ Date: 07-17-2023 Prepared By: Radha Sanchez Program [...] SPORTS THERAPY PHYSICAL THERAPY TREATMENT NOTE ASSESSMENT: Kekio Bliss tolerated the session with no issues. [...] Radha Sanchez PT documented in this encounter [facility] 07-15-2023 Note HNO ID: [id number] Author: EVELINE BOLAÑOS MA Service: ? Author Type: Operating Manager Type: Progress Notes Filed: 07/15/2023 13:05 Note Text: POPULATION HEALTH NAVIGATION OUTREACH Action/ attempt: Called and left message to call back to discuss fire investigator. MC message sent. Reason for Outreach Medicaid OB/Peds Care Gaps due: N/A Patient Contacted: Unable or unnecessary to reach patient: Left message [employer] message sent Navigation Signature: Eveline Quiñones MA July 15, 2023 9:56 AM [facility] 07-15-2023 History of Present illness Narrative POPULATION HEALTH NAVIGATION OUTREACH Action/ 1st attempt: Called and left message to call back to discuss fire investigator. MC message sent. Reason for Outreach Medicaid OB/Peds Care Gaps due: N/A Patient Contacted: Unable or unnecessary to reach patient: Left message MyChart message sent Navigation Signature: Eveline Quiñones MA July 15, 2023 9:56 AM documented in this encounter [facility] 07-15-2023 Note Patient Outreach (LUCERO TNAV) RUTHY,KEIKO Bustos ([id number]) 1995 F Date Time Provider Department 07/15/23 EVELINE BOLAÑOS During your visit today, we recorded the following information about you: Eveline Bolaños MA 07/15/2023 1:05 PM Signed POPULATION HEALTH NAVIGATION OUTREACH Action/FYI 1st attempt: Called and left message to call back to discuss fire investigator. message sent. Reason for Outreach Medicaid OB/Peds [...] PM Signed POPULATION HEALTH NAVIGATION OUTREACH Action/FYI Composite Bond Technician updated per MC response. Reason for Outreach Medicaid OB/Peds Care Gaps due: N/A Patient Contacted: Spoke to patient/parent/or legal guardian Patient identified by name and : Yes Medicaid OB/Peds actions taken: [place]/Composite Bond Technician added Navigation Signature: Eveline Quiñones MA July [...] Encounter Status:Closed by BOLAÑOSEVELINE DEAN on 07/15/23 [facility] 07-12-2023 Progress note Formatting of t his note might be different from the original. Denies contractons, leakage of fluid and vaginal bleeding. Reports good movement. Reviewed labor precautions Rec finding a peds, enc BF Ryanne Milian MD, MD [facility] 07-12-2023 Miscellaneous Notes Denies contractons, leakage of fluid and vaginal bleeding. Reports good movement. Reviewed labor precautions Rec finding a peds, enc BF Ryanne Milian MD, MD documented in this encounter [facility] 07-12-2023 Nurse Note Movement? Active baby Vaginal Bleeding: NO Vaginal fluid leakage of fluid: NO Contractions: no contractions Edema: Negative Yesica Bryant MA [facility] 07-12-2023 Nurse Note Movement? Active baby Vaginal Bleeding: NO Vaginal fluid leakage of fluid: NO Contractions: no contractions Edema: Negative Yesiac Bryant MA documented in this encounter [facility] 07-03-2023 History of Present illness Narrative Program_ID:[id number] Access Code: [email or web address] URL: [email or web address]/ Date: 07-03-2023 Prepared By: Radha Sanchez Program [...] Planned: 4 Planned Treatment Interventions: Therapeutic exercise (87707), Neuromuscular re-education (87953), Manual therapy (55318), Therapeutic activities (00242), Self-longterm management (94991), Patient/Family/Caregiver Education, Body Mechanics Training PLAN FOR [...] Function: Independent without limitations Relevant History Employment: [employer]: See Comment [employer] Occupation: Works in [employer] for [employer]. Drives some for work, but average drive [...] limitation, End range pain Lumbar R Side [place]: Normal Lumbar L Side [place]: Normal Lumbar R [place]: Normal Lumbar L [...] Radha Sanchez PT documented in this encounter [facility] 07-03-2023 Progress note Formatting of t his [...] weeks): [] Consent [] Contraception - [] Composite Bond Technician Third trimester (36-40 weeks): [] GBS [] Presentation - [] Scheduled [] yes - Hibiclens, pre-op instructions, CBC, T&S ordered [] no [] H&P Other Visit Diagnoses 36 weeks gestation of Relevant Orders UA DIP, URINE (POC) Encounter for screening of mother F/u 1 week.Haven Cunningham MD [facility] 07-03-2023 Miscellaneous Notes Good fm Labor precautions [...] weeks): [] Consent [] Contraception - [] Composite Bond Technician Third trimester (36-40 weeks): [] GBS [] Presentation - [] Scheduled [] yes - Hibiclens, pre-op instructions, CBC, T&S ordered [] no [] H&P Other Visit Diagnoses 36 weeks gestation of Relevant Orders UA DIP, URINE (POC) Encounter for screening of mother F/u 1 week.Haven Cunningham MD documented in this encounter [facility] 07-03-2023 Nurse Note Movement? Active baby Vaginal Bleeding: NO Vaginal fluid leakage of fluid: NO Contractions: no contractions Edema: Negative Ariane Morgan LPN [facility] 07-03-2023 Nurse Note Movement? Active baby Vaginal Bleeding: NO Vaginal fluid leakage of fluid: NO Contractions: no contractions Edema: Negative Ariane Morgan LPN documented in this encounter [facility] 06-19-2023 Miscellaneous Notes Good fm Ptl precautions [...] weeks): [] Consent [] Contraception - [] Composite Bond Technician Third trimester (36-40 weeks): [] GBS [] Presentation - [] Scheduled [] yes - Hibiclens, pre-op instructions, CBC, T&S ordered [] no [] H&P Other Visit Diagnoses 34 weeks gestation of Relevant Orders UA DIP, URINE (POC) Rto 2 weeks documented in this encounter [facility] [place] 06-19-2023 Nurse Note Movement? Active baby Vaginal Bleeding: NO Vaginal fluid leakage of fluid: NO Contractions: no contractions Edema: Negative Evaristo La MA June 19, 2023 9:13 AM documented in this encounter [facility] 06-05-2023 Miscellaneous Notes Good fm Ptl precautions [...] weeks): [] Consent [] Contraception - [] Composite Bond Technician Third trimester (36-40 weeks): [] GBS [] Presentation - [] Scheduled [] yes - Hibiclens, pre-op instructions, CBC, T&S ordered [] no [] H&P Other Visit Diagnoses 32 weeks gestation of - Primary Relevant Orders UA DIP, URINE (POC) Rto 2 weeks. Us results not released yet. Consult pt declines tdapDajoel Cunningham MD documented in this encounter [facility] 06-05-2023 Nurse Note Movement? Active baby Vaginal Bleeding: NO Vaginal fluid leakage of fluid: NO Contractions: no contractions Edema: Negative Yesica Bryant MA documented in this encounter [facility] 06-05-2023 Miscellaneous Notes RTE showing rejected. Called [facility] to verify elig. Per call, patient is eligible and eff date of plan is [id number] with no expected term date. Call ref# [id number] documented in this encounter [facility] 05-08-2023 History of Present illness Narrative Patient has been identified by name and date of : Yes Pt is A-, ok to give per Dr Valencia. Keiko is here for an injection of Rhogam Dose: 300mcg Route: Intramuscular Given without incident. Site: right buttox Environmental Epidemiologist: [employer] Lot #: [id number] [facility] #: [id number] Expiration Date: 26SEP2024 Dr. Valencia present in clinic at time of injection. Kaitlin Martin LPN documented in this encounter [facility] 05-08-2023 Miscellaneous Notes Patient is going to be getting her Rhogam injection. Will need a type and screen the day before. Can you please place this order? 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 Active baby Vaginal Bleeding: NO Vaginal fluid leakage of fluid: NO Contractions: no contractions Edema: Negative Ariane Morgan LPN documented in this encounter [facility] 04-16-2023 Miscellaneous Notes No complaints of contractions, [...] Rian Swanson MD documented in this encounter [facility] 04-16-2023 Nurse Note Movement? Active baby Vaginal Bleeding: NO Vaginal fluid leakage of fluid: NO Contractions: no contractions Edema: Negative Norma Taylor LPN documented in this encounter [facility] 02-11-2023 Miscellaneous Notes Aware of results. Gender placed in env and she will pick it up at [place] office. Cyndi Grissom RN Low risk NIPT and low risk AFP documented in this encounter [facility] 02-05-2023 Miscellaneous Notes Called and spoke with Keiko to schedule for a MFM consult. She requested that it be completed at the same time as her anatomy US. documented in this encounter [facility] 02-04-2023 Miscellaneous Notes ASSESSMENT/PLAN: 1. Cervical cancer [...] malformation - ICD9: V28.89, ICD10: Z36.3 - [id number] PLUS - ALPHA FETOPRO MATERNAL - URINE CULTURE - GONORRHEA/CHLAMYDIA NAAT 6. History of hereditary spherocytosis - ICD9: V12.3, ICD10: Z86.2 - CONSULT TO MATERNAL MEDICINE (AG) Silvia Mendoza APRN.FIREWOOD CUTTER documented in this encounter [facility] 02-04-2023 Nurse Note Movement? 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 3. Agnew rump length measurement is consistent with the [...] malformation - ICD9: V28.89, ICD10: Z36.3 - [id number] PLUS - ALPHA FETOPRO MATERNAL - URINE CULTURE - GONORRHEA/CHLAMYDIA NAAT 6. History of hereditary spherocytosis - ICD9: V12.3, ICD10: Z86.2 - CONSULT TO MATERNAL MEDICINE (AG) Silvia Mendoza APRN.[employer]RE[employer] C[employer]TER documented in this encounter [facility] 01-18-2023 Instructions Ryanne Milian MD - 01/18/2023 [...] questions and concerns. 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 Enc to call billing to see how much it would cost. Cyndi Grissom RN documented in this encounter [facility] 03-29-2021 Note [facility] Work Phone: Pap Smear Specimen Adequacy March 30, 2021 12:59am Comment Satisfactory for evaluation. Endocervical and/or squamous metaplasticcells (endocervical component) are present. Comment on above: Satisfactory for jennifer luation. Endocervical and/or squamous metaplasticcells (endocervical component) are present. Evaluation note Diagnosis Onset Date LGSIL on Pap smear of cervix acute [facility] Work Phone: Evaluation note* Diagnosis Amenorrhea, secondary- Primary Absence of menstruation [facility] Diagnosis Rh negative state in antepartum period, second trimester- Primary Cervical cancer screening Screening for malignant neoplasm of the cervix 15 weeks gestation of state, incidental Encounter for anatomic survey Encounter for screening for malformation History of hereditary spherocytosis Personal history of diseases of blood and blood-forming organs documented [facility] Diagnosis 25 weeks gestation of - Primary state, incidental History of hereditary spherocytosis Personal history of diseases of blood and blood-forming organs Rh negative state in antepartum period, second trimester [facility] Diagnosis Supervision of high risk in third trimester- Primary Unspecified high-risk 28 weeks gestation of state, incidental Rh negative state in antepartum period, third trimester History of hereditary spherocytosis Personal history of diseases of blood and blood-forming organs [facility] Need for rhogam due to Rh negative mother- Primary Need for prophylactic immunotherapy [facility] Diagnosis Rh negative state in antepartum period- Primary Rhesus isoimmunization affecting management of mother, antepartum condition [facility] Diagnosis Encounter for ultrasound to assess growth- Primary History of hereditary spherocytosis Personal history of diseases of blood and blood-forming organs [facility] Diagnosis Supervision of high risk in third trimester- Primary Unspecified high-risk 32 weeks gestation of state, incidental Rh negative state in antepartum period, second trimester Polycythemia Polycythemia vera History of hereditary spherocytosis Personal history of diseases of blood and blood-forming organs [facility] Diagnosis Supervision of high risk in third trimester- Primary Unspecified high-risk 34 weeks gestation of state, incidental Rh negative state in antepartum period, second trimester History of hereditary spherocytosis Personal history of diseases of blood and blood-forming organs [facility] Diagnosis Supervision of high risk in third trimester- Primary Unspecified high-risk 36 weeks gestation of state, incidental Rh negative state in antepartum period, second trimester Polycythemia Polycythemia vera History of hereditary spherocytosis Personal history of diseases of blood and blood-forming organs Encounter for screening of mother Unspecified screening [facility] Diagnosis Decreased ROM of lumbar spine- Primary 32 weeks gestation of state, incidental [facility] Diagnosis Rh negative state in antepartum period, second trimester- Primary 37 weeks gestation of state, incidental [facility] Diagnosis 32 weeks gestation of - Primary state, incidental Decreased ROM of lumbar spine [facility] Diagnosis 38 weeks gestation of - Primary state, incidental Polycythemia Polycythemia vera Rh negative state in antepartum period, second trimester Supervision of high risk in third trimester Unspecified high-risk History of hereditary spherocytosis Personal history of diseases of blood and blood-forming organs [facility] Diagnosis 32 weeks gestation of - Primary state, incidental Decreased ROM of lumbar spine 39 weeks gestation of - Primary state, incidental [facility] Diagnosis 39 weeks gestation of - Primary state, incidental Rh negative state in antepartum period, second trimester Polycythemia Polycythemia vera Supervision of high risk in third trimester Unspecified high-risk [facility] Diagnosis 40 weeks gestation of - Primary state, incidental History of hereditary spherocytosis Personal history of diseases of blood and blood-forming organs Rh negative state in antepartum period, second trimester [facility] Diagnosis Other disorders of - Primary [facility] Diagnosis state- Primary Routine follow-up documented [facility]* Diagnosis 20 weeks gestation of ([facility])- Primary state, incidental History of hereditary spherocytosis Personal history of diseases of blood and blood-forming organs Polycythemia Polycythemia vera Supervision of high risk , antepartum ([facility])- Primary History of hereditary spherocytosis Personal history of diseases of blood and blood-forming organs Rh negative state in antepartum period ([facility]) Rhesus isoimmunization affecting management of mother, antepartum condition History of delivery by vacuum extraction, currently ([facility]) with other poor obstetric history 9 weeks gestation of ([facility]) state, incidental Encounter for screening of mother ([facility]) Unspecified screening Polycythemia Polycythemia vera [facility] Diagnosis 20 weeks gestation of ([facility])- Primary state, incidental History of hereditary spherocytosis Personal history of diseases of blood and blood-forming organs Polycythemia Polycythemia vera Early stage of ([facility]) state, incidental [facility] Diagnosis 20 weeks gestation of ([facility])- Primary state, incidental History of hereditary spherocytosis Personal history of diseases of blood and blood-forming organs Polycythemia Polycythemia vera Supervision of high risk , antepartum ([facility])- Primary Encounter for screening of mother ([facility]) Unspecified screening [facility]* Diagnosis 20 weeks gestation of [...] Polycythemia Polycythemia vera 13 weeks gestation of ([facility]) state, incidental documented in this encounter [facility] note* Diagnosis 20 weeks gestation of (HCC)- Primary state, incidental History of hereditary spherocytosis Personal history of diseases of blood and blood-forming organs Polycythemia Polycythemia vera Supervision of high risk , antepartum (HCC)- Primary Rh negative state in antepartum period ([facility]) Rhesus isoimmunization affecting management of mother, 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 History of hereditary spherocytosis Personal history of diseases of blood and blood-forming organs 17 weeks gestation of ([facility]) state, incidental * Assessment & Plan Note - Velia Guadarrama APRN.CNP - 10/13/2024 8:09 AM EDT Associated Problem(s): Thrombocytosis after splenectomy - platelets on PNLs were 500 documented in this encounter [facility] note* Diagnosis 20 weeks gestation of (HCC)- Primary state, incidental History of hereditary spherocytosis Personal history of diseases of blood and blood-forming organs Polycythemia Polycythemia vera Supervision of high risk , antepartum (HCC)- Primary Rh negative state in antepartum period ([facility]) Rhesus isoimmunization affecting management of mother, 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 History of hereditary spherocytosis Personal history of diseases of blood and blood-forming organs 17 weeks gestation of ([facility]) state, incidental Encounter for screening of mother ([facility]) Unspecified screening documented in this encounter [facility] for referral (narrative)* Diagnostic Procedure Only (Routine) - Pending Review Specialty Diagnoses / Procedures Referred By Gary t Referred To Contact [facility] Diagnoses Encounter for anatomic survey Procedures OBSTETRIC ULTRASOUND WHI US PREG UTERUS AFTER 1ST TRIMEST GESTATION Silvia Mendoza APRN.CNP [address] [place] [address] [address] Referral ID Status Reason Start Date Expiration Date Visits Requested Visits Authorized [id number] Pending Review Auto-Generat ed Referral 02/04/2023 02/04/2024 1 [facility] Diagnostic Procedure Only (Routine) - Authorized Specialty Diagnoses / Procedures Referred By Contac t Referred To Contact [facility] Diagnoses History of hereditary spherocytosis Procedures OBSTETRIC ULTRASOUND WHI US PREG UTERUS AFTER 1ST TRIMEST GESTATION Haven Cunningham MD [address] [place] [address] [address] Referral ID Status Reason Start Date Expiration Date Visits Requested Visits Authorized [id number] Authorized Auto-Generat ed Referral 05/08/2023 05/07/2024 1 1 [facility] Chief Complaint and Reason for Visit 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) Colposcopy COLPOSCOPY Reason for Visit LGSIL on Pap smear o f cervix Reason for Referral Specialty Diagnoses / Procedures Referred By Contac t Referred To Contact [facility] Diagnoses 32 weeks gestation of Procedures CONSULT TO PHYSICAL THERAPY PHYSICAL THERAPY EVALUATION HIGH COMPLEX 45 MINS Haven Cunningham MD [address] [place] [address] [address] Referral ID Status Reason Start Date Expiration Date Visits Requested Visits Authorized [id number] Pending Review Auto-Generat ed Referral 06/05/2023 06/04/2024 1 1 Specialty Diagnoses / Procedures Referred By Contac t Referred To Contact [facility] Diagnoses 32 weeks gestation of Decreased ROM of lumbar spine Procedures PT REHAB FOLLOW UP ORDER THERAPEUTIC EXERCISES RE, EA [address] [place] [address] [facility] [place] [address] [place] [address] Referral ID Status Reason Start Date Expiration Date Visits Requested Visits Authorized [id number] Pending Review PCP Requested Referral Auto-Generate d Referral 07/03/2023 10/01/2023 1 1 Referral ID Status Reason Start Date Expiration Date Visits Requested Visits Authorized [id number] Pending Review PCP Requested Referral Auto-Generate d [...] or prosecute any alcohol or drug abuse patient.[facility] the event this information is protected by the Federal Confidentiality of Alcohol and Drug Abuse Patient Records regulations: The Federal rules restrict any use of the information to criminally investigate or prosecute any alcohol or drug abuse patient.[facility] the event this information is protected by the Federal Confidentiality of Alcohol and Drug Abuse Patient Records regulations: The Federal rules restrict any use of the information to criminally investigate or prosecute any alcohol or drug abuse patient.[facility] the event this information is protected by the Federal Confidentiality of Alcohol and Drug Abuse Patient Records regulations: The Federal rules restrict any use of the information to criminally investigate or prosecute any alcohol or drug abuse patient.[facility] the event this information is protected by the Federal Confidentiality of Alcohol and Drug Abuse Patient Records regulations: The Federal rules restrict any use of the information to criminally investigate or prosecute any alcohol or drug abuse patient.[facility] the event this information is protected by the Federal Confidentiality of Alcohol and Drug Abuse Patient Records regulations: The Federal rules restrict any use of the information to criminally investigate or prosecute any alcohol or drug abuse patient.[facility] the event this information is protected by the Federal Confidentiality of Alcohol and Drug Abuse Patient Records regulations: The Federal rules restrict any use of the information to criminally investigate or prosecute any alcohol or drug abuse patient.[facility] the event this information is protected by the Federal Confidentiality of Alcohol and Drug Abuse Patient Records regulations: The Federal rules restrict any use of the information to criminally investigate or prosecute any alcohol or drug abuse patient.[facility] the event this information is protected by the Federal Confidentiality of Alcohol and Drug Abuse Patient Records regulations: The Federal rules restrict any use of the information to criminally investigate or prosecute any alcohol or drug abuse patient.[facility] the event this information is protected by the Federal Confidentiality of Alcohol and Drug Abuse Patient Records regulations: The Federal rules restrict any use of the information to criminally investigate or prosecute any alcohol or drug abuse patient.[facility] the event this information is protected by the Federal Confidentiality of Alcohol and Drug Abuse Patient Records regulations: The Federal rules restrict any use of the information to criminally investigate or prosecute any alcohol or drug abuse patient.[facility] the event this information is protected by the Federal Confidentiality of Alcohol and Drug Abuse Patient Records regulations: The Federal rules restrict any use of the information to criminally investigate or prosecute any alcohol or drug abuse patient.[facility] the event this information is protected by the Federal Confidentiality of Alcohol and Drug Abuse Patient Records regulations: The Federal rules restrict any use of the information to criminally investigate or prosecute any alcohol or drug abuse patient.[facility] the event this information is protected by the Federal Confidentiality of Alcohol and Drug Abuse Patient Records regulations: The Federal rules restrict any use of the information to criminally investigate or prosecute any alcohol or drug abuse patient.[facility] [place]onIn the event this information is protected by the Federal Confidentiality of Alcohol and Drug Abuse Patient Records regulations: The Federal rules restrict any use of the information to criminally investigate or prosecute any alcohol or drug abuse patient.[facility] [place]In the event this information is protected by the Federal Confidentiality of Alcohol and Drug Abuse Patient Records regulations: The Federal rules restrict any use of the information to criminally investigate or prosecute any alcohol or drug abuse patient.[facility] [place]In the event this information is protected by the Federal Confidentiality of Alcohol and Drug Abuse Patient Records regulations: The Federal rules restrict any use of the information to criminally investigate or prosecute any alcohol or drug abuse patient.[facility] [place]In the event this information is protected by the Federal Confidentiality of Alcohol and Drug Abuse Patient Records regulations: The Federal rules restrict any use of the information to criminally investigate or prosecute any alcohol or drug abuse patient.[facility] [place]In the event this information is protected by the Federal Confidentiality of Alcohol and Drug Abuse Patient Records regulations: The Federal rules restrict any use of the information to criminally investigate or prosecute any alcohol or drug abuse patient.[facility] [place]In the event this information is protected by the Federal Confidentiality of Alcohol and Drug Abuse Patient Records regulations: The Federal rules restrict any use of the information to criminally investigate or prosecute any alcohol or drug abuse patient.[facility] [place]In the event this information is protected by the Federal Confidentiality of Alcohol and Drug Abuse Patient Records regulations: The Federal rules restrict any use of the information to criminally investigate or prosecute any alcohol or drug abuse patient.[facility] [place]onIn the event this information is protected by the Federal Confidentiality of Alcohol and Drug Abuse Patient Records regulations: The Federal rules restrict any use of the information to criminally investigate or prosecute any alcohol or drug abuse patient.[facility] [place]In the event this information is protected by the Federal Confidentiality of Alcohol and Drug Abuse Patient Records regulations: The Federal rules restrict any use of the information to criminally investigate or prosecute any alcohol or drug abuse patient.[facility] [place]In the event this information is protected by the Federal Confidentiality of Alcohol and Drug Abuse Patient Records regulations: The Federal rules restrict any use of the information to criminally investigate or prosecute any alcohol or drug abuse patient.[facility] [place]onIn the event this information is protected by the Federal Confidentiality of Alcohol and Drug Abuse Patient Records regulations: The Federal rules restrict any use of the information to criminally investigate or prosecute any alcohol or drug abuse patient.[facility] [place]In the event this information is protected by the Federal Confidentiality of Alcohol and Drug Abuse Patient Records regulations: The Federal rules restrict any use of the information to criminally investigate or prosecute any alcohol or drug abuse patient.[facility] the event this information is protected by the Federal Confidentiality of Alcohol and Drug Abuse Patient Records regulations: The Federal rules restrict any use of the information to criminally investigate or prosecute any alcohol or drug abuse patient.[facility] [place]In the event this information is protected by the Federal Confidentiality of Alcohol and Drug Abuse Patient Records regulations: The Federal rules restrict any use of the information to criminally investigate or prosecute any alcohol or drug abuse patient.[facility], [place]onIn the event this information is protected by [...] or prosecute any alcohol or drug abuse patient.[facility] [place]onIn the event this information is protected by the Federal Confidentiality of Alcohol and Drug Abuse Patient Records regulations: The Federal rules restrict any use of the information to criminally investigate or prosecute any alcohol or drug abuse patient.[facility] [place]onIn the event this information is protected by the Federal Confidentiality of Alcohol and Drug Abuse Patient Records regulations: The Federal rules restrict any use of the information to criminally investigate or prosecute any alcohol or drug abuse patient.[facility] [place]onIn the event this information is protected by the Federal Confidentiality of Alcohol and Drug Abuse Patient Records regulations: The Federal rules restrict any use of the information to criminally investigate or prosecute any alcohol or drug abuse patient.[facility] [place]onIn the event this information is protected by the Federal Confidentiality of Alcohol and Drug Abuse Patient Records regulations: The Federal rules restrict any use of the information to criminally investigate or prosecute any alcohol or drug abuse patient.[facility] [place]In the event this information is protected by the Federal Confidentiality of Alcohol and Drug Abuse Patient Records regulations: The Federal rules restrict any use of the information to criminally investigate or prosecute any alcohol or drug abuse patient.[facility] [place]onIn the event this information is protected by the Federal Confidentiality of Alcohol and Drug Abuse Patient Records regulations: The Federal rules restrict any use of the information to criminally investigate or prosecute any alcohol or drug abuse patient.[facility] [place]onIn the event this information is protected by the Federal Confidentiality of Alcohol and Drug Abuse Patient Records regulations: The Federal rules restrict any use of the information to criminally investigate or prosecute any alcohol or drug abuse patient.[facility] [place] Reason for Visit (unrecogniz ed section and content) Reason Comments US Specialty Diagnoses / Procedures Referred By Contac t Referred To Contact [facility] Diagnoses Est pt, Care Procedures OFFICE/OUTPATIENT ESTABLISHED HIGH MDM 40 MIN Est pt, Care Velia Guadarrama, [employer] 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 [place] [address] Phone: tel: fax: [facility] Obstetrics & Gynecology [address] [place] [address] Phone: tel: fax: Referral ID Status Reason Start Date Expiration Date Visits Requested Visits Authorized [id number] Authorized OON/Self Pay Override 03/04/2024 03/03/2025 99 99 Reason Comments Care 39 w 2 d Specialty Diagnoses / Procedures Referred By Contac t Referred To Contact [facility] Diagnoses Encounter for supervision of normal , unspecified, unspecified trimester Procedures OFFICE/OUTPATIENT ESTABLISHED LOW MDM 20 MIN Haven Cunningham MD [address] [place] [address] Electric Lift Truck Driver [facility] [address] [facility] [address] [place] [address] Referral ID Status Reason Start Date Expiration Date Visits Requested Visits Authorized [id number] Pending Review OON/Self Pay Override 06/05/2023 09/12/2024 99 99 Reason Comments Care 36 w 2 d Reason Comments Patient Question Reason Comments Med Change Request Reason Comments Follow Up US prior to confirm Reason Comments Care Reason Comments Appointment Reason Comments Results Reason Comments Care Specialty Diagnoses / Procedures Referred By Contac t Referred To Contact [facility] Diagnoses care Procedures care Rian Swanson I, MD [address] [place] [address] Electric Lift Truck Driver [facility] [address] [facility] [address] [place] [address] Referral ID Status Reason Start Date Expiration Date Visits Requested Visits Authorized [id number] Incomplete OON/Self Pay Override 03/19/2023 06/26/2024 15 15 Reason Comments Care 28 w 2 d Specialty Diagnoses / Procedures Referred By Contac t Referred To Contact [facility] Diagnoses Procedures Rian Swanson I, MD [address] [place] [address] Electric Lift Truck Driver [facility] [place] [address] [facility] [address] [place] [address] Referral ID Status Reason Start Date Expiration Date Visits Requested Visits Authorized [id number] Incomplete OON/Self Pay Override 04/16/2023 07/24/2024 1 1 Reason Comments Orders Reason Comments insurance eligibility RTE showing reject ed. Called [facility] to verify elig. Per call, patient is eligible and eff date of plan is [id number] with no expected term date. Call ref# [id number] Specialty Diagnoses / Procedures Referred By Contac t Referred To Contact [facility] Diagnoses History of hereditary spherocytosis Procedures OBSTETRIC ULTRASOUND WHI US PREG UTERUS AFTER 1ST TRIMEST 1 GESTATION Haven Cunningham MD [address] [place] [address] [facility] [address] [place] [address] Referral ID Status Reason Start Date Expiration Date V isits Requested Visits Authorized [id number] Closed Auto-Generate d Referral 05/08/2023 05/07/2024 1 1 Reason Comments Physical Therapy PT Eval Specialty Diagnoses / Procedures Referred By Contac t Referred To Contact PHYSICAL THERAPY Diagnoses 32 weeks gestation of Procedures CONSULT TO PHYSICAL THERAPY PHYSICAL THERAPY EVALUATION HIGH COMPLEX 45 MINS Haven Cunningham MD [address] [place] [address] [address] [place] [address] Referral ID Status Reason Start Date Expiration Date V isits Requested Visits Authorized [id number] Closed Auto-Generated Referral Financial Clearance Not Required 06/05/2023 06/04/2024 1 1 Reason Onset Date Comments Population Health Navigation Outreach 07/15/2023 OB/peds Reason Comments Physical Therapy Specialty Diagnoses / Procedures Referred By Contac t Referred To Contact PHYSICAL THERAPY Diagnoses 32 weeks gestation of Procedures CONSULT TO PHYSICAL THERAPY PHYSICAL THERAPY EVALUATION HIGH COMPLEX 45 MINS Haven Cunningham MD [address] [place] [address] [address] [place] [address] Referral ID Status Reason Start Date Expiration Date Visits Requested Visits Authorized [id number] Authorized Auto-Generate d Referral Financial Clearance Not Required 06/05/2023 08/31/2023 4 4 Reason Comments Physical Therapy Reason Comments Breast Feeding Reason Comments Breast Feeding Specialty Diagnoses / Procedures Referred By Contac t Referred To Contact Pediatrics / PRIMARY CARE PEDIATRICS Diagnoses consult Procedures 4C EST CONSULT Self Kathy Martinez DO [address] [place] [address] Referral ID Status Reason Start Date Expiration Date V isits Requested Visits Authorized [id number] Waiting for Response 08/27/2023 11/25/2023 1 1 Reason Comments Care Specialty Diagnoses / Procedures Referred By Contac t Referred To Contact [facility] Diagnoses Encounter for routine follow-up Procedures OFFICE/OUTPATIENT ESTABLISHED LOW MDM 20 MIN EST, CARE Rian Swanson I, MD [address] [place] [address] Electric Lift Truck Driver [facility] [address] [address] Referral ID Status Reason Start Date Expiration Date Visits Requested Visits Authorized [id number] Pending Review OON/Self Pay Override 08/02/2023 11/09/2024 3 3 Reason Comments Care Specialty Diagnoses / Procedures Referred By Contac t Referred To Contact [facility] Diagnoses Est pt, Care Procedures OFFICE/OUTPATIENT ESTABLISHED HIGH MDM 40 MIN Est pt, Care Velia Guadarrama, [employer] 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 [place] [address] Phone: tel: fax: [facility] [address] [place] [address] Phone: tel: fax: Referral ID Status Reason Start Date Expiration Date Visits Requested Visits Authorized [id number] Authorized OON/Self Pay Override 03/04/2024 03/03/2025 99 99 Reason Comments Us Procedure Specialty Diagnoses / Procedures Referred By Contac t Referred To Contact [facility] Diagnoses Est pt, Care Procedures OFFICE/OUTPATIENT ESTABLISHED HIGH MDM 40 MIN Est pt, Care Velia Guadarrama, [employer] CEMENT SHEET SUPERVISOR.[employer] C[employer]TER [address] [place] [address] Phone: tel: fax: [facility] Obstetrics & Gynecology [address] [place] [address] Phone: tel: fax: Referral ID Status Reason Start Date Expiration Date Visits Requested Visits Authorized [id number] Authorized OON/Self Pay Override 03/04/2024 03/03/2025 99 99 INFORMATION SOURCE (unrecogn ized section and content) DATE CREATED AUTHOR 08/06/[address] [facility] DATE CREATED AUTHOR AUTHOR'S ORGANIZ ATION 08/08/[address] [facility] DATE CREATED AUTHOR [facility]S [facility]IZ ATION [facility] CREATED AUTHOR AUTHOR'S ORGANIZ ATION [facility]/23/2024 [facility] DATE CREATED AUTHOR AUTHOR'S ORGANIZ ATION 11/27/2024 [facility] DATE CREATED AUTHOR AUTHOR'S ORGANIZ ATION 01/14/2025 [facility] Care Teams (unrecognized sec tion and content) Varitypist Relationship Specialty Start Date End Date Yanet Beckham MD [address] [place] [address] Physician Hematology/Oncology 10/15/24 Velia Guadarrama APRN.[employer] [address] [place] [address] Nurse Practitioner [employer] 10/15/24 FOR RECORDS PERTAINING TO PATIENTS WHO [...] BE BASED ON THE PRIMARY CLINICAL RECORDS. [employer] provides no warranty or guarantee of the accuracy or completeness of information in this document.
== END | disposition home or self-care (01) ==
LOC: LABSPEC 16:21
PROVIDERS: Visit Provider Advanced Practice Midwife
DX: Z34.93 Encounter for supervision of normal pregnancy, unspecified, third trimester (principal); Z3A.36 36 weeks gestation of pregnancy
CPT/HCPCS: 87081